=== PATIENT | female | born 1965 | race Caucasian/White ===

== ENCOUNTER 2017-03-23 05:58 | Inpatient (IN) ==
[2017-03-23] MEDS ORDERED: Albuterol 2.5 MG/3 ML NEBULIZER IH ONE ×2 (06:08→06:10)
[2017-03-23] MEDS ORDERED: CeFAZolin Syr 3,000MG/30 ML 3,000 MG/30 ML SYRINGE IVPB ONE (06:10)
[2017-03-23] MEDS ORDERED: Vancomycin 2,000 MG in D5% in Water 250 ML IVPB ONE (06:59)
--- NOTE | 2017-03-23 07:00 | Anesthesia Evaluation PreOp ---
Date of Encounter: 03/23/17 Time of Encounter: 06:58 - Past History Planned Operation: Right Ttotal Knee Cardiac History: HTN, Hyperlipidemia Pulmonary History: Former smoker (quit 1 month ago), Asthma, COPD (2L N/) [employer] History: Other (RLS, Neuropathy, Depression) Other Medical History: Hepatic (Fatty liver), Renal (Stones), Diabetes Type II, Thyroid (Hypothyroid), GERD, Other (Lung CA) Anesthesia History: Past Anesthesia (Right Lung lobectomy, FERMIN, Jose Alfredo. Knees, Hernia, GB, T&A, c/s x 2, salpingo-operectomy, Legt foot), Problems (Difficult to Intubate) : No Alcohol Use: none Drug use: none Medications and Allergies Aspirin Enteric Coated [Aspirin EC] 325 mg PO BID #20 tablet. 03/23/17 [Rx] OxyCODONE Immed Rel [Roxicodone 5 MG] 5 mg PO Q4HR PRN #24 tablet 03/23/17 [Rx] 3 Allergy/AdvReac Type Severity Reaction Status Date / Time hydrocodone Allergy Itching Unverified 03/19/17 11:00 morphine Allergy Itching Unverified 03/19/17 11:00 - Meds/Allergy Pre-op Review Medications Reviewed: Yes Allergies Reviewed: Yes Beta Blockers on Current Med List: No Anesthesia Results - Labs Laboratory Tests 03/19/17 03/19/17 03/19/17 11:10 11:10 11:10 WBC 11.3 H Hgb 13.1 Hct 44.3 INR 0.9 Sodium 137 Potassium 3.8 Chloride 98 Carbon Dioxide 29 BUN 9 Creatinine 0.82 - Imaging EKG: image reviewed (SR) Anesthesia Exam O2 Sat Height 1.66 m Height 1.66 m Weight 148.778 kg Weight 148.778 kg O2 Sat by Pulse Oximetry 93 Vital Signs Temp Pulse Resp BP Pulse Ox 97.9 F 89 22 138/72 93 03/23/17 06:18 03/23/17 06:18 03/23/17 06:18 03/23/17 06:18 03/23/17 06:18 Blood glucose: 166 Height: 5' 5.5'' Weight: 328# NPO (# of Hours): > 8 hrs - HEENT Pupil (Motor): Pupils equal, EOMI Mallampati: IV Teeth: Normal Oral Opening: Greater than 3 - [employer] LOC: Oriented [employer] Motor: Normal RUE, Normal LUE, Normal RLE, Normal LLE, Normal Face [employer] Sensory: Normal: RUE, LUE, RLE, LLE, Face - Cardiac Rhythm: Regular Murmur: None JVD: No Carotid Bruit: No - Pulmonary Breath Sounds: bilateral Clear Respiratory Effort: Symmetrical Anesthesia Assess/Plan ASA Score: 4 Modified Cuervo Scale for Level of Consciousness: Cooperative, oriented, and tranquil Anesthetic Plan: Regional (spinal) Autologous Blood: Yes Monitoring Plan: Standard Monitors Recovery Plan: PACU
[2017-03-23] MEDS ORDERED: Ethanol\\Acetic Acid\\Na Ace\\Ben 1,000 ML IRRIG.SOLN IR ONE (07:14)
--- NOTE | 2017-03-23 07:21 | History & Physical Report ---
Date of Encounter: 03/23/17 Time of Encounter: 07:21 24 Hour HP Update - Instructions Instructions: If the History and Physical is less than 30 days old and was completed prior to A.M. admission and or procedure and has NOT been updated on calendar day of procedure please complete this update prior to performing procedure. - Update Patient reports changes in Medical Condition: No Changes in examination, assessment, or condition: No Changes in Medication: No Preop tests/diagnostics Reviewed: Yes Surgery Remains Indicated: Yes Consent for Planned Operative Procedure(s) Verified: Yes - Pre-Operative Checklist Preoperative Checklist Indicated: No Prophylactic Antibiotic Ordered: Yes Is VTE Prophylaxis Indicated?: Yes
--- NOTE | 2017-03-23 07:25 | Discharge Summary ---
Date of Encounter: 03/26/17 Time of Encounter: 06:34 - Discharge Diagnosis (1) Morbid obesity with BMI of 50.0-59.9, adult Priority: Secondary Status: Chronic (2) Diabetes type 2, controlled Priority: Secondary Status: Chronic Qualifiers: Diabetes mellitus complication status: with unspecified complications Diabetes mellitus residential insulin use: unspecified long term care pharmacist insulin use status Qualified Code(s): E11.8 - Type 2 diabetes mellitus with unspecified complications (3) Hypertension Priority: Secondary Status: Chronic Qualifiers: Hypertension type: unspecified Qualified Code(s): I10 - Essential (primary ) hypertension (4) Hyperlipidemia Priority: Secondary Status: Chronic Qualifiers: Hyperlipidemia type: unspecified Qualified Code(s): E78.5 - Hyperlipidemia , unspecified (5) Tobacco consumption Priority: Secondary Status: Chronic (6) Asthma Priority: Secondary Status: Acute Qualifiers: Asthma severity: unspecified severity Asthma persistence: unspecified Asthma complication type: unspecified Qualified Code(s): J45.909 - Unspecified asthma, uncomplicated (7) COPD (chronic obstructive pulmonary disease) Priority: Secondary Status: Acute Qualifiers: COPD type: unspecified COPD Qualified Code(s): J44.9 - Chronic obstructive pulmonary disease, unspecified (8) Fatty liver Priority: Secondary Status: Chronic (9) Hypothyroidism Priority: Secondary Status: Chronic Qualifiers: Hypothyroidism type: unspecified Qualified Code(s): E03.9 - Hypothyroidism , unspecified (10) History of lung cancer Priority: Secondary Status: Chronic (11) Arthritis of right knee Priority: Primary Status: Chronic (12) Status post total right knee replacement Priority: Primary Status: Acute (13) Wound dehiscence, surgical Priority: Primary Status: Acute Qualifiers: Encounter type: initial encounter Qualified Code(s): T81.31XA - Disruption of external operation (surgical) wound, not elsewhere classified, initial encounter (14) Acute blood loss anemia Priority: Primary Status: Acute - Discharge Medications Prescriptions: Aspirin Enteric Coated [Aspirin EC] 325 mg PO BID #20 tablet. OxyCODONRon Immed Rel [Roxicodone 5 MG] 5 mg PO Q4HR PRN #24 tablet PRN Reason: Pain Home Medications: Albuterol Sulfate [Albuterol Inhaler] 2 puff IH Q4H PRN 03/23/17 [History] Aspirin Enteric Coated [Aspirin EC] 325 mg PO BID #20 tablet.dr 03/23/17 [Rx] BuPROPion XL (24 HR) [Wellbutrin Xl] 300 mg PO DAILY 03/23/17 [History] Cholecalciferol (Vitamin D3) [Vitamin D3] 50,000 unit PO FR 03/23/17 [History] Duloxetine HCl [Cymbalta] 60 mg PO DAILY 03/23/17 [History] Etodolac 400 mg PO BID 03/23/17 [History] Furosemide [Lasix] 40 mg PO BID PRN 03/23/17 [History] Gabapentin [Neurontin] 1,200 mg PO TID 03/23/17 [History] Insulin ASPART [NovoLOG] 0 unit SQ AD PRN 03/23/17 [History] Insulin Aspart Prot/Insuln Asp [Novolog Mix 70-30 Vial] 55 unit SQ QAM 03/23/17 [History] Insulin Aspart Prot/Insuln Asp [Novolog Mix 70-30 Vial] 85 unit SQ QPM 03/23/17 [History] Levothyroxine Sodium 150 mcg PO DAILY 03/23/17 [History] Losartan Potassium [Cozaar] 100 mg PO DAILY 03/23/17 [History] OxyCODONE Immed Rel [Roxicodone 5 MG] 5 mg PO Q4HR PRN #24 tablet 03/23/17 [Rx] Oxybutynin Chloride [Ditropan Xl] 10 mg PO DAILY 03/23/17 [History] Potassium Chloride [Klor-Con 10] 10 meq PO DAILY 03/23/17 [History] Pravastatin Sodium [Pravachol] 80 mg PO HS 03/23/17 [History] Tiotropium [Spiriva] 18 mcg PO DAILY 03/23/17 [History] Allergies/Adverse Reactions: 3 Allergy/AdvReac Type Severity Reaction Status Date / Time hydrocodone AdvReac Itching, Verified 03/24/17 20:46 Vomiting morphine AdvReac Itching Verified 03/24/17 20:46 Primary care physician: Luis Sandoval - Patient Status Disposition: Home, Self-Care Condition: Good Functional capacity at discharge: uses cane/walker Overall status at discharge: patient is progressing back to baseline - Discharge Instructions Follow Up With: Zach Hannon MD [Primary Care Provider] - - Hospital Course Hospital course: Ms. Briggs is a 51 year old female Status post right total knee replacement. Patient had an event on the commode with the leg slipped behind her. Dehisced the wound. Some postoperative day 1. Patient was taken back emergently to the OR. Extensor mechanism was intact. Patient had irrigation debridement wound closure. Patient received antibiotics and physical therapy discharge today - Time Spent with Patient Total time spent providing and/or coordinating discharge services:
[2017-03-23] MEDS ORDERED: *HR* Midazolam HCl 2 MG/2 ML VIAL ONE ×2 (07:26→08:14)
[2017-03-23] MEDS ORDERED: *HR* FentaNYL (PF) 100 MCG/2 ML VIAL ONE (07:26)
[2017-03-23] MEDS ORDERED: *HR* Propofol 200 MG/20 ML VIAL IVP ONE (07:26)
[2017-03-23] MEDS ORDERED: Ketamine *HR* 500 MG/10 ML MDV ONE (07:27)
[2017-03-23] MEDS ORDERED: Lidocaine -MPF 2% 2 ML VIAL ONE (07:27)
[2017-03-23] MEDS ORDERED: Lidocaine/EPI 1:200k 2% PF 10 ML VIAL ONE (07:30)
[2017-03-23] MEDS ORDERED: ROPIVACAINE HCL/PF 0.5% 30 ML VIAL ONE (07:31)
[2017-03-23] MEDS ORDERED: Acetaminophen IV 0 MG/0 ML INFUS..BTL ONE (07:31)
[2017-03-23] MEDS: Ringers Solution, Lactated 1,000 ML IVC SCH ×3 (07:50→23:58)
[2017-03-23] MEDS ORDERED: Vancomycin 2,000 MG in D5% in Water 500 ML IVPB ONE (08:00)
[2017-03-23] MEDS ORDERED: Propofol 500 MG/50 ML INFUS..BTL ONE (08:07)
[2017-03-23] MEDS ORDERED: Dexamethasone 4 MG/ML VIAL ONE (08:17)
[2017-03-23] MEDS ORDERED: Ondansetron 4 MG/2 ML VIAL ONE (08:17)
[2017-03-23] MEDS ORDERED: Ketorolac 30 MG/ML VIAL ONE (08:18)
[2017-03-23] MEDS ORDERED: *HR* Labetalol 20 MG/4 ML SYRINGE IVP PRN (08:29)
[2017-03-23] MEDS ORDERED: *HR* HYDROmorphone (PF) 1 MG/ML SYRINGE IVP PRN ×2 (08:29→10:31)
[2017-03-23] MEDS ORDERED: *HR* Promethazine 25 MG/ML VIAL IVP PRN (08:29)
--- NOTE | 2017-03-23 08:33 | Anesthesia Procedures ---
Date of Encounter: 03/23/17 Time of Encounter: 07:50 Procedures: Anesthesia - Nerve Block Procedure Date: 03/23/17 Time: 07:50 Allergies/Adv Reactions: hydrocodone, morphine Pre-op Diagnosis: right knee OA Surgical Procedure: right robotic TKA Checklist: Correct Patient Identifier, Correct procedure, History checked Correct side: Right Blood Thinner: No Monitor Applied: EKG, BP, Pulse Oximetry Supplemental Oxygen via Nasal Cannula (L/min): 15 (FM) Sedation: Versed (mg): 2 Sedation: Fentanyl (mcg): 100 Indication: Post Op Analgesia Pre-op Neuro Deficits: No Block Type: Femoral, Other (ipack) Catheter placed: No Sterile Technique: Yes Ultrasound used: Yes Anatomy identified: Yes Visual spread of Local: Yes Neuro Stimulation: Yes (femoral only) Nerve Stimulator Range: 0.2 - 0.4 mA Blood on Needle Aspiration: No Smooth Injection of Local: Yes Pain with Injection of Local: No Prep: Chlorhexadine Needle: 22 x 50 mm Stimuplex, 21 x 100 mm Stimuplex Local: Ropivacaine (30mL 0.5% (femoral)), Other (decadron 8mg x2 blocks, 30mL 0.25% bupivacaine (ipack)) Volume (cc): 60 Number of Attempts: 1 Complications: None/effective block Vitals: Vital Signs/O2 Sat/Glucose, Most Recent Temp Pulse Resp BP Pulse Ox 97.9 F 84 16 123/68 95 03/23/17 06:18 03/23/17 07:52 03/23/17 07:52 03/23/17 07:52 03/23/17 07:52 Blood Glucose* 166
--- NOTE | 2017-03-23 08:35 | Anesthesia Procedures ---
Date of Encounter: 03/23/17 Time of Encounter: 08:05 Procedures: Anesthesia - Epidural/Spinal Patient ID/Chart reviewed: Yes Patient examined: Yes Consent Obtained: Yes Supplemental Oxygen: Mask Supplemental Oxygen Rate (L/min): 15 Site Prep: Aseptic Technique, Sterile prep and drape, Povidone-Iodine 1% Patient position: upright Local Anesthetic: Lidocaine 1% Amount of Local Anesthetic used: 2 Interspace Used: L3-L4 Blood: No CSF: Yes (+barbotage) Paresthesia: No Spinal Needle Gauge: 22 (quinke 5in) Spinal Dose: 1.8mL 0.75% bupivacaine Vitals + FHT's: see anesthetic record
--- NOTE | 2017-03-23 09:29 | Orthopedic Operative Note ---
Date of procedure: 03/23/17 Pre-op diagnosis: Knee arthritis right Post-op diagnosis: same Procedure: Procedure: Right robotic-assisted Total knee replacement Estimated blood loss: 500 cc Hardware: Metal and polyethylene replacement. [place] Femur: 5 Tibia:6 PS insert: 11 Patella: 36 Exam Under anesthesia: 11 degree flexion contracture 12 degrees varus as calculated by the robot full flexion and no instability Procedural Notes: Grade 4 arthritic changes all 3 compartments. Operative procedure: The patient was brought to the operating room and placed on the operating room table. After general anesthesia was administered the operative knee was examined. Findings were noted in the exam under anesthesia. The operative extremity was prepped and draped in sterile surgical fashion. The patient received IV antibiotics prior to skin incision. A standard midline incision was made centered over the patella. The incision was made through the skin and subcutaneous tissue. A medial parapatellar tendon approach was performed. Care was taken to preserve tissue along the medial aspect of the patella. And to protect the patella tendon. The deep MCL was released off the medial tibia. The infra patella fat pad was excised. The patella was everted and cut was made at the level of the insertion of the quadriceps and patella tendon. The patella was sized 36 the guide was seated and the lug holes are drilled. Knee was brought into flexion. Patient noted to have Steinmann pins were placed in the tibia and the femur for the tibial and femoral arrays respectively. Checkpoints were also placed in the tibia and the femur for calculation purposes. The knee including the femur and the tibial registered. Osteophytes, ACL and PCL were excised at this point. Extension and flexion were assessed with a valgus stress components were adjusted on the computer to balance the knee. Femoral cuts were made first with robotic assistance, these included the anterior cut posterior cuts chamfer cuts. Tibial cut was then performed with robotic assistance as well. Bone fragments were removed, as well as the medial and lateral meniscus. The size 5 femoral guide was seated box cut was made lug holes are drilled. The size 6 tibial tray was seated and prepared with the fin cutter. Trial reduction with the 11 PS Isamar revealed extension of loss of 3 degree and full flexion. No varus valgus instability. Trial reduction revealed excellent patella tracking. All trial components were removed all bony surfaces were irrigated. Tibias press-fit followed by the femur PS Isamar size 141 was seated and secured patella. Patient had similar findings for motion and stability. The knee was then irrigated out with 2 L of pulse irrigation. The extensor mechanism was closed with #2 FiberWire suture and #2 PDS suture. The subcutaneous tissue was then irrigated and closed deep with #1 PDS suture superficially with 0 PDS suture and skin was closed with zip tie The patient was then placed in a sterile dressing and a postoperative brace extubated and transferred to recovery room in stable condition. Anesthesia: spinal Surgeon: Karsten Argueta Was there an branch assistant present: No Estimated blood loss (cc): 500 Condition: stable Disposition: PACU
[2017-03-23 10:06] LABS: Hematocrit 37.2 % (35.3-44.9)
[2017-03-23 10:08] LABS: Hemoglobin 11.3 g/dL (11.5-15.4)
--- NOTE | 2017-03-23 10:09 | Anesthesia Evaluation Post Op ---
Date of Encounter: 03/23/17 Time of Encounter: 10:09 - Vital Signs Vital Signs: Vital Signs/O2 Sat, Most Current Temp Pulse Resp BP Pulse Ox 98.6 F 96 20 139/63 93 03/23/17 09:41 03/23/17 10:01 03/23/17 10:01 03/23/17 10:01 03/23/17 10:01 - Lungs Lungs: Clear Ascult./Percussion - Airway Airway: Non-obstructed - Cardiovascular Regular Rate - Mental Status Mental Status: Alert & Oriented, Answers Appropriately - Pain Pain Scale: 0 Pain Scale used: Numeric (1 - 10) - Hydration Hydration: Ice chips, Has not voided - Discharge PostOp Status: Transfer Patient to floor
[2017-03-23] MEDS ORDERED: *HR* Dextrose 50 % in Water (Syg) 50 ML SYRINGE IVP PRN (10:31)
[2017-03-23] MEDS ORDERED: Naloxone 0.4 MG/ML INJ IVP PRN (10:31)
[2017-03-23] MEDS ORDERED: Furosemide 40 MG TABLET PO PRN (10:31)
[2017-03-23] MEDS ORDERED: Ondansetron 4 MG/2 ML VIAL IVP PRN (10:31)
[2017-03-23] MEDS ORDERED: D5% in Water 1,000 ML IVC PRN (10:31)
[2017-03-23] MEDS ORDERED: Temazepam 15 MG CAPSULE PO PRN (10:31)
[2017-03-23] MEDS ORDERED: Dextrose Gel 15 GM/37.5 ML TUBE PO PRN ×2 (10:31)
[2017-03-23] MEDS ORDERED: *HR* OxyCODONE Immed Rel 5 MG TABLET PO PRN (10:31)
[2017-03-23] MEDS ORDERED: Sennosides 8.6 MG TABLET PO PRN (10:31)
[2017-03-23] MEDS ORDERED: MOM Conc 10 ML UD.LIQ PO PRN (10:31)
[2017-03-23] MEDS: Insulin LISPRO 300 UNITS/3 ML VIAL SQ SCH ×3 (11:53→17:48)
[2017-03-23] MEDS: Gabapentin 400 MG CAPSULE PO SCH ×2 (14:06→19:47)
[2017-03-23] MEDS: *HR* OxyCODONE Immed Rel 5 MG TABLET PO PRN ×2 (15:40→19:48)
[2017-03-23] MEDS: CeFAZolin Syr 3,000MG/30 ML 3,000 MG/30 ML SYRINGE IVPB SCH (15:48)
[2017-03-23] MEDS ORDERED: Insulin NPH/REG 70/30 300 UNIT/3 ML VIAL SQ SCH ×2 (17:00→18:00)
[2017-03-23] MEDS: *HR* Enoxaparin 30 MG/0.3 ML SYRINGE SQ SCH (17:47)
[2017-03-23] MEDS ORDERED: *HR* Enoxaparin 30 MG/0.3 ML SYRINGE SQ SCH (18:00)
[2017-03-23] MEDS ORDERED: NON-FORMULARY MEDICATION 1 EACH EACH (Insulin Aspart Prot/Insuln Asp [Novolog Mix 70-30 Vi SQ SCH (18:00)
[2017-03-23] MEDS ORDERED: Insulin LISPRO 300 UNITS/3 ML VIAL SQ SCH (21:00)
[2017-03-24] MEDS: CeFAZolin Syr 3,000MG/30 ML 3,000 MG/30 ML SYRINGE IVPB SCH (00:31)
[2017-03-24] MEDS: *HR* OxyCODONE Immed Rel 5 MG TABLET PO PRN ×4 (00:31→23:07)
[2017-03-24] MEDS: Ringers Solution, Lactated 1,000 ML IVC SCH ×2 (01:14→14:24)
[2017-03-24] MEDS: *HR* Enoxaparin 30 MG/0.3 ML SYRINGE SQ SCH ×2 (05:15→17:18)
[2017-03-24 06:36] LABS: Hematocrit 32.6 % (35.3-44.9)
[2017-03-24 06:38] LABS: BUN/Creatinine Ratio 19 (6-26); Blood Urea Nitrogen 20 mg/dL (6-20); Carbon Dioxide 29 mEq/L (23-29); Chloride 95 mEq/L (98-107); Glucose 203 mg/dL (70-105); Osmolality,Calculated 284 (280-300); Potassium 4.1 mEq/L (3.5-5.1); Sodium 133 mEq/L (136-145); eGFR For African Americans > 60 (> 60); eGFR For Non-African Americans 54 (> 60)
[2017-03-24] MEDS ORDERED: Insulin NPH/REG 70/30 300 UNIT/3 ML VIAL SQ SCH ×2 (07:30→17:00)
--- NOTE | 2017-03-24 07:33 | Orthopedics Progress Note ---
Date of Encounter: 03/24/17 Time of Encounter: 07:32 - Assessment and Plan (1) Morbid obesity with BMI of 50.0-59.9, adult Current Visit: Yes Status: Chronic (2) Diabetes type 2, controlled Current Visit: Yes Status: Chronic Qualifiers: Diabetes mellitus complication status: with unspecified complications Diabetes mellitus manager intermediate insulin use: unspecified manager intermediate insulin use status Qualified Code(s): E11.8 - Type 2 diabetes mellitus with unspecified complications (3) Hypertension Current Visit: Yes Status: Chronic Qualifiers: Hypertension type: unspecified Qualified Code(s): I10 - Essential (primary ) hypertension (4) Hyperlipidemia Current Visit: Yes Status: Chronic Qualifiers: Hyperlipidemia type: unspecified Qualified Code(s): E78.5 - Hyperlipidemia , unspecified (5) Tobacco consumption Current Visit: Yes Status: Chronic (6) Asthma Current Visit: Yes Status: Acute Qualifiers: Asthma severity: unspecified severity Asthma persistence: unspecified Asthma complication type: unspecified Qualified Code(s): J45.909 - Unspecified asthma, uncomplicated (7) COPD (chronic obstructive pulmonary disease) Current Visit: Yes Status: Acute Qualifiers: COPD type: unspecified COPD Qualified Code(s): J44.9 - Chronic obstructive pulmonary disease, unspecified (8) Fatty liver Current Visit: Yes Status: Chronic (9) Hypothyroidism Current Visit: Yes Status: Chronic Qualifiers: Hypothyroidism type: unspecified Qualified Code(s): E03.9 - Hypothyroidism , unspecified (10) History of lung cancer Current Visit: Yes Status: Chronic (11) Arthritis of right knee Current Visit: Yes Status: Chronic (12) Status post total right knee replacement Current Visit: Yes Status: Acute Subjective Interval history: Patient was seen this morning doing well without complaints. Afebrile vital signs stable. Operative extremity: Neurovascularly intact Dressing clean dry and intact Calves nontender Assessment and plan: Continue with postoperative care Hematocrit 32 Objective Vital signs: Vital Signs Temp Pulse Resp BP Pulse Ox 03/24/17 06:55 97.8 F 80 18 140/65 91 03/24/17 04:38 97.8 F 77 16 153/84 94 03/24/17 00:30 98.7 F 86 18 134/79 94 03/23/17 20:05 98.7 F 92 18 135/73 93 03/23/17 17:03 98.3 F 100 20 142/85 92 03/23/17 12:30 98.6 F 86 16 99/56 93 03/23/17 11:30 98.7 F 89 16 109/72 94 03/23/17 11:12 93 03/23/17 11:00 98.5 F 91 18 112/74 92 03/23/17 10:30 97.3 F L 92 18 96/94 93 03/23/17 10:11 98.3 F 94 20 124/62 94 03/23/17 10:01 96 20 139/63 93 03/23/17 09:51 96 17 136/62 92 03/23/17 09:41 98.6 F 103 20 140/90 94 03/23/17 07:52 84 16 123/68 95 03/23/17 07:40 85 18 147/77 94 Intake and Output 03/23/17 03/23/17 03/24/17 15:59 23:59 07:59 Intake Total 2000 / 2000 270 / 270 600 / 600 Output Total 500 / 500 400 / 400 2800 / 2800 Balance 1500 / 1500 -130 / -130 -2200 / -2200 Intake: IV Fluids 1000 / 1000 30 / 30 Lactated Ringers 1,000 ML @ 25 1000 / 1000 mls/hr IVC .Q24H [facility]IL[facility] Rx#: [id number] Ancef Syringe 3,000 MG/30 ML 3, 30 / 30 000 mg In 30 ml @ 200 mls/hr IVPB Q8HR MARILIA Rx#:[id number] Oral 1000 / 1000 240 / 240 600 / 600 Output: Urine 400 / 400 2800 / 2800 Estimated Blood Loss 500 / 500 Other: Meal Dinner Percent of Meal Consumed 100% # Voids 1 1 # Urine Diapers 1 Blood Glucose* 250 395 230 - Labs CBC & BMP: 03/24/17 05:23 03/24/17 05:23 Labs: Abnormal lab results Hgb 10.0 g/dL (11.5-15.4) L 03/24/17 05:23 Hct 32.6 % (35.3-44.9) L 03/24/17 05:23 Sodium 133 mEq/L (136-145) L 03/24/17 05:23 Chloride 95 mEq/L (98-107) L 03/24/17 05:23 Est GFR (Non-Af Amer) 54 (> 60) L 03/24/17 05:23 Glucose 203 mg/dL (70-105) H 03/24/17 05:23 POC Glucose 395 (58-89) H 03/23/17 20:13 - VTE Documentation of Mechanical Device: Venous foot pump, device Consult Discharge Plan - Plan Referrals: Zach Hannon MD [Primary Care Provider] - Prescriptions: Aspirin Enteric Coated [Aspirin EC] 325 mg PO BID #20 tablet. OxyCODONE Immed Rel [Roxicodone 5 MG] 5 mg PO Q4HR PRN #24 tablet PRN Reason: Pain
[2017-03-24] MEDS: Gabapentin 400 MG CAPSULE PO SCH ×3 (07:51→20:52)
[2017-03-24] MEDS: Insulin LISPRO 300 UNITS/3 ML VIAL SQ SCH ×4 (07:52→20:53)
[2017-03-24] MEDS ORDERED: NON-FORMULARY MEDICATION 1 EACH EACH (Insulin Aspart Prot/Insuln Asp [Novolog Mix 70-30 Vi SL SCH (09:00)
[2017-03-24] MEDS ORDERED: Cholecalciferol (D-3) 1,000 UNIT TABLET PO SCH (09:00)
[2017-03-24] MEDS ORDERED: Tiotropium 18 MCG inhalation IH SCH (09:00)
[2017-03-24] MEDS ORDERED: BuPROPion XL (24 HR) 150 MG TABLET PO SCH (09:00)
[2017-03-24] MEDS ORDERED: Ethanol\\Acetic Acid\\Na Ace\\Ben 1,000 ML IRRIG.SOLN IR ONE (12:48)
--- NOTE | 2017-03-24 13:08 | Anesthesia Evaluation PreOp ---
Date of Encounter: 03/24/17 Time of Encounter: 13:06 - Past History Planned Operation: I&D, Wound Closure R. Knee Cardiac History: Denies any Significant Hx ( Right Ttotal Knee Cardiac History: HTN, Hyperlipidemia Pulmonary History: Former smoker (quit 1 month ago), Asthma , COPD (2L N/) [employer] History: Other (RLS, Neuropathy, Depression) Other Medical History: Hepatic (Fatty liver), Renal (Stones), Diabetes Type II, Thyroid ( Hypothyroid), GERD, Other (Lung CA) Anesthesia History: Past Anesthesia (Right Lung lobectomy, FERMIN, Jose Alfredo. Knees, Hernia, GB, T&A, c/s x 2, salpingo-operectomy, Legt foot), Problems (Difficult to Intubate) : No Alcohol Use: none Drug use: none), HTN, Hyperlipidemia Pulmonary History: Former smoker, Asthma, COPD (2L n/c) [employer] History: Other (RLS, neuropathy) Other Medical History: Hepatic (Fatty liver), Renal (Stones) Anesthesia History: Past Anesthesia (Right Lung lobectomy, FERMIN, Jose Alfrdeo. Knees, Hernia, GB, T&A, c/s x 2, salpingo-operectomy, Legt foot)), Problems (Difficult to intubate in past) : No Alcohol Use: none Drug use: none Medications and Allergies Albuterol Sulfate [Albuterol Inhaler] 2 puff IH Q4H PRN 03/23/17 [History] Aspirin Enteric Coated [Aspirin EC] 325 mg PO BID #20 tablet.dr 03/23/17 [Rx] BuPROPion XL (24 HR) [Wellbutrin Xl] 300 mg PO DAILY 03/23/17 [History] Cholecalciferol (Vitamin D3) [Vitamin D3] 50,000 unit PO FR 03/23/17 [History] Duloxetine HCl [Cymbalta] 60 mg PO DAILY 03/23/17 [History] Etodolac 400 mg PO BID 03/23/17 [History] Furosemide [Lasix] 40 mg PO BID PRN 03/23/17 [History] Gabapentin [Neurontin] 1,200 mg PO TID 03/23/17 [History] Insulin ASPART [NovoLOG] 0 unit SQ AD PRN 03/23/17 [History] Insulin Aspart Prot/Insuln Asp [Novolog Mix 70-30 Vial] 55 unit SQ QAM 03/23/17 [History] Insulin Aspart Prot/Insuln Asp [Novolog Mix 70-30 Vial] 85 unit SQ QPM 03/23/17 [History] Levothyroxine Sodium 150 mcg PO DAILY 03/23/17 [History] Losartan Potassium [Cozaar] 100 mg PO DAILY 03/23/17 [History] OxyCODONE Immed Rel [Roxicodone 5 MG] 5 mg PO Q4HR PRN #24 tablet 03/23/17 [Rx] Oxybutynin Chloride [Ditropan Xl] 10 mg PO DAILY 03/23/17 [History] Potassium Chloride [Klor-Con 10] 10 meq PO DAILY 03/23/17 [History] Pravastatin Sodium [Pravachol] 80 mg PO HS 03/23/17 [History] Tiotropium [Spiriva] 18 mcg PO DAILY 03/23/17 [History] 3 Allergy/AdvReac Type Severity Reaction Status Date / Time hydrocodone AdvReac Itching, Unverified 03/23/17 07:32 Vomiting morphine AdvReac Itching Unverified 03/23/17 07:32 - Meds/Allergy Pre-op Review Medications Reviewed: Yes Allergies Reviewed: Yes Beta Blockers on Current Med List: No Anesthesia Results - Labs 03/24/17 05:23 03/24/17 05:23 - Imaging EKG: report reviewed (SR) Anesthesia Exam O2 Sat O2 Sat by Pulse Oximetry 95 O2 Sat by Pulse Oximetry 93 O2 Sat by Pulse Oximetry 96 O2 Sat by Pulse Oximetry 92 O2 Sat by Pulse Oximetry 92 O2 Sat by Pulse Oximetry 91 O2 Sat by Pulse Oximetry 91 O2 Sat by Pulse Oximetry 91 O2 Sat by Pulse Oximetry 94 O2 Sat by Pulse Oximetry 94 O2 Sat by Pulse Oximetry 93 O2 Sat by Pulse Oximetry 92 Vital Signs Temp Pulse Resp BP Pulse Ox 97.9 F 89 22 138/72 93 03/23/17 06:18 03/23/17 06:18 03/23/17 06:18 03/23/17 06:18 03/23/17 06:18 Vital Signs/O2 Sat, Most Current Temp Pulse Resp BP Pulse Ox 97.9 F 73 16 108/64 95 03/24/17 12:50 03/24/17 12:50 03/24/17 12:50 03/24/17 12:50 03/24/17 12:50 Height: 5'5'' Weight: 328# NPO (# of Hours): > 8 hrs Pain Scale: 0 - HEENT Pupil (Motor): Pupils equal, EOMI Mallampati: IV Teeth: Normal Oral Opening: Greater than 3 - [employer] LOC: Oriented [employer] Motor: Normal RUE, Normal LUE, Normal RLE, Normal LLE, Normal Face [employer] Sensory: Normal: RUE, LUE, RLE, LLE, Face - Cardiac Rhythm: Regular Murmur: None JVD: No Carotid Bruit: No - Pulmonary Breath Sounds: bilateral Clear Respiratory Effort: Symmetrical - Additional Findings Pt ate full Breakfast @08:00, Surgeon States this is a threatened limb and surgery must be done now. Will proceed with IV sedation Anesthesia Assess/Plan ASA Score: 4, E Modified Rajinder Scale for Level of Consciousness: Cooperative, oriented, and tranquil Anesthetic Plan: MAC Autologous Blood: Yes Monitoring Plan: Standard Monitors Recovery Plan: PACU
[2017-03-24] MEDS ORDERED: Albuterol 2.5 MG/3 ML NEBULIZER ONE (13:25)
[2017-03-24] MEDS ORDERED: Albuterol 2.5 MG/3 ML NEBULIZER IH ONE (13:30)
[2017-03-24] MEDS ORDERED: *HR* Midazolam HCl 2 MG/2 ML VIAL ONE (13:34)
[2017-03-24] MEDS ORDERED: *HR* FentaNYL (PF) 100 MCG/2 ML VIAL ONE (13:34)
[2017-03-24] MEDS ORDERED: *HR* Propofol 200 MG/20 ML VIAL IVP ONE (13:34)
--- NOTE | 2017-03-24 13:36 | Orthopedics Progress Note ---
Date of Encounter: 03/24/17 Time of Encounter: 13:34 - Assessment and Plan (1) Morbid obesity with BMI of 50.0-59.9, adult Current Visit: Yes Status: Chronic (2) Diabetes type 2, controlled Current Visit: Yes Status: Chronic Qualifiers: Diabetes mellitus complication status: with unspecified complications Diabetes mellitus intermediate accountant insulin use: unspecified correction insulin use status Qualified Code(s): E11.8 - Type 2 diabetes mellitus with unspecified complications (3) Hypertension Current Visit: Yes Status: Chronic Qualifiers: Hypertension type: unspecified Qualified Code(s): I10 - Essential (primary ) hypertension (4) Hyperlipidemia Current Visit: Yes Status: Chronic Qualifiers: Hyperlipidemia type: unspecified Qualified Code(s): E78.5 - Hyperlipidemia , unspecified (5) Tobacco consumption Current Visit: Yes Status: Chronic (6) Asthma Current Visit: Yes Status: Acute Qualifiers: Asthma severity: unspecified severity Asthma persistence: unspecified Asthma complication type: unspecified Qualified Code(s): J45.909 - Unspecified asthma, uncomplicated (7) COPD (chronic obstructive pulmonary disease) Current Visit: Yes Status: Acute Qualifiers: COPD type: unspecified COPD Qualified Code(s): J44.9 - Chronic obstructive pulmonary disease, unspecified (8) Fatty liver Current Visit: Yes Status: Chronic (9) Hypothyroidism Current Visit: Yes Status: Chronic Qualifiers: Hypothyroidism type: unspecified Qualified Code(s): E03.9 - Hypothyroidism , unspecified (10) History of lung cancer Current Visit: Yes Status: Chronic (11) Arthritis of right knee Current Visit: Yes Status: Chronic (12) Status post total right knee replacement Current Visit: Yes Status: Acute Subjective Interval history: Patient was seen this morning doing and was doing well. Called back in to see patient emergently, patient had an episode while on the commode. her operative leg slid back underneath her. This resulted in a large wound dehiscence of the operative right knee. Patient with active bloody drainage. Indicated for emergent returned to the operating room for irrigation debridement wound closure. Patient is at high risk for infection due to the nature of this injury. Objective Vital signs: Vital Signs Temp Pulse Resp BP Pulse Ox 03/24/17 13:05 97.9 F 63 16 106/57 94 03/24/17 12:50 97.9 F 73 16 108/64 95 03/24/17 12:35 97.9 F 71 18 122/77 93 03/24/17 12:20 98.1 F 82 18 137/91 96 03/24/17 12:05 97.7 F 93 18 146/84 92 03/24/17 08:17 91 03/24/17 08:02 18 91 03/24/17 06:55 97.8 F 80 18 140/65 91 03/24/17 04:38 97.8 F 77 16 153/84 94 03/24/17 00:30 98.7 F 86 18 134/79 94 03/23/17 20:05 98.7 F 92 18 135/73 93 03/23/17 17:03 98.3 F 100 20 142/85 92 Intake and Output 03/23/17 03/24/17 03/24/17 23:59 07:59 15:59 Intake Total 270 / 270 600 / 600 420 / 420 Output Total 400 / 400 2800 / 2800 1200 / 1200 Balance -130 / -130 -2200 / -2200 -780 / -780 Intake: IV Fluids 30 / 30 60 / 60 Ancef Syringe 3,000 MG/30 ML 3, 30 / 30 30 / 30 000 mg In 30 ml @ 200 mls/hr IVPB Q8HR [facility] Rx#:[id number] Oral 240 / 240 600 / 600 360 / 360 Output: Urine 400 / 400 2800 / 2800 1200 / 1200 Other: Meal Dinner Breakfast Percent of Meal Consumed 100% 100% # Voids 1 Blood Glucose* 395 230 255 - Labs CBC & BMP: 03/24/17 05:23 03/24/17 05:23 Labs: Abnormal lab results Hgb 10.0 g/dL (11.5-15.4) L 03/24/17 05:23 Hct 32.6 % (35.3-44.9) L 03/24/17 05:23 Sodium 133 mEq/L (136-145) L 03/24/17 05:23 Chloride 95 mEq/L (98-107) L 03/24/17 05:23 Est GFR (Non-Af Amer) 54 (> 60) L 03/24/17 05:23 Glucose 203 mg/dL (70-105) H 03/24/17 05:23 POC Glucose 255 (58-89) H 03/24/17 12:39 - VTE Documentation of Mechanical Device: Venous foot pump, device Consult Discharge Plan - Plan Referrals: Zach Hannon MD [Primary Care Provider] - Prescriptions: Aspirin Enteric Coated [Aspirin EC] 325 mg PO BID #20 tablet.dr CabreraDONRon Immed Rel [Roxicodone 5 MG] 5 mg PO Q4HR PRN #24 tablet PRN Reason: Pain
[2017-03-24] MEDS ORDERED: Metoclopramide 10 MG/2 ML VIAL IVP PRN (13:37)
[2017-03-24] MEDS ORDERED: Famotidine 20 MG/2 ML VIAL IVP ONE (13:39)
[2017-03-24] MEDS ORDERED: Famotidine 20 MG/2 ML VIAL ONE (13:45)
[2017-03-24] MEDS ORDERED: Metoclopramide 10 MG/2 ML VIAL ONE (13:47)
[2017-03-24] MEDS ORDERED: *HR* Succinylcholine 200 MG/10 ML VIAL IVP ONE (14:10)
[2017-03-24] MEDS ORDERED: ceFAZolin 3,000 MG in Water for inj. (sterile) 30 ML IVP ONE (14:19)
[2017-03-24] MEDS ORDERED: Ondansetron 4 MG/2 ML VIAL ONE (14:26)
--- NOTE | 2017-03-24 14:33 | Orthopedic Operative Note ---
Date of procedure: 03/24/17 Pre-op diagnosis: Right knee wound dehiscence Post-op diagnosis: same Procedure: Procedure: Irrigation debridement wound closure right knee Estimated blood loss 20 mL Findings: Complete wound dehiscence of subcutaneous and skin, intact extensor mechanism repair Procedure: Patient brought to the operative history operative table after Mac anesthesia was administered the right lower extremity prepped and draped sterile surgical fashion patient received IV antibiotics prior to procedure. Patient had dehisced the entire wound. Prior to prep Danelle were removed. The wound was irrigated with 3 L of pulse irrigation examination the extensor mechanism revealed it to be intact. The knee was then soaked with Betadine saline. It was irrigated again and closed deep with #2 PDS suture superficially with 0 PDS suture skin was closed with skin danelle. Patient was sterile dressing postoperative brace extubated and transferred to recovery in stable condition. Anesthesia: MAC Surgeon: Karsten Argueta Was there an physician assistant primary care present: No Estimated blood loss (cc): 20 Condition: stable Disposition: PACU
[2017-03-24] MEDS ORDERED: *HR* HYDROmorphone (PF) 1 MG/ML SYRINGE IVP PRN (15:33)
[2017-03-24] MEDS ORDERED: D5% in Water 1,000 ML IVC PRN (15:33)
[2017-03-24] MEDS ORDERED: Dextrose Gel 15 GM/37.5 ML TUBE PO PRN ×2 (15:33)
[2017-03-24] MEDS ORDERED: Naloxone 0.4 MG/ML INJ IVP PRN (15:33)
[2017-03-24] MEDS ORDERED: *HR* OxyCODONE Immed Rel 5 MG TABLET PO PRN (15:33)
[2017-03-24] MEDS ORDERED: Temazepam 15 MG CAPSULE PO PRN (15:33)
[2017-03-24] MEDS ORDERED: Ringers Solution, Lactated 1,000 ML IVC SCH (15:33)
[2017-03-24] MEDS ORDERED: MOM Conc 10 ML UD.LIQ PO PRN (15:33)
[2017-03-24] MEDS ORDERED: *HR* Dextrose 50 % in Water (Syg) 50 ML SYRINGE IVP PRN (15:33)
[2017-03-24] MEDS ORDERED: Sennosides 8.6 MG TABLET PO PRN (15:33)
[2017-03-24] MEDS ORDERED: Furosemide 40 MG TABLET PO PRN (15:33)
[2017-03-24] MEDS ORDERED: Ondansetron 4 MG/2 ML VIAL IVP PRN (15:33)
[2017-03-24] MEDS ORDERED: Vancomycin (wt based) 1,000 MG VIAL IV SCH (15:33)
[2017-03-24 16:14] LABS: Hematocrit 27.9 % (35.3-44.9); Hemoglobin 8.6 g/dL (11.5-15.4)
[2017-03-24] MEDS: Vancomycin 2,000 MG in D5% in Water 500 ML IVPB SCH (17:13)
[2017-03-24] MEDS: Insulin NPH/REG 70/30 100 UNIT/ML (x5UNIT) SQ SCH (17:14)
[2017-03-25 03:51] LABS: Hematocrit 27.3 % (35.3-44.9)
[2017-03-25 04:15] LABS: BUN/Creatinine Ratio 19 (6-26); Blood Urea Nitrogen 22 mg/dL (6-20); Calcium 8.7 mg/dL (8.6-10.3); Carbon Dioxide 31 mEq/L (23-29); Chloride 97 mEq/L (98-107); Glucose 86 mg/dL (70-105); Osmolality,Calculated 285 (280-300); Potassium 3.6 mEq/L (3.5-5.1); Sodium 136 mEq/L (136-145); eGFR For African Americans > 60 (> 60); eGFR For Non-African Americans 50 (> 60)
[2017-03-25] MEDS: Vancomycin 2,000 MG in D5% in Water 500 ML IVPB SCH (05:21)
[2017-03-25] MEDS: *HR* Enoxaparin 30 MG/0.3 ML SYRINGE SQ SCH ×2 (05:23→17:35)
[2017-03-25] MEDS: *HR* OxyCODONE Immed Rel 5 MG TABLET PO PRN ×4 (05:43→23:41)
--- NOTE | 2017-03-25 07:03 | Orthopedics Progress Note ---
Date of Encounter: 03/25/17 Time of Encounter: 07:02 - Assessment and Plan (1) Morbid obesity with BMI of 50.0-59.9, adult Current Visit: Yes Status: Chronic (2) Diabetes type 2, controlled Current Visit: Yes Status: Chronic Qualifiers: Diabetes mellitus complication status: with unspecified complications Diabetes mellitus nanny caregiver insulin use: unspecified long-term insulin use status Qualified Code(s): E11.8 - Type 2 diabetes mellitus with unspecified complications (3) Hypertension Current Visit: Yes Status: Chronic Qualifiers: Hypertension type: unspecified Qualified Code(s): I10 - Essential (primary ) hypertension (4) Hyperlipidemia Current Visit: Yes Status: Chronic Qualifiers: Hyperlipidemia type: unspecified Qualified Code(s): E78.5 - Hyperlipidemia , unspecified (5) Tobacco consumption Current Visit: Yes Status: Chronic (6) Asthma Current Visit: Yes Status: Acute Qualifiers: Asthma severity: unspecified severity Asthma persistence: unspecified Asthma complication type: unspecified Qualified Code(s): J45.909 - Unspecified asthma, uncomplicated (7) COPD (chronic obstructive pulmonary disease) Current Visit: Yes Status: Acute Qualifiers: COPD type: unspecified COPD Qualified Code(s): J44.9 - Chronic obstructive pulmonary disease, unspecified (8) Fatty liver Current Visit: Yes Status: Chronic (9) Hypothyroidism Current Visit: Yes Status: Chronic Qualifiers: Hypothyroidism type: unspecified Qualified Code(s): E03.9 - Hypothyroidism , unspecified (10) History of lung cancer Current Visit: Yes Status: Chronic (11) Arthritis of right knee Current Visit: Yes Status: Chronic (12) Status post total right knee replacement Current Visit: Yes Status: Acute (13) Wound dehiscence, surgical Current Visit: Yes Status: Acute Qualifiers: Encounter type: initial encounter Qualified Code(s): T81.31XA - Disruption of external operation (surgical) wound, not elsewhere classified, initial encounter (14) Acute blood loss anemia Current Visit: Yes Status: Acute Subjective Interval history: Patient was seen this morning doing well without complaints. Afebrile vital signs stable. Operative extremity: Neurovascularly intact Dressing clean dry and intact Calves nontender Assessment and plan: Continue with postoperative care hb 8 transfuse 1 unit Objective Vital signs: Vital Signs Temp Pulse Resp BP Pulse Ox 03/24/17 23:21 97.4 F L 80 18 106/44 94 03/24/17 18:00 98.3 F 90 16 103/66 95 03/24/17 17:29 98.5 F 86 16 116/71 98 03/24/17 16:00 98.3 F 73 16 102/68 99 03/24/17 15:31 97.9 F 72 16 97/62 91 03/24/17 15:02 97.7 F 75 18 102/65 91 03/24/17 13:05 97.9 F 63 16 106/57 94 03/24/17 12:50 97.9 F 73 16 108/64 95 03/24/17 12:35 97.9 F 71 18 122/77 93 03/24/17 12:20 98.1 F 82 18 137/91 96 03/24/17 12:05 97.7 F 93 18 146/84 92 03/24/17 08:17 91 03/24/17 08:02 18 91 Intake and Output 03/24/17 03/24/17 03/25/17 15:59 23:59 07:59 Intake Total 420 / 420 500 / 500 800 / 800 Output Total 1220 / 1220 1700 / 1700 Balance -800 / -800 500 / 500 -900 / -900 Intake: IV Fluids 60 / 60 500 / 500 Ancef Syringe 3,000 MG/30 ML 3, 30 / 30 000 mg In 30 ml @ 200 mls/hr IVPB Q8HR [facility] Rx#:[id number] Vancocin 2,000 MG In Dextrose 5 500 / 500 % 500 ML @ 250 mls/hr IVPB Q12H [facility] Rx#:[id number] Oral 360 / 360 800 / 800 Output: Urine 1200 / 1200 1700 / 1700 Estimated Blood Loss 20 / 20 Other: Meal Breakfast Percent of Meal Consumed 100% # Voids 1 1 3 Blood Glucose* 255 190 - Labs CBC & BMP: 03/25/17 02:34 03/25/17 02:34 Labs: Abnormal lab results Hgb 8.0 g/dL (11.5-15.4) L 03/25/17 02:34 Hct 27.3 % (35.3-44.9) L 03/25/17 02:34 Chloride 97 mEq/L (98-107) L 03/25/17 02:34 Carbon Dioxide 31 mEq/L (23-29) H 03/25/17 02:34 BUN 22 mg/dL (6-20) H 03/25/17 02:34 Est GFR (Non-Af Amer) 50 (> 60) L 03/25/17 02:34 POC Glucose 232 (58-89) H 03/24/17 20:50 - VTE Documentation of Mechanical Device: Venous foot pump, device Consult Discharge Plan - Plan Referrals: Zach Hannon MD [Primary Care Provider] - Prescriptions: Aspirin Enteric Coated [Aspirin EC] 325 mg PO BID #20 tablet. OxyCODONRon Immed Rel [Roxicodone 5 MG] 5 mg PO Q4HR PRN #24 tablet PRN Reason: Pain
[2017-03-25] MEDS: Insulin LISPRO 300 UNITS/3 ML VIAL SQ SCH ×4 (07:30→20:58)
[2017-03-25] MEDS ORDERED: Insulin NPH/REG 70/30 300 UNIT/3 ML VIAL SQ SCH (07:30)
[2017-03-25] MEDS ORDERED: Furosemide 20 MG/2 ML VIAL IVP ONE ×2 (07:33→15:14)
[2017-03-25] MEDS ORDERED: 0.9 % Sodium Chloride 250 ML IVC SCH (07:45)
[2017-03-25] MEDS: BuPROPion XL (24 HR) 150 MG TABLET PO SCH (08:58)
[2017-03-25] MEDS: Gabapentin 400 MG CAPSULE PO SCH ×3 (08:58→20:56)
[2017-03-25] MEDS: Insulin NPH/REG 70/30 100 UNIT/ML (x5UNIT) SQ SCH ×2 (08:59→18:01)
[2017-03-25] MEDS: Cholecalciferol (D-3) 1,000 UNIT TABLET PO SCH (08:59)
[2017-03-25] MEDS: Tiotropium 18 MCG inhalation IH SCH (10:17)
[2017-03-26] MEDS: *HR* Enoxaparin 30 MG/0.3 ML SYRINGE SQ SCH (04:46)
[2017-03-26] MEDS ORDERED: Vancomycin 2,000 MG in D5% in Water 500 ML IVPB SCH (05:00)
--- NOTE | 2017-03-26 06:35 | Orthopedics Progress Note ---
Date of Encounter: 03/26/17 Time of Encounter: 06:35 - Assessment and Plan (1) Morbid obesity with BMI of 50.0-59.9, adult Current Visit: Yes Status: Chronic (2) Diabetes type 2, controlled Current Visit: Yes Status: Chronic Qualifiers: Diabetes mellitus complication status: with unspecified complications Diabetes mellitus long term care phlebotomist insulin use: unspecified long term care phlebotomist insulin use status Qualified Code(s): E11.8 - Type 2 diabetes mellitus with unspecified complications (3) Hypertension Current Visit: Yes Status: Chronic Qualifiers: Hypertension type: unspecified Qualified Code(s): I10 - Essential (primary ) hypertension (4) Hyperlipidemia Current Visit: Yes Status: Chronic Qualifiers: Hyperlipidemia type: unspecified Qualified Code(s): E78.5 - Hyperlipidemia , unspecified (5) Tobacco consumption Current Visit: Yes Status: Chronic (6) Asthma Current Visit: Yes Status: Acute Qualifiers: Asthma severity: unspecified severity Asthma persistence: unspecified Asthma complication type: unspecified Qualified Code(s): J45.909 - Unspecified asthma, uncomplicated (7) COPD (chronic obstructive pulmonary disease) Current Visit: Yes Status: Acute Qualifiers: COPD type: unspecified COPD Qualified Code(s): J44.9 - Chronic obstructive pulmonary disease, unspecified (8) Fatty liver Current Visit: Yes Status: Chronic (9) Hypothyroidism Current Visit: Yes Status: Chronic Qualifiers: Hypothyroidism type: unspecified Qualified Code(s): E03.9 - Hypothyroidism , unspecified (10) History of lung cancer Current Visit: Yes Status: Chronic (11) Arthritis of right knee Current Visit: Yes Status: Chronic (12) Status post total right knee replacement Current Visit: Yes Status: Acute (13) Wound dehiscence, surgical Current Visit: Yes Status: Acute Qualifiers: Encounter type: initial encounter Qualified Code(s): T81.31XA - Disruption of external operation (surgical) wound, not elsewhere classified, initial encounter (14) Acute blood loss anemia Current Visit: Yes Status: Acute Subjective Interval history: Patient was seen this morning doing well without complaints. Afebrile vital signs stable. Operative extremity: Neurovascularly intact Dressing clean dry and intact Calves nontender Assessment and plan: Continue with postoperative care Discharge today Objective Vital signs: Vital Signs Temp Pulse Resp BP Pulse Ox 03/26/17 04:55 98.4 F 76 18 96/51 95 03/26/17 00:39 98.7 F 78 15 122/78 97 03/25/17 21:16 98.3 F 89 17 105/68 92 03/25/17 21:00 92 03/25/17 14:22 97.8 F 89 20 122/73 93 03/25/17 14:15 97.8 F 89 19 122/73 93 03/25/17 11:38 97.7 F 78 17 147/77 03/25/17 11:23 97.9 F 90 16 124/78 03/25/17 09:00 91 03/25/17 07:14 97.9 F 98 20 139/72 91 Intake and Output 03/25/17 03/25/17 03/26/17 15:59 23:59 07:59 Intake Total 1904 / 1904 340 / 340 800 / 800 Output Total 0 / 0 Balance 1904 / 1904 340 / 340 800 / 800 Intake: IV Fluids 1000 / 1000 Lactated Ringers 1,000 ML @ 75 1000 / 1000 mls/hr IVC .[id number] [facility] Rx#: [id number] Oral 600 / 600 340 / 340 800 / 800 Blood Product 304 / 304 Rbcs Leuko Poor As-1 Unit 304 / 304 [id number] Output: Urine 0 / 0 Other: Meal Lunch Dinner Percent of Meal Consumed 95% 95% # Voids 3 1 Blood Glucose* 184 252 - Labs CBC & BMP: 03/25/17 02:34 03/25/17 02:34 Labs: Abnormal lab results Hgb 8.0 g/dL (11.5-15.4) L 03/25/17 02:34 Hct 27.3 % (35.3-44.9) L 03/25/17 02:34 Chloride 97 mEq/L (98-107) L 03/25/17 02:34 Carbon Dioxide 31 mEq/L (23-29) H 03/25/17 02:34 BUN 22 mg/dL (6-20) H 03/25/17 02:34 Est GFR (Non-Af Amer) 50 (> 60) L 03/25/17 02:34 POC Glucose 252 (58-89) H 03/25/17 19:43 - VTE Documentation of Mechanical Device: Venous foot pump, device Consult Discharge Plan - Plan Referrals: Zach Hannon MD [Primary Care Provider] - Prescriptions: Aspirin Enteric Coated [Aspirin EC] 325 mg PO BID #20 tablet. OxyCODONE Immed Rel [Roxicodone 5 MG] 5 mg PO Q4HR PRN #24 tablet PRN Reason: Pain
[2017-03-26 07:22] VITALS: BP 117/53
[2017-03-26] MEDS: BuPROPion XL (24 HR) 150 MG TABLET PO SCH (08:13)
[2017-03-26] MEDS: Gabapentin 400 MG CAPSULE PO SCH (08:14)
[2017-03-26] MEDS: Cholecalciferol (D-3) 1,000 UNIT TABLET PO SCH (08:14)
[2017-03-26] MEDS: Insulin LISPRO 300 UNITS/3 ML VIAL SQ SCH (08:15)
[2017-03-26] MEDS: Tiotropium 18 MCG inhalation IH SCH (08:27)
[2017-03-26] MEDS: Insulin NPH/REG 70/30 100 UNIT/ML (x5UNIT) SQ SCH (10:15)
[2017-03-26] MEDS ORDERED: Aminoglycoside Consult 1 EACH MC ONE (11:10)
== END 2017-03-26 11:11 | disposition home or self-care (01) | DRG 470 ==
LOC: SAMDAY 05:58 → 3NENU 07:26
PROVIDERS: ADMIT Orthopaedic Surgery; ATTEND Orthopaedic Surgery

== ENCOUNTER 2017-12-02 13:40 | Inpatient (IN) ==
--- NOTE | 2017-12-01 21:57 | Discharge Summary ---
<Karsten Argueta - Last Filed: 12/03/17 08:17> Orders not resulted at time of discharge: Pending orders 12/02/17 08:06 US anesthesia pain block [US] Routine 12/04/17 04:00 Basic Metabolic Panel AM 0400 Hemoglobin and Hematocrit [HEME] AM 0400 Date of Encounter: 12/03/17 - Discharge Diagnosis (1) Congestive heart failure of unknown etiology Status: Acute (2) Arthritis of left knee Status: Acute (3) Status post total knee replacement, left Status: Acute (4) Iron deficiency anemia Status: Chronic Qualifiers: Iron deficiency anemia type: unspecified iron deficiency Qualified Code(s) : D50.9 - Iron deficiency anemia, unspecified (5) KAROLYN on CPAP Status: Chronic (6) Status post total right knee replacement Status: Acute (7) Diabetes type 2, controlled Status: Chronic Qualifiers: Diabetes mellitus fpc insulin use: with fpc use Diabetes mellitus complication status: with unspecified complications Qualified Code(s) : E11.8 - Type 2 diabetes mellitus with unspecified complications; Z79.4 - custodial (current) use of insulin (8) Fatty liver Status: Chronic (9) History of lung cancer Status: Chronic (10) Hyperlipidemia Status: Chronic Qualifiers: Hyperlipidemia type: mixed hyperlipidemia Qualified Code(s): E78.2 - Mixed hyperlipidemia (11) Hypertension Status: Chronic Qualifiers: Hypertension type: essential hypertension Qualified Code(s): I10 - Essential (primary) hypertension (12) Hypothyroidism Status: Chronic Qualifiers: Hypothyroidism type: unspecified Qualified Code(s): E03.9 - Hypothyroidism , unspecified (13) Morbid obesity with BMI of 50.0-59.9, adult Status: Chronic (14) Tobacco consumption Status: Chronic - Hospital Course Hospital course: Ms. Briggs is a 52 year old female - Time Spent with Patient Total time spent providing and/or coordinating discharge services: - Discharge Medications Prescriptions: OxyCODONE/APAP 5/325 [Percocet 5/325 MG] 1 each PO Q4HR PRN 7 Days #35 tablet PRN Reason: Moderate Pain 4-6 Celecoxib [Celebrex] 200 mg PO DAILY 30 Days #30 capsule Cyclobenzaprine [Flexeril] 5 mg PO BID PRN 7 Days #14 tablet PRN Reason: Muscle Spasm Lidocaine Patch [Lidoderm 5% patch] 1 each TP DAILY #60 adh..patch Home Medications: Albuterol Sulfate [Albuterol Inhaler] 2 puff IH Q4H PRN 03/23/17 [History] BuPROPion XL (24 HR) [Wellbutrin Xl] 150 mg PO BID 03/23/17 [History] Cholecalciferol (Vitamin D3) [Vitamin D3] 50,000 unit PO FR 03/23/17 [History] Duloxetine HCl [Cymbalta] 60 mg PO DAILY 03/23/17 [History] Furosemide [Lasix] 40 mg PO BID PRN 03/23/17 [History] Gabapentin [Neurontin] 1,200 mg PO TID 03/23/17 [History] Insulin Aspart Prot/Insuln Asp [Novolog Mix 70-30 Vial] 55 unit SQ QAM 03/23/17 [History] Insulin Aspart Prot/Insuln Asp [Novolog Mix 70-30 Vial] 100 unit SQ QPM [History] Levothyroxine Sodium 150 mcg PO DAILY 03/23/17 [History] Losartan Potassium [Cozaar] 100 mg PO DAILY 03/23/17 [History] Potassium Chloride [Klor-Con 10] 10 meq PO DAILY 03/23/17 [History] Pravastatin Sodium [Pravachol] 80 mg PO HS 03/23/17 [History] Aspirin Enteric Coated [Aspirin EC] 325 mg PO BID #20 tablet.dr 12/01/17 [Rx] Celecoxib [Celebrex] 200 mg PO DAILY 30 Days #30 capsule 12/05/17 [Rx] Cyclobenzaprine [Flexeril] 5 mg PO BID PRN 7 Days #14 tablet 12/05/17 [Rx] Lidocaine Patch [Lidoderm 5% patch] 1 each TP DAILY #60 adh..patch 12/05/17 [Rx] OxyCODONE/APAP 5/325 [Percocet 5/325 MG] 1 each PO Q4HR PRN 7 Days #35 tablet [Rx] Allergies/Adverse Reactions: 3 Allergy/AdvReac Type Severity Reaction Status Date / Time hydrocodone AdvReac Itching, Verified 11/18/17 15:53 Vomiting morphine AdvReac Itching Verified 11/18/17 15:53 Date of admission: 12/02/17 18:36 Primary care physician: PCP NONE Consults: 12/02/17 18:41 Consult to Occupational Therapy [CONS] Routine Comment: Evaluate, develop and implement POC Reason for Consult: post knee surgery Does patient have active BEDREST order?: No Is patient medically & hemodynamically stable?: Yes Consult to Orthopedic Navigator [CONS] [CONS] Routine Consult to Physical Therapy [CONS] Routine Comment: Evaluate, develop and impliment POC Reason for Consult: post knee surgery Does patient have active BEDREST order?: No Is patient medically & hemodynamically stable?: Yes Consult to Manager Mortgage [CONS] Routine Reason for SW Consult: post op joint replacement RT Post Op Consult [CONS] Routine Labs on day of discharge: Labs from last 24 hours 12/03/17 12/03/17 12/02/17 00:55 00:55 23:40 Hgb 13.0 Hct 43.1 Sodium 134 L Potassium 4.6 Chloride 96 L Carbon Dioxide 30 H BUN 13 Creatinine 0.99 Est GFR ( Amer) > 60 Est GFR (Non-Af Amer) 59 L BUN/Creatinine Ratio 13 Glucose 274 H POC Glucose 259 H Calculated Osmolality 288 Calcium 9.1 12/02/17 12/02/17 18:08 14:06 Hgb 13.5 Hct 46.0 H Sodium Potassium Chloride Carbon Dioxide BUN Creatinine Est GFR ( Amer) Est GFR (Non-Af Amer) BUN/Creatinine Ratio Glucose POC Glucose 156 H Calculated Osmolality Calcium - Impressions ITS Impressions Knee X-Ray 12/02/17 00:01 IMPRESSION: Total knee arthropasty without acute hardware complication. D/ / Jaspal Jon MD / Jaspal Jon MD Interpreting Provider: Jaspal Jon MD - Patient Status Disposition: Home, Self-Care Condition: Good - Discharge Instructions Instructions: Total Knee Replacement (DC) Follow Up With: Karsten Argueta MD [Partnered Physician] - 01/01/18 4:50 pm Ursula Lomas, PAC [Physician Machine Steak Tenderizer] - 12/20/17 10:00 am <Ursula Lomas - Last Filed: 12/05/17 16:37> Date of Encounter: 12/05/17 Time of Encounter: 13:07 - Discharge Diagnosis (1) Arthritis of left knee Priority: Primary Status: Acute (2) Status post total knee replacement, left Priority: Primary Status: Acute (3) KAROLYN on CPAP Priority: Secondary Status: Chronic (4) Iron deficiency anemia Priority: Secondary Status: Chronic Qualifiers: Iron deficiency anemia type: unspecified iron deficiency Qualified Code(s) : D50.9 - Iron deficiency anemia, unspecified (5) Asthma Priority: Secondary Status: Chronic Qualifiers: Asthma severity: unspecified severity Asthma persistence: unspecified Asthma complication type: unspecified Qualified Code(s): J45.909 - Unspecified asthma, uncomplicated (6) COPD (chronic obstructive pulmonary disease) Priority: Secondary Status: Chronic Qualifiers: COPD type: unspecified COPD Qualified Code(s): J44.9 - Chronic obstructive pulmonary disease, unspecified (7) Diabetes type 2, controlled Priority: Secondary Status: Chronic Qualifiers: Diabetes mellitus field interviewer insulin use: with field interviewer use Diabetes mellitus complication status: with unspecified complications Qualified Code(s) : E11.8 - Type 2 diabetes mellitus with unspecified complications; Z79.4 - custodial (current) use of insulin (8) History of lung cancer Priority: Secondary Status: Chronic (9) Hyperlipidemia Priority: Secondary Status: Chronic Qualifiers: Hyperlipidemia type: mixed hyperlipidemia Qualified Code(s): E78.2 - Mixed hyperlipidemia (10) Hypertension Priority: Secondary Status: Chronic Qualifiers: Hypertension type: essential hypertension Qualified Code(s): I10 - Essential (primary) hypertension (11) Hypothyroidism Priority: Secondary Status: Chronic Qualifiers: Hypothyroidism type: unspecified Qualified Code(s): E03.9 - Hypothyroidism , unspecified (12) Morbid obesity with BMI of 50.0-59.9, adult Priority: Secondary Status: Chronic (13) Tobacco consumption Priority: Secondary Status: Chronic - Hospital Course Hospital course: Ms. Briggs is a 52 year old female, POD#3 Left TKR, history of Right TKR with wound dehiscence Patient seen at bedside, and continues with pain. A&O x 3. Pain difficulty. [place] in place. Small amount of dependent edema and erythema noted to anterior evans, monitoring closely. Doppler being obtained before discharge. Afebrile, vital signs stable. Labs reviewed from 12/04 - no repeat secondary to medically stable. H/H - stable, asymptomatic Pain control: Added Toradol, Flexeril, currently taking high dose of Gabapentin. Added Lidoderm patch. Changed patient to percocet for medication Participating in PT. All questions and concerns addressed. Educated on use of incentive spirometer. Encouraged ambulation and proper hydration. Patient educated on post-operative restrictions and post-operative care. Assessment and plan: Continue with postoperative care Discharge plan: Home with hh, will discharge today - Time Spent with Patient Total time spent providing and/or coordinating discharge services: Primary care physician: PCP NONE Anticipated date of discharge: 12/05/17 - Patient Status Functional capacity at discharge: uses cane/walker Overall status at discharge: patient is progressing back to baseline - Diet and Activity Activity: as per physical therapy Diet: advance to your usual diet
--- NOTE | 2017-12-02 07:57 | Anesthesia Evaluation PreOp ---
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: Other (CHRONIC PAIN, DEPRESSION) Other Medical History: Diabetes Type II, Thyroid, Other (MORBID OBESITY, BMI 56) Anesthesia History: Past Anesthesia (Right lung LOBECTOMY, Jose Alfredo knee ARTHROSCOPY , Hysterectomy partia, hernia , gallbladder, Tonsils , JOSE ALFREDO OOPHRECTOMY 2014 , Right Total knee replacement 03/10), Problems, Difficult Airway ( POSTOPERATIVE MECHANICAL VENTILATION) Alcohol Use: none Drug use: none Medications and Allergies Albuterol Sulfate [Albuterol Inhaler] 2 puff IH Q4H PRN 03/23/17 [History] BuPROPion XL (24 HR) [Wellbutrin Xl] 150 mg PO BID 03/23/17 [History] Cholecalciferol (Vitamin D3) [Vitamin D3] 50,000 unit PO FR 03/23/17 [History] Duloxetine HCl [Cymbalta] 60 mg PO DAILY 03/23/17 [History] Furosemide [Lasix] 40 mg PO BID PRN 03/23/17 [History] Gabapentin [Neurontin] 1,200 mg PO TID 03/23/17 [History] Insulin ASPART [NovoLOG] 0 unit SQ AD PRN 03/23/17 [History] Insulin Aspart Prot/Insuln Asp [Novolog Mix 70-30 Vial] 55 unit SQ QAM 03/23/17 [History] Insulin Aspart Prot/Insuln Asp [Novolog Mix 70-30 Vial] 100 unit SQ QPM [History] Levothyroxine Sodium 150 mcg PO DAILY 03/23/17 [History] Losartan Potassium [Cozaar] 100 mg PO DAILY 03/23/17 [History] Potassium Chloride [Klor-Con 10] 10 meq PO DAILY 03/23/17 [History] Pravastatin Sodium [Pravachol] 80 mg PO HS 03/23/17 [History] Aspirin Enteric Coated [Aspirin EC] 325 mg PO BID #20 tablet. 12/01/17 [Rx] OxyCODONE Immed Rel [Roxicodone 5 MG] 5 mg PO Q6HR PRN 7 Days #28 tablet [Rx] 3 Allergy/AdvReac Type Severity Reaction Status Date / Time hydrocodone AdvReac Itching, Verified 11/18/17 15:53 Vomiting morphine AdvReac Itching Verified 11/18/17 15:53 - Meds/Allergy Pre-op Review Medications Reviewed: Yes Allergies Reviewed: Yes Beta Blockers on Current Med List: No Anesthesia Results - Labs Laboratory Last Values WBC 14.3 K/mcL (4.3-11.1) H 11/18/17 16:00 RBC 7.44 M/mcL (3.82-4.97) H 11/18/17 16:00 Hgb 14.7 g/dL (11.5-15.4) 11/18/17 16:00 Hct 49.5 % (35.3-44.9) H 11/18/17 16:00 MCV 66.5 fL (83.0-100.0) L 11/18/17 16:00 MCH 19.8 pg (28.0-33.3) L 11/18/17 16:00 MCHC 29.7 g/dL (31.6-35.5) L 11/18/17 16:00 RDW 24.1 % (11.5-14.5) H 11/18/17 16:00 Plt Count 315 K/mcL (140-400) 11/18/17 16:00 MPV TNP 11/18/17 16:00 Immature Gran % 0.6 % (0-4) 11/18/17 16:00 Seg Neutrophils % 65.2 % 11/18/17 16:00 Lymphocytes % 27.2 % 11/18/17 16:00 Monocytes % 5.3 % 11/18/17 16:00 Eosinophils % 1.4 % 11/18/17 16:00 Basophils % 0.3 % 11/18/17 16:00 Neutrophils # 9.3 K/mcL (1.6-8.9) H 11/18/17 16:00 Lymphocytes # 3.9 K/mcL (0.6-4.6) 11/18/17 16:00 Monocytes # 0.8 K/mcL (0.0-1.3) 11/18/17 16:00 Eosinophils # 0.2 K/mcL (0.0-0.6) 11/18/17 16:00 Basophils # 0.0 K/mcL (0.0-0.2) 11/18/17 16:00 Platelet Estimate Normal (Normal) 11/18/17 16:00 Hypochromasia Present (Not Present) A 11/18/17 16:00 Anisocytosis 2+ (Not Present) A 11/18/17 16:00 Microcytosis Present (Not Present) A 11/18/17 16:00 PT 10.5 Seconds (9.4-12.1) 11/18/17 16:00 INR 0.9 11/18/17 16:00 APTT 32.5 Seconds (26.0-36.0) 11/18/17 16:00 Sodium 138 mEq/L (136-145) 11/18/17 16:00 Potassium 4.2 mEq/L (3.5-5.1) 11/18/17 16:00 Chloride 101 mEq/L (98-107) 11/18/17 16:00 Carbon Dioxide 31 mEq/L (23-29) H 11/18/17 16:00 BUN 8 mg/dL (6-20) 11/18/17 16:00 Creatinine 0.91 mg/dL (0.60-1.20) 11/18/17 16:00 Est GFR ( Amer) > 60 (> 60) 11/18/17 16:00 Est GFR (Non-Af Amer) > 60 (> 60) 11/18/17 16:00 BUN/Creatinine Ratio 9 (6-26) 11/18/17 16:00 Est Mean Plasma Glucose 186 mg/dl 11/18/17 16:00 Hemoglobin A1c 8.1 % (-5.6) H 11/18/17 16:00 - Imaging EKG: report reviewed (SINUS RHYTHM LOW QRS VOLTAGE IN PRECORDIAL LEADS) Additional studies: SLEEP STUDY 10/2017: 1.CPAP improves obstructive sleep apnea and oxygen desaturations. 2.Best result was obtained with CPAP pressure of 11 cm of water. 3.Persistent nocturnal hypoxemia noted, requiring oxygen supplementation at 1 LPM. Anesthesia Exam O2 Sat Height 1.65 m Weight 153.314 kg BMI 56 Vital Signs Temp Pulse Resp BP Pulse Ox 98.1 F 80 18 141/74 93 12/02/17 14:04 12/02/17 14:04 12/02/17 14:04 12/02/17 14:04 12/02/17 14:04 Blood Glucose* 156 NPO (# of Hours): 8 - HEENT Mallampati: IV Teeth: Normal Oral Opening: Greater than 3 - Cardiac Rhythm: Regular - Pulmonary Breath Sounds: bilateral Clear Respiratory Effort: Symmetrical Anesthesia Assess/Plan ASA Score: 4 Modified Rajinder Scale for Level of Consciousness: Cooperative, oriented, and tranquil Anesthetic Plan: Regional (SAB FOR PRIMARY ANESTHETIC & FEMORAL iPACK FOR POST OPERATIVE PAIN CONTROL) Monitoring Plan: Standard Monitors Recovery Plan: PACU Anes Supervising Prov Stmt: PATIENT'S CHART AND CURRENT MEDICATIONS REVIEWED Patient informed and consented. Risks, benefits, and alternatives discussed. Patient wishes to proceed.
[2017-12-02] MEDS ORDERED: Albuterol 2.5 MG/3 ML NEBULIZER IH ONE (14:01)
[2017-12-02] MEDS ORDERED: CeFAZolin Syr 3,000MG/30 ML 3,000 MG/30 ML SYRINGE IVPB ONE (14:01)
[2017-12-02] MEDS ORDERED: Ringers Solution, Lactated 1,000 ML IVC SCH ×2 (14:15→18:41)
[2017-12-02] MEDS ORDERED: *HR* Midazolam HCl 2 MG/2 ML VIAL ONE (14:32)
[2017-12-02] MEDS ORDERED: *HR* Propofol 200 MG/20 ML VIAL IVP ONE (14:32)
[2017-12-02] MEDS ORDERED: *HR* FentaNYL (PF) 100 MCG/2 ML VIAL ONE (14:32)
[2017-12-02] MEDS ORDERED: Lidocaine -MPF 2% 2 ML VIAL ONE (14:34)
[2017-12-02] MEDS ORDERED: *HR* Promethazine 25 MG/ML VIAL IVP PRN (14:41)
[2017-12-02] MEDS ORDERED: *HR* Labetalol 100 MG/20 ML MDV IVP PRN (14:41)
[2017-12-02] MEDS ORDERED: *HR* OxyCODONE Immed Rel 5 MG TABLET PO PRN (14:41)
[2017-12-02] MEDS ORDERED: *HR* HYDROmorphone 2 MG TABLET PO PRN (14:41)
[2017-12-02] MEDS ORDERED: *HR* HYDROmorphone (PF) 1 MG/ML SYRINGE IVP PRN (14:41)
--- NOTE | 2017-12-02 14:57 | History & Physical Report ---
Date of Encounter: 12/02/17 Time of Encounter: 14:57 24 Hour HP Update - Instructions Instructions: If the History and Physical is less than 30 days old and was completed prior to A.M. admission and or procedure and has NOT been updated on calendar day of procedure please complete this update prior to performing procedure. - Update Patient reports changes in Medical Condition: No Changes in examination, assessment, or condition: No Changes in Medication: No Preop tests/diagnostics Reviewed: Yes Surgery Remains Indicated: Yes Consent for Planned Operative Procedure(s) Verified: Yes - Pre-Operative Checklist Preoperative Checklist Indicated: No Prophylactic Antibiotic Ordered: Yes Is VTE Prophylaxis Indicated?: Yes
[2017-12-02] MEDS ORDERED: *HR* Morphine Sulfate/PF 10 MG/10 ML AMPUL ONE (15:18)
[2017-12-02] MEDS ORDERED: Bupivacaine/Clonidine Syringe 1 EACH SYRINGE ONE (15:19)
[2017-12-02] MEDS ORDERED: ROPIVACAINE HCL/PF 0.5% 30 ML VIAL ONE (15:19)
[2017-12-02] MEDS ORDERED: Water for inj. (sterile) 10 ML IV ONE (15:53)
--- NOTE | 2017-12-02 16:02 | Anesthesia Procedures ---
Date of Encounter: 12/02/17 Time of Encounter: 15:42 Procedures: Anesthesia - Epidural/Spinal Patient ID/Chart reviewed: Yes Consent Obtained: Yes Supplemental Oxygen: Nasal Cannula Supplemental Oxygen Rate (L/min): 2 Sedation: Versed (mg): 2 Sedation: Fentanyl (mcg): 50 Site Prep: Sterile prep and drape, 0.5% Chlorhexidine/Alcohol Patient position: upright (SITTING) Local Anesthetic: Lidocaine 1% Amount of Local Anesthetic used: 3 Interspace Used: L3-L4 Blood: No CSF: Yes Paresthesia: No Spinal Needle Gauge: 24 Spinal Dose: 2.5 ML 0.5% BUPIVACAINE Procedure: SITTING POSITION, L4-L5 SPACE, MIDLINE, SINGLE ATTEMPT, 24 GA SPROTTE THRU INTRODUCER NEEDLE, INTRATHECAL SPACE AT ~10 CM, CLEAR CSF. - Nerve Block Procedure Date: 12/02/17 Time: 15:50 (FOLLOWING SAB) Surgical Procedure: TKR Checklist: Correct Patient Identifier, Correct procedure, History checked Correct side: Left Monitor Applied: BP, Pulse Oximetry Supplemental Oxygen via Nasal Cannula (L/min): 2 Pre-op Neuro Deficits: No Block Type: Femoral Sterile Technique: Yes Ultrasound used: Yes Anatomy identified: Yes Visual spread of Local: Yes Neuro Stimulation: No Blood on Needle Aspiration: No Smooth Injection of Local: Yes Pain with Injection of Local: No Prep: Chlorhexadine Needle: 22 x 50 mm Stimuplex Local: Ropivacaine (0.25% ), Other (DEXAMETHASONE 4 MG) Volume (cc): 20 Complications: None/effective block Anes Supervising Prov Stmt: I PERSONALLY PERFORMED THE ABOVE PROCEDURES..
[2017-12-02] MEDS ORDERED: Propofol 500 MG/50 ML INFUS..BTL ONE ×2 (16:09→16:48)
[2017-12-02] MEDS ORDERED: Ethanol\\Acetic Acid\\Na Ace\\Ben 1,000 ML IRRIG.SOLN IR ONE (16:52)
--- NOTE | 2017-12-02 17:14 | Orthopedic Operative Note ---
Date of procedure: 12/02/17 Pre-op diagnosis: Left knee arthritis Post-op diagnosis: same Procedure: Procedure: Left robotic-assisted Total knee replacement Estimated blood loss: 200 cc Hardware: Metal and polyethylene replacement. Clinton Femur: 5 Tibia: 5 TS insert: 9 Patella: 39 Exam Under anesthesia: 16 degrees flexion contracture 10 degree varus as calculated by the robot full flexion and no instability Procedural Notes: Grade 4 arthritic changes all 3 compartments. Operative procedure: The patient was brought to the operating room and placed on the operating room table. After general anesthesia was administered the operative knee was examined. Findings were noted in the exam under anesthesia. The operative extremity was prepped and draped in sterile surgical fashion. The patient received IV antibiotics prior to skin incision. A standard midline incision was made centered over the patella. The incision was made through the skin and subcutaneous tissue. A medial parapatellar tendon approach was performed. Care was taken to preserve tissue along the medial aspect of the patella. And to protect the patella tendon. The deep MCL was released off the medial tibia. The infra patella fat pad was excised. The patella was everted and cut was made at the level of the insertion of the quadriceps and patella tendon. The patella was sized to a 39 the guide was seated and the lug holes are drilled. Knee was brought into flexion. Patient noted to have grade 4 arthritic changes all 3 compartments. Steinmann pins were placed in the tibia and the femur for the tibial and femoral arrays respectively. Checkpoints were also placed in the tibia and the femur for calculation purposes. The knee including the femur and the tibial registered. Osteophytes, ACL and PCL were excised at this point. Extension and flexion were assessed with a valgus stress components were adjusted on the computer to balance the knee. Femoral cuts were made first with robotic assistance, these included the anterior cut posterior cuts chamfer cuts. Tibial cut was then performed with robotic assistance as well. Bone fragments were removed, as well as the medial and lateral meniscus. The size 5 femoral guide was seated box cut was made lug holes are drilled. The size 5 tibial tray was seated and prepared with the fin cutter. Trial reduction with the 9 TS Isamar revealed extension of 0 degree and 5 degree varus full flexion. No varus valgus instability. Trial reduction revealed excellent patella tracking. All trial components were removed all bony surfaces were irrigated. The Tibia was seated followed by the femur, The Isamar size 9 was seated and secured patella. Patient had similar findings for motion and stability. The knee was closed by the PA. The knee was then irrigated out with 2 L of pulse irrigation. The extensor mechanism was closed with #2 FiberWire suture and #2 PDS suture. The subcutaneous tissue was then irrigated and closed deep with #1 PDS suture superficially with 0 PDS suture and skin was closed with zip tie The patient was then placed in a sterile dressing and a postoperative brace extubated and transferred to recovery room in stable condition. Anesthesia: spinal Surgeon: Karsten Argueta Was there an reading assistant present: No Estimated blood loss (cc): 200 Condition: stable Disposition: PACU
[2017-12-02] MEDS ORDERED: *HR* Enoxaparin 30 MG/0.3 ML SYRINGE SQ SCH (18:00)
[2017-12-02 18:29] LABS: Hemoglobin 13.5 g/dL (11.5-15.4)
--- NOTE | 2017-12-02 18:39 | Anesthesia Evaluation Post Op ---
Date of Encounter: 12/02/17 Time of Encounter: 18:38 - Discharge PostOp Status: Transfer Patient to floor (Patient's vital signs have been reviewed. Patient is stable postoperatively and has adequately recovered from anesthesia. Patient is determined to have stable airway patency and respiratory function including respiratory rate and oxygen saturation. Patient has a stable heart rate, blood pressure and adequate hydration. Patients mental status is acceptable. Patients temperature is appropriate. Pain and nausea are adequately controlled.)
[2017-12-02] MEDS ORDERED: *HR* Dextrose 50 % in Water (Syg) 50 ML SYRINGE IVP PRN (18:41)
[2017-12-02] MEDS ORDERED: *HR* OxyCODONE/APAP 5/325 TABLET PO PRN (18:41)
[2017-12-02] MEDS ORDERED: Dextrose Gel 15 GM/37.5 ML TUBE PO PRN ×2 (18:41)
[2017-12-02] MEDS ORDERED: Temazepam 15 MG CAPSULE PO PRN (18:41)
[2017-12-02] MEDS ORDERED: D5% in Water 1,000 ML IVC PRN (18:41)
[2017-12-02] MEDS ORDERED: Ondansetron 4 MG/2 ML VIAL IVP PRN (18:41)
[2017-12-02] MEDS ORDERED: Sennosides 8.6 MG TABLET PO PRN (18:41)
[2017-12-02] MEDS ORDERED: Naloxone 0.4 MG/ML INJ IVP PRN (18:41)
[2017-12-02] MEDS ORDERED: MOM Conc 10 ML UD.LIQ PO PRN (18:41)
[2017-12-02] MEDS ORDERED: Furosemide 40 MG TABLET PO PRN (18:41)
[2017-12-02] MEDS: *HR* OxyCODONE Immed Rel 5 MG TABLET PO PRN (21:49)
[2017-12-02] MEDS: ceFAZolin 3,000 MG in 0.9 % Sodium Chloride 100 ML IVPB SCH (22:41)
[2017-12-02] MEDS: BuPROPion XL (24 HR) 150 MG TABLET PO SCH (22:43)
[2017-12-02] MEDS: Gabapentin 400 MG CAPSULE PO SCH (22:43)
[2017-12-02] MEDS: Insulin LISPRO 300 UNITS/3 ML VIAL SQ SCH ×2 (22:50→22:53)
[2017-12-02] MEDS: Insulin NPH/REG 70/30 100 UNIT/ML (x5UNIT) SQ SCH (22:51)
[2017-12-02] MEDS: traMADol 50 MG TABLET PO PRN (23:03)
[2017-12-02] MEDS: Cholecalciferol (D-3) 1,000 UNIT TABLET PO SCH (23:03)
[2017-12-03 01:20] LABS: Hematocrit 43.1 % (35.3-44.9)
[2017-12-03 01:39] LABS: BUN/Creatinine Ratio 13 (6-26); Blood Urea Nitrogen 13 mg/dL (6-20); Calcium 9.1 mg/dL (8.6-10.3); Carbon Dioxide 30 mEq/L (23-29); Chloride 96 mEq/L (98-107); Glucose 274 mg/dL (70-105); Osmolality,Calculated 288 (280-300); Potassium 4.6 mEq/L (3.5-5.1); Sodium 134 mEq/L (136-145); eGFR For Non-African Americans 59 (> 60)
[2017-12-03] MEDS: *HR* OxyCODONE Immed Rel 5 MG TABLET PO PRN ×5 (03:11→21:32)
[2017-12-03] MEDS: ceFAZolin 3,000 MG in 0.9 % Sodium Chloride 100 ML IVPB SCH (04:00)
[2017-12-03] MEDS: traMADol 50 MG TABLET PO PRN ×3 (05:46→18:59)
[2017-12-03] MEDS: *HR* Enoxaparin 30 MG/0.3 ML SYRINGE SQ SCH ×2 (05:47→18:58)
--- NOTE | 2017-12-03 08:18 | Orthopedics Progress Note ---
Date of Encounter: 12/03/17 Time of Encounter: 08:18 - Assessment and Plan (1) Congestive heart failure of unknown etiology Current Visit: Yes Status: Acute (2) Arthritis of left knee Current Visit: Yes Status: Acute (3) Status post total knee replacement, left Current Visit: Yes Status: Acute (4) Iron deficiency anemia Current Visit: Yes Status: Chronic Qualifiers: Iron deficiency anemia type: unspecified iron deficiency Qualified Code(s) : D50.9 - Iron deficiency anemia, unspecified (5) KAROLYN on CPAP Current Visit: Yes Status: Chronic (6) Status post total right knee replacement Current Visit: No Status: Acute (7) Diabetes type 2, controlled Current Visit: No Status: Chronic Qualifiers: Diabetes mellitus [facility] insulin use: with intermediate project manager use Diabetes mellitus complication status: with unspecified complications Qualified Code(s) : E11.8 - Type 2 diabetes mellitus with unspecified complications; Z79.4 - group home (current) use of insulin (8) Fatty liver Current Visit: No Status: Chronic (9) History of lung cancer Current Visit: No Status: Chronic (10) Hyperlipidemia Current Visit: No Status: Chronic Qualifiers: Hyperlipidemia type: mixed hyperlipidemia Qualified Code(s): E78.2 - Mixed hyperlipidemia (11) Hypertension Current Visit: No Status: Chronic Qualifiers: Hypertension type: essential hypertension Qualified Code(s): I10 - Essential (primary) hypertension (12) Hypothyroidism Current Visit: No Status: Chronic Qualifiers: Hypothyroidism type: unspecified Qualified Code(s): E03.9 - Hypothyroidism , unspecified (13) Morbid obesity with BMI of 50.0-59.9, adult Current Visit: No Status: Chronic (14) Tobacco consumption Current Visit: No Status: Chronic Subjective Interval history: Patient was seen this morning doing well without complaints. Afebrile vital signs stable. Operative extremity: Neurovascularly intact Dressing clean dry and intact Calves nontender Assessment and plan: Continue with postoperative care Hematocrit 43 Objective Vital signs: Vital Signs Temp Pulse Resp BP Pulse Ox 12/03/17 06:12 98.3 F 79 18 118/59 92 12/03/17 04:42 98.3 F 83 16 164/83 91 12/03/17 00:12 98.1 F 80 16 112/70 94 12/02/17 21:24 98.2 F 82 16 118/68 94 12/02/17 18:42 97.9 F 71 14 101/65 95 12/02/17 18:29 69 18 124/60 92 12/02/17 18:19 98.8 F 70 18 108/57 92 12/02/17 18:09 70 20 126/52 92 12/02/17 17:59 71 16 115/55 94 12/02/17 17:49 98.5 F 70 26 110/55 92 12/02/17 16:07 84 16 114/61 95 12/02/17 16:02 82 16 116/57 94 12/02/17 15:57 81 16 120/50 93 12/02/17 15:54 80 15 114/51 93 12/02/17 15:47 82 17 128/67 91 12/02/17 15:42 81 17 142/65 95 12/02/17 15:35 74 15 134/54 96 12/02/17 14:04 98.1 F 80 18 141/74 93 Intake and Output 12/02/17 12/03/17 12/03/17 23:59 07:59 15:59 Output Total 200 / 200 Balance -200 / -200 Output: Urine 0 / 0 Estimated Blood Loss 200 / 200 Other: Stool Size Large Stool Consistency liquid Stool Characteristics Normal for Patient Stool Color Brown Damico # Voids 1 # Bowel Movements 1 Weight 152.4 kg Blood Glucose* 152 178 Patient Weight 12/03/17 23:59 Weight 152.4 kg - Labs CBC & BMP: 12/03/17 00:55 12/03/17 00:55 Labs: Abnormal lab results Sodium 134 mEq/L (136-145) L 12/03/17 00:55 Chloride 96 mEq/L (98-107) L 12/03/17 00:55 Carbon Dioxide 30 mEq/L (23-29) H 12/03/17 00:55 Est GFR (Non-Af Amer) 59 (> 60) L 12/03/17 00:55 Glucose 274 mg/dL (70-105) H 12/03/17 00:55 POC Glucose 259 mg/dL (70-99) H 12/02/17 23:40 - VTE Documentation of Mechanical Device: Venous foot pump, device Consult Discharge Plan - Plan Referrals: NONE,PCP [Primary Care Provider] -
[2017-12-03] MEDS: Gabapentin 400 MG CAPSULE PO SCH ×2 (08:35→17:11)
[2017-12-03] MEDS: BuPROPion XL (24 HR) 150 MG TABLET PO SCH (08:35)
[2017-12-03] MEDS: Cholecalciferol (D-3) 1,000 UNIT TABLET PO SCH (08:38)
[2017-12-03] MEDS: Insulin LISPRO 300 UNITS/3 ML VIAL SQ SCH ×3 (08:41→16:30)
[2017-12-03] MEDS: Insulin NPH/REG 70/30 100 UNIT/ML (x5UNIT) SQ SCH ×2 (09:50→18:59)
--- NOTE | 2017-12-03 21:19 | Event Note ---
Date of Encounter: 12/03/17 Time of Encounter: 21:18 PCR - POD#1 Left TKR, history of Right TKR with wound dehiscence Patient seen at bedside, without complaints. A&O x 3. Pain difficulty. Yamile in place. Afebrile, vital signs stable. Labs reviewed. H/H - stable, asymptomatic Pain control: adequate Participating in PT. All questions and concerns addressed. Educated on use of incentive spirometer. Encouraged ambulation and proper hydration. Patient educated on post-operative restrictions and post-operative care. Assessment and plan: Continue with postoperative care Discharge plan: Home with , discharge . Abnormal Labs, Last 24 hours 12/03/17 12/03/17 12/03/17 18:59 16:32 12:20 Sodium Chloride Carbon Dioxide Est GFR (Non-Af Amer) Glucose POC Glucose 183 H 188 H 169 H 12/03/17 12/03/17 12/02/17 06:57 00:55 23:40 Sodium 134 L Chloride 96 L Carbon Dioxide 30 H Est GFR (Non-Af Amer) 59 L Glucose 274 H POC Glucose 178 H 259 H
[2017-12-03] MEDS ORDERED: Naloxone 0.4 MG/ML INJ ONE ×2 (21:58→22:11)
[2017-12-04] MEDS: Gabapentin 400 MG CAPSULE PO SCH ×4 (00:13→20:26)
[2017-12-04] MEDS: BuPROPion XL (24 HR) 150 MG TABLET PO SCH ×3 (00:14→20:27)
[2017-12-04] MEDS: traMADol 50 MG TABLET PO PRN ×4 (00:14→20:26)
[2017-12-04] MEDS: Insulin LISPRO 300 UNITS/3 ML VIAL SQ SCH ×5 (00:15→22:17)
[2017-12-04 01:26] LABS: Hematocrit 37.9 % (35.3-44.9); Hemoglobin 11.6 g/dL (11.5-15.4)
[2017-12-04 01:42] LABS: BUN/Creatinine Ratio 16 (6-26); Blood Urea Nitrogen 13 mg/dL (6-20); Calcium 8.8 mg/dL (8.6-10.3); Carbon Dioxide 29 mEq/L (23-29); Chloride 97 mEq/L (98-107); Glucose 142 mg/dL (70-105); Osmolality,Calculated 279 (280-300); Sodium 133 mEq/L (136-145); eGFR For Non-African Americans > 60 (> 60)
[2017-12-04] MEDS: *HR* OxyCODONE Immed Rel 5 MG TABLET PO PRN ×4 (05:32→22:13)
[2017-12-04] MEDS: *HR* Enoxaparin 30 MG/0.3 ML SYRINGE SQ SCH ×2 (05:33→17:27)
--- NOTE | 2017-12-04 06:52 | Orthopedics Progress Note ---
Date of Encounter: 12/04/17 Time of Encounter: 06:51 - Assessment and Plan (1) Congestive heart failure of unknown etiology Current Visit: Yes Status: Acute (2) Arthritis of left knee Current Visit: Yes Status: Acute (3) Status post total knee replacement, left Current Visit: Yes Status: Acute (4) Iron deficiency anemia Current Visit: Yes Status: Chronic Qualifiers: Iron deficiency anemia type: unspecified iron deficiency Qualified Code(s) : D50.9 - Iron deficiency anemia, unspecified (5) KAROLYN on CPAP Current Visit: Yes Status: Chronic (6) Status post total right knee replacement Current Visit: No Status: Acute (7) Diabetes type 2, controlled Current Visit: No Status: Chronic Qualifiers: Diabetes mellitus [facility] insulin use: 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 ad 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 use Diabetes mellitus complication status: with unspecified complications Qualified Code(s) : E11.8 - Type 2 diabetes mellitus with unspecified complications; Z79.4 - senior care (current) use of insulin (8) Fatty liver Current Visit: No Status: Chronic (9) History of lung cancer Current Visit: No Status: Chronic (10) Hyperlipidemia Current Visit: No Status: Chronic Qualifiers: Hyperlipidemia type: mixed hyperlipidemia Qualified Code(s): E78.2 - Mixed hyperlipidemia (11) Hypertension Current Visit: No Status: Chronic Qualifiers: Hypertension type: essential hypertension Qualified Code(s): I10 - Essential (primary) hypertension (12) Hypothyroidism Current Visit: No Status: Chronic Qualifiers: Hypothyroidism type: unspecified Qualified Code(s): E03.9 - Hypothyroidism , unspecified (13) Morbid obesity with BMI of 50.0-59.9, adult Current Visit: No Status: Chronic (14) Tobacco consumption Current Visit: No Status: Chronic Subjective Interval history: Patient was seen this morning doing well without complaints. Afebrile vital signs stable. Operative extremity: Neurovascularly intact Dressing clean dry and intact Calves nontender Assessment and plan: Continue with postoperative care Hematocrit 37 discharged today Objective Vital signs: Vital Signs Temp Pulse Resp BP Pulse Ox 12/04/17 06:36 98.8 F 91 18 158/78 90 12/03/17 22:26 98.1 F 79 18 140/68 92 12/03/17 18:54 98.6 F 81 18 173/79 92 12/03/17 15:56 98.5 F 79 18 135/72 91 12/03/17 11:49 98.0 F 79 18 134/74 92 Intake and Output 12/03/17 12/03/17 12/04/17 15:59 23:59 07:59 Intake Total 720 / 720 Output Total 600 / 600 500 / 500 Balance 120 / 120 -500 / -500 Intake: Oral 720 / 720 Output: Urine 600 / 600 500 / 500 Other: Meal Lunch Percent of Meal Consumed 100% # Voids 1 Blood Glucose* 169 183 - Labs CBC & BMP: 12/04/17 00:33 12/04/17 00:33 Labs: Abnormal lab results Sodium 133 mEq/L (136-145) L 12/04/17 00:33 Chloride 97 mEq/L (98-107) L 12/04/17 00:33 Glucose 142 mg/dL (70-105) H 12/04/17 00:33 POC Glucose 183 mg/dL (70-99) H 12/03/17 18:59 Calculated Osmolality 279 (280-300) L 12/04/17 00:33 - VTE Documentation of Mechanical Device: Venous foot pump, device Consult Discharge Plan - Plan Referrals: NONE,PCP [Primary Care Provider] -
[2017-12-04] MEDS: Cholecalciferol (D-3) 1,000 UNIT TABLET PO SCH (07:55)
[2017-12-04] MEDS: Insulin NPH/REG 70/30 100 UNIT/ML (x5UNIT) SQ SCH ×2 (08:03→17:28)
[2017-12-04] MEDS ORDERED: Ketorolac 30 MG/ML VIAL IVP ONE (14:16)
[2017-12-05] MEDS: *HR* OxyCODONE Immed Rel 5 MG TABLET PO PRN ×3 (05:48→17:31)
[2017-12-05] MEDS: *HR* Enoxaparin 30 MG/0.3 ML SYRINGE SQ SCH ×2 (05:49→17:27)
[2017-12-05] MEDS: traMADol 50 MG TABLET PO PRN (06:47)
--- NOTE | 2017-12-05 07:56 | Orthopedics Progress Note ---
Date of Encounter: 12/05/17 Time of Encounter: 07:55 - Assessment and Plan (1) Congestive heart failure of unknown etiology Current Visit: Yes Status: Acute (2) Arthritis of left knee Current Visit: Yes Status: Acute (3) Status post total knee replacement, left Current Visit: Yes Status: Acute (4) Iron deficiency anemia Current Visit: Yes Status: Chronic Qualifiers: Iron deficiency anemia type: unspecified iron deficiency Qualified Code(s) : D50.9 - Iron deficiency anemia, unspecified (5) KAROLYN on CPAP Current Visit: Yes Status: Chronic (6) Status post total right knee replacement Current Visit: No Status: Acute (7) Diabetes type 2, controlled Current Visit: No Status: Chronic Qualifiers: Diabetes mellitus group home insulin use: with rat exterminator use Diabetes mellitus complication status: with unspecified complications Qualified Code(s) : E11.8 - Type 2 diabetes mellitus with unspecified complications; Z79.4 - longterm (current) use of insulin (8) Fatty liver Current Visit: No Status: Chronic (9) History of lung cancer Current Visit: No Status: Chronic (10) Hyperlipidemia Current Visit: No Status: Chronic Qualifiers: Hyperlipidemia type: mixed hyperlipidemia Qualified Code(s): E78.2 - Mixed hyperlipidemia (11) Hypertension Current Visit: No Status: Chronic Qualifiers: Hypertension type: essential hypertension Qualified Code(s): I10 - Essential (primary) hypertension (12) Hypothyroidism Current Visit: No Status: Chronic Qualifiers: Hypothyroidism type: unspecified Qualified Code(s): E03.9 - Hypothyroidism , unspecified (13) Morbid obesity with BMI of 50.0-59.9, adult Current Visit: No Status: Chronic (14) Tobacco consumption Current Visit: No Status: Chronic Subjective Interval history: Patient was seen this morning doing well without complaints. Afebrile vital signs stable. Operative extremity: Neurovascularly intact Dressing clean dry and intact Calves nontender Assessment and plan: Continue with postoperative care discharged today Objective Vital signs: Vital Signs Temp Pulse Resp BP Pulse Ox 12/05/17 07:21 98.4 F 51 16 124/93 94 12/05/17 07:14 99.7 F H 18 135/83 98 12/05/17 07:02 98.4 F 80 16 100/63 88 12/04/17 23:01 98.2 F 82 18 114/70 94 12/04/17 18:42 98.2 F 77 18 115/71 92 12/04/17 15:17 98.4 F 81 18 119/72 90 12/04/17 11:56 98.1 F 79 18 99/58 93 Intake and Output 12/04/17 12/04/17 12/05/17 15:59 23:59 07:59 Intake Total 240 / 240 120 / 120 Balance 240 / 240 120 / 120 Intake: Oral 240 / 240 120 / 120 Other: Meal Lunch Dinner Percent of Meal Consumed 0% 50% # Voids 1 1 Blood Glucose* 135 196 93 - Labs CBC & BMP: 12/04/17 00:33 12/04/17 00:33 Labs: Abnormal lab results Sodium 133 mEq/L (136-145) L 12/04/17 00:33 Chloride 97 mEq/L (98-107) L 12/04/17 00:33 Glucose 142 mg/dL (70-105) H 12/04/17 00:33 POC Glucose 196 mg/dL (70-99) H 12/04/17 18:45 Calculated Osmolality 279 (280-300) L 12/04/17 00:33 - VTE Documentation of Mechanical Device: Venous foot pump, device Consult Discharge Plan - Plan Referrals: NONE,PCP [Primary Care Provider] -
[2017-12-05] MEDS: Insulin NPH/REG 70/30 100 UNIT/ML (x5UNIT) SQ SCH (08:08)
[2017-12-05] MEDS: Gabapentin 400 MG CAPSULE PO SCH ×2 (08:09→17:27)
[2017-12-05] MEDS: Cholecalciferol (D-3) 1,000 UNIT TABLET PO SCH (08:09)
[2017-12-05] MEDS: Insulin LISPRO 300 UNITS/3 ML VIAL SQ SCH ×3 (08:09→17:27)
[2017-12-05] MEDS: BuPROPion XL (24 HR) 150 MG TABLET PO SCH (08:09)
[2017-12-05] MEDS ORDERED: Ketorolac 30 MG/ML VIAL IVP ONE (12:50)
--- NOTE | 2017-12-05 13:07 | Event Note ---
Date of Encounter: 12/04/17 Time of Encounter: 13:05 PCR - POD#2 Left TKR, history of Right TKR with wound dehiscence Patient seen at bedside, and continues with pain. A&O x 3. Pain difficulty. Holland in place. Afebrile, vital signs stable. Labs reviewed from 12/04 - no repeat secondary to medically stable. H/H - stable, asymptomatic Pain control: Added Toradol, Flexeril, currently taking high dose of Gabapentin. Added Lidoderm patch. Changed patient to percocet for medication Participating in PT. All questions and concerns addressed. Educated on use of incentive spirometer. Encouraged ambulation and proper hydration. Patient educated on post-operative restrictions and post-operative care. Assessment and plan: Continue with postoperative care Discharge plan: Home with , will discharge tomorrow*
[2017-12-05 14:43] VITALS: BP 96/59
== END 2017-12-05 20:06 | disposition home or self-care (01) | DRG 470 ==
LOC: SAMDAY 13:40 → 3NENU 18:36
PROVIDERS: ADMIT Orthopaedic Surgery; ATTEND Orthopaedic Surgery

== ENCOUNTER 2017-12-30 13:23 | Inpatient (IN) ==
--- NOTE | 2017-12-30 15:07 | Orthopedic History & Physical ---
Date of Encounter: 12/30/17 Time of Encounter: 15:05 Assessment and Plan (1) Wound dehiscence, surgical Current visit: No Status: Acute Patient is NORAH#4, seen today after a ED visit over the weekend. As of her last appointment two weeks ago, patient was doing well, with no complications. Incision well healed. On Saturday, 12/23 - patient had an injury to her Left knee while getting into a van, and she slipped off a step, causing hyperflexion to left knee. She admitted to swelling and pain at that time. On Monday 12/25, her dog jumped on her knee and scratched open the middle of her incision. From Saturday to Saturday, she started having increased swelling and pain, with inability to walk. She was first seen in [place] ED for her ear pain, and stated when she mentioned her knee, they cleansed it and applied a dermabond due to drainage. The then returned to the [facility] ED on Thursday 12/28 due to fever, malaise, and worsening of pain and drainage. She was then transferred to [facility] for further treatment. WBC 23, blood culture and wound cultures obtained, and according to medical records, they are negative to date. She was given Zosyn and two doses of Vancomycin in the ED as well. Patien tstates she has been afebrile and the knee continues to drain, but her motion has improved slightly. She continues in a wheelchair due to pain. She denies N/T or any radiation of pain. Vitals are stable in the office. AROM and PROM intact, minimal discomfort. Obvious knee effusion present. Active purulent drainage from mid-incision. No fluctuance appreciated. XRAY report from [place] reviewed: large joint effusion with soft tissue swelling Discussed case with - plan for admission today for IV antibiotics and surgical intervention. Consent obtained, risks versus benefits reviewed: Left Knee I&D t NPO now. Labs pending. Surgery today. . Qualifiers: Encounter type: initial encounter Qualified Code(s): T81.31XA - Disruption of external operation (surgical) wound, not elsewhere classified, initial encounter (2) Status post total knee replacement, left Current visit: No Status: Acute (3) Smoker Current visit: Yes Status: Acute (4) Asthma Current visit: No Status: Chronic Qualifiers: Asthma severity: unspecified severity Asthma persistence: unspecified Asthma complication type: unspecified Qualified Code(s): J45.909 - Unspecified asthma, uncomplicated (5) COPD (chronic obstructive pulmonary disease) Current visit: No Status: Chronic Qualifiers: COPD type: unspecified COPD Qualified Code(s): J44.9 - Chronic obstructive pulmonary disease, unspecified (6) Diabetes type 2, controlled Current visit: No Status: Chronic Qualifiers: Diabetes mellitus correction insulin use: with rodent exterminator use Diabetes mellitus complication status: with unspecified complications Qualified Code(s) : E11.8 - Type 2 diabetes mellitus with unspecified complications; Z79.4 - detention (current) use of insulin (7) History of lung cancer Current visit: No Status: Chronic (8) Hyperlipidemia Current visit: No Status: Chronic Qualifiers: Hyperlipidemia type: mixed hyperlipidemia Qualified Code(s): E78.2 - Mixed hyperlipidemia (9) Hypertension Current visit: No Status: Chronic Qualifiers: Hypertension type: essential hypertension Qualified Code(s): I10 - Essential (primary) hypertension (10) Hypothyroidism Current visit: No Status: Chronic Qualifiers: Hypothyroidism type: unspecified Qualified Code(s): E03.9 - Hypothyroidism , unspecified (11) Iron deficiency anemia Current visit: No Status: Chronic Qualifiers: Iron deficiency anemia type: unspecified iron deficiency Qualified Code(s) : D50.9 - Iron deficiency anemia, unspecified (12) Morbid obesity with BMI of 50.0-59.9, adult Current visit: No Status: Chronic (13) KAROLYN on CPAP Current visit: No Status: Chronic History of Present Illness Chief complaint: Left Knee pain x 5 days HPI: Ms. Briggs is a 52 year old female, admitted to hospital from the office. Patient is POW#4 Left TKR 12/02/17, seen today in the office after a ED visit over the weekend for Left knee pain x 5 days. As of her last appointment two weeks ago, patient was doing well, with no complications. Incision well healed. On Saturday, 12/23 - patient had an injury to her Left knee while getting into a van, and she slipped off a step, causing hyperflexion to left knee. She admitted to swelling and pain at that time. On Monday 12/25, her dog jumped on her knee and scratched open the middle of her incision. From Saturday to Saturday, she started having increased swelling and pain, with inability to walk. She was first seen in [place] ED for her ear pain, and stated when she mentioned her knee, they cleansed it and applied a dermabond due to drainage. The then returned to the [facility] ED on Thursday 12/28 due to fever, malaise, and worsening of pain and drainage. She was then transferred to [facility] for further treatment. WBC 23, blood culture and wound cultures obtained, and according to medical records, they are negative to date. She was given Zosyn and two doses of Vancomycin in the ED as well. Patien tstates she has been afebrile and the knee continues to drain, but her motion has improved slightly. She continues in a wheelchair due to pain. She denies N/T or any radiation of pain. Vitals are stable in the office. AROM and PROM intact, minimal discomfort. Obvious knee effusion present. Active purulent drainage from mid-incision. No fluctuance appreciated. XRAY report from [place] reviewed: large joint effusion with soft tissue swelling Discussed case with - plan for admission today for IV antibiotics and surgical intervention. Consent:: Left Knee I&D today. NPO now. Past Med Surg Social Fam HX - Past Medical History Medical history: cancer, COPD, diabetes, hyperlipidemia, hypertension, kidney stones, thyroid disease Psychiatric history: no psych history - Past Surgical History Surgical History: , cancer surgery, cholecystectomy, hysterectomy Additional surgical history: Tonsils & Adenoids, bilateral knee scopes,right lung cancer, bilateral knee menisectomy,hernia,tubes and ovaries removed,left foot crush injury,right robotic assisted total knee replacement, R. upper lobectomy - Social History Smoking Status: Current every day smoker Smokeless Tobacco Status: No Alcohol use: none Drug use: none - Family History Daughter Hx Family Cardiac Disorders: Yes (aortic stenosis) Medications and Allergies Albuterol Sulfate [Albuterol Inhaler] 2 puff IH Q4H PRN 03/23/17 [History] BuPROPion XL (24 HR) [Wellbutrin Xl] 150 mg PO BID 03/23/17 [History] Cholecalciferol (Vitamin D3) [Vitamin D3] 50,000 unit PO FR 03/23/17 [History] Duloxetine HCl [Cymbalta] 60 mg PO DAILY 03/23/17 [History] Furosemide [Lasix] 40 mg PO BID PRN 03/23/17 [History] Gabapentin [Neurontin] 1,200 mg PO TID 03/23/17 [History] Insulin Aspart Prot/Insuln Asp [Novolog Mix 70-30 Vial] 55 unit SQ QAM 03/23/17 [History] Insulin Aspart Prot/Insuln Asp [Novolog Mix 70-30 Vial] 100 unit SQ QPM [History] Levothyroxine Sodium 150 mcg PO DAILY 03/23/17 [History] Losartan Potassium [Cozaar] 100 mg PO DAILY 03/23/17 [History] Potassium Chloride [Klor-Con 10] 10 meq PO DAILY 03/23/17 [History] Pravastatin Sodium [Pravachol] 80 mg PO HS 03/23/17 [History] Aspirin Enteric Coated [Aspirin EC] 325 mg PO BID #20 tablet. 12/01/17 [Rx] Celecoxib [Celebrex] 200 mg PO DAILY 30 Days #30 capsule 12/05/17 [Rx] Cyclobenzaprine [Flexeril] 5 mg PO BID PRN 7 Days #14 tablet 12/05/17 [Rx] Lidocaine Patch [Lidoderm 5% patch] 1 each TP DAILY #60 adh..patch 12/05/17 [Rx] OxyCODONE/APAP 5/325 [Percocet 5/325 MG] 1 each PO Q4HR PRN 7 Days #35 tablet [Rx] 3 Allergy/AdvReac Type Severity Reaction Status Date / Time hydrocodone AdvReac Itching, Verified 11/18/17 15:53 Vomiting morphine AdvReac Itching Verified 11/18/17 15:53 All Systems Reviewed: The remainder of the systems were reviewed and are negative - Constitutional Constitutional: as per HPI, frequent falls, weakness, no fever(s) - Cardiovascular Cardiovascular: no chest pain, no dyspnea, no syncope - Respiratory Respiratory: no cough, no hemoptysis, no dyspnea on exertion - Musculoskeletal Musculoskeletal: as per HPI, abnormal gait, joint swelling, limited range of motion, muscle weakness, no numbness, no radiating pain into limb Physical Exam - Constitutional Vitals: Temp Pulse Resp BP Pulse Ox 98.2 F 82 18 118/71 94 12/30/17 13:53 12/30/17 13:53 12/30/17 13:53 12/30/17 13:53 12/30/17 13:53 General appearance IM: A&O X 3, no acute distress, answers questions appropriately - Knee left Appearance: effusion Effusion grade: grade 2 Previous incision location: Incision: 3 cm gapping at mid-incision with gross purulent drainage Varus alignment in stance: No Valgus alignment in stance: No Tenderness with palpation knee: anterior, medial, lateral Pain: with flexion, with extension, throughout ROM Gait: other (wheelchair) ROM: extension knee: Limited ROM: flexion knee: Limited Strength: extension knee: Limited Strength: flexion: Limited Results - Labs Labs: Pending - Diagnostic results Hip x-ray: report reviewed, image reviewed ([facility]YS from [facility]: Large joint effusion with soft tissue swelling)
[2017-12-30] MEDS ORDERED: Naloxone 0.4 MG/ML INJ IVP PRN ×2 (15:11→21:08)
[2017-12-30] MEDS ORDERED: 0.9 % Sodium Chloride 1,000 ML IVC SCH (15:15)
[2017-12-30] MEDS ORDERED: 0.9 % Sodium Chloride 1,000 ML ONE (15:29)
[2017-12-30 16:03] LABS: Basophils % 0.2 %; Eosinophils # 0.2 K/mcL (0.0-0.6); Eosinophils % 0.9 %; Hematocrit 33.7 % (35.3-44.9); Hemoglobin 10.1 g/dL (11.5-15.4); Immature Granulocytes % 0.7 % (0-4); Lymphocytes # 2.4 K/mcL (0.6-4.6); Lymphocytes % 12.3 %; Mean Corpuscular Hemoglobin 20.6 pg (28.0-33.3); Mean Corpuscular Volume 68.6 fL (83.0-100.0); Monocytes % 5.2 %; Neutrophils # 15.6 K/mcL (1.6-8.9); Platelet Count 324 K/mcL (140-400); Red Blood Count 4.91 M/mcL (3.82-4.97); Red Cell Distribution Width 20.3 % (11.5-14.5); Segmented Neutrophils % 80.7 %
[2017-12-30 16:09] LABS: INR 1.1; Prothrombin Time 12.5 Seconds (9.4-12.1)
[2017-12-30 16:21] LABS: BUN/Creatinine Ratio 23 (6-26); Blood Urea Nitrogen 16 mg/dL (6-20); Carbon Dioxide 31 mEq/L (23-29); Chloride 101 mEq/L (98-107); Glucose 98 mg/dL (70-105); Osmolality,Calculated 285 (280-300); Potassium 3.6 mEq/L (3.5-5.1); Sodium 137 mEq/L (136-145); eGFR For Non-African Americans > 60 (> 60)
[2017-12-30] MEDS ORDERED: *HR* Propofol 200 MG/20 ML VIAL IVP ONE (16:40)
[2017-12-30] MEDS ORDERED: *HR* FentaNYL (PF) 100 MCG/2 ML VIAL ONE (16:40)
[2017-12-30] MEDS ORDERED: *HR* Midazolam HCl 2 MG/2 ML VIAL ONE (16:40)
[2017-12-30] MEDS ORDERED: Dexamethasone 4 MG/ML VIAL ONE (16:40)
[2017-12-30] MEDS ORDERED: Ondansetron 4 MG/2 ML VIAL ONE (16:40)
[2017-12-30] MEDS ORDERED: Lidocaine -MPF 2% 2 ML VIAL ONE (16:40)
--- NOTE | 2017-12-30 16:52 | Anesthesia Evaluation PreOp ---
Date of Encounter: 12/30/17 Time of Encounter: 16:50 - Past History Planned Operation: Left Knee I & D Cardiac History: CHF, HTN, Hyperlipidemia Pulmonary History: Smoker (40 years), COPD (severe, SpO2 runs in high 80's to low 90's), KAROLYN Dx (uses CPAP), Other (H/O lung CA S/P right upper lobectomy in 2016) [employer] History: Other (neuropathy, chronic pain) Other Medical History: Hepatic (fatty liver), Diabetes Type II, Other (obesity BMI=54.7) Anesthesia History: No Prior Anesthetic Complications, Past Anesthesia, Difficult Airway Alcohol Use: none Drug use: none Medications and Allergies Albuterol Sulfate [Albuterol Inhaler] 2 puff IH Q4H PRN 03/23/17 [History] BuPROPion XL (24 HR) [Wellbutrin Xl] 150 mg PO BID 03/23/17 [History] Cholecalciferol (Vitamin D3) [Vitamin D3] 50,000 unit PO FR 03/23/17 [History] Duloxetine HCl [Cymbalta] 60 mg PO DAILY 03/23/17 [History] Furosemide [Lasix] 40 mg PO DAILY 03/23/17 [History] Gabapentin [Neurontin] 1,200 mg PO TID 03/23/17 [History] Insulin Aspart Prot/Insuln Asp [Novolog Mix 70-30 Vial] 85 unit SQ BID 03/23/17 [History] Levothyroxine Sodium 150 mcg PO DAILY 03/23/17 [History] Losartan Potassium [Cozaar] 100 mg PO DAILY 03/23/17 [History] Potassium Chloride [Klor-Con 10] 10 meq PO DAILY 03/23/17 [History] Pravastatin Sodium [Pravachol] 80 mg PO HS 03/23/17 [History] Ascorbate Calcium [Vitamin C] 500 mg PO BID 12/30/17 [History] Cyanocobalamin (Vitamin B-12) [Vitamin B-12] 500 mcg PO DAILY 12/30/17 [History] Cyclobenzaprine [Flexeril] 5 mg PO HS PRN 12/30/17 [History] Ferrous Sulfate [Iron] 325 mg PO BID 12/30/17 [History] Furosemide [Lasix] 40 mg PO DAILY PRN 12/30/17 [History] Insulin ASPART [Novolog] 0 unit SQ TIDWM 12/30/17 [History] Ipratropium/Albuterol Sulfate [Iprat-Albut 0.5-3(2.5) mg/3 ml] 3 ml IH Q4H PRN 12/30/17 [History] Losartan Potassium [Cozaar] 12/30/17 [History] Oxycodone HCl [Oxycodone HCl] 1 tab PO Q6H PRN 12/30/17 [History] 3 Allergy/AdvReac Type Severity Reaction Status Date / Time hydrocodone AdvReac Itching, Verified 12/30/17 16:04 Vomiting morphine AdvReac Itching Verified 12/30/17 16:04 - Meds/Allergy Pre-op Review Medications Reviewed: Yes Allergies Reviewed: Yes Beta Blockers on Current Med List: No Anesthesia Results - Labs 12/30/17 15:30 12/30/17 15:30 Laboratory Tests 12/30/17 15:30 PT 12.5 H INR 1.1 APTT 27.0 - Imaging EKG: report reviewed (03/19/2017 SINUS RHYTHM LOW QRS VOLTAGE IN PRECORDIAL LEADS) Anesthesia Exam Vital Signs/O2 Sat, Most Current Temp Pulse Resp BP Pulse Ox 98.2 F 82 18 118/71 94 12/30/17 13:53 12/30/17 13:53 12/30/17 13:53 12/30/17 13:53 12/30/17 13:53 Height: 5'5''/1.65m Weight: 329 lbs/149.2 kg NPO (# of Hours): 6 Pain Scale: 8 (left knee) Pain Scale Used: Numeric (1 - 10) - HEENT Pupil (Motor): EOMI Mallampati: IV Teeth: Normal Oral Opening: Greater than 3 - [employer] LOC: Oriented [employer] Motor: Normal RUE, Normal LUE, Normal RLE, Normal Face, Deficit LLE [employer] Sensory: Normal: RUE, LUE, Face, Deficit: RLE, LLE - Cardiac Rhythm: Regular Murmur: None - Pulmonary Breath Sounds: bilateral Clear Respiratory Effort: Symmetrical Anesthesia Assess/Plan ASA Score: 4 Modified [place] Scale for Level of Consciousness: Cooperative, oriented, and tranquil Anesthetic Plan: Regional (SAB) Monitoring Plan: Standard Monitors Recovery Plan: PACU
[2017-12-30 17:02] LABS: Anisocytosis 2+ (Not Present); Hypochromasia Present (Not Present); Microcytosis Present (Not Present)
[2017-12-30 17:03] LABS: Platelet Estimate Normal (Normal)
[2017-12-30] MEDS ORDERED: *HR* Morphine Sulfate/PF 10 MG/10 ML AMPUL ONE (17:28)
--- NOTE | 2017-12-30 17:30 | Orthopedics Progress Note ---
Date of Encounter: 12/30/17 Time of Encounter: 17:28 Subjective Interval history: Patient status post left total knee, patient was doing well until she had a injury getting into her vehicle last Saturday. This was associated with a pop in the left knee. Patient then developed swelling, her dog the next a jumped on her leg opening up the incision. Around the same time the patient is also dealing with an ear infection. Patient went to the ER on , states that the knee was draining. Patient did not contact the office till the weekend. Patient seen in the office this morning by the physician assistant analyst, admitted with infected left knee. Patient has positive drainage positive swelling no erythema around the knee. Patient is able to do a straight leg raise in the holding area. Patient will undergo a left knee irrigation debridement possible poly-exchange. We reviewed the risks and benefits as well as recovery. All questions were answered. The patient agreed to this treatment plan and appeared to understand the plan is reviewed. Objective Vital signs: Vital Signs Temp Pulse Resp BP Pulse Ox 12/30/17 13:53 98.2 F 82 18 118/71 94 Intake and Output 12/30/17 12/30/17 12/30/17 07:59 15:59 23:59 Other: # Voids 2 Weight 149.232 kg Patient Weight 12/30/17 23:59 Weight 149.232 kg - Labs CBC & BMP: 12/30/17 15:30 12/30/17 15:30 Labs: Abnormal lab results WBC 19.3 K/mcL (4.3-11.1) H 12/30/17 15:30 Hgb 10.1 g/dL (11.5-15.4) L 12/30/17 15:30 Hct 33.7 % (35.3-44.9) L 12/30/17 15:30 MCV 68.6 fL (83.0-100.0) L 12/30/17 15:30 MCH 20.6 pg (28.0-33.3) L 12/30/17 15:30 MCHC 30.0 g/dL (31.6-35.5) L 12/30/17 15:30 RDW 20.3 % (11.5-14.5) H 12/30/17 15:30 Neutrophils # 15.6 K/mcL (1.6-8.9) H 12/30/17 15:30 Hypochromasia Present (Not Present) A 12/30/17 15:30 Anisocytosis 2+ (Not Present) A 12/30/17 15:30 Microcytosis Present (Not Present) A 12/30/17 15:30 PT 12.5 Seconds (9.4-12.1) H 12/30/17 15:30 Carbon Dioxide 31 mEq/L (23-29) H 12/30/17 15:30 Consult Discharge Plan - Plan Referrals: Joy Valentine DO [Primary Care Provider] -
[2017-12-30] MEDS ORDERED: Lidocaine -MPF 1% 5 ML AMPUL ONE (17:31)
[2017-12-30] MEDS ORDERED: Ethanol\\Acetic Acid\\Na Ace\\Ben 1,000 ML IRRIG.SOLN IR ONE (17:48)
[2017-12-30] MEDS ORDERED: Vancomycin 1,000 MG VIAL ONE (17:50)
[2017-12-30] MEDS ORDERED: Propofol 500 MG/50 ML INFUS..BTL ONE (17:54)
--- NOTE | 2017-12-30 19:02 | Orthopedic Operative Note ---
Date of procedure: 12/30/17 Pre-op diagnosis: Infected left total knee Post-op diagnosis: other (Extensor mechanism rupture) Procedure: Procedure: Left knee open arthrotomy irrigation debridement poly-exchange extensor mechanism repair. Estimated blood loss: 500 mL Hardware: Kimball TS 9 Isamar for a 5 tibial tray One DIONISIO drain Findings: Superficial purulent material complete rupture of medial arthrotomy with communication. No intra-articular purulent material identified. Procedure: Patient brought to the operating room and placed on the operating room table after general anesthesia was administered the left lower extremity was prepped and draped in the sterile surgical fashion patient received IV antibiotic prior skin incision. Patient had a 1 cm opening central portion of the incision with purulent drainage. Away from the incision spinal needle was introduced into the joint no fluid was returned. A midline incision was made with an elliptical portion around the opening. Upon entering the subcutaneous tissue palpation indicated complete rupture of the medial arthrotomy. The incision was extended superiorly and inferiorly. The arthrotomy was opened completely. No purulent material is intra-articular. An extensive debridement and irrigation were performed of the superficial and deep tissues. With a significant synovectomy. If 1 L of antibacterial solution. It was then irrigated with 3 L of pulse irrigation. The knee was brought into flexion the central post was removed and the poly-was removed. The baseplate was irrigated with an antibacterial solution and the 9 mm Isamar for the 5 tray was seated and secured. This was the TS for the Fly knee. The knee was then irrigated again with an antibacterial solution. It was irrigated again with 3 L of pulse irrigation. It was closed over a DIONISIO drain the extensor mechanism by the PA running #2 FiberWire suture and #2 PDS suture. The subcutaneous tissues closed deep #1 PDS suture superficially with 0 PDS suture. Skin was closed with skin danelle. Patient was placed in a sterile dressing postoperative brace transferred to recovery room in stable condition. Anesthesia: spinal Surgeon: Karsten Argueta Was there an medical office assistant present: Yes Statement Clerks Manager: Ursula Lomas Estimated blood loss (cc): 500 Condition: stable Disposition: PACU
[2017-12-30 20:36] LABS: Hematocrit 34.3 % (35.3-44.9); Hemoglobin 10.1 g/dL (11.5-15.4)
[2017-12-30] MEDS ORDERED: BuPROPion XL (24 HR) 150 MG TABLET PO SCH (21:00)
[2017-12-30] MEDS ORDERED: Dextrose Gel 15 GM/37.5 ML TUBE PO PRN ×2 (21:08)
[2017-12-30] MEDS ORDERED: *HR* Dextrose 50 % in Water (Syg) 50 ML SYRINGE IVP PRN (21:08)
[2017-12-30] MEDS ORDERED: Ondansetron 4 MG/2 ML VIAL IVP PRN (21:08)
[2017-12-30] MEDS ORDERED: Sennosides 8.6 MG TABLET PO PRN (21:08)
[2017-12-30] MEDS ORDERED: Temazepam 15 MG CAPSULE PO PRN (21:08)
[2017-12-30] MEDS ORDERED: NON-FORMULARY MEDICATION 1 EACH EACH (Insulin Aspart Prot/Insuln Asp [Novolog Mix 70-30 Vi SQ SCH (21:08)
[2017-12-30] MEDS ORDERED: D5% in Water 1,000 ML IVC PRN (21:08)
[2017-12-30] MEDS ORDERED: Furosemide 40 MG TABLET PO PRN (21:08)
[2017-12-30] MEDS ORDERED: Ipratropium/Albuterol Neb 3 ML IH PRN (21:08)
[2017-12-30] MEDS ORDERED: MOM Conc 10 ML UD.LIQ PO PRN (21:08)
[2017-12-30] MEDS: *HR* OxyCODONE Immed Rel 5 MG TABLET PO PRN (21:59)
[2017-12-30] MEDS: Ringers Solution, Lactated 1,000 ML IVC SCH (22:05)
[2017-12-30] MEDS: Ascorbic Acid 500 MG TABLET PO SCH (22:58)
[2017-12-30] MEDS: Gabapentin 400 MG CAPSULE PO SCH (22:58)
[2017-12-30] MEDS: Insulin LISPRO 300 UNITS/3 ML VIAL SQ SCH (22:58)
[2017-12-30] MEDS: traMADol 50 MG TABLET PO PRN (22:58)
[2017-12-31] MEDS: Insulin NPH/REG 70/30 100 UNIT/ML (x5UNIT) SQ SCH ×3 (01:33→21:31)
[2017-12-31] MEDS: *HR* OxyCODONE Immed Rel 5 MG TABLET PO PRN ×4 (01:33→18:00)
[2017-12-31 02:01] LABS: Hematocrit 30.5 % (35.3-44.9)
[2017-12-31 02:21] LABS: BUN/Creatinine Ratio 22 (6-26); Blood Urea Nitrogen 17 mg/dL (6-20); Calcium 8.6 mg/dL (8.6-10.3); Carbon Dioxide 28 mEq/L (23-29); Chloride 99 mEq/L (98-107); Glucose 172 mg/dL (70-105); Osmolality,Calculated 284 (280-300); Potassium 4.5 mEq/L (3.5-5.1); Sodium 134 mEq/L (136-145); eGFR For Non-African Americans > 60 (> 60)
[2017-12-31] MEDS: Ketorolac 30 MG/ML VIAL IVP PRN ×3 (03:13→19:53)
[2017-12-31] MEDS ORDERED: Vancomycin 1,000 MG VIAL IVPB SCH (06:00)
[2017-12-31] MEDS: traMADol 50 MG TABLET PO PRN ×2 (06:42→11:42)
--- NOTE | 2017-12-31 06:42 | Orthopedics Progress Note ---
Date of Encounter: 12/31/17 Time of Encounter: 06:41 Subjective Interval history: Patient was seen this morning doing well without complaints. Afebrile vital signs stable. Operative extremity: Neurovascularly intact Dressing clean dry and intact Calves nontender Assessment and plan: Continue with postoperative care Hematocrit 30.5 patient noted to have injury with disruption of medial arthrotomy from injury last week. Cultures positive for gram-positive cocci. Patient with injury by dog opening wound, and with ear infection Objective Vital signs: Vital Signs Temp Pulse Resp BP Pulse Ox 12/31/17 03:20 98.2 F 76 24 153/82 95 12/30/17 23:41 98.7 F 77 26 133/68 95 12/30/17 21:00 98.8 F 73 18 142/76 99 12/30/17 20:31 98.2 F 71 16 129/58 99 12/30/17 20:21 97.9 F 71 16 123/56 98 12/30/17 20:11 70 16 131/56 99 12/30/17 20:01 76 16 109/48 97 12/30/17 19:51 99 F 78 16 114/54 99 12/30/17 18:18 76 16 122/73 100 12/30/17 17:57 83 18 135/68 96 12/30/17 17:50 82 18 131/67 98 12/30/17 17:45 86 18 140/67 100 12/30/17 13:53 98.2 F 82 18 118/71 94 Intake and Output 12/30/17 12/30/17 12/31/17 15:59 23:59 07:59 Intake Total 480 / 480 600 / 600 Output Total 500 / 500 470 / 470 Balance -20 / -20 130 / 130 Intake: Oral 480 / 480 600 / 600 Output: Urine 0 / 0 400 / 400 Estimated Blood Loss 500 / 500 Wound Drainage 70 / 70 Left Knee 70 / 70 Other: # Voids 2 4 Weight 149.232 kg 156.3 kg Blood Glucose* 101 Patient Weight 12/31/17 23:59 Weight 156.3 kg - Labs CBC & BMP: 12/31/17 01:26 12/31/17 01:26 Labs: Abnormal lab results WBC 19.3 K/mcL (4.3-11.1) H 12/30/17 15:30 Hgb 9.0 g/dL (11.5-15.4) L 12/31/17 01:26 Hct 30.5 % (35.3-44.9) L 12/31/17 01:26 MCV 68.6 fL (83.0-100.0) L 12/30/17 15:30 MCH 20.6 pg (28.0-33.3) L 12/30/17 15:30 MCHC 30.0 g/dL (31.6-35.5) L 12/30/17 15:30 RDW 20.3 % (11.5-14.5) H 12/30/17 15:30 Neutrophils # 15.6 K/mcL (1.6-8.9) H 12/30/17 15:30 Hypochromasia Present (Not Present) A 12/30/17 15:30 Anisocytosis 2+ (Not Present) A 12/30/17 15:30 Microcytosis Present (Not Present) A 12/30/17 15:30 PT 12.5 Seconds (9.4-12.1) H 12/30/17 15:30 Sodium 134 mEq/L (136-145) L 12/31/17 01:26 Glucose 172 mg/dL (70-105) H 12/31/17 01:26 POC Glucose 101 mg/dL (70-99) H 12/30/17 20:59 Consult Discharge Plan - Plan Referrals: Joy Valentine DO [Primary Care Provider] -
[2017-12-31] MEDS ORDERED: *HR* Enoxaparin 30 MG/0.3 ML SYRINGE SQ SCH (08:00)
[2017-12-31] MEDS: 0.9 % Sodium Chloride 1,000 ML IVC SCH (08:54)
[2017-12-31] MEDS: Gabapentin 400 MG CAPSULE PO SCH ×3 (08:57→21:32)
[2017-12-31] MEDS: Cholecalciferol (D-3) 1,000 UNIT TABLET PO SCH (08:58)
[2017-12-31] MEDS: BuPROPion XL (24 HR) 150 MG TABLET PO SCH ×2 (08:58→21:32)
[2017-12-31] MEDS: Furosemide 40 MG TABLET PO SCH (08:58)
[2017-12-31] MEDS: Ascorbic Acid 500 MG TABLET PO SCH ×2 (08:58→21:32)
[2017-12-31] MEDS: Cyanocobalamin (B-12) 1,000 MCG TABLET PO SCH (08:58)
[2017-12-31] MEDS ORDERED: Cholecalciferol (D-3) 1,000 UNIT TABLET PO SCH (09:00)
[2017-12-31] MEDS: *HR* Enoxaparin 30 MG/0.3 ML SYRINGE SQ SCH ×2 (09:17→18:00)
[2017-12-31] MEDS: Insulin LISPRO 300 UNITS/3 ML VIAL SQ SCH ×4 (09:17→21:32)
[2017-12-31] MEDS ORDERED: Lidocaine -MPF 1% 5 ML AMPUL INFILT ONE (11:52)
--- NOTE | 2017-12-31 16:32 | Event Note ---
Date of Encounter: 12/31/17 Time of Encounter: 16:30 PCR - POD#1 - Left Knee Poly Exchange with I&D. Drain and Yamile placed. Gram Stain - + GRAM POSITIVE COCCI PICC team consulted, continue Vancomycin 1 g q 12, pharm to dose until culture results confirmed Awaiting blood cultures Trending WBC, eSR, CRP. Patient seen at bedside, without complaints. A&O x 3 Afebrile, vital signs stable. Labs reviewed. H/H - stable, asymptomatic - type and crossed 12/31 Pain control: adequate Participating in PT. No Knee ROM, locked in extension in Tscope brace All questions and concerns addressed. Educated on use of incentive spirometer. Encouraged ambulation and proper hydration. Patient educated on post-operative restrictions and post-operative care. Assessment and plan: Continue with postoperative care Discharge plan: Home with IV antibiotics once culture results have returned. Intake & Output 12/28/17 12/29/17 12/30/17 12/31/17 23:59 23:59 23:59 23:59 Intake Total 480 / 480 2287 / 2287 Output Total 500 / 500 1100 / 1100 Balance -20 / -20 1187 / 1187 Weight 149.232 kg 156.3 kg Short CBC 12/31/17 12/30/17 12/30/17 Range/Units 01:26 20:16 15:30 WBC 19.3 H (4.3-11.1) K/mcL Hgb 9.0 L 10.1 L 10.1 L (11.5-15.4) g/dL Hct 30.5 L 34.3 L 33.7 L (35.3-44.9) % Plt Count 324 (140-400) K/mcL Neutrophils # 15.6 H (1.6-8.9) K/mcL BMP 12/31/17 Range/Units 01:26 Sodium 134 L (136-145) mEq/L Potassium 4.5 (3.5-5.1) mEq/L Chloride 99 (98-107) mEq/L Carbon Dioxide 28 (23-29) mEq/L BUN 17 (6-20) mg/dL Creatinine 0.78 (0.60-1.20) mg/dL Glucose 172 H (70-105) mg/dL Calcium 8.6 (8.6-10.3) mg/dL Abnormal lab results WBC 19.3 K/mcL (4.3-11.1) H 12/30/17 15:30 Hgb 9.0 g/dL (11.5-15.4) L 12/31/17 01:26 Hct 30.5 % (35.3-44.9) L 12/31/17 01:26 MCV 68.6 fL (83.0-100.0) L 12/30/17 15:30 MCH 20.6 pg (28.0-33.3) L 12/30/17 15:30 MCHC 30.0 g/dL (31.6-35.5) L 12/30/17 15:30 RDW 20.3 % (11.5-14.5) H 12/30/17 15:30 Neutrophils # 15.6 K/mcL (1.6-8.9) H 12/30/17 15:30 Hypochromasia Present (Not Present) A 12/30/17 15:30 Anisocytosis 2+ (Not Present) A 12/30/17 15:30 Microcytosis Present (Not Present) A 12/30/17 15:30 PT 12.5 Seconds (9.4-12.1) H 12/30/17 15:30 Sodium 134 mEq/L (136-145) L 12/31/17 01:26 Glucose 172 mg/dL (70-105) H 12/31/17 01:26 POC Glucose 101 mg/dL (70-99) H 12/30/17 20:59 Vital Signs Temp Pulse Resp BP Pulse Ox 12/31/17 15:07 97.7 F 71 18 125/67 97 12/31/17 09:51 98.1 F 78 19 142/86 95 12/31/17 06:29 98.4 F 71 20 148/87 96 12/31/17 03:20 98.2 F 76 24 153/82 95 12/30/17 23:41 98.7 F 77 26 133/68 95 12/30/17 23:00 98.3 F 88 16 175/96 98 12/30/17 22:00 98.3 F 95 16 138/86 98 12/30/17 21:30 16 128/78 99 12/30/17 21:00 98.8 F 73 18 142/76 99 12/30/17 20:31 98.2 F 71 16 129/58 99 12/30/17 20:21 97.9 F 71 16 123/56 98 12/30/17 20:11 70 16 131/56 99 12/30/17 20:01 76 16 109/48 97 12/30/17 19:51 99 F 78 16 114/54 99 12/30/17 18:18 76 16 122/73 100 12/30/17 17:57 83 18 135/68 96 12/30/17 17:50 82 18 131/67 98 12/30/17 17:45 86 18 140/67 100 Intake and Output 12/31/17 12/31/17 12/31/17 07:59 15:59 23:59 Intake Total 687 / 687 1600 / 1600 Output Total 470 / 470 630 / 630 Balance 217 / 217 970 / 970 Intake: IV Fluids 87 / 87 1000 / 1000 0.9 % Sodium Chloride 1,000 ML 87 / 87 @ 75 mls/hr IVC .[id number] [facility] Rx #:[id number] Lactated Ringers 1,000 ML @ 75 1000 / 1000 mls/hr IVC .[id number] [facility] Rx#: [id number] Oral 600 / 600 600 / 600 Output: Urine 400 / 400 600 / 600 Wound Drainage 70 / 70 30 / 30 Left Knee 70 / 70 30 / 30 Other: Meal Lunch Percent of Meal Consumed 100% Weight 156.3 kg Blood Glucose* 223 171 153 Patient Weight 12/31/17 23:59 Weight 156.3 kg
--- NOTE | 2017-12-31 18:56 | Electrocardiograph Report ---
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
[2017-12-31] MEDS: Ringers Solution, Lactated 1,000 ML IVC SCH (23:26)
[2018-01-01 02:24] LABS: Basophils % 0.2 %; Eosinophils # 0.3 K/mcL (0.0-0.6); Eosinophils % 2.3 %; Hemoglobin 8.4 g/dL (11.5-15.4); Immature Granulocytes % 1.5 % (0-4); Lymphocytes % 24.6 %; Mean Corpuscular Hemoglobin 20.1 pg (28.0-33.3); Mean Corpuscular Volume 67.1 fL (83.0-100.0); Mean Platelet Volume 10.4 fL (9.4-12.4); Monocytes % 8.1 %; Neutrophils # 8.1 K/mcL (1.6-8.9); Platelet Count 302 K/mcL (140-400); Red Blood Count 4.17 M/mcL (3.82-4.97); Red Cell Distribution Width 20.3 % (11.5-14.5); Segmented Neutrophils % 63.3 %
[2018-01-01 02:28] LABS: Lymphocytes # 3.2 K/mcL (0.6-4.6)
[2018-01-01 02:43] LABS: BUN/Creatinine Ratio 22 (6-26); Blood Urea Nitrogen 18 mg/dL (6-20); Calcium 8.4 mg/dL (8.6-10.3); Carbon Dioxide 30 mEq/L (23-29); Chloride 100 mEq/L (98-107); Glucose 240 mg/dL (70-105); Osmolality,Calculated 296 (280-300); Potassium 3.9 mEq/L (3.5-5.1); Sodium 138 mEq/L (136-145); eGFR For Non-African Americans > 60 (> 60)
[2018-01-01 03:03] LABS: Hypochromasia Present (Not Present); Microcytosis Present (Not Present); Platelet Estimate Normal (Normal)
[2018-01-01 03:04] LABS: Polychromasia 1+ (Not Present)
[2018-01-01 03:05] LABS: Anisocytosis 2+ (Not Present)
[2018-01-01] MEDS: *HR* OxyCODONE Immed Rel 5 MG TABLET PO PRN ×5 (03:22→20:53)
[2018-01-01] MEDS: *HR* Enoxaparin 30 MG/0.3 ML SYRINGE SQ SCH ×2 (06:28→18:35)
[2018-01-01] MEDS: traMADol 50 MG TABLET PO PRN ×3 (06:38→18:35)
--- NOTE | 2018-01-01 06:57 | Orthopedics Progress Note ---
Date of Encounter: 01/01/18 Time of Encounter: 06:56 - Assessment and Plan (1) Acute blood loss anemia Current Visit: Yes Status: Acute Subjective Interval history: Patient was seen this morning doing well without complaints. Afebrile vital signs stable. Operative extremity: Neurovascularly intact Dressing clean dry and intact Calves nontender Assessment and plan: Continue with postoperative care hct 28 Objective Vital signs: Vital Signs Temp Pulse Resp BP Pulse Ox 01/01/18 06:38 97.8 F 81 16 128/76 94 01/01/18 03:27 97.6 F 73 17 125/72 90 12/31/17 23:10 98.7 F 84 16 131/68 90 12/31/17 22:59 91 12/31/17 19:07 97.6 F 78 16 114/68 88 12/31/17 15:07 97.7 F 71 18 125/67 97 12/31/17 09:51 98.1 F 78 19 142/86 95 Intake and Output 12/31/17 12/31/17 01/01/18 15:59 23:59 07:59 Intake Total 1600 / 1600 1250 / 1250 Output Total 630 / 630 330 / 330 Balance 970 / 970 920 / 920 Intake: IV Fluids 1000 / 1000 1250 / 1250 0.9 % Sodium Chloride 1,000 ML 1000 / 1000 @ 75 mls/hr IVC .[id number] [facility] Rx #:[id number] Lactated Ringers 1,000 ML @ 75 1000 / 1000 mls/hr IVC .[id number] [facility] Rx#: [id number] Vancocin 1,500 MG In 0.9 % 250 / 250 Sodium Chloride 250 ML @ 166. 667 mls/hr IVPB Q12H [facility] Rx#: [id number] Oral 600 / 600 Output: Urine 600 / 600 300 / 300 Wound Drainage 30 / 30 30 / 30 Left Knee 30 / 30 30 / 30 Other: Meal Lunch Percent of Meal Consumed 100% # Voids 1 Weight 156.5 kg Blood Glucose* 171 193 Patient Weight 01/01/18 23:59 Weight 156.5 kg - Labs CBC & BMP: 01/01/18 01:40 01/01/18 01:40 Labs: Abnormal lab results WBC 12.8 K/mcL (4.3-11.1) H 01/01/18 01:40 Hgb 8.4 g/dL (11.5-15.4) L 01/01/18 01:40 Hct 28.0 % (35.3-44.9) L 01/01/18 01:40 MCV 67.1 fL (83.0-100.0) L 01/01/18 01:40 MCH 20.1 pg (28.0-33.3) L 01/01/18 01:40 MCHC 30.0 g/dL (31.6-35.5) L 01/01/18 01:40 RDW 20.3 % (11.5-14.5) H 01/01/18 01:40 Polychromasia 1+ (Not Present) A 01/01/18 01:40 Hypochromasia Present (Not Present) A 01/01/18 01:40 Anisocytosis 2+ (Not Present) A 01/01/18 01:40 Microcytosis Present (Not Present) A 01/01/18 01:40 ESR >= 130 mm/hr (0-15) H 01/01/18 01:40 PT 12.5 Seconds (9.4-12.1) H 12/30/17 15:30 Carbon Dioxide 30 mEq/L (23-29) H 01/01/18 01:40 Glucose 240 mg/dL (70-105) H 01/01/18 01:40 POC Glucose 193 mg/dL (70-99) H 12/31/17 19:48 Calcium 8.4 mg/dL (8.6-10.3) L 01/01/18 01:40 C-Reactive Protein 209 mg/L (Less than 10) H 01/01/18 01:40 Consult Discharge Plan - Plan Referrals: Joy Valentine DO [Primary Care Provider] -
[2018-01-01] MEDS: 0.9 % Sodium Chloride 1,000 ML IVC SCH (07:14)
[2018-01-01] MEDS: Cyanocobalamin (B-12) 1,000 MCG TABLET PO SCH (07:52)
[2018-01-01] MEDS: BuPROPion XL (24 HR) 150 MG TABLET PO SCH ×2 (07:52→20:53)
[2018-01-01] MEDS: Gabapentin 400 MG CAPSULE PO SCH ×3 (07:53→20:52)
[2018-01-01] MEDS: Ascorbic Acid 500 MG TABLET PO SCH ×2 (07:53→20:53)
[2018-01-01] MEDS: Furosemide 40 MG TABLET PO SCH (07:53)
[2018-01-01] MEDS: Insulin LISPRO 300 UNITS/3 ML VIAL SQ SCH ×4 (07:54→20:41)
[2018-01-01] MEDS: Cholecalciferol (D-3) 1,000 UNIT TABLET PO SCH (07:58)
[2018-01-01] MEDS: Insulin NPH/REG 70/30 100 UNIT/ML (x5UNIT) SQ SCH ×2 (08:09→17:56)
[2018-01-01] MEDS: *HR* OxyCODONE/APAP 5/325 TABLET PO PRN (09:59)
--- NOTE | 2018-01-01 15:05 | Event Note ---
Date of Encounter: 01/01/18 Time of Encounter: 15:02 PCR - POD#2 - Left Knee Poly Exchange with I&D. Drain and Yamile placed. Gram Stain - + GRAM POSITIVE COCCI - Staph Aureus on Cultures, awaiting sensitivity; Blood cultures are negative to date PICC team consulted, continue Vancomycin 1 g q 12, pharm to dose until culture results confirmed Awaiting blood cultures Trending WBC, eSR, CRP. *see below Patient seen at bedside, without complaints. A&O x 3 Afebrile, vital signs stable. Labs reviewed. H/H - stable, asymptomatic - type and crossed 12/31, acute blood loss anemia 01/01: Improved leukocytosis 23 to 12 ESR > 130 CRP 209 Pain control: adequate Participating in PT. No Knee ROM, locked in extension in Tscope brace All questions and concerns addressed. Educated on use of incentive spirometer. Encouraged ambulation and proper hydration. Patient educated on post-operative restrictions and post-operative care. Assessment and plan: Continue with postoperative care Discharge plan: ECF with IV antibiotics likely or Saturday once culture results have returned. Vital Signs Temp Pulse Resp BP Pulse Ox 01/01/18 11:57 97.7 F 76 18 138/73 95 01/01/18 06:38 97.8 F 81 16 128/76 94 01/01/18 03:27 97.6 F 73 17 125/72 90 12/31/17 23:10 98.7 F 84 16 131/68 90 12/31/17 22:59 91 12/31/17 19:07 97.6 F 78 16 114/68 88 12/31/17 15:07 97.7 F 71 18 125/67 97 Intake and Output 12/31/17 01/01/18 01/01/18 23:59 07:59 15:59 Intake Total 1250 / 1250 1930 / 1930 Output Total 330 / 330 2650 / 2650 Balance 920 / 920 -720 / -720 Intake: IV Fluids 1250 / 1250 1450 / 1450 0.9 % Sodium Chloride 1,000 ML 1000 / 1000 @ 75 mls/hr IVC .[id number] [facility] Rx #:[id number] Lactated Ringers 1,000 ML @ 75 700 / 700 mls/hr IVC .[id number] [facility] Rx#: [id number] Vancocin 1,500 MG In 0.9 % 250 / 250 250 / 250 Sodium Chloride 250 ML @ 166. 667 mls/hr IVPB Q12H [facility] Rx#: [id number] Oral 480 / 480 Output: Urine 300 / 300 2650 / 2650 Wound Drainage Left Knee Other: Meal Breakfast Percent of Meal Consumed 90% # Voids 1 Weight 156.5 kg Blood Glucose* 193 216 76 Patient Weight 01/01/18 23:59 Weight 156.5 kg Abnormal Labs, Last 24 hours 01/01/18 01/01/18 01/01/18 07:39 01:40 01:40 WBC Hgb Hct MCV MCH MCHC RDW Polychromasia Hypochromasia Anisocytosis Microcytosis ESR >= 130 H Carbon Dioxide Glucose POC Glucose 216 H Calcium C-Reactive Protein 209 H 01/01/18 01/01/18 12/31/17 01:40 01:40 19:48 WBC 12.8 H Hgb 8.4 L Hct 28.0 L MCV 67.1 L MCH 20.1 L MCHC 30.0 L RDW 20.3 H Polychromasia 1+ A Hypochromasia Present A Anisocytosis 2+ A Microcytosis Present A ESR Carbon Dioxide 30 H Glucose 240 H POC Glucose 193 H Calcium 8.4 L C-Reactive Protein 12/31/17 12/31/17 12/31/17 16:29 12:08 07:59 WBC Hgb Hct MCV MCH MCHC RDW Polychromasia Hypochromasia Anisocytosis Microcytosis ESR Carbon Dioxide Glucose POC Glucose 153 H 171 H 223 H Calcium C-Reactive Protein
[2018-01-02] MEDS: traMADol 50 MG TABLET PO PRN (00:39)
[2018-01-02 00:54] LABS: Basophils # 0.1 K/mcL (0.0-0.2); Basophils % 0.3 %; Eosinophils # 0.6 K/mcL (0.0-0.6); Eosinophils % 3.7 %; Hematocrit 30.8 % (35.3-44.9); Hemoglobin 9.4 g/dL (11.5-15.4); Immature Granulocytes % 1.5 % (0-4); Lymphocytes # 2.6 K/mcL (0.6-4.6); Lymphocytes % 16.7 %; Mean Corpuscular HGB Conc 30.5 g/dL (31.6-35.5); Mean Corpuscular Hemoglobin 20.5 pg (28.0-33.3); Mean Corpuscular Volume 67.1 fL (83.0-100.0); Mean Platelet Volume 10.4 fL (9.4-12.4); Monocytes % 6.5 %; Platelet Count 348 K/mcL (140-400); Red Blood Count 4.59 M/mcL (3.82-4.97); Segmented Neutrophils % 71.3 %
[2018-01-02 01:02] LABS: Neutrophils # 11.1 K/mcL (1.6-8.9)
[2018-01-02 01:19] LABS: Platelet Estimate Normal (Normal)
[2018-01-02 01:20] LABS: Anisocytosis 2+ (Not Present); Microcytosis Present (Not Present); Polychromasia 1+ (Not Present)
[2018-01-02] MEDS: *HR* OxyCODONE Immed Rel 5 MG TABLET PO PRN ×3 (05:25→20:45)
[2018-01-02] MEDS: *HR* Enoxaparin 30 MG/0.3 ML SYRINGE SQ SCH ×2 (05:25→17:49)
--- NOTE | 2018-01-02 07:54 | Orthopedics Progress Note ---
Date of Encounter: 01/02/18 Time of Encounter: 07:53 - Assessment and Plan (1) Acute blood loss anemia Current Visit: Yes Status: Acute Subjective Interval history: Patient was seen this morning doing well without complaints. Afebrile vital signs stable. Operative extremity: Neurovascularly intact Dressing clean dry and intact Calves nontender Assessment and plan: Continue with postoperative care Cultures positive for staph aureus plan for discharge today Objective Vital signs: Vital Signs Temp Pulse Resp BP Pulse Ox 01/02/18 06:35 98.6 F 89 18 150/70 90 01/02/18 03:31 97.9 F 73 18 149/83 95 01/01/18 22:30 98.5 F 77 16 159/83 91 01/01/18 18:13 99.0 F 90 18 164/79 92 01/01/18 16:00 98.3 F 82 20 154/71 90 01/01/18 11:57 97.7 F 76 18 138/73 95 Intake and Output 01/01/18 01/01/18 01/02/18 15:59 23:59 07:59 Intake Total 1930 / 1930 1250 / 1250 800 / 800 Output Total 2650 / 2650 Balance -720 / -720 1250 / 1250 800 / 800 Intake: IV Fluids 1450 / 1450 250 / 250 Lactated Ringers 1,000 ML @ 75 700 / 700 mls/hr IVC .[id number] [facility] Rx#: [id number] Vancocin 1,500 MG In 0.9 % 250 / 250 250 / 250 Sodium Chloride 250 ML @ 166. 667 mls/hr IVPB Q12H [facility] Rx#: [id number] Oral 480 / 480 1000 / 1000 800 / 800 Output: Urine 2650 / 2650 Other: Meal Breakfast Percent of Meal Consumed 90% # Voids 1 1 Weight 156.6 kg Blood Glucose* 76 141 91 - Labs CBC & BMP: 01/02/18 00:38 01/01/18 01:40 Labs: Abnormal lab results WBC 15.5 K/mcL (4.3-11.1) H 01/02/18 00:38 Hgb 9.4 g/dL (11.5-15.4) L 01/02/18 00:38 Hct 30.8 % (35.3-44.9) L 01/02/18 00:38 MCV 67.1 fL (83.0-100.0) L 01/02/18 00:38 MCH 20.5 pg (28.0-33.3) L 01/02/18 00:38 MCHC 30.5 g/dL (31.6-35.5) L 01/02/18 00:38 RDW 20.0 % (11.5-14.5) H 01/02/18 00:38 Neutrophils # 11.1 K/mcL (1.6-8.9) H 01/02/18 00:38 Polychromasia 1+ (Not Present) A 01/02/18 00:38 Hypochromasia Present (Not Present) A 01/01/18 01:40 Anisocytosis 2+ (Not Present) A 01/02/18 00:38 Microcytosis Present (Not Present) A 01/02/18 00:38 ESR >= 130 mm/hr (0-15) H 01/02/18 00:38 PT 12.5 Seconds (9.4-12.1) H 12/30/17 15:30 Carbon Dioxide 30 mEq/L (23-29) H 01/01/18 01:40 Glucose 240 mg/dL (70-105) H 01/01/18 01:40 POC Glucose 141 mg/dL (70-99) H 01/01/18 19:27 Calcium 8.4 mg/dL (8.6-10.3) L 01/01/18 01:40 C-Reactive Protein 177 mg/L (Less than 10) H 01/02/18 00:38 Vancomycin Trough 14 mcg/mL (5-10) H 01/01/18 16:56 Consult Discharge Plan - Plan Referrals: Joy Valentine DO [Primary Care Provider] -
[2018-01-02] MEDS ORDERED: Aminoglycoside Consult 1 EACH MC ONE (08:04)
[2018-01-02] MEDS: *HR* OxyCODONE/APAP 5/325 TABLET PO PRN ×2 (09:07→23:30)
[2018-01-02] MEDS: Ascorbic Acid 500 MG TABLET PO SCH ×2 (10:07→20:41)
[2018-01-02] MEDS: Gabapentin 400 MG CAPSULE PO SCH ×3 (10:07→20:41)
[2018-01-02] MEDS: Cholecalciferol (D-3) 1,000 UNIT TABLET PO SCH (10:07)
[2018-01-02] MEDS: Furosemide 40 MG TABLET PO SCH (10:08)
[2018-01-02] MEDS: Cyanocobalamin (B-12) 1,000 MCG TABLET PO SCH (10:08)
[2018-01-02] MEDS: BuPROPion XL (24 HR) 150 MG TABLET PO SCH ×2 (10:09→20:42)
[2018-01-02] MEDS: Insulin LISPRO 300 UNITS/3 ML VIAL SQ SCH ×4 (10:09→21:34)
[2018-01-02] MEDS: Insulin NPH/REG 70/30 100 UNIT/ML (x5UNIT) SQ SCH ×2 (10:16→17:49)
[2018-01-02] MEDS ORDERED: ceFAZolin 2,000 MG in Water for inj. (sterile) 20 ML 10 ML IVP SCH (16:00)
--- NOTE | 2018-01-02 17:15 | Event Note ---
Date of Encounter: 01/02/18 Time of Encounter: 17:12 PCR - POD#3- Left Knee Poly Exchange with I&D. Drain and Yamile placed. Gram Stain - + GRAM POSITIVE COCCI - Staph Aureus on Cultures, pansenstive, Blood cultures are negative to date PICC team consulted, Start Cefazolin 2 g q 8 hours, pharm to dose Awaiting blood cultures Trending WBC, eSR, CRP. *see below - WBC elevated today, still less than initial lab Patient in restroom during PCR, Afebrile, vital signs stable. Labs reviewed. H/H - stable, asymptomatic - type and crossed 12/31, acute blood loss anemia 01/01: Improved leukocytosis 23 to 12 ESR > 130 CRP 209 01/02: increased WBC to 15 ESR > 130 CRP trending down 177 Pain control: adequate Participating in PT. No Knee ROM, locked in extension in Tscope brace All questions and concerns addressed. Educated on use of incentive spirometer. Encouraged ambulation and proper hydration. Patient educated on post-operative restrictions and post-operative care. Assessment and plan: Continue with postoperative care Discharge plan: ECF with IV antibiotics likely Saturday once approved. Vital Signs Temp Pulse Resp BP Pulse Ox 01/02/18 14:49 98.4 F 80 20 115/62 93 01/02/18 11:20 98.0 F 78 18 162/70 90 01/02/18 06:35 98.6 F 89 18 150/70 90 01/02/18 03:31 97.9 F 73 18 149/83 95 01/01/18 22:30 98.5 F 77 16 159/83 91 01/01/18 18:13 99.0 F 90 18 164/79 92 Intake and Output 01/02/18 01/02/18 01/02/18 07:59 15:59 23:59 Intake Total 800 / 800 120 / 120 Balance 800 / 800 120 / 120 Intake: Oral 800 / 800 120 / 120 Other: Meal Breakfast Percent of Meal Consumed 100% Stool Size Large # Voids 1 5 # Bowel Movements 1 Blood Glucose* 91 169 165 Abnormal Labs, Last 24 hours 01/02/18 01/02/18 01/02/18 00:38 00:38 00:38 WBC 15.5 H Hgb 9.4 L Hct 30.8 L MCV 67.1 L MCH 20.5 L MCHC 30.5 L RDW 20.0 H Neutrophils # 11.1 H Polychromasia 1+ A Anisocytosis 2+ A Microcytosis Present A ESR >= 130 H POC Glucose C-Reactive Protein 177 H Vancomycin Trough 01/01/18 01/01/18 19:27 16:56 WBC Hgb Hct MCV MCH MCHC RDW Neutrophils # Polychromasia Anisocytosis Microcytosis ESR POC Glucose 141 H C-Reactive Protein Vancomycin Trough 14 H
--- NOTE | 2018-01-02 17:18 | Discharge Summary ---
Addendum entered and electronically signed by TUTU Pettit 01/21/18 20:26: Addendum added for signature purposes. Original Note: <MiladisJackie harryUrsula L - Last Filed: 01/03/18 14:12> Orders not resulted at time of discharge: Pending orders 12/30/17 15:50 Culture,Blood [BC] Stat 12/30/17 18:50 Culture,Anaerobic [RM] Routine 01/03/18 04:00 CRP [C-Reactive Protein] AM 0400 Complete Blood Count [HEME] AM 0400 Erythrocyte Sedimentation Rate [HEME] AM 0400 Date of Encounter: 01/04/18 Time of Encounter: 14:19 - Discharge Diagnosis (1) Status post incision and drainage Priority: Primary Status: Acute (2) Infection of total left knee replacement Priority: Primary Status: Acute Comments: Opsite dressing, leave intact until first post-operative visit. If dressing becomes >50% saturated, contact office, remove dressing and place appropriate dressing in its place. Do not allow for dressing to get wet. Zipline/Brockton in place, plan to remove at post-operative day #14-16. Total Joint Precautions x 6 weeks Apply cold therapy wrap 3-6x/day for 20 minutes at a time. Encourage ambulation throughout the day Use Incentive spirometer 10x/hour. Elevate affected extremity above heart as tolerated. Brace: Knee Tscope brace intact, locked in extension, no knee flexion x 6 weeks. WBAT. OK to remove brace only to shower and cleanse leg daily. Left Knee Poly Exchange with I&D. Drain and Danelle placed. Gram Stain - + GRAM POSITIVE COCCI - Staph Aureus on Cultures, pansenstive, Blood cultures are negative to date PICC team consulted, Start Cefazolin 2 g q 8 hours, pharm to dose Awaiting blood cultures to finalize, will repeat today. Trending WBC, eSR, CRP. *see below - WBC again escalated today 10 17.8, still less than initial lab Afebrile, vital signs stable. Labs reviewed. H/H - stable, asymptomatic - type and crossed 12/31, acute blood loss anemia 01/01: Improved leukocytosis 23 to 12 ESR > 130 CRP 209 01/02: increased WBC to 15 ESR > 130 CRP trending down 177 01/03: increased WBC t0o 17 ESR > 130, CRP back up to 205 Pain control: adequate Participating in PT. No Knee ROM, locked in extension in Tscope brace All questions and concerns addressed. Educated on use of incentive spirometer. Encouraged ambulation and proper hydration. Patient educated on post-operative restrictions and post-operative care. Assessment and plan: Continue with postoperative care Discharge plan: ECF with IV antibiotics once WBC < 14 Plan: Repeat Blood cultures, UA with cultures and CXR Will continue with daily lab checks Qualifiers: Encounter type: initial encounter Qualified Code(s): T84.54XA - Infection and inflammatory reaction due to internal left knee prosthesis, initial encounter; Z96.652 - Presence of left artificial knee joint (3) Smoker Status: Acute (4) Asthma Priority: Secondary Status: Chronic Qualifiers: Asthma severity: unspecified severity Asthma persistence: unspecified Asthma complication type: unspecified Qualified Code(s): J45.909 - Unspecified asthma, uncomplicated (5) COPD (chronic obstructive pulmonary disease) Priority: Secondary Status: Chronic Qualifiers: COPD type: unspecified COPD Qualified Code(s): J44.9 - Chronic obstructive pulmonary disease, unspecified (6) Diabetes type 2, controlled Priority: Secondary Status: Chronic Qualifiers: Diabetes mellitus terminal superintendent insulin use: with terminal superintendent use Diabetes mellitus complication status: with unspecified complications Qualified Code(s): E11.8 - Type 2 diabetes mellitus with unspecified complications; Z79.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 (7) History of lung cancer Priority: Secondary Status: Chronic (8) Hyperlipidemia Priority: Secondary Status: Chronic Qualifiers: Hyperlipidemia type: mixed hyperlipidemia Qualified Code(s): E78.2 - Mixed hyperlipidemia (9) Hypertension Priority: Secondary Status: Chronic Qualifiers: Hypertension type: essential hypertension Qualified Code(s): I10 - Essential (primary) hypertension (10) Hypothyroidism Priority: Secondary Status: Chronic Qualifiers: Hypothyroidism type: unspecified Qualified Code(s): E03.9 - Hypothyroidism, unspecified (11) Iron deficiency anemia Priority: Secondary Status: Chronic Qualifiers: Iron deficiency anemia type: unspecified iron deficiency Qualified Code(s): D50.9 - Iron deficiency anemia, unspecified (12) Morbid obesity with BMI of 50.0-59.9, adult Priority: Secondary Status: Chronic (13) KAROLYN on CPAP Priority: Secondary Status: Chronic (14) Acute blood loss anemia Status: Acute (15) Wound dehiscence, surgical Status: Acute Qualifiers: Encounter type: initial encounter Qualified Code(s): T81.31XA - Disruption of external operation (surgical) wound, not elsewhere classified, initial encounter - Hospital Course Hospital course: Ms. Briggs is a 52 year old female, Left Knee Poly Exchange with I&D. Drain and Danelle placed. 01/01 Gram Stain - + GRAM POSITIVE COCCI - Staph Aureus on Cultures, pansenstive, Blood cultures are negative to date PICC line in place, 01/02 - Start Cefazolin 2 g q 8 hours, pharm to dose x 6 weeks. Awaiting blood cultures to finalize, will repeat today. Trending WBC, eSR, CRP. *see below - WBC again escalated today 10 17.8, still less than initial lab Discharge only when Afebrile, vital signs stable. Labs reviewed. H/H - stable, asymptomatic - type and crossed 12/31, acute blood loss anemia 01/01: Improved leukocytosis 23 to 12 ESR > 130 CRP 209 01/02: increased WBC to 15 ESR > 130 CRP trending down 177 01/03: increased WBC t0o 17 ESR > 130, CRP back up to 205 Pain control: adequate Participating in PT. No Knee ROM, locked in extension in Tscope brace All questions and concerns addressed. Educated on use of incentive spirometer. Encouraged ambulation and proper hydration. Patient educated on post-operative restrictions and post-operative care. Assessment and plan: Continue with postoperative care Plan: Repeat Blood cultures, UA with cultures and CXR Will continue with daily lab checks Discharge plan: ECF with IV antibiotics once WBC < 14 - Time Spent with Patient Total time spent providing and/or coordinating discharge services: - Discharge Medications Prescriptions: Enoxaparin [Lovenox] 30 mg SQ Q12HR 7 Days #14 syringe Cefazolin Sodium in 0.9 % NaCl [Cefazolin 2 G/100 ml-0.9% NaCl] 2 gm IV Q8H 42 Days #1 plast..bag OxyCODONE Immed Rel [Roxicodone 5 MG] 5 mg PO Q6H PRN 7 Days #28 tablet PRN Reason: Severe pain 7-10 Home Medications: Albuterol Sulfate [Albuterol Inhaler] 2 puff IH Q4H PRN 03/23/17 [History] BuPROPion XL (24 HR) [Wellbutrin Xl] 150 mg PO BID 03/23/17 [History] Cholecalciferol (Vitamin D3) [Vitamin D3] 50,000 unit PO FR 03/23/17 [History] Duloxetine HCl [Cymbalta] 60 mg PO DAILY 03/23/17 [History] Furosemide [Lasix] 40 mg PO DAILY 03/23/17 [History] Gabapentin [Neurontin] 1,200 mg PO TID 03/23/17 [History] Insulin Aspart Prot/Insuln Asp [Novolog Mix 70-30 Vial] 85 unit SQ BID 03/23/17 [History] Levothyroxine Sodium 150 mcg PO DAILY 03/23/17 [History] Losartan Potassium [Cozaar] 100 mg PO DAILY 03/23/17 [History] Potassium Chloride [Klor-Con 10] 10 meq PO DAILY 03/23/17 [History] Pravastatin Sodium [Pravachol] 80 mg PO HS 03/23/17 [History] Ascorbate Calcium [Vitamin C] 500 mg PO BID 12/30/17 [History] Cyanocobalamin (Vitamin B-12) [Vitamin B-12] 500 mcg PO DAILY 12/30/17 [History] Cyclobenzaprine [Flexeril] 5 mg PO HS PRN 12/30/17 [History] Ferrous Sulfate [Iron] 325 mg PO BID 12/30/17 [History] Furosemide [Lasix] 40 mg PO DAILY PRN 12/30/17 [History] Insulin ASPART [Novolog] 0 unit SQ TIDWM 12/30/17 [History] Ipratropium/Albuterol Sulfate [Iprat-Albut 0.5-3(2.5) mg/3 ml] 3 ml IH Q4H PRN 12/30/17 [History] Losartan Potassium [Cozaar] 12/30/17 [History] Oxycodone HCl 1 tab PO Q6H PRN 12/30/17 [History] Cefazolin Sodium in 0.9 % NaCl [Cefazolin 2 G/100 ml-0.9% NaCl] 2 gm IV Q8H 42 Days #1 plast..bag 01/02/18 [Rx] Enoxaparin [Lovenox] 30 mg SQ Q12HR 7 Days #14 syringe 01/03/18 [Rx] OxyCODONE Immed Rel [Roxicodone 5 MG] 5 mg PO Q6H PRN 7 Days #28 tablet 01/03/18 [Rx] Allergies/Adverse Reactions: Allergy/AdvReac Type Severity Reaction Status Date / Time hydrocodone AdvReac Itching, Verified 12/30/17 16:04 Vomiting morphine AdvReac Itching Verified 12/30/17 16:04 Date of admission: 12/30/17 13:46 Primary care physician: Joy Valentine DO Consults: 12/30/17 15:12 Consult to Store Worker [CONS] Routine Reason for SW Consult: placement 12/30/17 21:08 Consult to Occupational Therapy [CONS] Routine Comment: Evaluate, develop and implement POC Reason for Consult: post knee surgery Does patient have active BEDREST order?: No Is patient medically & hemodynamically stable?: Yes Consult to Orthopedic Navigator [CONS] [CONS] Routine Consult to Physical Therapy [CONS] Routine Comment: Evaluate, develop and impliment POC Reason for Consult: post knee surgery Does patient have active BEDREST order?: No Is patient medically & hemodynamically stable?: Yes Consult to Store Worker [CONS] Routine Reason for SW Consult: post op joint replacement RT Post Op Consult [CONS] Routine 12/31/17 11:52 Consult to Invasive Line Access Team [CONS] Routine Reason for Consult: Picc Line Insertion Line Type: PICC PICC line indications: [facility] Med/Antibiotic Call Completed: Yes Labs on day of discharge: Labs from last 24 hours 01/02/18 01/02/18 01/02/18 00:38 00:38 00:38 WBC 15.5 H RBC 4.59 Hgb 9.4 L Hct 30.8 L MCV 67.1 L MCH 20.5 L MCHC 30.5 L RDW 20.0 H Plt Count 348 MPV 10.4 Immature Gran % 1.5 Seg Neutrophils % 71.3 Lymphocytes % 16.7 Monocytes % 6.5 Eosinophils % 3.7 Basophils % 0.3 Neutrophils # 11.1 H Lymphocytes # 2.6 Monocytes # 1.0 Eosinophils # 0.6 Basophils # 0.1 Platelet Estimate Normal Polychromasia 1+ A Anisocytosis 2+ A Microcytosis Present A ESR >= 130 H POC Glucose C-Reactive Protein 177 H Vancomycin Trough 01/01/18 01/01/18 19:27 16:56 WBC RBC Hgb Hct MCV MCH MCHC RDW Plt Count MPV Immature Gran % Seg Neutrophils % Lymphocytes % Monocytes % Eosinophils % Basophils % Neutrophils # Lymphocytes # Monocytes # Eosinophils # Basophils # Platelet Estimate Polychromasia Anisocytosis Microcytosis ESR POC Glucose 141 H C-Reactive Protein Vancomycin Trough 14 H Preliminary micro results at discharge 12/30/17 18:50 Anaerobic Culture - Preliminary Left Knee At this time, no anaerobic growth is present. The culture will be finalized after 5 days of incubation. 12/30/17 15:50 Blood Culture - Preliminary Peripheral Venipuncture Culture is incubating and being continuously monitored for growth. Final report to follow. 12/30/17 15:50 Blood Culture - Preliminary Peripheral Venipuncture Culture is incubating and being continuously monitored for growth. Final report to follow. - Impressions ITS Impressions Knee X-Ray 12/30/17 17:31 IMPRESSION: Stable appearance status post total knee arthroplasty. Surgical drain in place. Soft tissue gas seen anteriorly. D/ / Mele Barakat MD / Mele Barakat MD Interpreting Provider: Mele Barakat MD - Patient Status Disposition: Transfer Inpatient Rehab Fac Condition: Good Functional capacity at discharge: uses cane/walker Overall status at discharge: patient is progressing back to baseline - Discharge Instructions Follow Up With: Joy Aiken CNP [Advanced Practice Nurse] - 01/28/18 2:05 pm Joy Valentine DO [Primary Care Provider] - Additional Instructions: Discharge Instructions: Total Knee Replacement Please call [facility] ([phone]), your Primary Care Physician, or report to the Emergency Room if you have any of the following symptoms: Nausea, vomiting, fever greater that 101.5, swelling, chest pain, shortness of breath, increased pain/redness/drainage/odor for your incision site, numbness/tingling, or any other concerning symptoms. ACTIVITY:Weight-bearing as tolerated. You may progress off support (crutches or walker) as tolerated. Incentive Spirometer 10 times an hour. No knee motion, brace at all times. MEDICATIONS: Upon discharge resume your home medications. Take all the medications as prescribed. Take a stool softener if taking narcotic pain medications. Stool softeners are only effective if you drink enough fluids. Drink 6-8 glass of water or fluids a day, unless this is not allowed for another health problem. Despite using stool softeners, if you haven't had a bowel movement in 3 days, please switch to a gentle laxative. Gentle laxatives are sold over the counter. You should have a bowel movement within 24 hours, if not call the office. You will be discharged from the hospital with a prescription for pain medication. You are encouraged to decrease the use of narcotic pain medication as tolerated. Should you require a refill, please call the office. [facility] prescribes narcotic pain medication for only 4-6 weeks after surgery. If you require pain medication beyond this time period, you may be referred to your Primary Care Physician or to the Pain Clinic for further evaluation. Plan ahead for refills on pain medication as many narcotics either need to be picked up at the office or mailed. It is best to call 48-72 hours in advance of needing a prescription refill so you don't run out of medication. To help control the post-operative pain, you may take NSAIDs (Aleve,Advil, Motrin, Ibuprofen, Naprosyn) or Tylenol as prescribed on the bottle in addition to the pain medication. ANTICOAGULATION (blood thinners): Continue your Aspirin, Lovenox or Coumadin as prescribed to help prevent a blood clot in the leg or in the lungs. As long as your incision remains dry and you tolerate the NSAIDs (Aleve, Advil, Motrin, ibuprofen, naprosyn), it is OK to use the NSAIDS while you are taking your anticoagulation medication. Should your incision start to drain, stop the NSAID and contact our office. Common symptoms of blood clot in the legs include: localized pain, swelling, calf tenderness, redness or discoloration of the skin. Blood clot in the lung symptoms include: shortness of breath, rapid pulse, sweating, and chest pain t hat worsens with deep breathing, coughing up blood, lightheadedness, feelings of anxiety. If you experience any of these symptoms notify your physician immediately, go to the emergency room, or if having trouble breathing, call 911. WOUND CARE: Leave the dressing on for 7 to 10days. You may change the dressing if it becomes saturated greater than 50%. Do not get the dressing wet at anytime. Wash your hands with antibacterial soap, rinse and dry prior to any wound care. If you have danelle the visiting nurse or rehab facility can remove the stapes 10-14 days after surgery and place steri-strips across the wound. Leave the steri-strips in place until they fall off on their won. You may let water from the shower run on top of the steri-strips. If you do not have a visiting nurse or rehab facility, you will need to return to the office at 10-14 days for the danelle to be removed. If you have itching or redness around the dressing call the office. FOLLOW-UP: Please follow up with your surgeon in the orthopedic clinic in 4 weeks from the day of surgery. If you have danelle that need to be removed, you will need to come back to the office in 10-14 days from the day of surgery. - Diet and Activity Activity: as per physical therapy <Meeta Suárez - Last Filed: 01/09/18 16:40> - NOTES TO OUTPATIENT PROVIDER Notes to Outpatient Provider: Will need weekly CBC, urine/creatinine, LFTs, ESR, and CRP. Will need weekly PICC line care per protocol Orders not resulted at time of discharge: Pending orders 01/09/18 13:45 BMP [Basic Metabolic Panel] Stat Hepatic Panel Stat Date of Encounter: 01/09/18 Time of Encounter: 10:00 - Discharge Diagnosis (1) Status post incision and drainage Priority: Primary Status: Acute (2) Acute blood loss anemia Priority: Secondary Status: Acute (3) Diabetes mellitus type 2 in obese Priority: Secondary Status: Acute (4) Infection of total left knee replacement Priority: Primary Status: Acute Qualifiers: Encounter type: initial encounter Qualified Code(s): T84.54XA - Infection and inflammatory reaction due to internal left knee prosthesis, initial encounter; Z96.652 - Presence of left artificial knee joint (5) Leukocytosis Priority: Secondary Status: Acute Qualifiers: Leukocytosis type: unspecified Qualified Code(s): D72.829 - Elevated white blood cell count, unspecified (6) Non-healing surgical wound Priority: Secondary Status: Acute (7) Smoker Priority: Secondary Status: Acute (8) Arthritis of left knee Priority: Secondary Status: Acute (9) Congestive heart failure of unknown etiology Priority: Secondary Status: Acute (10) Status post total knee replacement, left Priority: Secondary Status: Acute (11) Status post total right knee replacement Priority: Secondary Status: Acute (12) Wound dehiscence, surgical Priority: Secondary Status: Acute Qualifiers: Encounter type: initial encounter Qualified Code(s): T81.31XA - Disruption of external operation (surgical) wound, not elsewhere classified, initial encounter (13) Arthritis of right knee Priority: Secondary Status: Chronic (14) Asthma Priority: Secondary Status: Chronic Qualifiers: Asthma severity: unspecified severity Asthma persistence: unspecified Asthma complication type: unspecified Qualified Code(s): J45.909 - Unspecified asthma, uncomplicated (15) COPD (chronic obstructive pulmonary disease) Priority: Secondary Status: Chronic Qualifiers: COPD type: unspecified COPD Qualified Code(s): J44.9 - Chronic obstructive pulmonary disease, unspecified (16) Diabetes type 2, controlled Priority: Secondary Status: Chronic Qualifiers: Diabetes mellitus terminal superintendent insulin use: with terminal superintendent use Diabetes mellitus complication status: with unspecified complications Qualified Code(s): E11.8 - Type 2 diabetes mellitus with unspecified complications; 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.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 (17) Fatty liver Priority: Secondary Status: Chronic (18) History of lung cancer Priority: Secondary Status: Chronic (19) Hyperlipidemia Priority: Secondary Status: Chronic Qualifiers: Hyperlipidemia type: mixed hyperlipidemia Qualified Code(s): E78.2 - Mixed hyperlipidemia (20) Hypertension Priority: Secondary Status: Chronic Qualifiers: Hypertension type: essential hypertension Qualified Code(s): I10 - Essential (primary) hypertension (21) Hypothyroidism Priority: Secondary Status: Chronic Qualifiers: Hypothyroidism type: unspecified Qualified Code(s): E03.9 - Hypothyroidism, unspecified (22) Iron deficiency anemia Priority: Secondary Status: Chronic Qualifiers: Iron deficiency anemia type: unspecified iron deficiency Qualified Code(s): D50.9 - Iron deficiency anemia, unspecified (23) Morbid obesity with BMI of 50.0-59.9, adult Priority: Secondary Status: Chronic (24) KAROLYN on CPAP Priority: Secondary Status: Chronic (25) Tobacco consumption Priority: Secondary Status: Chronic - Hospital Course Hospital course: Ms. Briggs is a 52 year old female status post Left Knee Poly Exchange with I&D. Drain and [place] placed. 01/01/18 with history of obesity, DMT2, HTN, HLD, asthma, COPD, KAROLYN with CPAP use, tobacco use, fatty liver, CHF, anemia. Gram Stain - + GRAM POSITIVE COCCI - Staph Aureus on Cultures, pansenstive, Blood cultures are negative PICC line in place, 01/02 - receiving Cefazolin 2 g q 8 hours, pharm to dose x 6 weeks. Trending WBC, eSR, CRP. *see below Afebrile, vital signs stable. Labs reviewed. H/H - stable, asymptomatic - type and crossed 12/31, acute blood loss anemia no transfusions during admission needed. 01/01: Improved leukocytosis 23 to 12 ESR > 130 CRP 209 01/02: increased WBC to 15 ESR > 130 CRP trending down 177 01/03: increased WBC t0o 17 ESR > 130, CRP back up to 205 01/06: WBC 16.7 01/07: 15.9 01/08: 16.0 01/09: 15.7 Pain control: adequate Participating in PT. No Knee ROM, locked in extension in Tscope brace All questions and concerns addressed. Educated on use of incentive spirometer. Encouraged ambulation and proper hydration. Patient educated on post-operative restrictions and post-operative care. Assessment and plan: Continue with postoperative care Discharge plan: ECF for IV antibiotics, DC today Per ID: Continue Ancef 2 g IV every 8 hours x 6 weeks. rifampin 450 mg by mouth twice a day written script provided to patient from Gab Aiken. Will need weekly CBC, urine/creatinine, LFTs, ESR, and CRP. Will need weekly PICC line care per protocol. - Time Spent with Patient Total time spent providing and/or coordinating discharge services: Date of admission: 12/30/17 13:46 Primary care physician: Joy Valentine DO Consults: 12/30/17 15:12 Consult to Store Worker [CONS] Routine Reason for SW Consult: placement 12/30/17 21:08 Consult to Occupational Therapy [CONS] Routine Comment: Evaluate, develop and implement POC Reason for Consult: post knee surgery Does patient have active BEDREST order?: No Is patient medically & hemodynamically stable?: Yes Consult to Orthopedic Navigator [CONS] [CONS] Routine Consult to Physical Therapy [CONS] Routine Comment: Evaluate, develop and impliment POC Reason for Consult: post knee surgery Does patient have active BEDREST order?: No Is patient medically & hemodynamically stable?: Yes Consult to Store Worker [CONS] Routine Reason for SW Consult: post op joint replacement RT Post Op Consult [CONS] Routine 12/31/17 11:52 Consult to Invasive Line Access Team [CONS] Routine Reason for Consult: Picc Line Insertion Line Type: PICC PICC line indications: marine oil terminal superintendent Med/Antibiotic Call Completed: Yes 01/07/18 10:16 Consult to Infectious Diseases [CONS] Routine Consulting Provider: [facility] Reason for Consult: Leukocytosis Time Notified: 10:17 Call Completed: Yes Discharging clinician: Karsten Argueta Anticipated date of discharge: 01/09/18 Labs on day of discharge: Labs from last 24 hours 01/09/18 01/09/18 01/08/18 13:45 13:45 11:20 WBC 15.7 H RBC 4.41 Hgb 8.9 L Hct 30.2 L MCV 68.5 L MCH 20.2 L MCHC 29.5 L RDW 18.8 H Plt Count 444 H MPV 9.5 Immature Gran % 0.7 Seg Neutrophils % 72.1 Lymphocytes % 20.6 Monocytes % 4.7 Eosinophils % 1.6 Basophils % 0.3 Neutrophils # 11.3 H Lymphocytes # 3.2 Monocytes # 0.7 Eosinophils # 0.3 Basophils # 0.1 Platelet Estimate Slight increase H Microcytosis Present A Sodium 136 Potassium 4.0 Chloride 96 L Carbon Dioxide 34 H BUN 9 Creatinine 0.82 Est GFR ( Amer) > 60 Est GFR (Non-Af Amer) > 60 BUN/Creatinine Ratio 11 Glucose 109 H POC Glucose 210 H Calculated Osmolality 281 Calcium 9.4 Total Bilirubin 0.4 Direct Bilirubin 0.0 Indirect Bilirubin 0.4 AST 11 L ALT 4 L Serum Total Protein 7.0 Albumin 3.3 L Globulin 3.7 H Albumin/Globulin Ratio 0.9 L 01/08/18 01/07/18 01/07/18 06:44 19:33 16:16 WBC RBC Hgb Hct MCV MCH MCHC RDW Plt Count MPV Immature Gran % Seg Neutrophils % Lymphocytes % Monocytes % Eosinophils % Basophils % Neutrophils # Lymphocytes # Monocytes # Eosinophils # Basophils # Platelet Estimate Microcytosis Sodium Potassium Chloride Carbon Dioxide BUN Creatinine Est GFR ( Amer) Est GFR (Non-Af Amer) BUN/Creatinine Ratio Glucose POC Glucose 109 H 132 H 231 H Calculated Osmolality Calcium Total Bilirubin Direct Bilirubin Indirect Bilirubin AST ALT Serum Total Protein Albumin Globulin Albumin/Globulin Ratio - Impressions ITS Impressions Knee X-Ray 12/30/17 17:31 IMPRESSION: Stable appearance status post total knee arthroplasty. Surgical drain in place. Soft tissue gas seen anteriorly. D/ / Mele Barakat MD / Mele Barakat MD Interpreting Provider: Mele Barakat MD Chest X-Ray 01/03/18 10:01 IMPRESSION: The right upper extremity PICC line is appropriately positioned, with the distal tip at the cavoatrial junction. No acute cardiopulmonary disease. D/ / Sukhi Iqbal MD / Sukhi Iqbal MD Interpreting Provider: Sukhi Iqbal MD Chest X-Ray 01/03/18 15:05 IMPRESSION: Stable appearance of the chest. D/ / Austin Paige MD / Austin Paige MD Interpreting Provider: Austin Paige MD - Patient Status Functional capacity at discharge: uses cane/walker Overall status at discharge: patient is progressing back to baseline - Diet and Activity Activity: as per physical therapy Diet: advance to your usual diet
[2018-01-02] MEDS ORDERED: Fluconazole 100 MG TABLET PO ONE (21:30)
[2018-01-03] MEDS: ceFAZolin 2,000 MG in 0.9 % Sodium Chloride 100 ML IVP SCH ×3 (00:14→15:56)
[2018-01-03 05:27] LABS: Basophils % 0.2 %; Eosinophils # 0.5 K/mcL (0.0-0.6); Eosinophils % 2.9 %; Hematocrit 29.6 % (35.3-44.9); Hemoglobin 8.9 g/dL (11.5-15.4); Immature Granulocytes % 1.9 % (0-4); Lymphocytes % 22.7 %; Mean Corpuscular HGB Conc 30.1 g/dL (31.6-35.5); Mean Corpuscular Hemoglobin 20.3 pg (28.0-33.3); Mean Corpuscular Volume 67.4 fL (83.0-100.0); Mean Platelet Volume 9.9 fL (9.4-12.4); Monocytes % 5.6 %; Neutrophils # 11.9 K/mcL (1.6-8.9); Platelet Count 335 K/mcL (140-400); Red Blood Count 4.39 M/mcL (3.82-4.97); Red Cell Distribution Width 19.2 % (11.5-14.5); Segmented Neutrophils % 66.7 %
[2018-01-03] MEDS: *HR* Enoxaparin 30 MG/0.3 ML SYRINGE SQ SCH ×2 (05:29→17:27)
--- NOTE | 2018-01-03 06:34 | Orthopedics Progress Note ---
Date of Encounter: 01/03/18 Time of Encounter: 06:34 - Assessment and Plan (1) Acute blood loss anemia Current Visit: Yes Status: Acute Subjective Interval history: Patient was seen this morning doing well without complaints. Afebrile vital signs stable. Operative extremity: Neurovascularly intact Dressing clean dry and intact Calves nontender Assessment and plan: Continue with postoperative care Cultures positive for staph aureus plan for discharge today on IV antibiotics adjusted appropriately for sensitivities Objective Vital signs: Vital Signs Temp Pulse Resp BP Pulse Ox 01/03/18 00:38 98.2 F 82 17 168/73 92 01/02/18 20:44 93 01/02/18 17:52 98.2 F 79 18 116/52 93 01/02/18 14:49 98.4 F 80 20 115/62 93 01/02/18 11:20 98.0 F 78 18 162/70 90 01/02/18 06:35 98.6 F 89 18 150/70 90 Intake and Output 01/02/18 01/02/18 01/03/18 15:59 23:59 07:59 Intake Total 120 / 120 240 / 240 Balance 120 / 120 240 / 240 Intake: Oral 120 / 120 240 / 240 Other: Meal Breakfast Dinner Percent of Meal Consumed 100% 85% Stool Size Large # Voids 5 1 1 # Bowel Movements 1 Weight 156.7 kg Blood Glucose* 169 147 Patient Weight 01/03/18 23:59 Weight 156.7 kg - Labs CBC & BMP: 01/03/18 04:00 01/01/18 01:40 Labs: Abnormal lab results WBC 17.8 K/mcL (4.3-11.1) H 01/03/18 04:00 Hgb 8.9 g/dL (11.5-15.4) L 01/03/18 04:00 Hct 29.6 % (35.3-44.9) L 01/03/18 04:00 MCV 67.4 fL (83.0-100.0) L 01/03/18 04:00 MCH 20.3 pg (28.0-33.3) L 01/03/18 04:00 MCHC 30.1 g/dL (31.6-35.5) L 01/03/18 04:00 RDW 19.2 % (11.5-14.5) H 01/03/18 04:00 Neutrophils # 11.1 K/mcL (1.6-8.9) H 01/02/18 00:38 Polychromasia 1+ (Not Present) A 01/02/18 00:38 Hypochromasia Present (Not Present) A 01/01/18 01:40 Anisocytosis 2+ (Not Present) A 01/02/18 00:38 Microcytosis Present (Not Present) A 01/02/18 00:38 ESR >= 130 mm/hr (0-15) H 01/03/18 04:00 PT 12.5 Seconds (9.4-12.1) H 12/30/17 15:30 Carbon Dioxide 30 mEq/L (23-29) H 01/01/18 01:40 Glucose 240 mg/dL (70-105) H 01/01/18 01:40 POC Glucose 141 mg/dL (70-99) H 01/01/18 19:27 Calcium 8.4 mg/dL (8.6-10.3) L 01/01/18 01:40 C-Reactive Protein 205 mg/L (Less than 10) H 01/03/18 05:00 Vancomycin Trough 14 mcg/mL (5-10) H 01/01/18 16:56 Consult Discharge Plan - Plan Referrals: Joy Valentine DO [Primary Care Provider] - Prescriptions: Cefazolin Sodium in 0.9 % NaCl [Cefazolin 2 G/100 ml-0.9% NaCl] 2 gm IV Q8H 42 Days #1 plast..bag
[2018-01-03 06:41] LABS: Microcytosis Present (Not Present); Platelet Estimate Normal (Normal)
[2018-01-03] MEDS: Insulin LISPRO 300 UNITS/3 ML VIAL SQ SCH ×4 (07:43→21:09)
[2018-01-03] MEDS: *HR* OxyCODONE Immed Rel 5 MG TABLET PO PRN ×3 (07:58→20:23)
[2018-01-03] MEDS: Cholecalciferol (D-3) 1,000 UNIT TABLET PO SCH (08:41)
[2018-01-03] MEDS: Cyanocobalamin (B-12) 1,000 MCG TABLET PO SCH (08:41)
[2018-01-03] MEDS: Furosemide 40 MG TABLET PO SCH (08:41)
[2018-01-03] MEDS: BuPROPion XL (24 HR) 150 MG TABLET PO SCH ×2 (08:41→20:24)
[2018-01-03] MEDS: Ascorbic Acid 500 MG TABLET PO SCH ×2 (08:41→20:24)
[2018-01-03] MEDS: Gabapentin 400 MG CAPSULE PO SCH ×3 (08:42→20:23)
[2018-01-03] MEDS: Insulin NPH/REG 70/30 100 UNIT/ML (x5UNIT) SQ SCH ×2 (08:45→16:44)
--- NOTE | 2018-01-03 13:52 | Event Note ---
Date of Encounter: 01/03/18 Time of Encounter: 13:51 PCR - POD#4- Left Knee Poly Exchange with I&D. Drain and Yamile placed. Gram Stain - + GRAM POSITIVE COCCI - Staph Aureus on Cultures, pansenstive, Blood cultures are negative to date PICC team consulted, Start Cefazolin 2 g q 8 hours, pharm to dose Awaiting blood cultures to finalize, will repeat today. Trending WBC, eSR, CRP. *see below - WBC again escalated today 10 17.8, still less than initial lab Afebrile, vital signs stable. Labs reviewed. H/H - stable, asymptomatic - type and crossed 12/31, acute blood loss anemia 01/01: Improved leukocytosis 23 to 12 ESR > 130 CRP 209 01/02: increased WBC to 15 ESR > 130 CRP trending down 177 01/03: increased WBC t0o 17 ESR > 130, CRP back up to 205 Pain control: adequate Participating in PT. No Knee ROM, locked in extension in Tscope brace All questions and concerns addressed. Educated on use of incentive spirometer. Encouraged ambulation and proper hydration. Patient educated on post-operative restrictions and post-operative care. Assessment and plan: Continue with postoperative care Discharge plan: ECF with IV antibiotics once WBC < 14 Plan: Repeat Blood cultures, UA with cultures and CXR Will continue with daily lab checks
--- NOTE | 2018-01-03 14:22 | Physician Discharge Referral ---
Addendum entered and electronically signed by TUTU Pettit 01/08/18 16:33: Per infectious disease specialist - Continue Ancef 2 g IV every 8 hours.Duration of treatment depends on the clinical picture, but likely 6 weeks. We will plan to add rifampin 450 mg by mouth twice a day on discharge. Original Note: [facility] Referral Info Transfer To: [facility] Provider in Charge after Transfer: PCP Institutional Level of Care: Skilled - Diagnosis (1) Status post incision and drainage Priority: Primary Status: Acute (2) Infection of total left knee replacement Priority: Primary Status: Acute (3) Smoker Status: Acute (4) Asthma Status: Chronic (5) COPD (chronic obstructive pulmonary disease) Status: Chronic (6) Diabetes type 2, controlled Status: Chronic (7) History of lung cancer Status: Chronic (8) Hyperlipidemia Status: Chronic (9) Hypertension Status: Chronic (10) Hypothyroidism Status: Chronic (11) Iron deficiency anemia Status: Chronic (12) Morbid obesity with BMI of 50.0-59.9, adult Status: Chronic (13) KAROLYN on CPAP Status: Chronic (14) Acute blood loss anemia Status: Acute Expected Duration of Placement: 6 weeks - Transfer Medications Prescriptions: Enoxaparin [Lovenox] 30 mg SQ Q12HR 7 Days #14 syringe Cefazolin Sodium in 0.9 % NaCl [Cefazolin 2 G/100 ml-0.9% NaCl] 2 gm IV Q8H 42 Days #1 plast..bag OxyCODONE Immed Rel [Roxicodone 5 MG] 5 mg PO Q6H PRN 7 Days #28 tablet PRN Reason: Severe pain 7-10 Home Medications: Albuterol Sulfate [Albuterol Inhaler] 2 puff IH Q4H PRN 03/23/17 [History] BuPROPion XL (24 HR) [Wellbutrin Xl] 150 mg PO BID 03/23/17 [History] Cholecalciferol (Vitamin D3) [Vitamin D3] 50,000 unit PO FR 03/23/17 [History] Duloxetine HCl [Cymbalta] 60 mg PO DAILY 03/23/17 [History] Furosemide [Lasix] 40 mg PO DAILY 03/23/17 [History] Gabapentin [Neurontin] 1,200 mg PO TID 03/23/17 [History] Insulin Aspart Prot/Insuln Asp [Novolog Mix 70-30 Vial] 85 unit SQ BID 03/23/17 [History] Levothyroxine Sodium 150 mcg PO DAILY 03/23/17 [History] Losartan Potassium [Cozaar] 100 mg PO DAILY 03/23/17 [History] Potassium Chloride [Klor-Con 10] 10 meq PO DAILY 03/23/17 [History] Pravastatin Sodium [Pravachol] 80 mg PO HS 03/23/17 [History] Ascorbate Calcium [Vitamin C] 500 mg PO BID 12/30/17 [History] Cyanocobalamin (Vitamin B-12) [Vitamin B-12] 500 mcg PO DAILY 12/30/17 [History] Cyclobenzaprine [Flexeril] 5 mg PO HS PRN 12/30/17 [History] Ferrous Sulfate [Iron] 325 mg PO BID 12/30/17 [History] Furosemide [Lasix] 40 mg PO DAILY PRN 12/30/17 [History] Insulin ASPART [Novolog] 0 unit SQ TIDWM 12/30/17 [History] Ipratropium/Albuterol Sulfate [Iprat-Albut 0.5-3(2.5) mg/3 ml] 3 ml IH Q4H PRN 12/30/17 [History] Losartan Potassium [Cozaar] 12/30/17 [History] Oxycodone HCl [Oxycodone HCl] 1 tab PO Q6H PRN 12/30/17 [History] Cefazolin Sodium in 0.9 % NaCl [Cefazolin 2 G/100 ml-0.9% NaCl] 2 gm IV Q8H 42 Days #1 plast..bag 01/02/18 [Rx] Enoxaparin [Lovenox] 30 mg SQ Q12HR 7 Days #14 syringe 01/03/18 [Rx] OxyCODONE Immed Rel [Roxicodone 5 MG] 5 mg PO Q6H PRN 7 Days #28 tablet 01/03/18 [Rx] Allergies/Adverse Reactions: Allergy/AdvReac Type Severity Reaction Status Date / Time hydrocodone AdvReac Itching, Verified 12/30/17 16:04 Vomiting morphine AdvReac Itching Verified 12/30/17 16:04 - Respiratory Orders None Smoking Cessation: Smoking cessation has been advised. For more information, call the [place] Tobacco Quit Line at 7-457-CSMA-NOW. - Lab Orders Lab Orders: CBC, Other (include drug levels w/frequency) (BMP, ESR, CRP weekly.) - Ancillary Orders May use pressure relief devices daily prn - Mobility Orders Chair, Ambulate - Rehabiliation Orders Rehab Potential: Good Rehab Orders: ROM Exercises, Evaluation for Physical Therapy, Evaluation for Occupational Therapy Other: Opsite dressing, leave intact until first post-operative visit. If dressing becomes >50% saturated, contact office, remove dressing and place appropriate dressing in its place. Do not allow for dressing to get wet. Zipline/[place] in place, plan to remove at post-operative day #14-16. Total Joint Precautions x 6 weeks Apply cold therapy wrap 3-6x/day for 20 minutes at a time. Encourage ambulation throughout the day Use Incentive spirometer 10x/hour. Elevate affected extremity above heart as tolerated. Brace: Knee Tscope brace intact, locked in extension, no knee flexion x 6 weeks. WBAT. OK to remove brace only to shower and cleanse leg daily. - Treatments Skin tear care topically daily PRN per policy, Fleet enema rectally every other day PRN cleansing purposes List/Other: Opsite dressing, leave intact until first post-operative visit. If dressing becomes >50% saturated, contact office, remove dressing and place appropriate dressing in its place. Do not allow for dressing to get wet. Zipline/Ros[place] in place, plan to remove at post-operative day #14-16. Total Joint Precautions x 6 weeks Apply cold therapy wrap 3-6x/day for 20 minutes at a time. Encourage ambulation throughout the day Use Incentive spirometer 10x/hour. Elevate affected extremity above heart as tolerated. Brace: Knee Tscope brace intact, locked in extension, no knee flexion x 6 weeks. WBAT. OK to remove brace only to shower and cleanse leg daily. Left Knee Poly Exchange with I&D. Drain and [place] placed. Gram Stain - + GRAM POSITIVE COCCI - Staph Aureus on Cultures, pansenstive, Blood cultures are negative to date PICC team consulted, Start Cefazolin 2 g q 8 hours, pharm to dose Awaiting blood cultures to finalize, will repeat today. Trending WBC, eSR, CRP. *see below - WBC again escalated today 10 17.8, still less than initial lab Afebrile, vital signs stable. Labs reviewed. H/H - stable, asymptomatic - type and crossed 12/31, acute blood loss anemia 01/01: Improved leukocytosis 23 to 12 ESR > 130 CRP 209 01/02: increased WBC to 15 ESR > 130 CRP trending down 177 01/03: increased WBC t0o 17 ESR > 130, CRP back up to 205 Pain control: adequate Participating in PT. No Knee ROM, locked in extension in Tscope brace All questions and concerns addressed. Educated on use of incentive spirometer. Encouraged ambulation and proper hydration. Patient educated on post-operative restrictions and post-operative care. Assessment and plan: Continue with postoperative care Discharge plan: ECF with IV antibiotics once WBC < 14 Plan: Repeat Blood cultures, UA with cultures and CXR Will continue with daily lab checks Short CBC 01/03/18 Range/Units 04:00 WBC 17.8 H (4.3-11.1) K/mcL Hgb 8.9 L (11.5-15.4) g/dL Hct 29.6 L (35.3-44.9) % Plt Count 335 (140-400) K/mcL Neutrophils # 11.9 H (1.6-8.9) K/mcL - Diet Orders Regular CERTIFICATION: I certify that the transfer of the above named patient to an Extended Care Facility is necessary for the continuing treatment of the diagnosis listed. The above information is true and accurate reflection of patient's current condition. Confidential - Redisclosure prohibited without a patient's written consent.
[2018-01-03 18:16] LABS: Bilirubin,Urine Negative (Negative); Blood,Urine Negative (Negative); Clarity,Urine Clear (Clear); Color,Urine Yellow (Yellow); Glucose,Urine (UA) Normal (Normal); Ketones,Urine Negative (Negative); Leukocyte Esterase,Urine Moderate (Negative); Nitrite,Urine Negative (Negative); PH,Urine 7.5 pH Units (5.0-8.0); Protein,Urine Negative (Neg-Trace); Specific Gravity,Urine 1.023 (1.010-1.025); Urobilinogen,Urine Normal (Normal)
[2018-01-03 18:20] LABS: Bacteria,Urine None Seen per hpf (None-Few); Hyaline Casts,Urine None Seen per lpf (None-Few); RBC,Urine 0-3 per hpf (0-3); Squamous Epithelial Cell,Urine Many per lpf (None-Few); WBC,Urine 0-3 per hpf (0-3)
[2018-01-03] MEDS: *HR* OxyCODONE/APAP 5/325 TABLET PO PRN (23:42)
[2018-01-04 05:00] LABS: Basophils # 0.1 K/mcL (0.0-0.2); Basophils % 0.3 %; Eosinophils # 0.5 K/mcL (0.0-0.6); Eosinophils % 2.8 %; Hematocrit 28.7 % (35.3-44.9); Hemoglobin 8.7 g/dL (11.5-15.4); Immature Granulocytes % 2.6 % (0-4); Lymphocytes # 3.8 K/mcL (0.6-4.6); Lymphocytes % 21.9 %; Mean Corpuscular HGB Conc 30.3 g/dL (31.6-35.5); Mean Corpuscular Hemoglobin 20.5 pg (28.0-33.3); Mean Corpuscular Volume 67.7 fL (83.0-100.0); Monocytes # 0.8 K/mcL (0.0-1.3); Monocytes % 4.4 %; Neutrophils # 11.8 K/mcL (1.6-8.9); Platelet Count 345 K/mcL (140-400); Red Blood Count 4.24 M/mcL (3.82-4.97); Red Cell Distribution Width 18.5 % (11.5-14.5)
[2018-01-04] MEDS: *HR* OxyCODONE Immed Rel 5 MG TABLET PO PRN ×4 (05:03→20:44)
[2018-01-04] MEDS: *HR* Enoxaparin 30 MG/0.3 ML SYRINGE SQ SCH ×2 (05:04→18:10)
[2018-01-04 05:14] LABS: BUN/Creatinine Ratio 9 (6-26); Blood Urea Nitrogen 7 mg/dL (6-20); C-Reactive Protein 181 mg/L (Less than 10); Calcium 8.7 mg/dL (8.6-10.3); Carbon Dioxide 35 mEq/L (23-29); Chloride 97 mEq/L (98-107); Glucose 87 mg/dL (70-105); Osmolality,Calculated 281 (280-300); Potassium 3.8 mEq/L (3.5-5.1); Sodium 137 mEq/L (136-145); eGFR For Non-African Americans > 60 (> 60)
[2018-01-04 05:31] LABS: Anisocytosis 2+ (Not Present); Microcytosis Present (Not Present); Platelet Estimate Normal (Normal)
[2018-01-04] MEDS: Gabapentin 400 MG CAPSULE PO SCH ×3 (08:29→20:44)
[2018-01-04] MEDS: BuPROPion XL (24 HR) 150 MG TABLET PO SCH ×2 (08:29→20:44)
[2018-01-04] MEDS: Cyanocobalamin (B-12) 1,000 MCG TABLET PO SCH (08:30)
[2018-01-04] MEDS: Cholecalciferol (D-3) 1,000 UNIT TABLET PO SCH (08:30)
[2018-01-04] MEDS: Ascorbic Acid 500 MG TABLET PO SCH ×2 (08:30→20:44)
[2018-01-04] MEDS: Furosemide 40 MG TABLET PO SCH (08:30)
[2018-01-04] MEDS: Insulin LISPRO 300 UNITS/3 ML VIAL SQ SCH ×4 (08:31→20:37)
[2018-01-04] MEDS: Insulin NPH/REG 70/30 100 UNIT/ML (x5UNIT) SQ SCH ×2 (08:31→18:43)
[2018-01-04] MEDS: Acetaminophen IV 1,000 MG/100 ML INFUS..BTL IVPB PRN ×2 (10:59→18:43)
--- NOTE | 2018-01-04 14:41 | Orthopedics Progress Note ---
Date of Encounter: 01/04/18 Time of Encounter: 14:39 Subjective Principal diagnosis: Left total knee arthroplasty infection Interval history: Patient without new complaints Left lower extremity: Knee brace intact, positive swelling, with Gavin wrap sliding down. knee which was repositioned There is positive erythema on the anterior distal aspect of the knee Bilateral calves soft and nontender, grossly neurovascularly intact distally bilaterally WBC 17.3 Assessment: postoperative day #5, still was elevated WBC Plan: Continue IV antibiotics Continue DVT prophylaxis Continue knee immobilization Objective Vital signs: Vital Signs Temp Pulse Resp BP Pulse Ox 01/04/18 11:14 98.0 F 72 18 152/66 90 01/04/18 07:01 97.9 F 71 17 135/78 92 01/04/18 03:44 97.6 F 102 17 134/66 93 01/04/18 00:31 97.8 F 77 17 149/67 90 01/03/18 20:23 91 01/03/18 20:15 98.2 F 83 16 123/72 91 01/03/18 20:14 98.2 F 83 16 123/72 91 01/03/18 15:07 98.7 F 77 18 127/51 90 Intake and Output 01/03/18 01/04/18 01/04/18 23:59 07:59 15:59 Intake Total 100 / 100 100 / 100 340 / 340 Balance 100 / 100 100 / 100 340 / 340 Intake: IV Fluids 100 / 100 100 / 100 100 / 100 Ancef 2,000 MG In 0.9 % Sodium 100 / 100 Chloride 100 ML @ 200 mls/hr IVP Q8HR [facility] Rx#:[id number] Ancef 2,000 MG In 0.9 % Sodium 100 / 100 100 / 100 Chloride 100 ML @ 200 mls/hr IVP Q8HR [facility] Rx#:[id number] Oral 240 / 240 Other: Meal Breakfast Percent of Meal Consumed 100% # Voids 1 1 1 Blood Glucose* 117 101 122 - Labs CBC & BMP: 01/04/18 04:42 01/04/18 04:42 Labs: Abnormal lab results WBC 17.3 K/mcL (4.3-11.1) H 01/04/18 04:42 Hgb 8.7 g/dL (11.5-15.4) L 01/04/18 04:42 Hct 28.7 % (35.3-44.9) L 01/04/18 04:42 MCV 67.7 fL (83.0-100.0) L 01/04/18 04:42 MCH 20.5 pg (28.0-33.3) L 01/04/18 04:42 MCHC 30.3 g/dL (31.6-35.5) L 01/04/18 04:42 RDW 18.5 % (11.5-14.5) H 01/04/18 04:42 Neutrophils # 11.8 K/mcL (1.6-8.9) H 01/04/18 04:42 Polychromasia 1+ (Not Present) A 01/02/18 00:38 Hypochromasia Present (Not Present) A 01/01/18 01:40 Anisocytosis 2+ (Not Present) A 01/04/18 04:42 Microcytosis Present (Not Present) A 01/04/18 04:42 ESR >= 130 mm/hr (0-15) H 01/04/18 04:42 PT 12.5 Seconds (9.4-12.1) H 12/30/17 15:30 Chloride 97 mEq/L (98-107) L 01/04/18 04:42 Carbon Dioxide 35 mEq/L (23-29) H 01/04/18 04:42 POC Glucose 122 mg/dL (70-99) H 01/04/18 12:20 C-Reactive Protein 181 mg/L (Less than 10) H 01/04/18 04:42 Ur Leukocyte Esterase Moderate (Negative) H 01/03/18 18:00 Ur Squamous Epith Cells Many per lpf (None-Few) H 01/03/18 18:00 Ur Culture Indicated? NO. (NO) A 01/03/18 18:00 Vancomycin Trough 14 mcg/mL (5-10) H 01/01/18 16:56 Consult Discharge Plan - Plan Referrals: Joy Valentine DO [Primary Care Provider] - Prescriptions: Enoxaparin [Lovenox] 30 mg SQ Q12HR 7 Days #14 syringe Cefazolin Sodium in 0.9 % NaCl [Cefazolin 2 G/100 ml-0.9% NaCl] 2 gm IV Q8H 42 Days #1 plast..bag OxyCODONE Immed Rel [Roxicodone 5 MG] 5 mg PO Q6H PRN 7 Days #28 tablet PRN Reason: Severe pain 7-10
[2018-01-05] MEDS: *HR* OxyCODONE Immed Rel 5 MG TABLET PO PRN ×4 (04:26→21:58)
[2018-01-05 04:32] LABS: Basophils % 0.1 %; Eosinophils # 0.5 K/mcL (0.0-0.6); Eosinophils % 3.2 %; Hematocrit 29.7 % (35.3-44.9); Hemoglobin 8.8 g/dL (11.5-15.4); Immature Granulocytes % 3.8 % (0-4); Lymphocytes # 3.6 K/mcL (0.6-4.6); Lymphocytes % 22.2 %; Mean Corpuscular HGB Conc 29.6 g/dL (31.6-35.5); Mean Corpuscular Hemoglobin 20.4 pg (28.0-33.3); Mean Corpuscular Volume 68.9 fL (83.0-100.0); Mean Platelet Volume 9.8 fL (9.4-12.4); Monocytes # 0.8 K/mcL (0.0-1.3); Monocytes % 5.1 %; Neutrophils # 10.6 K/mcL (1.6-8.9); Platelet Count 388 K/mcL (140-400); Red Blood Count 4.31 M/mcL (3.82-4.97); Red Cell Distribution Width 18.5 % (11.5-14.5); Segmented Neutrophils % 65.6 %
[2018-01-05 04:46] LABS: BUN/Creatinine Ratio 9 (6-26); Blood Urea Nitrogen 7 mg/dL (6-20); C-Reactive Protein 152 mg/L (Less than 10); Calcium 8.5 mg/dL (8.6-10.3); Carbon Dioxide 31 mEq/L (23-29); Chloride 99 mEq/L (98-107); Glucose 104 mg/dL (70-105); Osmolality,Calculated 282 (280-300); Potassium 3.8 mEq/L (3.5-5.1); Sodium 137 mEq/L (136-145); eGFR For Non-African Americans > 60 (> 60)
[2018-01-05 04:58] LABS: Anisocytosis 1+ (Not Present); Hypochromasia Present (Not Present); Microcytosis Present (Not Present); Platelet Estimate Normal (Normal)
[2018-01-05] MEDS: *HR* Enoxaparin 30 MG/0.3 ML SYRINGE SQ SCH ×2 (05:38→18:14)
[2018-01-05] MEDS: Gabapentin 400 MG CAPSULE PO SCH ×3 (09:20→21:57)
[2018-01-05] MEDS: Cyanocobalamin (B-12) 1,000 MCG TABLET PO SCH (09:20)
[2018-01-05] MEDS: Furosemide 40 MG TABLET PO SCH (09:20)
[2018-01-05] MEDS: Cholecalciferol (D-3) 1,000 UNIT TABLET PO SCH (09:21)
[2018-01-05] MEDS: Ascorbic Acid 500 MG TABLET PO SCH ×2 (09:21→21:58)
[2018-01-05] MEDS: Insulin NPH/REG 70/30 100 UNIT/ML (x5UNIT) SQ SCH ×2 (09:21→18:14)
[2018-01-05] MEDS: BuPROPion XL (24 HR) 150 MG TABLET PO SCH ×2 (09:21→21:57)
[2018-01-05] MEDS: Insulin LISPRO 300 UNITS/3 ML VIAL SQ SCH ×4 (09:22→21:58)
--- NOTE | 2018-01-05 10:52 | Orthopedics Progress Note ---
Date of Encounter: 01/05/18 Time of Encounter: 10:50 Subjective Principal diagnosis: Left total knee arthroplasty infection Interval history: Patient reports some pain this morning, she slipped with the leg elevated Left lower extremity: Knee brace intact, positive swelling, with Gavin wrap sliding down which was removed There is positive erythema on the anterior distal aspect of the knee 2+ pitting edema distally Bilateral calves soft and nontender, grossly neurovascularly intact distally bilaterally WBC 16.1 Assessment: postoperative day #6, = MSSA. still was elevated WBC that is trending down Plan: Continue IV antibiotics Continue DVT prophylaxis Continue knee immobilization We will use a PEGGY hose to help reduce the swelling and edema Objective Vital signs: Vital Signs Temp Pulse Resp BP Pulse Ox 01/05/18 08:05 98.1 F 73 16 144/67 90 01/05/18 04:53 98.4 F 84 18 153/75 92 01/05/18 00:23 20 01/04/18 23:12 98.1 F 74 24 132/73 91 01/04/18 19:18 98.0 F 73 16 119/63 94 01/04/18 16:04 98.1 F 78 15 118/56 96 01/04/18 11:14 98.0 F 72 18 152/66 90 Intake and Output 01/04/18 01/05/18 01/05/18 23:59 07:59 15:59 Intake Total 1280 / 1280 100 / 100 Output Total 200 / 200 Balance 1080 / 1080 100 / 100 Intake: IV Fluids 200 / 200 100 / 100 Ancef 2,000 MG In 0.9 % Sodium 100 / 100 100 / 100 Chloride 100 ML @ 200 mls/hr IVP Q8HR [facility] Rx#:[id number] Ofirmev 1,000 mg/100 ml 1,000 100 / 100 mg In 100 ml @ 400 mls/hr IVPB Q6HR PRN Rx#:[id number] Oral 1080 / 1080 0 / 0 Output: Urine 200 / 200 Other: Meal Lunch Percent of Meal Consumed 100% # Voids 1 1 1 Weight 154.9 kg Blood Glucose* 164 100 Patient Weight 01/05/18 23:59 Weight 154.9 kg - Labs CBC & BMP: 01/05/18 04:18 01/05/18 04:18 Labs: Abnormal lab results WBC 16.1 K/mcL (4.3-11.1) H 01/05/18 04:18 Hgb 8.8 g/dL (11.5-15.4) L 01/05/18 04:18 Hct 29.7 % (35.3-44.9) L 01/05/18 04:18 MCV 68.9 fL (83.0-100.0) L 01/05/18 04:18 MCH 20.4 pg (28.0-33.3) L 01/05/18 04:18 MCHC 29.6 g/dL (31.6-35.5) L 01/05/18 04:18 RDW 18.5 % (11.5-14.5) H 01/05/18 04:18 Neutrophils # 10.6 K/mcL (1.6-8.9) H 01/05/18 04:18 Polychromasia 1+ (Not Present) A 01/02/18 00:38 Hypochromasia Present (Not Present) A 01/05/18 04:18 Anisocytosis 1+ (Not Present) A 01/05/18 04:18 Microcytosis Present (Not Present) A 01/05/18 04:18 ESR >= 130 mm/hr (0-15) H 01/05/18 04:18 PT 12.5 Seconds (9.4-12.1) H 12/30/17 15:30 Carbon Dioxide 31 mEq/L (23-29) H 01/05/18 04:18 POC Glucose 100 mg/dL (70-99) H 01/05/18 08:04 Calcium 8.5 mg/dL (8.6-10.3) L 01/05/18 04:18 C-Reactive Protein 152 mg/L (Less than 10) H 01/05/18 04:18 Ur Leukocyte Esterase Moderate (Negative) H 01/03/18 18:00 Ur Squamous Epith Cells Many per lpf (None-Few) H 01/03/18 18:00 Ur Culture Indicated? NO. (NO) A 01/03/18 18:00 Vancomycin Trough 14 mcg/mL (5-10) H 01/01/18 16:56 Consult Discharge Plan - Plan Referrals: Joy Valentine DO [Primary Care Provider] - Prescriptions: Enoxaparin [Lovenox] 30 mg SQ Q12HR 7 Days #14 syringe Cefazolin Sodium in 0.9 % NaCl [Cefazolin 2 G/100 ml-0.9% NaCl] 2 gm IV Q8H 42 Days #1 plast..bag OxyCODONE Immed Rel [Roxicodone 5 MG] 5 mg PO Q6H PRN 7 Days #28 tablet PRN Reason: Severe pain 7-10
[2018-01-05] MEDS ORDERED: Fluconazole 100 MG TABLET PO ONE (14:32)
[2018-01-06] MEDS: *HR* OxyCODONE Immed Rel 5 MG TABLET PO PRN ×4 (05:02→23:15)
[2018-01-06] MEDS: *HR* Enoxaparin 30 MG/0.3 ML SYRINGE SQ SCH ×2 (05:03→18:40)
--- NOTE | 2018-01-06 06:41 | Orthopedics Progress Note ---
Date of Encounter: 01/06/18 Time of Encounter: 06:40 - Assessment and Plan (1) Acute blood loss anemia Current Visit: Yes Status: Acute Subjective Principal diagnosis: Left total knee arthroplasty infection Interval history: Patient was seen this morning doing well without complaints. Afebrile vital signs stable. Operative extremity: Neurovascularly intact Dressing clean dry and intact, bruising around the knee is not erythema or bruising. Calves nontender Assessment and plan: Continue with postoperative care White blood cell Count 16, we will repeat before discharge. Objective Vital signs: Vital Signs Temp Pulse Resp BP Pulse Ox 01/06/18 06:22 98.5 F 82 18 157/69 93 01/06/18 04:28 98.1 F 82 18 151/69 91 01/05/18 23:32 97.8 F 76 18 157/65 93 01/05/18 19:58 97.8 F 75 18 147/69 91 01/05/18 16:00 97.7 F 79 18 134/66 91 01/05/18 10:51 98.2 F 78 16 146/66 90 01/05/18 08:05 98.1 F 73 16 144/67 90 Intake and Output 01/05/18 01/05/18 01/06/18 15:59 23:59 07:59 Intake Total 100 / 100 1940 / 1940 550 / 550 Balance 100 / 100 1940 / 1940 550 / 550 Intake: IV Fluids 100 / 100 100 / 100 Ancef 2,000 MG In 0.9 % Sodium 100 / 100 100 / 100 Chloride 100 ML @ 200 mls/hr IVP Q8HR [facility] Rx#:[id number] Oral 1840 / 1840 550 / 550 Other: Meal Dinner Percent of Meal Consumed 100% Stool Size Moderate Stool Consistency soft formed Stool Characteristics Normal for Patient Stool Color Brown # Voids 1 1 1 Blood Glucose* 113 215 - Labs CBC & BMP: 01/05/18 04:18 01/05/18 04:18 Labs: Abnormal lab results WBC 16.1 K/mcL (4.3-11.1) H 01/05/18 04:18 Hgb 8.8 g/dL (11.5-15.4) L 01/05/18 04:18 Hct 29.7 % (35.3-44.9) L 01/05/18 04:18 MCV 68.9 fL (83.0-100.0) L 01/05/18 04:18 MCH 20.4 pg (28.0-33.3) L 01/05/18 04:18 MCHC 29.6 g/dL (31.6-35.5) L 01/05/18 04:18 RDW 18.5 % (11.5-14.5) H 01/05/18 04:18 Neutrophils # 10.6 K/mcL (1.6-8.9) H 01/05/18 04:18 Polychromasia 1+ (Not Present) A 01/02/18 00:38 Hypochromasia Present (Not Present) A 01/05/18 04:18 Anisocytosis 1+ (Not Present) A 01/05/18 04:18 Microcytosis Present (Not Present) A 01/05/18 04:18 ESR >= 130 mm/hr (0-15) H 01/05/18 04:18 PT 12.5 Seconds (9.4-12.1) H 12/30/17 15:30 Carbon Dioxide 31 mEq/L (23-29) H 01/05/18 04:18 POC Glucose 215 mg/dL (70-99) H 01/05/18 19:56 Calcium 8.5 mg/dL (8.6-10.3) L 01/05/18 04:18 C-Reactive Protein 152 mg/L (Less than 10) H 01/05/18 04:18 Ur Leukocyte Esterase Moderate (Negative) H 01/03/18 18:00 Ur Squamous Epith Cells Many per lpf (None-Few) H 01/03/18 18:00 Ur Culture Indicated? NO. (NO) A 01/03/18 18:00 Vancomycin Trough 14 mcg/mL (5-10) H 01/01/18 16:56 - VTE Documentation of Mechanical Device: Graduated compression elastic hosiery Consult Discharge Plan - Plan Referrals: Joy Valentine DO [Primary Care Provider] - Prescriptions: Cefazolin Sodium in 0.9 % NaCl [Cefazolin 2 G/100 ml-0.9% NaCl] 2 gm IV Q8H 42 Days #1 plast..bag Enoxaparin [Lovenox] 30 mg SQ Q12HR 7 Days #14 syringe OxyCODONE Immed Rel [Roxicodone 5 MG] 5 mg PO Q6H PRN 7 Days #28 tablet PRN Reason: Severe pain 7-10
[2018-01-06 07:08] LABS: Basophils # 0.1 K/mcL (0.0-0.2); Basophils % 0.3 %; Eosinophils # 0.5 K/mcL (0.0-0.6); Eosinophils % 2.7 %; Hemoglobin 9.1 g/dL (11.5-15.4); Immature Granulocytes % 3.6 % (0-4); Lymphocytes # 3.3 K/mcL (0.6-4.6); Lymphocytes % 19.8 %; Mean Corpuscular HGB Conc 29.4 g/dL (31.6-35.5); Mean Corpuscular Hemoglobin 20.2 pg (28.0-33.3); Mean Corpuscular Volume 68.7 fL (83.0-100.0); Mean Platelet Volume 9.6 fL (9.4-12.4); Monocytes # 0.9 K/mcL (0.0-1.3); Monocytes % 5.1 %; Platelet Count 418 K/mcL (140-400); Red Blood Count 4.51 M/mcL (3.82-4.97); Segmented Neutrophils % 68.5 %
[2018-01-06 07:09] LABS: Neutrophils # 11.4 K/mcL (1.6-8.9)
[2018-01-06 07:26] LABS: BUN/Creatinine Ratio 9 (6-26); Blood Urea Nitrogen 7 mg/dL (6-20); Calcium 8.7 mg/dL (8.6-10.3); Carbon Dioxide 31 mEq/L (23-29); Chloride 97 mEq/L (98-107); Glucose 140 mg/dL (70-105); Osmolality,Calculated 278 (280-300); Potassium 4.2 mEq/L (3.5-5.1); Sodium 134 mEq/L (136-145); eGFR For Non-African Americans > 60 (> 60)
[2018-01-06 07:26] LABS: Microcytosis Present (Not Present)
[2018-01-06] MEDS: Insulin LISPRO 300 UNITS/3 ML VIAL SQ SCH ×4 (08:25→21:13)
[2018-01-06] MEDS: Furosemide 40 MG TABLET PO SCH (08:47)
[2018-01-06] MEDS: Cyanocobalamin (B-12) 1,000 MCG TABLET PO SCH (08:47)
[2018-01-06] MEDS: Ascorbic Acid 500 MG TABLET PO SCH ×2 (08:47→21:07)
[2018-01-06] MEDS: Gabapentin 400 MG CAPSULE PO SCH ×3 (08:47→21:07)
[2018-01-06] MEDS: BuPROPion XL (24 HR) 150 MG TABLET PO SCH ×2 (08:48→21:07)
[2018-01-06] MEDS: Insulin NPH/REG 70/30 100 UNIT/ML (x5UNIT) SQ SCH ×2 (08:48→18:41)
[2018-01-06] MEDS: Cholecalciferol (D-3) 1,000 UNIT TABLET PO SCH (08:49)
[2018-01-07 03:32] LABS: Hematocrit 30.1 % (35.3-44.9); Hemoglobin 8.9 g/dL (11.5-15.4); Mean Corpuscular HGB Conc 29.6 g/dL (31.6-35.5); Mean Corpuscular Hemoglobin 20.2 pg (28.0-33.3); Mean Corpuscular Volume 68.3 fL (83.0-100.0); Mean Platelet Volume 9.5 fL (9.4-12.4); Platelet Count 414 K/mcL (140-400); Red Blood Count 4.41 M/mcL (3.82-4.97); Red Cell Distribution Width 19.1 % (11.5-14.5)
[2018-01-07] MEDS: *HR* OxyCODONE Immed Rel 5 MG TABLET PO PRN ×2 (04:53→14:14)
[2018-01-07] MEDS: *HR* Enoxaparin 30 MG/0.3 ML SYRINGE SQ SCH ×2 (05:38→16:33)
--- NOTE | 2018-01-07 06:25 | Orthopedics Progress Note ---
Date of Encounter: 01/07/18 Time of Encounter: 06:24 - Assessment and Plan (1) Acute blood loss anemia Current Visit: Yes Status: Acute Subjective Principal diagnosis: Left total knee arthroplasty infection Interval history: Patient was seen this morning doing well without complaints. Afebrile vital signs stable. Operative extremity: Neurovascularly intact Dressing changed, wound clean dry and intact. Calves nontender Assessment and plan: Continue with postoperative care White blood cell Count 15.9, improving, awaiting approval for transfer Objective Vital signs: Vital Signs Temp Pulse Resp BP Pulse Ox 01/07/18 04:51 98.0 F 69 18 165/72 94 01/07/18 00:17 98.0 F 86 18 152/75 91 01/06/18 21:15 93 01/06/18 20:17 98.0 F 77 18 124/75 93 01/06/18 14:55 98.5 F 79 19 125/65 90 01/06/18 11:04 98.4 F 77 16 129/70 92 Intake and Output 01/06/18 01/06/18 01/07/18 15:59 23:59 07:59 Intake Total 1340 / 1340 820 / 820 100 / 100 Balance 1340 / 1340 820 / 820 100 / 100 Intake: IV Fluids 100 / 100 100 / 100 100 / 100 Ancef 2,000 MG In 0.9 % Sodium 100 / 100 100 / 100 100 / 100 Chloride 100 ML @ 200 mls/hr IVP Q8HR [facility] Rx#:[id number] Oral 740 / 740 720 / 720 Free Water 500 / 500 Other: Meal Breakfast Dinner Percent of Meal Consumed 100% 100% # Voids 1 1 # Bowel Movements 0 Weight 155.5 kg Blood Glucose* 211 209 Patient Weight 01/07/18 23:59 Weight 155.5 kg - Labs CBC & BMP: 01/07/18 03:21 01/06/18 06:42 Labs: Abnormal lab results WBC 15.9 K/mcL (4.3-11.1) H 01/07/18 03:21 Hgb 8.9 g/dL (11.5-15.4) L 01/07/18 03:21 Hct 30.1 % (35.3-44.9) L 01/07/18 03:21 MCV 68.3 fL (83.0-100.0) L 01/07/18 03:21 MCH 20.2 pg (28.0-33.3) L 01/07/18 03:21 MCHC 29.6 g/dL (31.6-35.5) L 01/07/18 03:21 RDW 19.1 % (11.5-14.5) H 01/07/18 03:21 Plt Count 414 K/mcL (140-400) H 01/07/18 03:21 Neutrophils # 11.4 K/mcL (1.6-8.9) H 01/06/18 06:40 Platelet Estimate Slight increase (Normal) H 01/06/18 06:40 Polychromasia 1+ (Not Present) A 01/02/18 00:38 Hypochromasia Present (Not Present) A 01/05/18 04:18 Anisocytosis 1+ (Not Present) A 01/05/18 04:18 Microcytosis Present (Not Present) A 01/06/18 06:40 ESR >= 130 mm/hr (0-15) H 01/06/18 08:46 PT 12.5 Seconds (9.4-12.1) H 12/30/17 15:30 Sodium 134 mEq/L (136-145) L 01/06/18 06:42 Chloride 97 mEq/L (98-107) L 01/06/18 06:42 Carbon Dioxide 31 mEq/L (23-29) H 01/06/18 06:42 Glucose 140 mg/dL (70-105) H 01/06/18 06:42 POC Glucose 162 mg/dL (70-99) H 01/06/18 16:44 Calculated Osmolality 278 (280-300) L 01/06/18 06:42 C-Reactive Protein 134 mg/L (Less than 10) H 01/06/18 09:30 Ur Leukocyte Esterase Moderate (Negative) H 01/03/18 18:00 Ur Squamous Epith Cells Many per lpf (None-Few) H 01/03/18 18:00 Ur Culture Indicated? NO. (NO) A 01/03/18 18:00 Vancomycin Trough 14 mcg/mL (5-10) H 01/01/18 16:56 - VTE Documentation of Mechanical Device: Graduated compression elastic hosiery Consult Discharge Plan - Plan Additional Instructions: Discharge Instructions: Total Knee Replacement Please call [facility] ([phone]), your Primary Care Physician, or report to the Emergency Room if you have any of the following symptoms: Nausea, vomiting, fever greater that 101.5, swelling, chest pain, shortness of breath, increased pain/redness/drainage/odor for your incision site, numbness/ tingling, or any other concerning symptoms. ACTIVITY:Weight-bearing as tolerated. You may progress off support (crutches or walker) as tolerated. Incentive Spirometer 10 times an hour. No knee motion, brace at all times. MEDICATIONS: Upon discharge resume your home medications. Take all the medications as prescribed. Take a stool softener if taking narcotic pain medications. Stool softeners are only effective if you drink enough fluids. Drink 6-8 glass of water or fluids a day, unless this is not allowed for another health problem. Despite using stool softeners, if you haven't had a bowel movement in 3 days, please switch to a gentle laxative. Gentle laxatives are sold over the counter. You should have a bowel movement within 24 hours, if not call the office. You will be discharged from the hospital with a prescription for pain medication. You are encouraged to decrease the use of narcotic pain medication as tolerated. Should you require a refill, please call the office. [facility] prescribes narcotic pain medication for only 4-6 weeks after surgery. If you require pain medication beyond this time period, you may be referred to your Primary Care Physician or to the Pain Clinic for further evaluation. Plan ahead for refills on pain medication as many narcotics either need to be picked up at the office or mailed. It is best to call 48-72 hours in advance of needing a prescription refill so you don't run out of medication. To help control the post-operative pain, you may take NSAIDs (Aleve,Advil, Motrin, Ibuprofen, Naprosyn) or Tylenol as prescribed on the bottle in addition to the pain medication. ANTICOAGULATION (blood thinners): Continue your Aspirin, Lovenox or Coumadin as prescribed to help prevent a blood clot in the leg or in the lungs. As long as your incision remains dry and you tolerate the NSAIDs (Aleve, Advil, Motrin, ibuprofen, naprosyn), it is OK to use the NSAIDS while you are taking your anticoagulation medication. Should your incision start to drain, stop the NSAID and contact our office. Common symptoms of blood clot in the legs include: localized pain, swelling, calf tenderness, redness or discoloration of the skin. Blood clot in the lung symptoms include: shortness of breath, rapid pulse, sweating, and chest pain that worsens with deep breathing, coughing up blood, lightheadedness, feelings of anxiety. If you experience any of these symptoms notify your physician immediately, go to the emergency room, or if having trouble breathing, call 911. WOUND CARE: Leave the dressing on for 7 to 10days. You may change the dressing if it becomes saturated greater than 50%. Do not get the dressing wet at anytime. Wash your hands with antibacterial soap, rinse and dry prior to any wound care. If you have danelle the visiting nurse or rehab facility can remove the stapes 10-14 days after surgery and place steri-strips across the wound. Leave the steri-strips in place until they fall off on their won. You may let water from the shower run on top of the steri-strips. If you do not have a visiting nurse or rehab facility, you will need to return to the office at 10-14 days for the danelle to be removed. If you have itching or redness around the dressing call the office. FOLLOW-UP: Please follow up with your surgeon in the orthopedic clinic in 4 weeks from the day of surgery. If you have danelle that need to be removed, you will need to come back to the office in 10-14 days from the day of surgery. Referrals: Joy Valentine DO [Primary Care Provider] - Prescriptions: Cefazolin Sodium in 0.9 % NaCl [Cefazolin 2 G/100 ml-0.9% NaCl] 2 gm IV Q8H 42 Days #1 plast..bag Enoxaparin [Lovenox] 30 mg SQ Q12HR 7 Days #14 syringe OxyCODONE Immed Rel [Roxicodone 5 MG] 5 mg PO Q6H PRN 7 Days #28 tablet PRN Reason: Severe pain 7-10
[2018-01-07] MEDS: Insulin NPH/REG 70/30 100 UNIT/ML (x5UNIT) SQ SCH ×2 (09:38→16:39)
[2018-01-07] MEDS: Gabapentin 400 MG CAPSULE PO SCH ×3 (09:39→20:19)
[2018-01-07] MEDS: Ascorbic Acid 500 MG TABLET PO SCH ×2 (09:39→20:19)
[2018-01-07] MEDS: Cholecalciferol (D-3) 1,000 UNIT TABLET PO SCH (09:39)
[2018-01-07] MEDS: Cyanocobalamin (B-12) 1,000 MCG TABLET PO SCH (09:39)
[2018-01-07] MEDS: Furosemide 40 MG TABLET PO SCH (09:40)
[2018-01-07] MEDS: Insulin LISPRO 300 UNITS/3 ML VIAL SQ SCH ×4 (09:44→20:17)
[2018-01-07] MEDS: BuPROPion XL (24 HR) 150 MG TABLET PO SCH ×2 (11:08→20:19)
--- NOTE | 2018-01-07 11:24 | Infectious Disease Consult ---
Date of Encounter: 01/07/18 Time of Encounter: 11:12 Assessment and Plan (1) Wound dehiscence, surgical Status: Acute Assessment and plan: Initial surgery 12/02/2017 12/23/2017 had trauma to the left knee when she is getting into a car 12/25/2017 dog scratched the left knee removing the scab and starting cellulitis 12/30/2017 presented to [facility] where she was taken to the OR where she underwent left knee open arthrotomy irrigation and debridement of all extremities extensor mechanism repair. Intra-Op cultures grew MSSA Patient switched to cefazolin 2 g IV every 8 hours Continue cefazolin for now duration of treatment at least 6 weeks Prior to discharge we will add rifampin 450 mg by mouth twice a day While on antibiotic will need to check weekly CBC, CMP, ESR and CRP Follow-up with me in clinic in 2 weeks post discharge Qualifiers: Encounter type: initial encounter Qualified Code(s): T81.31XA - Disruption of external operation (surgical) wound, not elsewhere classified, initial encounter (2) Diabetes mellitus type 2 in obese Status: Acute (3) Morbid obesity with BMI of 50.0-59.9, adult Status: Chronic (4) COPD (chronic obstructive pulmonary disease) Status: Chronic Qualifiers: COPD type: unspecified COPD Qualified Code(s): J44.9 - Chronic obstructive pulmonary disease, unspecified (5) Infection of total left knee replacement Status: Acute Qualifiers: Encounter type: initial encounter Qualified Code(s): T84.54XA - Infection and inflammatory reaction due to internal left knee prosthesis, initial encounter; Z96.652 - Presence of left artificial knee joint Infectious Disease HPI - Data of Consult Patient: new to practice Consult date: 01/07/18 Requesting Physician: Karsten Argueta MD Primary Care Provider: Jyo Valentine DO - Consult Narrative Reason for consult: Leukocytosis History of present illness: Ms. Briggs is a 52 year old female Patient is a 49-year-old woman who presented to [facility] on 12/30/2017 as a direct admission from orthopedics for surgical wound dehiscence. We are consulted today for persistent leukocytosis. Patient is a 52-year-old woman with past medical history mentioned below including history of lung CA and history of 4. CVA diagnosed in 2015 in 2013 respectively has been treated in patient in remission underwent a left robotic- assisted total knee replacement on 12/02/[address] Argueta. Previously in February 2017 patient underwent a right robotic-assisted total knee replacement. Patient apparently post op did well but on 12/23/2017 patient had an injury of her left knee while getting into a van and she slept off that causing hyperflexion of the left knee. Patient apparently had swelling pain at that time on 12/25/2017 her dog jumped on her and scratched open the middle of her incision. Patient states have worsening pain and swelling and inability to walk so presented to the ED for evaluation. Apparently patient was first seen a [place] emergency department on December 28 with fever, malaise and worsening pain and drainage. She was transferred to [facility] where she had leukocytosis with a LEEP C of 23,000. Patient was started on vancomycin and Zosyn and transferred to [facility] for further workup. Since admission, patient has been afebrile, no leukocytosis and no tachypnea. Presenting labs revealed elevated WBC with normal differential but no bands. Chemistry shows normal kidney function. Elevated inflammatory markers with with ESR over 1:30 and a CRP of 134. Urinalysis was obtained on 01/03/2018 and revealed no pyuria. Blood cultures were obtained on December 30 2 sets and are negative. Left knee culture from the wound was positive for staph aureus methicillin sensitive. Repeat blood cultures on January 03 are no growth. 2 chest x-rays obtained on 01/03/2015 and reveals no acute process. Patient was taken to surgery on 12/30/2017 where that she underwent left knee open arthrotomy irrigation and debridement of all extremities extensor mechanism repair. OR note reveals no bobby purulence. Intra-Op cultures were positive for MSSA. Patient was initially on vancomycin is from 2017 through 2017 and then switched to Ancef. We are asked to evaluate the patient and make further recommendations. Currently patient appears comfortable laying in bed [place]. Her review of system is negative for any headache, runny nose, sore throat, earache. Patient denies any chest pain or shortness of breath or cough or hemoptysis. Patient denies any nausea or vomiting. Denies any diarrhea and if anything she is constipated but had a bowel movement today after 3 days of no BM. Patient denies any urinary symptoms. CC: Karsten Argueta MD Past Med Surg Social Fam HX - Past Medical History Medical history: cancer, COPD, diabetes, hyperlipidemia, hypertension, kidney stones, thyroid disease Psychiatric history: no psych history - Past Surgical History Surgical History: , cancer surgery, cholecystectomy, hysterectomy Additional surgical history: Tonsils & Adenoids, bilateral knee scopes,right lung cancer, bilateral knee menisectomy,hernia,tubes and ovaries removed,left foot crush injury,right robotic assisted total knee replacement, R. upper lobectomy - Social History Smoking Status: Current every day smoker Packs per day: less than 1 pack per day Smokeless Tobacco Status: No Alcohol use: none Drug use: none - Family History Daughter Hx Family Cardiac Disorders: Yes (aortic stenosis) Mother Adopted: No Hx Family Cardiac Disorders: Yes (Aortic valve replacement) Hx Family Cancer: Yes (Breast, cervical) Infectious Disease-CN:Meds Albuterol Sulfate [Albuterol Inhaler] 2 puff IH Q4H PRN 03/23/17 [History] BuPROPion XL (24 HR) [Wellbutrin Xl] 150 mg PO BID 03/23/17 [History] Cholecalciferol (Vitamin D3) [Vitamin D3] 50,000 unit PO FR 03/23/17 [History] Duloxetine HCl [Cymbalta] 60 mg PO DAILY 03/23/17 [History] Furosemide [Lasix] 40 mg PO DAILY 03/23/17 [History] Gabapentin [Neurontin] 1,200 mg PO TID 03/23/17 [History] Insulin Aspart Prot/Insuln Asp [Novolog Mix 70-30 Vial] 85 unit SQ BID 03/23/17 [History] Levothyroxine Sodium 150 mcg PO DAILY 03/23/17 [History] Losartan Potassium [Cozaar] 100 mg PO DAILY 03/23/17 [History] Potassium Chloride [Klor-Con 10] 10 meq PO DAILY 03/23/17 [History] Pravastatin Sodium [Pravachol] 80 mg PO HS 03/23/17 [History] Ascorbate Calcium [Vitamin C] 500 mg PO BID 12/30/17 [History] Cyanocobalamin (Vitamin B-12) [Vitamin B-12] 500 mcg PO DAILY 12/30/17 [History] Cyclobenzaprine [Flexeril] 5 mg PO HS PRN 12/30/17 [History] Ferrous Sulfate [Iron] 325 mg PO BID 12/30/17 [History] Furosemide [Lasix] 40 mg PO DAILY PRN 12/30/17 [History] Insulin ASPART [Novolog] 0 unit SQ TIDWM 12/30/17 [History] Ipratropium/Albuterol Sulfate [Iprat-Albut 0.5-3(2.5) mg/3 ml] 3 ml IH Q4H PRN 12/30/17 [History] Losartan Potassium [Cozaar] 12/30/17 [History] Oxycodone HCl [Oxycodone HCl] 1 tab PO Q6H PRN 12/30/17 [History] Cefazolin Sodium in 0.9 % NaCl [Cefazolin 2 G/100 ml-0.9% NaCl] 2 gm IV Q8H 42 Days #1 plast..bag 01/02/18 [Rx] Enoxaparin [Lovenox] 30 mg SQ Q12HR 7 Days #14 syringe 01/03/18 [Rx] OxyCODONE Immed Rel [Roxicodone 5 MG] 5 mg PO Q6H PRN 7 Days #28 tablet [Rx] 3 Allergy/AdvReac Type Severity Reaction Status Date / Time hydrocodone AdvReac Itching, Verified 12/30/17 16:04 Vomiting morphine AdvReac Itching Verified 12/30/17 16:04 Review of systems: 10 point review of systems done, negative other for what is mentioned in history of present illness. Exam - Constitutional Vitals: Temp Pulse Resp BP Pulse Ox 97.9 F 75 15 114/67 93 01/07/18 07:24 01/07/18 07:24 01/07/18 07:24 01/07/18 07:24 01/07/18 07:24 General appearance: cooperative, no acute distress, no febrile - Head Head exam: Present: atraumatic, normocephalic - Eye Eye exam: Present: EOMI, PERRL, sclera anicteric - ENT ENT exam: Present: mucous membranes moist Additional comments: no oral lesions - Neck Neck exam: Present: full ROM. Absent: meningismus - Respiratory Respiratory exam: Present: CTAB. Absent: wheezes - Cardiovascular Cardiovascular exam: Present: RRR, +S1, +S2 - GI/Abdominal GI/Abdominal exam: Present: normal bowel sounds, soft. Absent: tenderness - Extremities Exam Extremities exam: Present: normal inspection Additional comments: Left knee with surgical wrapping. Still have some serous drainage. - Neurological Exam Neurological exam: Present: alert, oriented X3. Absent: speech deficit - Psychiatric Psychiatric exam: Present: normal affect, normal mood - Skin Skin exam: Present: normal color. Absent: rash Infectious Disease CN: Results - Labs CBC & Chem 7: 01/07/18 03:21 01/06/18 06:42 Cultures: Cultures 12/30/17 15:50 Blood Culture - Final Peripheral Venipuncture No growth. Final report. 12/30/17 15:50 Blood Culture - Final Peripheral Venipuncture No growth. Final report. 12/30/17 18:50 Anaerobic Culture - Final Left Knee No anaerobes were recovered. 01/03/18 15:55 Blood Culture - Preliminary Peripheral Venipuncture Culture is incubating and being continuously monitored for growth. Final report to follow. 01/03/18 15:50 Blood Culture - Preliminary Peripheral Venipuncture Culture is incubating and being continuously monitored for growth. Final report to follow. 12/30/17 18:50 Wound Culture - Final Left Knee Staphylococcus aureus 12/30/17 18:50 Gram Stain - Final Left Knee Serology: Serology 01/03/18 Range/Units 18:00 Urine Color Yellow (Yellow) Urine Clarity Clear (Clear) Urine pH 7.5 (5.0-8.0) pH Units Ur Specific [place] 1.023 (1.010-1.025) Urine Protein Negative (Neg-Trace) mg/dL Urine Glucose (UA) Normal (Normal) mg/dL Urine Ketones Negative (Negative) mg/dL Urine Blood Negative (Negative) Urine Nitrite Negative (Negative) Urine Bilirubin Negative (Negative) Urine Urobilinogen Normal (Normal) mg/dL Ur Leukocyte Esterase Moderate H (Negative) Urine Microscopic RBC 0-3 (0-3) per hpf Urine Microscopic WBC 0-3 (0-3) per hpf Ur Squamous Epith Cells Many H (None-Few) per lpf Urine Bacteria None Seen (None-Few) per hpf Hyaline Casts None Seen (None-Few) per lpf Ur Culture Indicated? NO. A (NO) - VTE Documentation of Mechanical Device: Graduated compression elastic hosiery Consult Discharge Plan - Plan Additional Instructions: Discharge Instructions: Total Knee Replacement Please call [facility] ([phone]), your Primary Care Physician, or report to the Emergency Room if you have any of the following symptoms: Nausea, vomiting, fever greater that 101.5, swelling, chest pain, shortness of breath, increased pain/redness/drainage/odor for your incision site, numbness/ tingling, or any other concerning symptoms. ACTIVITY:Weight-bearing as tolerated. You may progress off support (crutches or walker) as tolerated. Incentive Spirometer 10 times an hour. No knee motion, brace at all times. MEDICATIONS: Upon discharge resume your home medications. Take all the medications as prescribed. Take a stool softener if taking narcotic pain medications. Stool softeners are only effective if you drink enough fluids. Drink 6-8 glass of water or fluids a day, unless this is not allowed for another health problem. Despite using stool softeners, if you haven't had a bowel movement in 3 days, please switch to a gentle laxative. Gentle laxatives are sold over the counter. You should have a bowel movement within 24 hours, if not call the office. You will be discharged from the hospital with a prescription for pain medication. You are encouraged to decrease the use of narcotic pain medication as tolerated. Should you require a refill, please call the office. [facility] prescribes narcotic pain medication for only 4-6 weeks after surgery. If you require pain medication beyond this time period, you may be referred to your Primary Care Physician or to the Pain Clinic for further evaluation. Plan ahead for refills on pain medication as many narcotics either need to be picked up at the office or mailed. It is best to call 48-72 hours in advance of needing a prescription refill so you don't run out of medication. To help control the post-operative pain, you may take NSAIDs (Aleve,Advil, Motrin, Ibuprofen, Naprosyn) or Tylenol as prescribed on the bottle in addition to the pain medication. ANTICOAGULATION (blood thinners): Continue your Aspirin, Lovenox or Coumadin as prescribed to help prevent a blood clot in the leg or in the lungs. As long as your incision remains dry and you tolerate the NSAIDs (Aleve, Advil, Motrin, ibuprofen, naprosyn), it is OK to use the NSAIDS while you are taking your anticoagulation medication. Should your incision start to drain, stop the NSAID and contact our office. Common symptoms of blood clot in the legs include: localized pain, swelling, calf tenderness, redness or discoloration of the skin. Blood clot in the lung symptoms include: shortness of breath, rapid pulse, sweating, and chest pain that worsens with deep breathing, coughing up blood, lightheadedness, feelings of anxiety. If you experience any of these symptoms notify your physician immediately, go to the emergency room, or if having trouble breathing, call 911. WOUND CARE: Leave the dressing on for 7 to 10days. You may change the dressing if it becomes saturated greater than 50%. Do not get the dressing wet at anytime. Wash your hands with antibacterial soap, rinse and dry prior to any wound care. If you have danelle the visiting nurse or rehab facility can remove the stapes 10-14 days [address] surgery [address] steri-strips across the wound. Leave the steri-strips in place until they fall off on their won. You may let water from the shower run on top of the steri-strips. If you do not have a visiting nurse or rehab facility, you will need to return to the office at 10-14 days for the danelle to be removed. If you have itching or redness around the dressing call the office. FOLLOW-UP: Please follow up with your surgeon in the orthopedic clinic in 4 weeks from the day of surgery. If you have danelle that need to be removed, you will need to come back to the office in 10-14 days from the day of surgery. Referrals: Joy Valentine DO [Primary Care Provider] - Prescriptions: Enoxaparin [Lovenox] 30 mg SQ Q12HR 7 Days #14 syringe Cefazolin Sodium in 0.9 % NaCl [Cefazolin 2 G/100 ml-0.9% NaCl] 2 gm IV Q8H 42 Days #1 plast..bag OxyCODONE Immed Rel [Roxicodone 5 MG] 5 mg PO Q6H PRN 7 Days #28 tablet PRN Reason: Severe pain 7-10
--- NOTE | 2018-01-07 21:08 | Event Note ---
Date of Encounter: 01/07/18 Time of Encounter: 12:25 While rounding I was alerted that patient dressings were saturated and I was asked to look at incision. Opsite dressing was roughly 50% saturated with purulent drainage and was removed. Zipline and intermittent danelle were intact with no gaping noted. No active drainage on exam or with palpation around area. General wet appearance, oozing. No further danelle necessary at this time. No significant surrounding erythema. moderate tenderness to palpation around incision. no calf tenderness. New opsite dressing applied.
[2018-01-08] MEDS: *HR* OxyCODONE Immed Rel 5 MG TABLET PO PRN ×3 (00:16→21:34)
[2018-01-08 03:28] LABS: Hemoglobin 8.9 g/dL (11.5-15.4); Immature Platelets 3.1 % (1.1-6.1); Mean Corpuscular HGB Conc 29.7 g/dL (31.6-35.5); Mean Corpuscular Hemoglobin 20.1 pg (28.0-33.3); Mean Corpuscular Volume 67.9 fL (83.0-100.0); Mean Platelet Volume 9.5 fL (9.4-12.4); Red Blood Count 4.42 M/mcL (3.82-4.97); Red Cell Distribution Width 19.1 % (11.5-14.5)
[2018-01-08] MEDS: *HR* Enoxaparin 30 MG/0.3 ML SYRINGE SQ SCH ×2 (05:36→18:13)
--- NOTE | 2018-01-08 06:39 | Orthopedics Progress Note ---
Date of Encounter: 01/08/18 Time of Encounter: 06:38 - Assessment and Plan (1) Acute blood loss anemia Current Visit: Yes Status: Acute Subjective Principal diagnosis: Left total knee arthroplasty infection Interval history: Patient was seen this morning doing well without complaints. Afebrile vital signs stable. Operative extremity: Neurovascularly intact Dressing changed, wound clean dry and intact. Calves nontender Assessment and plan: Continue with postoperative care White blood cell Count 16 possible discharge home with home health Objective Vital signs: Vital Signs Temp Pulse Resp BP Pulse Ox 01/08/18 03:44 97.7 F 74 16 149/72 90 01/07/18 23:04 98.1 F 77 16 151/60 90 01/07/18 20:20 92 01/07/18 19:12 98.2 F 76 17 117/67 92 01/07/18 16:13 97.9 F 75 20 129/78 92 01/07/18 11:16 97.7 F 93 20 117/67 93 01/07/18 07:24 97.9 F 75 15 114/67 93 Intake and Output 01/07/18 01/07/18 01/08/18 15:59 23:59 07:59 Intake Total 820 / 820 100 / 100 100 / 100 Output Total 240 / 240 Balance 580 / 580 100 / 100 100 / 100 Intake: IV Fluids 100 / 100 100 / 100 100 / 100 Ancef 2,000 MG In 0.9 % Sodium 100 / 100 100 / 100 100 / 100 Chloride 100 ML @ 200 mls/hr IVP Q8HR [facility] Rx#:[id number] Oral 720 / 720 Output: Urine 240 / 240 Other: Meal Lunch Percent of Meal Consumed 100% Stool Size Copious Large Stool Consistency soft formed Stool Characteristics Normal for Patient Normal for Patient Stool Color Brown # Voids 1 # Bowel Movements 1 Blood Glucose* 162 132 - Labs CBC & BMP: 01/08/18 03:08 01/06/18 06:42 Labs: Abnormal lab results WBC 16.0 K/mcL (4.3-11.1) H 01/08/18 03:08 Hgb 8.9 g/dL (11.5-15.4) L 01/08/18 03:08 Hct 30.0 % (35.3-44.9) L 01/08/18 03:08 MCV 67.9 fL (83.0-100.0) L 01/08/18 03:08 MCH 20.1 pg (28.0-33.3) L 01/08/18 03:08 MCHC 29.7 g/dL (31.6-35.5) L 01/08/18 03:08 RDW 19.1 % (11.5-14.5) H 01/08/18 03:08 Plt Count 445 K/mcL (140-400) H 01/08/18 03:08 Neutrophils # 11.4 K/mcL (1.6-8.9) H 01/06/18 06:40 Platelet Estimate Slight increase (Normal) H 01/06/18 06:40 Polychromasia 1+ (Not Present) A 01/02/18 00:38 Hypochromasia Present (Not Present) A 01/05/18 04:18 Anisocytosis 1+ (Not Present) A 01/05/18 04:18 Microcytosis Present (Not Present) A 01/06/18 06:40 ESR >= 130 mm/hr (0-15) H 01/06/18 08:46 PT 12.5 Seconds (9.4-12.1) H 12/30/17 15:30 Sodium 134 mEq/L (136-145) L 01/06/18 06:42 Chloride 97 mEq/L (98-107) L 01/06/18 06:42 Carbon Dioxide 31 mEq/L (23-29) H 01/06/18 06:42 Glucose 140 mg/dL (70-105) H 01/06/18 06:42 POC Glucose 162 mg/dL (70-99) H 01/07/18 11:19 Calculated Osmolality 278 (280-300) L 01/06/18 06:42 C-Reactive Protein 134 mg/L (Less than 10) H 01/06/18 09:30 Ur Leukocyte Esterase Moderate (Negative) H 01/03/18 18:00 Ur Squamous Epith Cells Many per lpf (None-Few) H 01/03/18 18:00 Ur Culture Indicated? NO. (NO) A 01/03/18 18:00 Vancomycin Trough 14 mcg/mL (5-10) H 01/01/18 16:56 - VTE Documentation of Mechanical Device: Graduated compression elastic hosiery Consult Discharge Plan - Plan Additional Instructions: Discharge Instructions: Total Knee Replacement Please call [facility] ([phone]), your Primary Care Physician, or report to the Emergency Room if you have any of the following symptoms: Nausea, vomiting, fever greater that 101.5, swelling, chest pain, shortness of breath, increased pain/redness/drainage/odor for your incision site, numbness/ tingling, or any other concerning symptoms. ACTIVITY:Weight-bearing as tolerated. You may progress off support (crutches or walker) as tolerated. Incentive Spirometer 10 times an hour. No knee motion, brace at all times. MEDICATIONS: Upon discharge resume your home medications. Take all the medications as prescribed. Take a stool softener if taking narcotic pain medications. Stool softeners are only effective if you drink enough fluids. Drink 6-8 glass of water or fluids a day, unless this is not allowed for another health problem. Despite using stool softeners, if you haven't had a bowel movement in 3 days, please switch to a gentle laxative. Gentle laxatives are sold over the counter. You should have a bowel movement within 24 hours, if not call the office. You will be discharged from the hospital with a prescription for pain medication. You are encouraged to decrease the use of narcotic pain medication as tolerated. Should you require a refill, please call the office. [facility] prescribes narcotic pain medication for only 4-6 weeks after surgery. If you require pain medication beyond this time period, you may be referred to your Primary Care Physician or to the Pain Clinic for further evaluation. Plan ahead for refills on pain medication as many narcotics either need to be picked up at the office or mailed. It is best to call 48-72 hours in advance of needing a prescription refill so you don't run out of medication. To help control the post-operative pain, you may take NSAIDs (Aleve,Advil, Motrin, Ibuprofen, Naprosyn) or Tylenol as prescribed on the bottle in addition to the pain medication. ANTICOAGULATION (blood thinners): Continue your Aspirin, Lovenox or Coumadin as prescribed to help prevent a blood clot in the leg or in the lungs. As long as your incision remains dry and you tolerate the NSAIDs (Aleve, Advil, Motrin, ibuprofen, naprosyn), it is OK to use the NSAIDS while you are taking your anticoagulation medication. Should your incision start to drain, stop the NSAID and contact our office. Common symptoms of blood clot in the legs include: localized pain, swelling, calf tenderness, redness or discoloration of the skin. Blood clot in the lung symptoms include: shortness of breath, rapid pulse, sweating, and chest pain that worsens with deep breathing, coughing up blood, lightheadedness, feelings of anxiety. If you experience any of these symptoms notify your physician immediately, go to the emergency room, or if having trouble breathing, call 911. WOUND CARE: Leave the dressing on for 7 to 10days. You may change the dressing if it becomes saturated greater than 50%. Do not get the dressing wet at anytime. Wash your hands with antibacterial soap, rinse and dry prior to any wound care. If you have danelle the visiting nurse or rehab facility can remove the stapes 10-14 days after surgery and place steri-strips across the wound. Leave the steri-strips in place until they fall off on their won. You may let water from the shower run on top of the steri-strips. If you do not have a visiting nurse or rehab facility, you will need to return to the office at 10-14 days for the danelle to be removed. If you have itching or redness around the dressing call the office. FOLLOW-UP: Please follow up with your surgeon in the orthopedic clinic in 4 weeks from the day of surgery. If you have danelle that need to be removed, you will need to come back to the office in 10-14 days from the day of surgery. Referrals: Joy Valentine DO [Primary Care Provider] - Prescriptions: Cefazolin Sodium in 0.9 % NaCl [Cefazolin 2 G/100 ml-0.9% NaCl] 2 gm IV Q8H 42 Days #1 plast..bag Enoxaparin [Lovenox] 30 mg SQ Q12HR 7 Days #14 syringe OxyCODONE Immed Rel [Roxicodone 5 MG] 5 mg PO Q6H PRN 7 Days #28 tablet PRN Reason: Severe pain 7-10
[2018-01-08] MEDS: Insulin LISPRO 300 UNITS/3 ML VIAL SQ SCH ×4 (07:16→21:36)
[2018-01-08] MEDS: Insulin NPH/REG 70/30 100 UNIT/ML (x5UNIT) SQ SCH ×2 (07:44→17:09)
[2018-01-08] MEDS: Furosemide 40 MG TABLET PO SCH (07:45)
[2018-01-08] MEDS: Gabapentin 400 MG CAPSULE PO SCH ×3 (07:45→21:36)
[2018-01-08] MEDS: Cyanocobalamin (B-12) 1,000 MCG TABLET PO SCH (07:45)
[2018-01-08] MEDS: Cholecalciferol (D-3) 1,000 UNIT TABLET PO SCH (07:46)
[2018-01-08] MEDS: Ascorbic Acid 500 MG TABLET PO SCH ×2 (07:46→21:35)
[2018-01-08] MEDS: BuPROPion XL (24 HR) 150 MG TABLET PO SCH ×2 (07:46→21:35)
--- NOTE | 2018-01-08 11:33 | Infectious Disease Progress No ---
Date of Encounter: 01/08/18 Time of Encounter: 11:31 - Assessment and Plan (1) Leukocytosis Current Visit: Yes Status: Acute Likely secondary to left knee infection. Stable. Continue to trend. May take extra time to normalize. No other SIRS criteria noted. Blood cultures drawn 12/30/17 x 2 sets are negative. Qualifiers: Leukocytosis type: unspecified Qualified Code(s): D72.829 - Elevated white blood cell count, unspecified (2) Wound dehiscence, surgical Current Visit: No Status: Acute Location: left knee. Causative organism: MSSA. Initial surgery 12/02/2017 12/23/2017 had trauma to the left knee when she is getting into a car 12/25/2017 dog scratched the left knee removing the scab and starting cellulitis 12/30/2017 presented to [facility] where she was taken to the OR where she underwent left knee open arthrotomy irrigation and debridement of all extremities extensor mechanism repair. Wound care and activity restrictions per the orthopedics team. Continue Ancef 2 g IV every 8 hours. Duration of treatment depends on the clinical picture, but likely 6 weeks. We will plan to add rifampin 450 mg by mouth twice a day on discharge. PICC line is in place. When he weekly CBC, urine/creatinine, LFTs, ESR, and CRP. Will need weekly PICC line care per protocol. Follow up with ID 2 weeks post-discharge. director of child welfare services consult to assist with discharge plannning. Qualifiers: Encounter type: initial encounter Qualified Code(s): T81.31XA - Disruption of external operation (surgical) wound, not elsewhere classified, initial encounter (3) Diabetes mellitus type 2 in obese Current Visit: Yes Status: Acute Recommend aggressive glucose monitoring and control to promote wound healing and prevent re-infection. Management per the primary team. (4) COPD (chronic obstructive pulmonary disease) Current Visit: No Status: Chronic Qualifiers: COPD type: unspecified COPD Qualified Code(s): J44.9 - Chronic obstructive pulmonary disease, unspecified (5) Infection of total left knee replacement Current Visit: Yes Status: Acute Qualifiers: Encounter type: initial encounter Qualified Code(s): T84.54XA - Infection and inflammatory reaction due to internal left knee prosthesis, initial encounter; Z96.652 - Presence of left artificial knee joint (6) Morbid obesity with BMI of 50.0-59.9, adult Current Visit: No Status: Chronic - Subjective Interval history: Patient seen and examined. No acute events noted overnight. Patient states her left knee is a little sore, but otherwise she is doing well. She denies any fevers or chills or rigors. Denies chest pain, shortness of breath, or cough. Denies any nausea or vomiting or diarrhea. Denies any oral thrush or any skin lesions. Infect Dis PN-Objective Data - Labs CBC & Chem 7: 01/08/18 03:08 01/06/18 06:42 Labs: Laboratory Results - last 24 hr 01/06/18 01/07/18 01/08/18 19:37 11:19 03:08 WBC 16.0 H RBC 4.42 Hgb 8.9 L Hct 30.0 L MCV 67.9 L MCH 20.1 L MCHC 29.7 L RDW 19.1 H Plt Count 445 H MPV 9.5 Immature Plt Fraction 3.1 POC Glucose 209 H 162 H Cultures: Cultures 12/30/17 15:50 Blood Culture - Final Peripheral Venipuncture No growth. Final report. 12/30/17 15:50 Blood Culture - Final Peripheral Venipuncture No growth. Final report. 12/30/17 18:50 Anaerobic Culture - Final Left Knee No anaerobes were recovered. 01/03/18 15:55 Blood Culture - Preliminary Peripheral Venipuncture Culture is incubating and being continuously monitored for growth. Final report to follow. 01/03/18 15:50 Blood Culture - Preliminary Peripheral Venipuncture Culture is incubating and being continuously monitored for growth. Final report to follow. 12/30/17 18:50 Wound Culture - Final Left Knee Staphylococcus aureus 12/30/17 18:50 Gram Stain - Final Left Knee Serology 01/03/18 Range/Units 18:00 Urine Color Yellow (Yellow) Urine Clarity Clear (Clear) Urine pH 7.5 (5.0-8.0) pH Units Ur Specific [place] 1.023 (1.010-1.025) Urine Protein Negative (Neg-Trace) mg/dL Urine Glucose (UA) Normal (Normal) mg/dL Urine Ketones Negative (Negative) mg/dL Urine Blood Negative (Negative) Urine Nitrite Negative (Negative) Urine Bilirubin Negative (Negative) Urine Urobilinogen Normal (Normal) mg/dL Ur Leukocyte Esterase Moderate H (Negative) Urine Microscopic RBC 0-3 (0-3) per hpf Urine Microscopic WBC 0-3 (0-3) per hpf Ur Squamous Epith Cells Many H (None-Few) per lpf Urine Bacteria None Seen (None-Few) per hpf Hyaline Casts None Seen (None-Few) per lpf Ur Culture Indicated? NO. A (NO) Exam - Constitutional Vitals: Temp Pulse Resp BP Pulse Ox 98.0 F 80 18 131/69 94 01/08/18 11:19 01/08/18 11:19 01/08/18 11:19 01/08/18 11:19 01/08/18 11:19 General appearance: cooperative, morbidly obese, no acute distress - Head Head exam: Present: atraumatic, normal inspection, normocephalic - Eye Eye exam: Present: EOMI, normal appearance, PERRL Pupils: Present: normal accommodation - ENT ENT exam: Present: mucous membranes moist - Neck Neck exam: Present: normal inspection - Respiratory Respiratory exam: Present: CTAB. Absent: rales, respiratory distress, rhonchi, wheezes - Cardiovascular Cardiovascular exam: Present: RRR, +S1, +S2 - GI/Abdominal GI/Abdominal exam: Present: distended (Obese), normal bowel sounds, soft. Absent: tenderness - Extremities Exam Extremities exam: Present: pedal edema (1+ left lower extremity). Absent: joint swelling, normal inspection (Left knee dressing is clean, dry, and intact with knee immobilizer noted.), tenderness - Neurological Exam Neurological exam: Present: alert, oriented X3, no focal deficits - Psychiatric Psychiatric exam: Present: normal affect, normal mood - Skin Skin exam: Present: intact, normal color, warm - VTE Documentation of Mechanical Device: Graduated compression elastic hosiery Consult Discharge Plan - Plan Additional Instructions: Discharge Instructions: Total Knee Replacement Please call [facility] ([phone]), your Primary Care Physician, or report to the Emergency Room if you have any of the following symptoms: Nausea, vomiting, fever greater that 101.5, swelling, chest pain, shortness of breath, increased pain/redness/drainage/odor for your incision site, numbness/tingling, or any other concerning symptoms. ACTIVITY:Weight-bearing as tolerated. You may progress off support (crutches or walker) as tolerated. Incentive Spirometer 10 times an hour. No knee motion, brace at all times. MEDICATIONS: Upon discharge resume your home medications. Take all the medications as prescribed. Take a stool softener if taking narcotic pain medications. Stool softeners are only effective if you drink enough fluids. Drink 6-8 glass of water or fluids a day, unless this is not allowed for another health problem. Despite using stool softeners, if you haven't had a bowel movement in 3 days, please switch to a gentle laxative. Gentle laxatives are sold over the counter. You should have a bowel movement within 24 hours, if not call the office. You will be discharged from the hospital with a prescription for pain medication. You are encouraged to decrease the use of narcotic pain medication as tolerated. Should you require a refill, please call the office. [facility] prescribes narcotic pain medication for only 4-6 weeks after surgery. If you require pain medication beyond this time period, you may be referred to your Primary Care Physician or to the Pain Clinic for further evaluation. Plan ahead for refills on pain medication as many narcotics either need to be picked up at the office or mailed. It is best to call 48-72 hours in advance of needing a prescription refill so you don't run out of medication. To help control the post-operative pain, you may take NSAIDs (Aleve,Advil, Motrin, Ibuprofen, Naprosyn) or Tylenol as prescribed on the bottle in addition to the pain medication. ANTICOAGULATION (blood thinners): Continue your Aspirin, Lovenox or Coumadin as prescribed to help prevent a blood clot in the leg or in the lungs. As long as your incision remains dry and you tolerate the NSAIDs (Aleve, Advil, Motrin, ibuprofen, naprosyn), it is OK to use the NSAIDS while you are taking your anticoagulation medication. Should your incision start to drain, stop the NSAID and contact our office. Common symptoms of blood clot in the legs include: localized pain, swelling, calf tenderness, redness or discoloration of the skin. Blood clot in the lung symptoms include: shortness of breath, rapid pulse, sweating, and chest pain that worsens with deep breathing, coughing up blood, lightheadedness, feelings of anxiety. If you experience any of these symptoms notify your physician immediately, go to the emergency room, or if having trouble breathing, call 911. WOUND CARE: Leave the dressing on for 7 to 10days. You may change the dressing if it becomes saturated greater than 50%. Do not get the dressing wet at anytime. Wash your hands with antibacterial soap, rinse and dry prior to any wound care. If you have danelle the visiting nurse or rehab facility can remove the stapes 10-14 days after surgery and place steri-strips across the wound. Leave the steri-strips in place until they fall off on their won. You may let water from the shower run on top of the steri-strips. If you do not have a visiting nurse or rehab facility, you will need to return to the office at 10-14 days for the danelle to be removed. If you have itching or redness around the dressing call the office. FOLLOW-UP: Please follow up with your surgeon in the orthopedic clinic in 4 weeks from the day of surgery. If you have danelle that need to be removed, you will need to come back to the office in 10-14 days from the day of surgery. Referrals: Joy Valentine DO [Primary Care Provider] - Prescriptions: Enoxaparin [Lovenox] 30 mg SQ Q12HR 7 Days #14 syringe Cefazolin Sodium in 0.9 % NaCl [Cefazolin 2 G/100 ml-0.9% NaCl] 2 gm IV Q8H 42 Days #1 plast..bag OxyCODONE Immed Rel [Roxicodone 5 MG] 5 mg PO Q6H PRN 7 Days #28 tablet PRN Reason: Severe pain 7-10 - Attending Attestation I examined this patient and my medical decision-making was reviewed with the Resident Physician. I agree with the documented findings, disposition and treatment plan as described except to the extent set forth below.
--- NOTE | 2018-01-08 22:02 | Event Note ---
Date of Encounter: 01/08/18 Time of Encounter: 12:45 PCR - POD#9- Left Knee Poly Exchange with I&D. 12/30/17 Drain and Yamile placed. Gram Stain - + GRAM POSITIVE COCCI - Staph Aureus on Cultures, pansenstive, Blood cultures are negative FINAL PICC line placed, receiving Cefazolin 2 g q 8 hours, pharm to dose Per ID plan to add rifampin 450mg PO BID upon DC Trending WBC, eSR, CRP. *see below - WBC stable around 16 Afebrile, vital signs stable. Labs reviewed. H/H - stable, asymptomatic - type and crossed 12/31, acute blood loss anemia 01/01: Improved leukocytosis 23 to 12 ESR > 130 CRP 209 01/02: increased WBC to 15 ESR > 130 CRP trending down 177 01/03: increased WBC t0o 17 ESR > 130, CRP back up to 205 01/08: stable WBC 16.0 Pain control: adequate Participating in PT. No Knee ROM, locked in extension in Tscope brace. WBAT All questions and concerns addressed. Educated on use of incentive spirometer. Encouraged ambulation and proper hydration. Patient educated on post-operative restrictions and post-operative care. Assessment and plan: Continue with postoperative care Discharge plan: ECF with IV antibiotics. accepted to [facility] bed, pending authorization from insurance
[2018-01-09 00:40] VITALS: BP 170/68
--- NOTE | 2018-01-09 14:03 | Infectious Disease Progress No ---
Date of Encounter: 01/09/18 Time of Encounter: 11:00 - Assessment and Plan (1) Leukocytosis Status: Acute Likely secondary to left knee infection. Stable. Continue to trend. May take extra time to normalize. No other SIRS criteria noted. Blood cultures drawn 12/30/17 x 2 sets are negative. Repeat CBC now. Qualifiers: Leukocytosis type: unspecified Qualified Code(s): D72.829 - Elevated white blood cell count, unspecified (2) Wound dehiscence, surgical Status: Acute POD #10. Location: left knee. Causative organism: MSSA. Initial surgery 12/02/2017 12/23/2017 had trauma to the left knee when she is getting into a car 12/25/2017 dog scratched the left knee removing the scab and starting cellulitis 12/30/2017 presented to [facility] where she was taken to the OR where she underwent left knee open arthrotomy irrigation and debridement of all extremities extensor mechanism repair. Wound care and activity restrictions per the orthopedics team. Continue Ancef 2 g IV every 8 hours. Duration of treatment depends on the clinical picture, but likely 6 weeks. We will plan to add rifampin 450 mg by mouth twice a day on discharge. Check baseline LFTs now. PICC line is in place. Will need weekly CBC, urine/creatinine, LFTs, ESR, and CRP. Will need weekly PICC line care per protocol. Follow up with ID 01/28/18 at 1405. 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 Qualifiers: Encounter type: initial encounter Qualified Code(s): T81.31XA - Disruption of external operation (surgical) wound, not elsewhere classified, initial encounter (3) Infection of total left knee replacement Status: Acute Qualifiers: Encounter type: initial encounter Qualified Code(s): T84.54XA - Infection and inflammatory reaction due to internal left knee prosthesis, initial encounter; Z96.652 - Presence of left artificial knee joint (4) Diabetes mellitus type 2 in obese Status: Acute Recommend aggressive glucose monitoring and control to promote wound healing and prevent re-infection. Management per the primary team. (5) COPD (chronic obstructive pulmonary disease) Status: Chronic Qualifiers: COPD type: unspecified COPD Qualified Code(s): J44.9 - Chronic obstructive pulmonary disease, unspecified (6) Morbid obesity with BMI of 50.0-59.9, adult Status: Chronic - Subjective Interval history: Patient seen and examined. No acute events noted overnight. Patient states her left knee is a little sore, but otherwise she is doing well. She denies any fevers or chills or rigors. Denies chest pain, shortness of breath, or cough. Denies any nausea or vomiting or diarrhea. Denies any oral thrush or any skin lesions. Reports BM this morning. Pending insurance authorization for transfer to rehab today. Infect Dis PN-Objective Data - Labs CBC & Chem 7: 01/09/18 13:45 01/09/18 13:45 Labs: Laboratory Results - last 24 hr 01/07/18 01/07/18 01/08/18 16:16 19:33 06:44 POC Glucose 231 H 132 H 109 H 01/08/18 11:20 POC Glucose 210 H Cultures: Cultures 01/03/18 15:50 Blood Culture - Final Peripheral Venipuncture No growth. Final report. 01/03/18 15:55 Blood Culture - Final Peripheral Venipuncture No growth. Final report. 12/30/17 15:50 Blood Culture - Final Peripheral Venipuncture No growth. Final report. 12/30/17 15:50 Blood Culture - Final Peripheral Venipuncture No growth. Final report. 12/30/17 18:50 Anaerobic Culture - Final Left Knee No anaerobes were recovered. 12/30/17 18:50 Wound Culture - Final Left Knee Staphylococcus aureus 12/30/17 18:50 Gram Stain - Final Left Knee Serology 01/03/18 Range/Units 18:00 Urine Color Yellow (Yellow) Urine Clarity Clear (Clear) Urine pH 7.5 (5.0-8.0) pH Units Ur Specific Cash 1.023 (1.010-1.025) Urine Protein Negative (Neg-Trace) mg/dL Urine Glucose (UA) Normal (Normal) mg/dL Urine Ketones Negative (Negative) mg/dL Urine Blood Negative (Negative) Urine Nitrite Negative (Negative) Urine Bilirubin Negative (Negative) Urine Urobilinogen Normal (Normal) mg/dL Ur Leukocyte Esterase Moderate H (Negative) Urine Microscopic RBC 0-3 (0-3) per hpf Urine Microscopic WBC 0-3 (0-3) per hpf Ur Squamous Epith Cells Many H (None-Few) per lpf Urine Bacteria None Seen (None-Few) per hpf Hyaline Casts None Seen (None-Few) per lpf Ur Culture Indicated? NO. A (NO) Exam - Constitutional Vitals: Temp Pulse Resp BP Pulse Ox 98.2 F 75 16 170/68 94 01/09/18 00:38 18 00:38 10 00:38 01/09/18 00:38 01/09/18 00:38 General appearance: cooperative, morbidly obese, no acute distress - Head Head exam: Present: atraumatic, normal inspection, normocephalic - Eye Eye exam: Present: EOMI, normal appearance, PERRL Pupils: Present: normal accommodation - ENT ENT exam: Present: mucous membranes moist - Neck Neck exam: Present: normal inspection - Respiratory Respiratory exam: Present: CTAB. Absent: decreased breath sounds, rales, respiratory distress, rhonchi, wheezes - Cardiovascular Cardiovascular exam: Present: RRR, +S1, +S2 - GI/Abdominal GI/Abdominal exam: Present: distended (obese), normal bowel sounds, soft. Absent: tenderness - Extremities Exam Extremities exam: Present: joint swelling (left knee), pedal edema (1+ LLE), tenderness (left knee). Absent: normal inspection (Left anterior knee incision with honeycomb dressing C/D/I with knee immobilizer brace intact. No surrounding erythema, warmth, or drainage noted.) - Neurological Exam Neurological exam: Present: alert, oriented X3, no focal deficits - Psychiatric Psychiatric exam: Present: normal affect, normal mood - Skin Skin exam: Present: dry, intact, normal color, warm - VTE Documentation of Mechanical Device: Graduated compression elastic hosiery Consult Discharge Plan - Plan Additional Instructions: Discharge Instructions: Total Knee Replacement Please call [facility] ([phone]), your Primary Care Physician, or report to the Emergency Room if you have any of the following symptoms: Nausea, vomiting, fever greater that 101.5, swelling, chest pain, shortness of breath, increased pain/redness/drainage/odor for your incision site, numbness/tingling, or any other concerning symptoms. ACTIVITY:Weight-bearing as tolerated. You may progress off support (crutches or walker) as tolerated. Incentive Spirometer 10 times an hour. No knee motion, brace at all times. MEDICATIONS: Upon discharge resume your home medications. Take all the medications as prescribed. Take a stool softener if taking narcotic pain medications. Stool softeners are only effective if you drink enough fluids. Drink 6-8 glass of water or fluids a day, unless this is not allowed for another health problem. Despite using stool softeners, if you haven't had a bowel movement in 3 days, please switch to a gentle laxative. Gentle laxatives are sold over the counter. You should have a bowel movement within 24 hours, if not call the office. You will be discharged from the hospital with a prescription for pain medication. You are encouraged to decrease the use of narcotic pain medication as tolerated. Should you require a refill, please call the office. [facility] prescribes narcotic pain medication for only 4-6 weeks after surgery. If you require pain medication beyond this time period, you may be referred to your Primary Care Physician or to the Pain Clinic for further evaluation. Plan ahead for refills on pain medication as many narcotics either need to be picked up at the office or mailed. It is best to call 48-72 hours in advance of needing a prescription refill so you don't run out of medication. To help control the post-operative pain, you may take NSAIDs (Aleve,Advil, Motrin, Ibuprofen, Naprosyn) or Tylenol as prescribed on the bottle in addition to the pain medication. ANTICOAGULATION (blood thinners): Continue your Aspirin, Lovenox or Coumadin as prescribed to help prevent a blood clot in the leg or in the lungs. As long as your incision remains dry and you tolerate the NSAIDs (Aleve, Advil, Motrin, ibuprofen, naprosyn), it is OK to use the NSAIDS while you are taking your anticoagulation medication. Should your incision start to drain, stop the NSAID and contact our office. Common symptoms of blood clot in the legs include: localized pain, swelling, calf tenderness, redness or discoloration of the skin. Blood clot in the lung symptoms include: shortness of breath, rapid pulse, sweating, and chest pain that worsens with deep breathing, coughing up blood, lightheadedness, feelings of anxiety. If you experience any of these symptoms notify your physician immediately, go to the emergency room, or if having trouble breathing, call 911. WOUND CARE: Leave the dressing on for 7 to 10days. You may change the dressing if it becomes saturated greater than 50%. Do not get the dressing wet at anytime. Wash your hands with antibacterial soap, rinse and dry prior to any wound care. If you have danelle the visiting nurse or rehab facility can remove the stapes 10-14 days after surgery and place steri-strips across the wound. Leave the steri-strips in place until they fall off on their won. You may let water from the shower run on top of the steri-strips. If you do not have a visiting nurse or rehab facility, you will need to return to the office at 10-14 days for the danelle to be removed. If you have itching or redness around the d ressing call the office. FOLLOW-UP: Please follow up with your surgeon in the orthopedic clinic in 4 weeks from the day of surgery. If you have danelle that need to be removed, you will need to come back to the office in 10-14 days from the day of surgery. Referrals: Joy Valentine DO [Primary Care Provider] - Joy Aiken, ALEXANDER [Advanced Practice Nurse] - 01/28/18 2:05 pm Prescriptions: RX: Enoxaparin [Lovenox] 30 mg SQ Q12HR 7 Days #14 syringe Cefazolin Sodium in 0.9 % NaCl [Cefazolin 2 G/100 ml-0.9% NaCl] 2 gm IV Q8H 42 Days #1 plast..bag RX: OxyCODONE Immed Rel [Roxicodone 5 MG] 5 mg PO Q6H PRN 7 Days #28 tablet PRN Reason: Severe pain 7-10 - Attending Attestation I examined this patient and my medical decision-making was reviewed with the Resident Physician. I agree with the documented findings, disposition and treatment plan as described except to the extent set forth below.
[2018-01-09 14:06] LABS: Basophils % 0.3 %; Eosinophils # 0.3 K/mcL (0.0-0.6); Eosinophils % 1.6 %; Hematocrit 30.2 % (35.3-44.9); Hemoglobin 8.9 g/dL (11.5-15.4); Immature Granulocytes % 0.7 % (0-4); Lymphocytes # 3.2 K/mcL (0.6-4.6); Lymphocytes % 20.6 %; Mean Corpuscular HGB Conc 29.5 g/dL (31.6-35.5); Mean Corpuscular Hemoglobin 20.2 pg (28.0-33.3); Mean Corpuscular Volume 68.5 fL (83.0-100.0); Mean Platelet Volume 9.5 fL (9.4-12.4); Monocytes # 0.7 K/mcL (0.0-1.3); Monocytes % 4.7 %; Platelet Count 444 K/mcL (140-400); Red Blood Count 4.41 M/mcL (3.82-4.97); Red Cell Distribution Width 18.8 % (11.5-14.5); Segmented Neutrophils % 72.1 %
[2018-01-09 14:16] LABS: Basophils # 0.1 K/mcL (0.0-0.2); Neutrophils # 11.3 K/mcL (1.6-8.9)
[2018-01-09 14:41] LABS: Microcytosis Present (Not Present)
[2018-01-09] MEDS: Gabapentin 400 MG CAPSULE PO SCH (14:48)
[2018-01-09 14:56] LABS: Alanine Aminotransferase 4 Units/L (7-52); Albumin 3.3 g/dL (3.5-5.7); Albumin/Globulin Ratio 0.9 (1.1-2.2); Aspartate Amino Transferase 11 Units/L (13-39); BUN/Creatinine Ratio 11 (6-26); Bilirubin,Indirect 0.4 mg/dL (0.0-1.2); Bilirubin,Total 0.4 mg/dL (0.3-1.0); Blood Urea Nitrogen 9 mg/dL (6-20); Calcium 9.4 mg/dL (8.6-10.3); Carbon Dioxide 34 mEq/L (23-29); Chloride 96 mEq/L (98-107); Globulin 3.7 g/dL (2.4-3.5); Glucose 109 mg/dL (70-105); Osmolality,Calculated 281 (280-300); Sodium 136 mEq/L (136-145); eGFR For Non-African Americans > 60 (> 60)
[2018-01-09] MEDS: *HR* OxyCODONE Immed Rel 5 MG TABLET PO PRN (15:39)
[2018-01-09] MEDS ORDERED: Ascorbic Acid 500 MG TABLET PO ONE (15:58)
[2018-01-09] MEDS ORDERED: Cholecalciferol (D-3) 1,000 UNIT TABLET PO ONE (15:58)
[2018-01-09] MEDS ORDERED: Furosemide 40 MG TABLET PO ONE (15:58)
[2018-01-09] MEDS ORDERED: Gabapentin 400 MG CAPSULE PO ONE (15:58)
[2018-01-09] MEDS ORDERED: Cyanocobalamin (B-12) 1,000 MCG TABLET PO ONE (15:58)
[2018-01-09] MEDS ORDERED: *HR* OxyCODONE Immed Rel 5 MG TABLET PO ONE (15:58)
[2018-01-09] MEDS ORDERED: BuPROPion XL (24 HR) 150 MG TABLET PO ONE (15:58)
[2018-01-09 20:15] LABS: Alkaline Phosphatase 187 Units/L (34-104)
[2018-01-10 08:25] LABS: C-Reactive Protein 70 mg/L (Less than 10)
== END 2018-01-09 15:59 | DRG 467 ==
LOC: 3NENU 13:46
PROVIDERS: ADMIT Orthopaedic Surgery; ATTEND Orthopaedic Surgery

== ENCOUNTER 2018-06-25 06:08 | Inpatient (IN) ==
[2018-06-25] MEDS ORDERED: Albuterol 2.5 MG/3 ML NEBULIZER IH ONE (06:18)
--- NOTE | 2018-06-25 06:23 | History & Physical Report ---
Date of Encounter: 06/25/18 Time of Encounter: 06:23 24 Hour HP Update - Instructions Instructions: If the History and Physical is less than 30 days old and was completed prior to A.M. admission and or procedure and has NOT been updated on calendar day of procedure please complete this update prior to performing procedure. - Update Patient reports changes in Medical Condition: No Changes in examination, assessment, or condition: No Changes in Medication: No Preop tests/diagnostics Reviewed: Yes Surgery Remains Indicated: Yes Consent for Planned Operative Procedure(s) Verified: Yes - Pre-Operative Checklist Preoperative Checklist Indicated: No Prophylactic Antibiotic Ordered: Yes Is VTE Prophylaxis Indicated?: Yes
[2018-06-25] MEDS ORDERED: Ringers Solution, Lactated 1,000 ML IVC SCH ×2 (06:30→11:19)
[2018-06-25] MEDS ORDERED: Ondansetron 4 MG/2 ML VIAL ONE (07:06)
[2018-06-25] MEDS ORDERED: *HR* FentaNYL (PF) 100 MCG/2 ML VIAL ONE (07:06)
[2018-06-25] MEDS ORDERED: *HR* Midazolam HCl 2 MG/2 ML VIAL ONE (07:06)
[2018-06-25] MEDS ORDERED: Dexamethasone 4 MG/ML VIAL ONE (07:06)
[2018-06-25] MEDS ORDERED: Lidocaine -MPF 2% 2 ML VIAL ONE (07:06)
[2018-06-25] MEDS ORDERED: *HR* Succinylcholine 200 MG/10 ML VIAL IVP ONE (07:07)
[2018-06-25] MEDS ORDERED: *HR* Propofol 200 MG/20 ML VIAL IVP ONE ×2 (07:07→07:12)
[2018-06-25] MEDS ORDERED: Lidocaine -MPF 4% 5 ML AMPUL ONE (07:07)
[2018-06-25] MEDS ORDERED: *HR* Rocuronium Bromide 50 MG/5 ML VIAL ONE (07:07)
[2018-06-25] MEDS ORDERED: cloNIDine HCl 0.1 MG TABLET PO ONE (07:09)
[2018-06-25] MEDS ORDERED: Famotidine 20 MG/2 ML VIAL IVP ONE (07:09)
[2018-06-25] MEDS ORDERED: *HR* HYDROmorphone 2 MG TABLET PO PRN (07:11)
[2018-06-25] MEDS ORDERED: *HR* OxyCODONE Immed Rel 5 MG TABLET PO PRN ×2 (07:11→23:19)
[2018-06-25] MEDS ORDERED: *HR* HYDROmorphone (PF) 1 MG/ML SYRINGE IVP PRN (07:11)
[2018-06-25] MEDS ORDERED: Acetaminophen IV 1,000 MG/100 ML INFUS..BTL IVPB ONE (07:11)
[2018-06-25] MEDS ORDERED: Pregabalin 75 MG CAPSULE PO ONE (07:17)
--- NOTE | 2018-06-25 07:18 | Anesthesia Evaluation PreOp ---
Date of Encounter: 06/25/18 Time of Encounter: 07:09 - Past History Planned Operation: Removal TKR Cardiac History: Hyperlipidemia, Other (Anemia) Pulmonary History: Smoker (1-2ppd x 35yrs), COPD, KAROLYN Dx, Other (R-Lung Ca s/p lobectomy) BALLOON SANDER History: Other (Anxiety/depression) Other Medical History: Hepatic (WOLFF), Diabetes Type II (Anxiety/Depression), Thyroid, Other (MO/BMI = 55) Anesthesia History: No Prior Anesthetic Complications, Past Anesthesia (LTKR 11/2017, R-lung Ca s/p lobectomy, 2015, Partial Hyster, Hernia, Angeli, T&A,k Robotic assist R-TKR, 02/2017), Problems (Known Difficult Airway) Alcohol Use: none Drug use: none Medications and Allergies Cholecalciferol (Vitamin D3) [Vitamin D3] 50,000 unit PO FR 03/23/17 [History] Duloxetine HCl [Cymbalta] 60 mg PO DAILY 03/23/17 [History] Gabapentin [Neurontin] 1,200 mg PO TID 03/23/17 [History] Levothyroxine Sodium 150 mcg PO DAILY 03/23/17 [History] Potassium Chloride [Klor-Con 10] 10 meq PO DAILY 03/23/17 [History] Pravastatin Sodium [Pravachol] 80 mg PO HS 03/23/17 [History] Ascorbate Calcium [Vitamin C] 500 mg PO BID 12/30/17 [History] Cyclobenzaprine [Flexeril] 5 mg PO HS PRN 12/30/17 [History] Ferrous Sulfate [Iron] 325 mg PO BID 12/30/17 [History] Furosemide [Lasix] 40 mg PO BID PRN 12/30/17 [History] Ipratropium/Albuterol Sulfate [Iprat-Albut 0.5-3(2.5) mg/3 ml] 3 ml IH Q4H PRN 12/30/17 [History] Losartan Potassium [Cozaar] 100 mg PO DAILY 12/30/17 [History] Buspirone HCl [Buspar] 15 mg PO BID 06/25/18 [History] Insulin NPH Hum/Reg Insulin Hm [Novolin 70-30 Flexpen] 50 unit SQ BID 06/25/18 [History] Allergy/AdvReac Type Severity Reaction Status Date / Time hydrocodone AdvReac Itching, Verified 06/25/18 07:05 Vomiting morphine AdvReac Itching Verified 06/25/18 07:05 - Meds/Allergy Pre-op Review Medications Reviewed: Yes Allergies Reviewed: Yes Beta Blockers on Current Med List: No Anesthesia Results - Labs Laboratory Tests 03/27/18 06/24/18 10:19 12:20 WBC 13.9 H Hgb 12.5 Hct 42.5 Plt Count 327 Sodium 138 Chloride 103 Carbon Dioxide 25 BUN 12 Est GFR (Non-Af Amer) > 60 - Imaging EKG: image reviewed (80bpm - SINUS RHYTHM LOW QRS VOLTAGE IN PRECORDIAL LEADS Electronically Signed On 12-31-2017 18:54:49 EDT by Vicente Toscano) Anesthesia Exam O2 Sat Height 1.63 m Height 1.63 m Height 1.63 m Weight 144.696 kg Weight 144.696 kg Weight 144.696 kg O2 Sat by Pulse Oximetry 91 Vital Signs Temp Pulse Resp BP Pulse Ox 98.1 F 74 18 133/63 91 06/25/18 06:48 06/25/18 06:48 06/25/18 06:48 06/25/18 06:48 06/25/18 06:48 Height: 5'4" Weight: 319# BMI = 55 NPO (# of Hours): MNOc - HEENT Pupil (Motor): Pupils equal, EOMI Mallampati: IV Oral Opening: Greater than 3 - BALLOON SANDER LOC: Oriented BALLOON SANDER Motor: Normal RUE, Normal LUE, Normal Face, Deficit RLE, Deficit LLE BALLOON SANDER Sensory: Normal: RUE, LUE, Face, Deficit: RLE, LLE - Cardiac Rhythm: Regular Murmur: None - Pulmonary Breath Sounds: bilateral Clear (Dimished) Respiratory Effort: Symmetrical Anesthesia Assess/Plan ASA Score: 4 Level of consciousness: Cooperative, Oriented, Tranquil Anesthetic Plan: General, Regional Nerve Block, Spinal Regional Nerve Block Plan: Adductor canal Monitoring Plan: Standard Monitors Recovery Plan: PACU Anes Supervising Prov Stmt: Pt seen/evaluated, R&B discussed, questions answered and consent obtained. Jaylon Gilmore MD
[2018-06-25] MEDS ORDERED: Ethanol\\Acetic Acid\\Na Ace\\Ben 1,000 ML IRRIG.SOLN IR ONE (07:20)
[2018-06-25] MEDS ORDERED: ROPIVACAINE/PF/NS SYRINGE INTRAART ONE (07:23)
[2018-06-25] MEDS ORDERED: Lidocaine -MPF 1% 5 ML AMPUL ONE (07:30)
[2018-06-25] MEDS ORDERED: Total Joint Mixture (50 ml) IR ONE (07:45)
--- NOTE | 2018-06-25 08:07 | Anesthesia Procedures ---
Date of Encounter: 06/25/18 Time of Encounter: 08:05 Procedures: Anesthesia - Epidural/Spinal Patient ID/Chart reviewed: Yes Patient examined: Yes Consent Obtained: Yes Supplemental Oxygen: Nasal Cannula Supplemental Oxygen Rate (L/min): 2 Site Prep: Aseptic Technique, Sterile prep and drape, 0.5% Chlorhexidine/Alcohol Patient position: upright Local Anesthetic: Lidocaine 1% Amount of Local Anesthetic used: 3 Interspace Used: L4-L5 Blood: No CSF: Yes Paresthesia: No Spinal Needle Gauge: 24 ([place]) Spinal Dose: 2.5ml of 0.5% bupivacaine Procedure: pt tolerated procedure well. no complications. vss. spinal introducer placed x1. - Nerve Block Procedure Date: 06/25/18 Time: 08:05 Surgical Procedure: left knee remove total, place cement spacer Checklist: Correct Patient Identifier, Correct procedure, History checked Correct side: Left Blood Thinner: No Monitor Applied: EKG, BP, Pulse Oximetry Supplemental Oxygen via Nasal Cannula (L/min): 2 Sedation: Versed (mg): 2 Sedation: Fentanyl (mcg): 100 Indication: Primary Anesthesia (with mac) Pre-op Neuro Deficits: No Block Type: Other (adductor canal) Sterile Technique: Yes Ultrasound used: Yes Anatomy identified: Yes Visual spread of Local: Yes Neuro Stimulation: No Blood on Needle Aspiration: No Smooth Injection of Local: Yes Pain with Injection of Local: No Prep: Chlorhexadine Needle: 21 x 100 mm Stimuplex Local: Ropivacaine (0.25% 10ml) Volume (cc): 10 Number of Attempts: 1 Complications: None/effective block Vitals: Vital Signs/O2 Sat/Glucose, Most Current Temp Pulse Resp BP Pulse Ox 06/25/18 08:05 82 18 124/66 95 06/25/18 08:00 98.1 F 82 18 126/58 92 06/25/18 07:46 76 18 152/74 94 06/25/18 06:48 98.1 F 74 18 133/63 91 Comments: pt tolerated well. no complications.
--- NOTE | 2018-06-25 09:43 | Orthopedic Operative Note ---
Date of procedure: 06/25/18 Pre-op diagnosis: Infected left total knee Post-op diagnosis: same Procedure: Left knee movable total knee replacement and placement of cement spacer Estimated blood loss: 600 mL One DIONISIO drain Dictation of procedure: Patient brought to the operating placed on the operative table after general anesthesia was administered the left lower extremity was prepped and draped in sterile surgical fashion, patient received IV antibiotics prior skin incision, fluid was obtained yesterday in the office for culture and Gram stain. A standard midline incision was made through the old incision. Incision made through the skin and subcutaneous tissue, hemostasis was obtained Bovie cautery. Using careful blunt dissection patient noted to have a superficial abscess that was extra-articular in the area of the open drainage area. This area was irrigated with pulse irrigation, the aspiration yesterday was from the joint, a medial arthrotomy was performed patient had purulent fluid in the joint. This was cultured. An extensive synovectomy was performed as w ell as debridement. The patella was transected below the component, the knee was brought into flexion the poly-was removed. The interface between the distal femur and the femoral component as well as a proximal tibia and tibial component were disrupted with an osteotome and oscillating saw after the poly-was removed the femoral component was removed and then the tibial component. No significant bone loss off the tibia side bone loss centrally off the distal femur. The knee sat for 1 minute with antibacterial solution, was then irrigated out with 3 L of pulse irrigation normal saline. On the back table the components [place] to the premolded cement spacers, the spacers were cemented in place tibia and femur and used for into extension. The wound was irrigated with another liter of antibacterial solution pulse irrigation this was a second liter. Then 3 more liters of pulse irrigation normal saline. The extensor mechanism was closed over a DIONISIO drain with #2 PDS suture deep superficially #1 and 0 PDS suture skin was closed with skin danelle. Patient placed in a sterile dressing and long-leg cast extubated transferred to recovery in stable condition. Anesthesia: spinal Surgeon: Karsten Argueta Was there an residential assistant present: No Estimated blood loss (cc): 600 Condition: stable Disposition: PACU
[2018-06-25] MEDS ORDERED: Ipratropium/Albuterol Neb 3 ML IH PRN (11:19)
[2018-06-25] MEDS ORDERED: Naloxone 0.4 MG/ML INJ IVP PRN (11:19)
[2018-06-25] MEDS ORDERED: *HR* Promethazine 25 MG/ML VIAL IVP PRN (11:19)
[2018-06-25] MEDS ORDERED: traMADol 50 MG TABLET PO PRN (11:19)
[2018-06-25] MEDS ORDERED: Temazepam 15 MG CAPSULE PO PRN (11:19)
[2018-06-25] MEDS ORDERED: D5% in Water 1,000 ML IVC PRN (11:19)
[2018-06-25] MEDS ORDERED: [UNRECOGNIZED DRUG - OTHER] SQ SCH (11:19)
[2018-06-25] MEDS ORDERED: INSULIN NPH HUM SQ SCH (11:19)
[2018-06-25] MEDS ORDERED: REG INSULIN SQ SCH (11:19)
[2018-06-25] MEDS ORDERED: *HR* OxyCODONE/APAP 5/325 TABLET PO PRN (11:19)
[2018-06-25] MEDS ORDERED: Dextrose Gel 15 GM/37.5 ML TUBE PO PRN ×2 (11:19)
[2018-06-25] MEDS ORDERED: Furosemide 40 MG TABLET PO PRN (11:19)
[2018-06-25] MEDS ORDERED: NON-FORMULARY MEDICATION 1 EACH EACH (Ascorbate Calcium [Vitamin C] 500 MG) PO SCH (11:19)
[2018-06-25] MEDS ORDERED: *HR* Dextrose 50 % in Water (Syg) 50 ML SYRINGE IVP PRN (11:19)
[2018-06-25] MEDS ORDERED: Sennosides 8.6 MG TABLET PO PRN (11:19)
[2018-06-25] MEDS ORDERED: Ondansetron 4 MG/2 ML VIAL IVP PRN (11:19)
[2018-06-25] MEDS ORDERED: MOM Conc 10 ML UD.LIQ PO PRN (11:19)
[2018-06-25] MEDS: *HR* OxyCODONE Immed Rel 5 MG TABLET PO PRN ×2 (11:44→17:00)
[2018-06-25] MEDS: Ketorolac 30 MG/ML VIAL IVP PRN ×2 (12:56→23:38)
[2018-06-25] MEDS: Insulin LISPRO 300 UNITS/3 ML VIAL SQ SCH ×3 (12:59→21:16)
[2018-06-25] MEDS: Gabapentin 400 MG CAPSULE PO SCH ×2 (13:01→20:15)
[2018-06-25] MEDS: Multivit/Ca/Min/Fe/FA 1 TAB TABLET PO SCH (13:02)
[2018-06-25 13:44] LABS: Hematocrit 36.9 % (35.3-44.9)
[2018-06-25] MEDS ORDERED: Acetaminophen IV 1,000 MG/100 ML INFUS..BTL IVPB SCH ×2 (14:00→18:00)
[2018-06-25 14:08] LABS: BUN/Creatinine Ratio 17 (6-26); Blood Urea Nitrogen 11 mg/dL (6-20); eGFR For Non-African Americans > 60 (> 60)
--- NOTE | 2018-06-25 14:33 | Infectious Disease Consult ---
Date of Encounter: 06/25/18 Time of Encounter: 14:20 Assessment and Plan (1) Infection of total left knee replacement Status: Acute Assessment and plan: 12/02/2017: Status post robotic left total knee replacement by Dr. Argueta. 12/23/2017: injury of her left knee while getting into a van and 12/25/17 her dog jumped on her knee and scratched open the middle of her incision. 12/30/2017: Left knee open arthrotomy, irrigation and debridement and extensor mechanism repair. Intra-Op cultures MSSA. Treated with IV cefazolin for 8 weeks 03/12/2018:Wound dehiscence and cultures grew MSSA again. Orthopedic recomm ended no surgical intervention at that time. Patient was discharged on Ancef and rifampin x 12 weeks through Apr 01 2018; then patient was switched to keflex 06/24/18: patient with cat scratch and drainage ; arthrotomy with purulence; culture positive for staph aureus susceptibility pending 06/26/18: s/p Left knee movable total knee replacement and placement of cement spacer recommend starting patient on vancomycin and cefazolin until cultures finalize and then will tailor antibiotics accordingly Duration of treatment probably 6-8 weeks Monitor labs and for drug toxicity Qualifiers: Encounter type: initial encounter Qualified Code(s): T84.54XA - Infection and inflammatory reaction due to internal left knee prosthesis, initial encounter; Z96.652 - Presence of left artificial knee joint (2) Anxiety Status: Acute Assessment and plan: Patient requested Xanax I agreed to give her Xanax 0.5 mg every 12 hours when necessary (3) Diabetes type 2, controlled Status: Chronic Qualifiers: Diabetes mellitus correction insulin use: with correction use Diabetes mellitus complication status: with unspecified complications Qualified Code(s): E11.8 - Type 2 diabetes mellitus with unspecified complications; 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 (4) Hypertension Status: Chronic Qualifiers: Hypertension type: essential hypertension Qualified Code(s): I10 - Essential (primary) hypertension (5) Hyperlipidemia Status: Chronic Qualifiers: Hyperlipidemia type: mixed hyperlipidemia Qualified Code(s): E78.2 - Mixed hyperlipidemia (6) Tobacco consumption Status: Chronic Assessment and plan: Patient requests a nicotine patch Started on nicotine patch 21 mg every 24 hours (7) Diabetes mellitus type 2 in obese Status: Acute Assessment and plan: Need adequate glucose control for better healing (8) Morbid obesity with BMI of 50.0-59.9, adult Status: Chronic Infectious Disease HPI - Data of Consult Patient: known to practice within the last 3 years Consult date: 06/25/18 Requesting Physician: Karsten Argueta MD Primary Care Provider: Joy Valentine DO - Consult Narrative Reason for consult: Prosthetic joint infection History of present illness: Ms. Briggs is a 52 year old female Patient is a 52-year-old woman who was directly admitted for prosthetic joint infection status post left knee total knee replacement and placement of cement spacer by Dr. Argueta earlier today. We are consulted for antibiotic recommendations. Patient is a 52-year-old woman well-known to my service who I have been following for quite some time who has a past medical history significant for diabetes mellitus type 2, thyroid disease, COPD, morbid obesity, history of depression and chronic issues with prosthetic joint of the left knee with infections in the past. Briefly, the patient was admitted to the hospital 12/30/17 for surgical wound dehiscence status post left robotic-assisted total knee replacement on 12/02/[address] Argueta. She did well post-op until 12/23/17 and the patient had an injury of her left knee while getting into a van. She continued to have pain and swelling and on 12/25/17 her dog jumped on her knee and scratched open the middle of her incision. She presented to OSH ER 12/28/17 with fever, malaise, and worsening pain and drainage. She was transferred to [place], [place] where she had leukocytosis. She was started on Vanc and Zosyn and transferred here for evaluation. She was noted to have ESR >130 and CRP 134. Blood cultures were negative x 4 sets. Left knee wound culture was positive for MSSA. She was taken to the OR 12/30/17 where she underwent left knee open arthrotomy irrigation and debirdement and extensor mechanism repair. Her antibiotics were de-escalated to Ancef and rifampin was added at discharge. Patient did receive 8 weeks total of cefazolin. Most recent labs from [facility] revealed that the WBC jumped up to 14,000 from 11,000. Her ESR is still running around 43 and her CRP is mildly more elevated. On further questioning patient continues to have a scab x3 on her left knee. 2 superior wound and one in the inferior surgical wound. This Looks ulcerated with no surrounding erythema and they are not obviously draining but there is some fluid on the Band-Aids. Patient's blood sugar is poorly controlled and patient continues to smoke. 03/12/2018: Was seen by orthopedics and the aspirated purulence from her left knee. Cultures were sent and they were positive for MSSA. I did speak with orthopedics regarding possible surgical intervention. 04/01/2018: Patient was recently admitted to the hospital in [place] where she was told she had vasculitic changes lower extremities. Patient was discharged on steroids. They did call me from the right foot and continue doxycycline and Keflex. Patient was then seen by Dr. Luis and he thinks it is vasculitis who ordered a slough off blood work all of which came back non-impressive. Patient was on Keflex for prolonged period of time. About 1 week prior to admission patient had a stray cat scratch her right where she had the knee infection. Patient stated that she started having serous drainage and pain. Patient was seen by Dr. Argueta yesterday and he performed a lateral arthrotomy and apparently pus came out. Patient was scheduled to come and have a total knee replacement with a spacer and 2-stage exchange. Operation report from this morning reveals that the patient has superficial abscesses that were cleaned thoroughly. Currently patient was crying. Stasis a lot of pain. Also very anxious. Daughter at bedside. Rest of the review of systems unremarkable. CC: Karsten Argueta MD Past Med Surg Social Fam HX - Past Medical History Medical history: cancer, COPD, diabetes, hyperlipidemia, kidney stones, thyroid disease, other Additional medical history: prosthetic joint infection, left total knee. lung cancer. obstructive sleep apnea. morbid obesity with BMI of 50-59.9, adult. depression Psychiatric history: depression - Past Surgical History Surgical History: , cancer surgery, cholecystectomy, hysterectomy, knee replacement Additional surgical history: Tonsils & Adenoids, bilateral knee scopes,right lung cancer, bilateral knee menisectomy,hernia,tubes and ovaries removed,left foot crush injury- no surgery,right robotic assisted total knee replacement, R. upper lobectomy. lt knee irrigation - Social History Smoking Status: Current every day smoker Packs per day: 1.5 Smokeless Tobacco Status: No Alcohol use: none Drug use: none - Family History Daughter Hx Family Cardiac Disorders: Yes (aortic stenosis) Mother Adopted: No Hx Family Cardiac Disorders: Yes (Aortic valve replacement) Hx Family Cancer: Yes Father Hx Family Cancer: Yes Infectious Disease-CN:Meds Cholecalciferol (Vitamin D3) [Vitamin D3] 50,000 unit PO FR 03/23/17 [History] Duloxetine HCl [Cymbalta] 60 mg PO DAILY 03/23/17 [History] Gabapentin [Neurontin] 1,200 mg PO TID 03/23/17 [History] Levothyroxine Sodium 150 mcg PO DAILY 03/23/17 [History] Potassium Chloride [Klor-Con 10] 10 meq PO DAILY 03/23/17 [History] Pravastatin Sodium [Pravachol] 80 mg PO HS 03/23/17 [History] Ascorbate Calcium [Vitamin C] 500 mg PO BID 12/30/17 [History] Cyclobenzaprine [Flexeril] 5 mg PO HS PRN 12/30/17 [History] Ferrous Sulfate [Iron] 325 mg PO BID 12/30/17 [History] Furosemide [Lasix] 40 mg PO DAILY 12/30/17 [History] Ipratropium/Albuterol Sulfate [Iprat-Albut 0.5-3(2.5) mg/3 ml] 3 ml IH Q4H PRN 1 [History] Losartan Potassium [Cozaar] 100 mg PO DAILY 12/30/17 [History] Buspirone HCl [Buspar] 15 mg PO BID 06/25/18 [History] Insulin NPH Hum/Reg Insulin Hm [Novolin 70-30 Flexpen] 50 unit SQ BID 06/25/18 [History] Allergy/AdvReac Type Severity Reaction Status Date / Time hydrocodone AdvReac Itching, Verified 06/25/18 07:05 Vomiting morphine AdvReac Itching Verified 06/25/18 07:05 Review of systems: 10 point review of systems done, negative other for what mentioned in history of present illness Exam - Constitutional Vitals: Temp Pulse Resp BP Pulse Ox 97.6 F 73 16 118/72 95 06/25/18 11:42 06/25/18 11:39 06/25/18 11:39 06/25/18 11:42 06/25/18 11:39 General appearance: cooperative, disheveled, no febrile - Head Head exam: Present: atraumatic, normocephalic - Eye Eye exam: Present: EOMI, PERRL - ENT ENT exam: Present: mucous membranes moist - Neck Neck exam: Present: full ROM. Absent: meningismus - Respiratory Respiratory exam: Present: CTAB. Absent: wheezes - Cardiovascular Cardiovascular exam: Present: RRR, +S1, +S2 - GI/Abdominal GI/Abdominal exam: Present: normal bowel sounds, soft. Absent: tenderness - Extremities Exam Additional comments: Left lower extremity with a cast from the foot all the way to the mid hip - Neurological Exam Neurological exam: Present: alert, oriented X3 - Psychiatric Psychiatric exam: Present: agitated, anxious, depressed Infectious Disease CN: Results - Labs CBC & Chem 7: 06/25/18 13:39 06/25/18 13:39 Cultures: Cultures 06/25/18 08:35 Wound Culture - Preliminary Left Knee Culture is incubating. 06/25/18 08:35 Anaerobic Culture - Preliminary Left Knee Culture is incubating. 06/25/18 08:35 Gram Stain - Final Left Knee Consult Discharge Plan - Plan Referrals: Joy Valentine DO [Primary Care Provider] -
[2018-06-25] MEDS: Nicotine 21 MG PATCH.TD24 TD SCH (15:13)
[2018-06-25] MEDS: *HR* FentaNYL PATCH 25 MCG PATCH TD SCH (15:19)
[2018-06-25] MEDS: ceFAZolin 2,000 MG in 0.9 % Sodium Chloride 100 ML IVPB SCH ×2 (16:48→23:37)
[2018-06-25] MEDS: *HR* Enoxaparin 30 MG/0.3 ML SYRINGE SQ SCH (17:00)
[2018-06-25] MEDS: Insulin NPH/REG 70/30 100 UNIT/ML (x5UNIT) SQ SCH (17:00)
[2018-06-25] MEDS: Ascorbic Acid 500 MG TABLET PO SCH (17:00)
--- NOTE | 2018-06-25 17:33 | Anesthesia Evaluation Post Op ---
Date of Encounter: 06/25/18 Time of Encounter: 10:05 - Discharge PostOp Status: Transfer Patient to floor (Patient's vital signs have been reviewed. Patient is stable postoperatively and has adequately recovered from anesthesia. Patient is determined to have stable airway patency and respiratory function including respiratory rate and oxygen saturation. Patient has a stable heart rate, blood pressure and adequate hydration. Patients mental status is acceptable. Patients temperature is appropriate. Pain and nausea are adequately controlled.)
[2018-06-25] MEDS ORDERED: Vancomycin 1,000 MG VIAL IVPB SCH (18:00)
[2018-06-25] MEDS ORDERED: *HR* Enoxaparin 30 MG/0.3 ML SYRINGE SQ SCH (18:00)
--- NOTE | 2018-06-25 18:11 | Event Note ---
Date of Encounter: 06/25/18 Time of Encounter: 17:00 Notificed by nurse that patient urinated on self while nerve block still in place and concern for urine getting on/in cast. On exam there is no distinct wetness noted around proximal edges of cast and no discoloration noted, no skin irritation or breakdown noted. Reviewed with Dr. Argueta and he recommends leaving cast in place and reassess skin tomorrow with probable change to cast tomorrow by office staff. Notified nurse to apply ABD pads around proximal edge of cast to separate skin from the possible contaminated wet cast material.
[2018-06-25] MEDS: Acetaminophen IV 1,000 MG/100 ML INFUS..BTL IVPB SCH (21:21)
[2018-06-26] MEDS: *HR* OxyCODONE Immed Rel 5 MG TABLET PO PRN ×2 (02:22→16:34)
[2018-06-26 03:01] LABS: Hemoglobin 9.5 g/dL (11.5-15.4); Mean Corpuscular Volume 65.2 fL (83.0-100.0)
[2018-06-26 03:03] LABS: Basophils % 0.1 %; Eosinophils # 0.2 K/mcL (0.0-0.6); Eosinophils % 1.1 %; Hematocrit 31.9 % (35.3-44.9); Immature Granulocytes % 0.6 % (0-4); Immature Platelets 3.7 % (1.1-6.1); Lymphocytes # 2.9 K/mcL (0.6-4.6); Lymphocytes % 20.2 %; Mean Corpuscular HGB Conc 29.8 g/dL (31.6-35.5); Mean Corpuscular Hemoglobin 19.4 pg (28.0-33.3); Monocytes # 0.9 K/mcL (0.0-1.3); Monocytes % 6.6 %; Neutrophils # 10.1 K/mcL (1.6-8.9); Platelet Count 252 K/mcL (140-400); Red Blood Count 4.89 M/mcL (3.82-4.97); Segmented Neutrophils % 71.4 %
[2018-06-26 03:20] LABS: BUN/Creatinine Ratio 16 (6-26); Blood Urea Nitrogen 11 mg/dL (6-20); Calcium 8.4 mg/dL (8.6-10.3); Carbon Dioxide 30 mEq/L (23-29); Chloride 101 mEq/L (98-107); Glucose 131 mg/dL (70-105); Osmolality,Calculated 279 (280-300); Sodium 134 mEq/L (136-145); eGFR For Non-African Americans > 60 (> 60)
[2018-06-26] MEDS: Acetaminophen IV 1,000 MG/100 ML INFUS..BTL IVPB SCH ×4 (03:41→22:03)
[2018-06-26 03:52] LABS: Anisocytosis 1+ (Not Present); Hypochromasia Present (Not Present); Microcytosis Present (Not Present); Platelet Estimate Normal (Normal)
[2018-06-26] MEDS: *HR* Enoxaparin 30 MG/0.3 ML SYRINGE SQ SCH ×2 (06:37→17:43)
--- NOTE | 2018-06-26 08:05 | Orthopedics Progress Note ---
Date of Encounter: 06/26/18 Time of Encounter: 08:05 Subjective Interval history: Patient was seen this morning doing well without complaints. Afebrile vital signs stable. Operative extremity: Neurovascularly intact Cast intact Assessment and plan: Continue with postoperative care cultures positive for staph Objective Vital signs: Vital Signs Temp Pulse Resp BP Pulse Ox 06/26/18 07:00 98.5 F 78 16 113/57 93 06/26/18 03:38 98.4 F 76 15 146/59 95 06/25/18 23:33 98.8 F 79 15 106/68 91 06/25/18 22:32 78 150/71 94 06/25/18 19:46 98.8 F 71 15 145/77 93 06/25/18 17:02 94 06/25/18 14:00 97.8 F 68 16 114/76 95 06/25/18 11:42 97.6 F 118/72 06/25/18 11:39 97.6 F 73 16 118/72 95 06/25/18 10:50 97.3 F L 68 20 109/53 94 06/25/18 10:32 97.6 F 67 18 102/65 93 06/25/18 10:04 98.1 F 66 20 132/66 91 06/25/18 09:54 98.2 F 69 20 136/46 99 06/25/18 09:44 97.6 F 62 18 152/50 99 06/25/18 09:34 97.2 F L 68 18 161/72 99 Intake and Output 06/25/18 06/26/18 06/26/18 23:59 07:59 15:59 Intake Total 650 / 650 200 / 200 Output Total 360 / 360 40 / 40 Balance 290 / 290 160 / 160 Intake: IV Fluids 200 / 200 Ofirmev 1,000 mg/100 ml 1,000 100 / 100 mg In 100 ml @ 400 mls/hr IVPB Q6H [facility] Rx#:[id number] Ancef 2,000 MG In 0.9 % Sodium 100 / 100 Chloride 100 ML @ 200 mls/hr IVPB Q8HR [facility] Rx#:[id number] Oral 450 / 450 200 / 200 Output: Urine 300 / 300 Wound Drainage 60 / 60 40 / 40 Left Knee 60 / 60 40 / 40 Other: # Voids 1 Weight 145 kg Blood Glucose* 202 126 Patient Weight 06/26/18 23:59 Weight 145 kg - Labs CBC & BMP: 06/26/18 02:27 06/26/18 02:27 Labs: Abnormal lab results WBC 14.2 K/mcL (4.3-11.1) H 06/26/18 02:27 Hgb 9.5 g/dL (11.5-15.4) L D 06/26/18 02:27 Hct 31.9 % (35.3-44.9) L 06/26/18 02:27 MCV 65.2 fL (83.0-100.0) L 06/26/18 02:27 MCH 19.4 pg (28.0-33.3) L 06/26/18 02:27 MCHC 29.8 g/dL (31.6-35.5) L 06/26/18 02:27 RDW 20.0 % (11.5-14.5) H 06/26/18 02:27 Neutrophils # 10.1 K/mcL (1.6-8.9) H 06/26/18 02:27 Hypochromasia Present (Not Present) A 06/26/18 02:27 Anisocytosis 1+ (Not Present) A 06/26/18 02:27 Microcytosis Present (Not Present) A 06/26/18 02:27 Sodium 134 mEq/L (136-145) L 06/26/18 02:27 Carbon Dioxide 30 mEq/L (23-29) H 06/26/18 02:27 Glucose 131 mg/dL (70-105) H 06/26/18 02:27 POC Glucose 202 mg/dL (70-99) H 06/25/18 19:57 Calculated Osmolality 279 (280-300) L 06/26/18 02:27 Calcium 8.4 mg/dL (8.6-10.3) L 06/26/18 02:27 Consult Discharge Plan - Plan Referrals: Joy Valentine DO [Primary Care Provider] -
[2018-06-26] MEDS: Insulin LISPRO 300 UNITS/3 ML VIAL SQ SCH ×4 (08:58→22:04)
[2018-06-26] MEDS: Insulin NPH/REG 70/30 100 UNIT/ML (x5UNIT) SQ SCH ×2 (10:07→18:42)
[2018-06-26] MEDS: ceFAZolin 2,000 MG in 0.9 % Sodium Chloride 100 ML IVPB SCH ×2 (10:07→16:09)
--- NOTE | 2018-06-26 10:07 | Infectious Disease Progress No ---
Date of Encounter: 06/26/18 Time of Encounter: 10:04 - Assessment and Plan (1) Leukocytosis Current Visit: No Status: Acute Likely secondary to left knee prosthetic joint infection and recent surgical procedure. Continue to trend. Recommendations: Check ESR and CRP. Add to AM labs. Await intraoperative cultures to finalize. Wound care and activity restrictions per the orthopedics team. Continue vancomycin IV. Pharmacy to dose. Goal trough ~15. Continue cefazolin 2 g IV every 8 hours. De-escalate antibiotics if/when able based on susceptibilities. Duration of treatment depends on the clinical picture, but likely 6 weeks. Monitor renal function and for drug toxicity and dose adjust antibiotics. disability services coordinator to assist with discharge planning. Avoid insertion of long-term IV access until final antibiotic regimen as determined. Qualifiers: Leukocytosis type: unspecified Qualified Code(s): D72.829 - Elevated white blood cell count, unspecified (2) Infection of total left knee replacement Current Visit: No Status: Acute 12/02/2017: Status post robotic left total knee replacement by Dr. Argueta. 12/23/2017: injury of her left knee while getting into a van and 12/25/17 her dog jumped on her knee and scratched open the middle of her incision. 12/30/2017: Left knee open arthrotomy, irrigation and debridement and extensor mechanism repair. Intra-Op cultures MSSA. Treated with IV cefazolin for 8 weeks 03/12/2018:Wound dehiscence and cultures grew MSSA again. Orthopedic recommended no surgical intervention at that time. Patient was discharged on Ancef and rifampin x 12 weeks through Apr 01 2018; then patient was switched to keflex 06/24/18: patient with cat scratch and drainage ; arthrotomy with purulence; culture positive for staph aureus susceptibility pending 06/25/18: s/p Left knee movable total knee replacement and placement of cement spacer Causative organism: Staph aureus, susceptibilities pending. Orthopedics consult. Status post left knee movable total knee replacement and placement of cement spacer 06/25/[address] paredes. Operative note reviewed. Intra-Op cultures positive for staph aureus, susceptibilities are pending. Currently on cefazolin and vancomycin. Qualifiers: Encounter type: initial encounter Qualified Code(s): T84.54XA - Infection and inflammatory reaction due to internal left knee prosthesis, initial encounter; Z96.652 - Presence of left artificial knee joint (3) Anxiety Current Visit: Yes Status: Acute Resume home Xanax dose. (4) Diabetes mellitus type 2 in obese Current Visit: No Status: Acute Recommend strict glucose control and monitoring to promote wound healing and prevent reinfection. (5) Hyperlipidemia Current Visit: No Status: Chronic Qualifiers: Hyperlipidemia type: mixed hyperlipidemia Qualified Code(s): E78.2 - Mixed hyperlipidemia (6) Hypertension Current Visit: No Status: Chronic Qualifiers: Hypertension type: essential hypertension Qualified Code(s): I10 - Essential (primary) hypertension (7) Morbid obesity with BMI of 50.0-59.9, adult Current Visit: No Status: Chronic (8) Tobacco consumption Current Visit: No Status: Chronic Nicotine replacement therapy. - Subjective Interval history: Patient seen and examined. No acute events noted overnight. Patient complaining of severe left knee pain after getting back to bed from the chair. Denies fevers, chills, or rigors. Denies chest pain, shortness of breath, or cough. Denies vomiting or diarrhea, but states she is nauseated due to the pain at this time. Denies any abdominal pain or urinary complaints. Denies any oral thrush or new skin lesions. Infect Dis PN-Objective Data - Labs CBC & Chem 7: 06/30/18 05:00 06/30/18 05:00 Labs: Laboratory Results - last 24 hr 06/25/18 06/25/18 06/25/18 06:28 12:46 13:39 WBC RBC Hgb 11.0 L D Hct 36.9 MCV MCH MCHC RDW Plt Count MPV Immature Gran % Seg Neutrophils % Lymphocytes % Monocytes % Eosinophils % Basophils % Neutrophils # Lymphocytes # Monocytes # Eosinophils # Basophils # Platelet Estimate Immature Plt Fraction Hypochromasia Anisocytosis Microcytosis Sodium Potassium Chloride Carbon Dioxide BUN Creatinine Est GFR ( Amer) Est GFR (Non-Af Amer) BUN/Creatinine Ratio Glucose POC Glucose 183 H 177 H Calculated Osmolality Calcium 06/25/18 06/25/18 06/25/18 13:39 16:57 19:57 WBC RBC Hgb Hct MCV MCH MCHC RDW Plt Count MPV Immature Gran % Seg Neutrophils % Lymphocytes % Monocytes % Eosinophils % Basophils % Neutrophils # Lymphocytes # Monocytes # Eosinophils # Basophils # Platelet Estimate Immature Plt Fraction Hypochromasia Anisocytosis Microcytosis Sodium Potassium Chloride Carbon Dioxide BUN 11 Creatinine 0.63 Est GFR ( Amer) > 60 Est GFR (Non-Af Amer) > 60 BUN/Creatinine Ratio 17 Glucose POC Glucose 248 H 202 H Calculated Osmolality Calcium 06/26/18 06/26/18 02:27 02:27 WBC 14.2 H RBC 4.89 Hgb 9.5 L D Hct 31.9 L MCV 65.2 L MCH 19.4 L MCHC 29.8 L RDW 20.0 H Plt Count 252 MPV 10.0 Immature Gran % 0.6 Seg Neutrophils % 71.4 Lymphocytes % 20.2 Monocytes % 6.6 Eosinophils % 1.1 Basophils % 0.1 Neutrophils # 10.1 H Lymphocytes # 2.9 Monocytes # 0.9 Eosinophils # 0.2 Basophils # 0.0 Platelet Estimate Normal Immature Plt Fraction 3.7 Hypochromasia Present A Anisocytosis 1+ A Microcytosis Present A Sodium 134 L Potassium 4.0 Chloride 101 Carbon Dioxide 30 H BUN 11 Creatinine 0.68 Est GFR ( Amer) > 60 Est GFR (Non-Af Amer) > 60 BUN/Creatinine Ratio 16 Glucose 131 H POC Glucose Calculated Osmolality 279 L Calcium 8.4 L Cultures: Cultures 06/25/18 08:35 Wound Culture - Preliminary Left Knee Staphylococcus aureus 06/25/18 08:35 Anaerobic Culture - Preliminary Left Knee Culture is incubating. 06/25/18 08:35 Gram Stain - Final Left Knee - Impressions Impressions Knee X-Ray 06/25/18 06:24 IMPRESSION: Anatomic alignment status post revision of the left knee arthroplasty hardware. Large suprapatellar effusion with drain in place. D/ / Sukhi Iqbal MD / Sukhi Iqbal MD Interpreting Provider: Sukhi Iqbal MD Exam - Constitutional Vitals: Temp Pulse Resp BP Pulse Ox 98.5 F 78 16 113/57 93 06/26/18 07:00 06/26/18 07:00 06/26/18 07:00 06/26/18 07:00 06/26/18 07:00 General appearance: cooperative, morbidly obese, no acute distress - Head Head exam: Present: atraumatic, normal inspection, normocephalic - Eye Eye exam: Present: EOMI, normal appearance, PERRL Pupils: Present: normal accommodation - ENT ENT exam: Present: mucous membranes moist - Neck Neck exam: Present: normal inspection - Respiratory Respiratory exam: Present: CTAB. Absent: rales, respiratory distress, rhonchi, wheezes - Cardiovascular Cardiovascular exam: Present: RRR, +S1, +S2 - GI/Abdominal GI/Abdominal exam: Present: distended (obese), normal bowel sounds, soft. Absent: tenderness - Extremities Exam Extremities exam: Absent: normal inspection (Left lower extremity hard cast intact. DIONISIO drain noted with sanguinous drainage.) - Neurological Exam Neurological exam: Present: alert, oriented X3, no focal deficits - Psychiatric Psychiatric exam: Present: normal affect, normal mood - Skin Skin exam: Present: dry, intact, normal color, warm Consult Discharge Plan - Plan Referrals: Joy Aiken, ALEXANDER [Advanced Practice Nurse] - 07/16/18 1:45 pm Joy Valentine DO [Primary Care Provider] - - Attending Attestation I have personally performed a face to face evaluation on this patient. I have reviewed and agree with the care plan. 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
[2018-06-26] MEDS: Ascorbic Acid 500 MG TABLET PO SCH ×2 (10:11→16:34)
[2018-06-26] MEDS: Nicotine 21 MG PATCH.TD24 TD SCH (10:13)
[2018-06-26] MEDS: Furosemide 40 MG TABLET PO SCH (10:13)
[2018-06-26] MEDS: Gabapentin 400 MG CAPSULE PO SCH ×3 (10:13→22:00)
[2018-06-26] MEDS: Cholecalciferol (D-3) 1,000 UNIT TABLET PO SCH (10:16)
[2018-06-26] MEDS: Multivit/Ca/Min/Fe/FA 1 TAB TABLET PO SCH (10:16)
[2018-06-26 10:24] LABS: C-Reactive Protein 112 mg/L (Less than 10)
[2018-06-26] MEDS ORDERED: Nicotine 21 MG PATCH.TD24 TD SCH (15:00)
--- NOTE | 2018-06-26 15:44 | Event Note ---
Date of Encounter: 06/26/18 Time of Encounter: 12:30 POD#1 s/p Left knee movable total knee replacement and placement of cement spacer 06/25/18 Patient seen at bedside, without complaints. Pain better controlled today. [employer] is intact with no breakdown to cast edges or skin. No moisture noted. Patient does not feel that cast got much urine on it yesterday and unlikely to have run down into cast. Patient prefer to not change cast at this time and Dr. Argueta in agreement with this. Will continue to monitor skin edges. Patient denies pressure to heel. good motion and sensation to toes. Afebrile, vital signs stable. Labs reviewed. H/H - 9.5/31.9 stable, asymptomatic WBC 14.2, ESR 100, CRP 112 intraop cultures show staph aureus, pending final cultures to determine management upon DC (PICC) ID consulted - appreciate their recommendations. currently receiving IV vancomycin and cefazolin plan for 6 weeks Pain control: adequate Participating in PT. All questions and concerns addressed. Educated on use of incentive spirometer. Encouraged ambulation and proper hydration. Patient educated on post-operative restrictions and post-operative care. Assessment and plan: Continue with postoperative care Discharge plan: ECF pending placement and final cx
--- NOTE | 2018-06-26 16:17 | Physician Discharge Referral ---
<Meeta Suárez - Last Filed: 06/26/18 16:14> ExtendedCare Referral Info Transfer To: [facility] Provider in Charge: Dr. Argueta - Diagnosis (1) Infection of total left knee replacement Priority: Primary Status: Acute (2) Non-healing surgical wound Priority: Primary Status: Acute (3) Status post total knee replacement, left Priority: Secondary Status: Acute (4) Anxiety Priority: Secondary Status: Acute (5) Acute blood loss anemia Priority: Secondary Status: Acute (6) Arthritis of left knee Priority: Secondary Status: Acute (7) Congestive heart failure of unknown etiology Priority: Secondary Status: Acute (8) Diabetes mellitus type 2 in obese Priority: Secondary Status: Acute (9) Smoker Priority: Secondary Status: Acute (10) Status post incision and drainage Priority: Secondary Status: Acute (11) Status post total right knee replacement Priority: Secondary Status: Acute (12) Wound dehiscence, surgical Priority: Secondary Status: Acute (13) Arthritis of right knee Priority: Secondary Status: Chronic (14) Asthma Priority: Secondary Status: Chronic (15) COPD (chronic obstructive pulmonary disease) Priority: Secondary Status: Chronic (16) Fatty liver Priority: Secondary Status: Chronic (17) History of lung cancer Priority: Secondary Status: Chronic (18) Hyperlipidemia Priority: Secondary Status: Chronic (19) Hypertension Priority: Secondary Status: Chronic (20) Hypothyroidism Priority: Secondary Status: Chronic (21) Iron deficiency anemia Priority: Secondary Status: Chronic (22) Morbid obesity with BMI of 50.0-59.9, adult Priority: Secondary Status: Chronic (23) KAROLYN on CPAP Priority: Secondary Status: Chronic (24) Tobacco consumption Priority: Secondary Status: Chronic Expected Duration of Placement: <30 days Prognosis: Good Aware of Diagnosis: Patient Aware of Prognosis: Patient - Transfer Medications Home Medications: Cholecalciferol (Vitamin D3) [Vitamin D3] 50,000 unit PO FR 03/23/17 [History] Duloxetine HCl [Cymbalta] 60 mg PO DAILY 03/23/17 [History] Gabapentin [Neurontin] 1,200 mg PO TID 03/23/17 [History] Levothyroxine Sodium 150 mcg PO DAILY 03/23/17 [History] Potassium Chloride [Klor-Con 10] 10 meq PO DAILY 03/23/17 [History] Pravastatin Sodium [Pravachol] 80 mg PO HS 03/23/17 [History] Ascorbate Calcium [Vitamin C] 500 mg PO BID 12/30/17 [History] Cyclobenzaprine [Flexeril] 5 mg PO HS PRN 12/30/17 [History] Ferrous Sulfate [Iron] 325 mg PO BID 12/30/17 [History] Furosemide [Lasix] 40 mg PO DAILY 12/30/17 [History] Ipratropium/Albuterol Sulfate [Iprat-Albut 0.5-3(2.5) mg/3 ml] 3 ml IH Q4H PRN 12/30/17 [History] Losartan Potassium [Cozaar] 100 mg PO DAILY 12/30/17 [History] Buspirone HCl [Buspar] 15 mg PO BID 06/25/18 [History] Insulin NPH Hum/Reg Insulin Hm [Novolin 70-30 Flexpen] 50 unit SQ BID 06/25/18 [History] Allergies/Adverse Reactions: Allergy/AdvReac Type Severity Reaction Status Date / Time hydrocodone AdvReac Itching, Verified 06/25/18 07:05 Vomiting morphine AdvReac Itching Verified 06/25/18 07:05 - Respiratory Orders None Smoking Cessation: Smoking cessation has been advised. For more information, call the [place] Tobacco Quit Line at 3-326-PCIQ-NOW. - Ancillary Orders May use pressure relief devices daily prn, May go on DYLAN w/family/respon republican w/meds at nurse discretion PRN, May consult with Dentist, Wax Pourer, Muck Operator PRN - Advance Directives Code Status: Full Code - Mobility Orders Chair, Ambulate - Rehabiliation Orders Rehab Potential: Good Rehab Orders: ROM Exercises, Evaluation for Physical Therapy, Evaluation for Occupational Therapy Other: Opsite dressing, leave intact until first post-operative visit. Long leg cast in place Zipline/Yamile in place, plan to remove at post-operative day #14-16. NO KNEE FLEXION. WBAT Apply cold therapy wrap 3-6x/day for 20 minutes at a time. Encourage ambulation throughout the day Use Incentive spirometer 10x/hour. Elevate affected extremity above heart as tolerated. - Diet Orders Regular CERTIFICATION: I certify that the transfer of the above named patient to an Extended Care Facility is necessary for the continuing treatment of the diagnosis listed. The above information is true and accurate reflection of patient's current condition. Confidential - Redisclosure prohibited without a patient's written consent. <Meeta Rosa E - Last Filed: 06/30/18 12:54> Prognosis: Good Aware of Diagnosis: Patient Aware of Prognosis: Patient - Respiratory Orders Smoking Cessation: Smoking cessation has been advised. For more information, call the [place] Tobacco Quit Line at 7-657-OPRV-NOW. CERTIFICATION: I certify that the transfer of the above named patient to an Extended Care Facility is necessary for the continuing treatment of the diagnosis listed. The above information is true and accurate reflection of patient's current condition. Confidential - Redisclosure prohibited without a patient's written consent.
[2018-06-26] MEDS: ALPRAZolam 0.5 MG TABLET PO PRN (22:00)
[2018-06-27] MEDS: ceFAZolin 2,000 MG in 0.9 % Sodium Chloride 100 ML IVPB SCH ×3 (01:06→16:14)
[2018-06-27] MEDS: Acetaminophen IV 1,000 MG/100 ML INFUS..BTL IVPB SCH ×4 (03:54→21:04)
--- NOTE | 2018-06-27 06:23 | Orthopedics Progress Note ---
Date of Encounter: 06/27/18 Time of Encounter: 06:23 Subjective Interval history: Patient was seen this morning doing well without complaints. Afebrile vital signs stable. Operative extremity: Neurovascularly intact Cast intact Assessment and plan: Continue with postoperative care cultures positive for staph aureus, sensitive to most antibiotics Objective Vital signs: Vital Signs Temp Pulse Pulse Resp BP Pulse Ox 06/27/18 04:50 98.7 F 73 18 133/70 90 06/27/18 00:22 98.3 F 82 17 142/69 90 06/26/18 19:19 98.5 F 81 17 129/61 90 06/26/18 15:36 98.2 F 77 18 118/46 92 06/26/18 13:37 99.3 F 78 20 150/67 96 06/26/18 08:00 98.6 F 78 78 20 125/78 98 06/26/18 07:00 98.5 F 78 16 113/57 93 Intake and Output 06/26/18 06/26/18 06/27/18 15:59 23:59 07:59 Intake Total 2650 / 2650 1300 / 1300 Output Total 80 / 80 60 / 60 100 / 100 Balance 2570 / 2570 1240 / 1240 -100 / -100 Intake: IV Fluids 450 / 450 1300 / 1300 Lactated Ringers 1,000 ML @ 75 1000 / 1000 mls/hr IVC .[id number] [facility] Rx#: [id number] Ofirmev 1,000 mg/100 ml 1,000 100 / 100 200 / 200 mg In 100 ml @ 400 mls/hr IVPB Q6H [facility] Rx#:[id number] Vancocin 1,500 MG In 0.9 % 250 / 250 Sodium Chloride 250 ML @ 166. 667 mls/hr IVPB Q12H [facility] Rx#: [id number] Ancef 2,000 MG In 0.9 % Sodium 100 / 100 100 / 100 Chloride 100 ML @ 200 mls/hr IVPB Q8HR [facility] Rx#:[id number] Oral 2200 / 2200 Output: Wound Drainage 80 / 80 60 / 60 100 / 100 Left Knee 80 / 80 60 / 60 100 / 100 Other: Meal Lunch Percent of Meal Consumed 100% # Voids 1 1 1 Weight 145.8 kg Blood Glucose* 168 205 Patient Weight 06/27/18 23:59 Weight 145.8 kg - Labs CBC & BMP: 06/26/18 02:27 06/26/18 02:27 Labs: Abnormal lab results WBC 14.2 K/mcL (4.3-11.1) H 06/26/18 02:27 Hgb 9.5 g/dL (11.5-15.4) L D 06/26/18 02:27 Hct 31.9 % (35.3-44.9) L 06/26/18 02:27 MCV 65.2 fL (83.0-100.0) L 06/26/18 02:27 MCH 19.4 pg (28.0-33.3) L 06/26/18 02:27 MCHC 29.8 g/dL (31.6-35.5) L 06/26/18 02:27 RDW 20.0 % (11.5-14.5) H 06/26/18 02:27 Neutrophils # 10.1 K/mcL (1.6-8.9) H 06/26/18 02:27 Hypochromasia Present (Not Present) A 06/26/18 02:27 Anisocytosis 1+ (Not Present) A 06/26/18 02:27 Microcytosis Present (Not Present) A 06/26/18 02:27 ESR 100 mm/hr (0-15) H 06/26/18 10:37 Sodium 134 mEq/L (136-145) L 06/26/18 02:27 Carbon Dioxide 30 mEq/L (23-29) H 06/26/18 02:27 Glucose 131 mg/dL (70-105) H 06/26/18 02:27 POC Glucose 168 mg/dL (70-99) H 06/26/18 10:45 Calculated Osmolality 279 (280-300) L 06/26/18 02:27 Calcium 8.4 mg/dL (8.6-10.3) L 06/26/18 02:27 C-Reactive Protein 112 mg/L (Less than 10) H 06/26/18 02:27 Vancomycin Trough 12 mcg/mL (5-10) H 06/26/18 18:49 Consult Discharge Plan - Plan Referrals: Joy Valentine DO [Primary Care Provider] -
[2018-06-27] MEDS: *HR* Enoxaparin 30 MG/0.3 ML SYRINGE SQ SCH ×2 (06:30→18:10)
[2018-06-27 06:33] LABS: Basophils % 0.1 %; Eosinophils # 0.3 K/mcL (0.0-0.6); Eosinophils % 2.3 %; Hematocrit 25.8 % (35.3-44.9); Immature Granulocytes % 0.5 % (0-4); Lymphocytes # 2.7 K/mcL (0.6-4.6); Lymphocytes % 22.9 %; Mean Corpuscular HGB Conc 29.8 g/dL (31.6-35.5); Mean Corpuscular Hemoglobin 19.4 pg (28.0-33.3); Mean Corpuscular Volume 65.2 fL (83.0-100.0); Mean Platelet Volume 10.4 fL (9.4-12.4); Monocytes # 0.9 K/mcL (0.0-1.3); Monocytes % 7.8 %; Neutrophils # 7.9 K/mcL (1.6-8.9); Platelet Count 256 K/mcL (140-400); Red Blood Count 3.96 M/mcL (3.82-4.97); Red Cell Distribution Width 19.4 % (11.5-14.5); Segmented Neutrophils % 66.4 %
[2018-06-27 06:37] LABS: Hemoglobin 7.7 g/dL (11.5-15.4)
[2018-06-27 06:53] LABS: BUN/Creatinine Ratio 13 (6-26); Blood Urea Nitrogen 8 mg/dL (6-20); Calcium 8.5 mg/dL (8.6-10.3); Carbon Dioxide 31 mEq/L (23-29); Chloride 101 mEq/L (98-107); Glucose 59 mg/dL (70-105); Osmolality,Calculated 282 (280-300); Potassium 3.6 mEq/L (3.5-5.1); Sodium 138 mEq/L (136-145); eGFR For Non-African Americans > 60 (> 60)
[2018-06-27 07:08] LABS: Microcytosis Present (Not Present); Platelet Estimate Normal (Normal)
[2018-06-27] MEDS: Insulin LISPRO 300 UNITS/3 ML VIAL SQ SCH ×4 (09:52→20:53)
[2018-06-27] MEDS: Ascorbic Acid 500 MG TABLET PO SCH ×2 (09:52→16:14)
[2018-06-27] MEDS: Furosemide 40 MG TABLET PO SCH (09:55)
[2018-06-27] MEDS: Gabapentin 400 MG CAPSULE PO SCH ×3 (09:55→21:05)
[2018-06-27] MEDS: Nicotine 21 MG PATCH.TD24 TD SCH (09:56)
[2018-06-27] MEDS: Cholecalciferol (D-3) 1,000 UNIT TABLET PO SCH (09:57)
[2018-06-27] MEDS: Multivit/Ca/Min/Fe/FA 1 TAB TABLET PO SCH (09:57)
[2018-06-27] MEDS: Insulin NPH/REG 70/30 100 UNIT/ML (x5UNIT) SQ SCH ×2 (11:00→18:10)
--- NOTE | 2018-06-27 12:29 | Infectious Disease Progress No ---
Date of Encounter: 06/27/18 Time of Encounter: 09:25 - Assessment and Plan (1) Leukocytosis Current Visit: No Status: Acute Likely secondary to left knee prosthetic joint infection and recent surgical procedure. Improved. Continue to trend. Recommendations: Wound care and activity restrictions per the orthopedics team. Discontinue Vanc. Continue cefazolin 2 g IV every 8 hours. Duration of treatment depends on the clinical picture, but likely 6 weeks. Monitor renal function and for drug toxicity and dose adjust antibiotics. rehabilitation services aide to assist with discharge planning. Consult VAT for midline placement. Will need weekly CBC, BUN/Cr, ESR, CRP. Will need weekly midline care per protocol. Follow up with ID 07/16/18 at 1345. Qualifiers: Leukocytosis type: unspecified Qualified Code(s): D72.829 - Elevated white blood cell count, unspecified (2) Infection of total left knee replacement Current Visit: No Status: Acute 12/02/2017: Status post robotic left total knee replacement by Dr. Argueta. 12/23/2017: injury of her left knee while getting into a van and 12/25/17 her dog jumped on her knee and scratched open the middle of her incision. 12/30/2017: Left knee open arthrotomy, irrigation and debridement and extensor mechanism repair. Intra-Op cultures MSSA. Treated with IV cefazolin for 8 weeks 03/12/2018:Wound dehiscence and cultures grew MSSA again. Orthopedic recommended no surgical intervention at that time. Patient was discharged on Ancef and rifampin x 12 weeks through Apr 01 2018; then patient was switched to keflex 06/24/18: patient with cat scratch and drainage ; arthrotomy with purulence; cult ure positive for staph aureus susceptibility pending 06/25/18: s/p Left knee movable total knee replacement and placement of cement spacer Causative organism: MSSA. Orthopedics consult. Status post left knee movable total knee replacement and placement of cement spacer 06/25/[address] paredes. Operative note reviewed. Intra-Op cultures positive for MSSA. Currently on cefazolin and vancomycin. Qualifiers: Encounter type: initial encounter Qualified Code(s): T84.54XA - Infection and inflammatory reaction due to internal left knee prosthesis, initial encounter; Z96.652 - Presence of left artificial knee joint (3) Anxiety Current Visit: Yes Status: Acute Resume home Xanax dose. (4) Diabetes mellitus type 2 in obese Current Visit: No Status: Acute Recommend strict glucose control and monitoring to promote wound healing and prevent reinfection. (5) Hyperlipidemia Current Visit: No Status: Chronic Qualifiers: Hyperlipidemia type: mixed hyperlipidemia Qualified Code(s): E78.2 - Mixed hyperlipidemia (6) Hypertension Current Visit: No Status: Chronic Qualifiers: Hypertension type: essential hypertension Qualified Code(s): I10 - Essential (primary) hypertension (7) Morbid obesity with BMI of 50.0-59.9, adult Current Visit: No Status: Chronic (8) Tobacco consumption Current Visit: No Status: Chronic Nicotine replacement therapy. - Subjective Interval history: Patient seen and examined. No acute events noted overnight. Patient complaining of significant left knee pain, worse with movement. Denies fevers, chills, or rigors. Denies chest pain, shortness of breath, or cough. Denies vomiting or diarrhea or nausea. Denies any abdominal pain or urinary complaints. Denies any oral thrush or new skin lesions. Infect Dis PN-Objective Data - Labs CBC & Chem 7: 06/30/18 05:00 06/30/18 05:00 Labs: Laboratory Results - last 24 hr 06/26/18 06/26/18 06/26/18 07:59 10:45 17:21 WBC RBC Hgb Hct MCV MCH MCHC RDW Plt Count MPV Immature Gran % Seg Neutrophils % Lymphocytes % Monocytes % Eosinophils % Basophils % Neutrophils # Lymphocytes # Monocytes # Eosinophils # Basophils # Platelet Estimate Microcytosis Sodium Potassium Chloride Carbon Dioxide BUN Creatinine Est GFR ( Amer) Est GFR (Non-Af Amer) BUN/Creatinine Ratio Glucose POC Glucose 126 H 168 H 152 H Calculated Osmolality Calcium Vancomycin Trough 06/26/18 06/26/18 06/27/18 18:49 20:46 06:04 WBC 11.9 H RBC 3.96 Hgb 7.7 L D Hct 25.8 L MCV 65.2 L MCH 19.4 L MCHC 29.8 L RDW 19.4 H Plt Count 256 MPV 10.4 Immature Gran % 0.5 Seg Neutrophils % 66.4 Lymphocytes % 22.9 Monocytes % 7.8 Eosinophils % 2.3 Basophils % 0.1 Neutrophils # 7.9 Lymphocytes # 2.7 Monocytes # 0.9 Eosinophils # 0.3 Basophils # 0.0 Platelet Estimate Normal Microcytosis Present A Sodium Potassium Chloride Carbon Dioxide BUN Creatinine Est GFR ( Amer) Est GFR (Non-Af Amer) BUN/Creatinine Ratio Glucose POC Glucose 205 H Calculated Osmolality Calcium Vancomycin Trough 12 H 06/27/18 06:04 WBC RBC Hgb Hct MCV MCH MCHC RDW Plt Count MPV Immature Gran % Seg Neutrophils % Lymphocytes % Monocytes % Eosinophils % Basophils % Neutrophils # Lymphocytes # Monocytes # Eosinophils # Basophils # Platelet Estimate Microcytosis Sodium 138 Potassium 3.6 Chloride 101 Carbon Dioxide 31 H BUN 8 Creatinine 0.63 Est GFR ( Amer) > 60 Est GFR (Non-Af Amer) > 60 BUN/Creatinine Ratio 13 Glucose 59 L POC Glucose Calculated Osmolality 282 Calcium 8.5 L Vancomycin Trough Cultures: Cultures 06/25/18 08:35 Wound Culture - Final Left Knee Staphylococcus aureus 06/25/18 08:35 Anaerobic Culture - Preliminary Left Knee Culture is incubating. 06/25/18 08:35 Gram Stain - Final Left Knee Exam - Constitutional Vitals: Temp Pulse Resp BP Pulse Ox 98.2 F 76 18 100/49 92 06/27/18 12:05 06/27/18 12:05 06/27/18 12:05 06/27/18 12:05 06/27/18 12:05 General appearance: cooperative, morbidly obese, no acute distress - Head Head exam: Present: atraumatic, normal inspection, normocephalic - Eye Eye exam: Present: EOMI, normal appearance, PERRL Pupils: Present: normal accommodation - ENT ENT exam: Present: mucous membranes moist - Neck Neck exam: Present: normal inspection - Respiratory Respiratory exam: Present: CTAB. Absent: rales, respiratory distress, rhonchi, wheezes - Cardiovascular Cardiovascular exam: Present: RRR, +S1, +S2 - GI/Abdominal GI/Abdominal exam: Present: distended (obese), normal bowel sounds, soft. Absent: tenderness - Extremities Exam Extremities exam: Absent: normal inspection (LLE hard cast noted with DIONISIO drain with sanguinous drainage noted.) - Neurological Exam Neurological exam: Present: alert, oriented X3, no focal deficits - Psychiatric Psychiatric exam: Present: normal affect, normal mood - Skin Skin exam: Present: dry, intact, normal color, warm Consult Discharge Plan - Plan Referrals: Serge,Joy, DO [Primary Care Provider] - Joy Aiken WAREHOUSE AND RECEIVING SUPERVISOR [Advanced Practice Nurse] - 07/16/18 1:45 pm - Attending Attestation I have personally performed a face to face evaluation on this patient. I have reviewed and agree with the care plan. History and Exam by me shows: Patient seen and examined. Appears comfortable. No acute distress. No diarrhea no chest pain or shortness of breath Assessment and plan: Prosthetic joint infection left knee causative organism MSSA Continue cefazolin DC vancomycin Duration of treatment at least 6-8 weeks Monitor labs and for drug toxicity
[2018-06-27] MEDS ORDERED: Lidocaine -MPF 1% 5 ML AMPUL INFILT ONE (12:30)
[2018-06-27] MEDS: *HR* OxyCODONE Immed Rel 5 MG TABLET PO PRN (12:38)
--- NOTE | 2018-06-27 13:21 | Event Note ---
Date of Encounter: 06/27/18 Time of Encounter: 12:20 POD#2 s/p Left knee movable total knee replacement and placement of cement spacer 06/25/18 Patient seen at bedside, without complaints. Pain better controlled today. A&O x 3 LLC is intact will change cast today and remove DIONISIO drain while cast is off. MAs from office will apply new LLC. Afebrile, vital signs stable. Labs reviewed. H/H - 7.7/25.8 asymptomatic will continue to monitor WBC 11.9, ESR 100, CRP 112 intraop cultures show staph aureus ID consulted - appreciate their recommendations.DC IV vancomycin today and will continue with cefazolin 2g q8hrs plan for 6 weeks, midline placed today Pain control: adequate Participating in PT. All questions and concerns addressed. Educated on use of incentive spirometer. Encouraged ambulation and proper hydration. Patient educated on post-operative restrictions and post-operative care. Assessment and plan: Continue with postoperative care Discharge plan: ECF pending placement
[2018-06-27] MEDS: Ketorolac 30 MG/ML VIAL IVP PRN (13:55)
[2018-06-27] MEDS ORDERED: Aminoglycoside Consult 1 EACH MC ONE (14:29)
[2018-06-28] MEDS: ceFAZolin 2,000 MG in 0.9 % Sodium Chloride 100 ML IVPB SCH ×4 (00:24→23:43)
[2018-06-28] MEDS: ALPRAZolam 0.5 MG TABLET PO PRN (00:32)
[2018-06-28] MEDS: Acetaminophen IV 1,000 MG/100 ML INFUS..BTL IVPB SCH ×3 (02:55→20:51)
[2018-06-28] MEDS: *HR* Enoxaparin 30 MG/0.3 ML SYRINGE SQ SCH ×2 (06:18→16:21)
[2018-06-28] MEDS: Insulin LISPRO 300 UNITS/3 ML VIAL SQ SCH ×4 (08:30→20:47)
[2018-06-28] MEDS: *HR* OxyCODONE Immed Rel 5 MG TABLET PO PRN (10:21)
[2018-06-28] MEDS: Ascorbic Acid 500 MG TABLET PO SCH ×2 (10:21→16:21)
[2018-06-28] MEDS: Furosemide 40 MG TABLET PO SCH (10:22)
[2018-06-28] MEDS: Cholecalciferol (D-3) 1,000 UNIT TABLET PO SCH (10:22)
[2018-06-28] MEDS: Multivit/Ca/Min/Fe/FA 1 TAB TABLET PO SCH (10:22)
[2018-06-28] MEDS: Nicotine 21 MG PATCH.TD24 TD SCH (10:22)
[2018-06-28] MEDS: Gabapentin 400 MG CAPSULE PO SCH ×3 (10:22→20:50)
[2018-06-28] MEDS: Insulin NPH/REG 70/30 100 UNIT/ML (x5UNIT) SQ SCH ×2 (11:12→17:10)
[2018-06-28] MEDS: *HR* FentaNYL PATCH 25 MCG PATCH TD SCH (12:57)
--- NOTE | 2018-06-28 15:51 | Orthopedics Progress Note ---
Date of Encounter: 06/28/18 Time of Encounter: 15:49 Subjective Principal diagnosis: Infected left total knee arthroplasty Interval history: Patient comfortable with no new complaints She states the new left long-leg cast put on yesterday is fitting better Left lower extremity: Long leg cast intact Patient moving toes well, good capillary refill sensation intact Assessment: Postoperative day #3 status post left total knee explant with antibiotic cement spacer Plan: Continue IV antibiotics as per ID Discharge planning to SNF for long-term IV antibiotics Objective Vital signs: Vital Signs Temp Pulse Resp BP Pulse Ox 06/28/18 11:59 98.0 F 72 16 131/84 95 06/28/18 07:55 97.4 F L 71 16 109/46 92 06/27/18 23:15 98.7 F 72 18 105/68 92 06/27/18 21:15 90 06/27/18 18:55 98.0 F 73 20 102/62 90 06/27/18 16:03 98.2 F 78 16 100/58 93 Intake and Output 06/27/18 06/28/18 06/28/18 23:59 07:59 15:59 Intake Total 420 / 420 200 / 200 440 / 440 Output Total 600 / 600 Balance 420 / 420 -400 / -400 440 / 440 Intake: IV Fluids 300 / 300 200 / 200 200 / 200 Ofirmev 1,000 mg/100 ml 1,000 200 / 200 100 / 100 100 / 100 mg In 100 ml @ 400 mls/hr IVPB Q6H [facility] Rx#:[id number] Ancef 2,000 MG In 0.9 % Sodium 100 / 100 100 / 100 100 / 100 Chloride 100 ML @ 200 mls/hr IVPB Q8HR [facility] Rx#:[id number] Oral 120 / 120 240 / 240 Output: Urine 600 / 600 Other: Meal Breakfast Percent of Meal Consumed 100% Stool Size Large Stool Consistency formed Stool Color Brown # Voids 1 # Bowel Movements 1 Blood Glucose* 174 115 183 - Labs CBC & BMP: 06/27/18 06:04 06/27/18 06:04 Labs: Abnormal lab results WBC 11.9 K/mcL (4.3-11.1) H 06/27/18 06:04 Hgb 7.7 g/dL (11.5-15.4) L D 06/27/18 06:04 Hct 25.8 % (35.3-44.9) L 06/27/18 06:04 MCV 65.2 fL (83.0-100.0) L 06/27/18 06:04 MCH 19.4 pg (28.0-33.3) L 06/27/18 06:04 MCHC 29.8 g/dL (31.6-35.5) L 06/27/18 06:04 RDW 19.4 % (11.5-14.5) H 06/27/18 06:04 Hypochromasia Present (Not Present) A 06/26/18 02:27 Anisocytosis 1+ (Not Present) A 06/26/18 02:27 Microcytosis Present (Not Present) A 06/27/18 06:04 ESR 100 mm/hr (0-15) H 06/26/18 10:37 Carbon Dioxide 31 mEq/L (23-29) H 06/27/18 06:04 Glucose 59 mg/dL (70-105) L 06/27/18 06:04 POC Glucose 183 mg/dL (70-99) H 06/28/18 12:02 Calcium 8.5 mg/dL (8.6-10.3) L 06/27/18 06:04 C-Reactive Protein 112 mg/L (Less than 10) H 06/26/18 02:27 Vancomycin Trough 16 mcg/mL (5-10) H 06/27/18 19:07 Consult Discharge Plan - Plan Referrals: Joy Aiken CNP [Advanced Practice Nurse] - 07/16/18 1:45 pm Joy Valentine DO [Primary Care Provider] -
[2018-06-29] MEDS: *HR* OxyCODONE Immed Rel 5 MG TABLET PO PRN ×3 (00:04→23:56)
[2018-06-29] MEDS: ALPRAZolam 0.5 MG TABLET PO PRN ×2 (00:04→23:56)
[2018-06-29] MEDS: *HR* Enoxaparin 30 MG/0.3 ML SYRINGE SQ SCH ×2 (05:08→17:30)
[2018-06-29] MEDS: Acetaminophen IV 1,000 MG/100 ML INFUS..BTL IVPB SCH ×4 (05:09→21:02)
[2018-06-29 05:32] LABS: Basophils % 0.1 %; Eosinophils # 0.5 K/mcL (0.0-0.6); Eosinophils % 3.1 %; Hematocrit 26.9 % (35.3-44.9); Hemoglobin 7.9 g/dL (11.5-15.4); Lymphocytes # 4.1 K/mcL (0.6-4.6); Lymphocytes % 28.2 %; Mean Corpuscular HGB Conc 29.4 g/dL (31.6-35.5); Mean Corpuscular Hemoglobin 19.5 pg (28.0-33.3); Mean Corpuscular Volume 66.3 fL (83.0-100.0); Mean Platelet Volume 10.1 fL (9.4-12.4); Monocytes # 0.7 K/mcL (0.0-1.3); Neutrophils # 9.1 K/mcL (1.6-8.9); Platelet Count 339 K/mcL (140-400); Red Blood Count 4.06 M/mcL (3.82-4.97); Red Cell Distribution Width 19.6 % (11.5-14.5); Segmented Neutrophils % 62.6 %
[2018-06-29 05:48] LABS: BUN/Creatinine Ratio 13 (6-26); Blood Urea Nitrogen 8 mg/dL (6-20); Calcium 8.6 mg/dL (8.6-10.3); Carbon Dioxide 32 mEq/L (23-29); Chloride 99 mEq/L (98-107); Glucose 107 mg/dL (70-105); Osmolality,Calculated 287 (280-300); Potassium 3.7 mEq/L (3.5-5.1); Sodium 139 mEq/L (136-145); eGFR For Non-African Americans > 60 (> 60)
[2018-06-29 05:49] LABS: Anisocytosis 2+ (Not Present); Macrocytosis Present (Not Present); Microcytosis Present (Not Present); Platelet Estimate Normal (Normal)
[2018-06-29] MEDS: Insulin LISPRO 300 UNITS/3 ML VIAL SQ SCH ×4 (08:20→20:53)
[2018-06-29] MEDS: Insulin NPH/REG 70/30 100 UNIT/ML (x5UNIT) SQ SCH ×2 (10:10→17:30)
[2018-06-29] MEDS: ceFAZolin 2,000 MG in 0.9 % Sodium Chloride 100 ML IVPB SCH ×3 (10:10→23:56)
[2018-06-29] MEDS: Nicotine 21 MG PATCH.TD24 TD SCH (10:11)
[2018-06-29] MEDS: Cholecalciferol (D-3) 1,000 UNIT TABLET PO SCH (10:11)
[2018-06-29] MEDS: Gabapentin 400 MG CAPSULE PO SCH ×3 (10:11→21:02)
[2018-06-29] MEDS: Furosemide 40 MG TABLET PO SCH (10:12)
[2018-06-29] MEDS: Multivit/Ca/Min/Fe/FA 1 TAB TABLET PO SCH (10:12)
[2018-06-29] MEDS: Ascorbic Acid 500 MG TABLET PO SCH ×2 (10:12→16:06)
[2018-06-29] MEDS ORDERED: Fluconazole 100 MG TABLET PO ONE (13:34)
--- NOTE | 2018-06-29 13:58 | Orthopedics Progress Note ---
Date of Encounter: 06/29/18 Time of Encounter: 13:57 Subjective Principal diagnosis: Infected left total knee arthroplasty Interval history: Patient comfortable Reports yeast infection She states the new left long-leg cast put on yesterday is fitting better Left lower extremity: Long leg cast intact Patient moving toes well, good capillary refill sensation intact Assessment: Postoperative day #5 status post left total knee explant with antibiotic cement spacer Plan: Continue IV antibiotics as per ID Diflucan 150 mg po x 1 Discharge planning to SNF for long-term IV antibiotics Objective Vital signs: Vital Signs Temp Pulse Resp BP Pulse Ox 06/29/18 11:32 98.0 F 71 16 130/76 99 06/29/18 07:16 98.1 F 74 17 140/75 91 06/28/18 22:52 98.0 F 81 18 151/72 92 06/28/18 20:59 92 06/28/18 18:10 98.7 F 81 16 135/73 92 06/28/18 16:17 97.6 F 75 16 125/76 92 Intake and Output 06/28/18 06/29/18 06/29/18 23:59 07:59 15:59 Intake Total 1280 / 1280 200 / 200 680 / 680 Output Total 800 / 800 1350 / 1350 Balance 480 / 480 -1150 / -1150 680 / 680 Intake: IV Fluids 200 / 200 200 / 200 200 / 200 Ofirmev 1,000 mg/100 ml 1,000 100 / 100 100 / 100 100 / 100 mg In 100 ml @ 400 mls/hr IVPB Q6H [facility] Rx#:[id number] Ancef 2,000 MG In 0.9 % Sodium 100 / 100 100 / 100 100 / 100 Chloride 100 ML @ 200 mls/hr IVPB Q8HR [facility] Rx#:[id number] Oral 1080 / 1080 0 / 0 480 / 480 Output: Urine 800 / 800 1350 / 1350 Other: Meal Lunch Breakfast Percent of Meal Consumed 40% 100% Stool Size Moderate Stool Consistency formed Stool Color Brown # Voids 1 1 # Bowel Movements 1 Weight 155.7 kg Blood Glucose* 137 115 129 Patient Weight 06/29/18 23:59 Weight 155.7 kg - Labs CBC & BMP: 06/29/18 05:14 06/29/18 05:14 Labs: Abnormal lab results WBC 14.5 K/mcL (4.3-11.1) H 06/29/18 05:14 Hgb 7.9 g/dL (11.5-15.4) L 06/29/18 05:14 Hct 26.9 % (35.3-44.9) L 06/29/18 05:14 MCV 66.3 fL (83.0-100.0) L 06/29/18 05:14 MCH 19.5 pg (28.0-33.3) L 06/29/18 05:14 MCHC 29.4 g/dL (31.6-35.5) L 06/29/18 05:14 RDW 19.6 % (11.5-14.5) H 06/29/18 05:14 Neutrophils # 9.1 K/mcL (1.6-8.9) H 06/29/18 05:14 Hypochromasia Present (Not Present) A 06/26/18 02:27 Anisocytosis 2+ (Not Present) A 06/29/18 05:14 Microcytosis Present (Not Present) A 06/29/18 05:14 Macrocytosis Present (Not Present) A 06/29/18 05:14 ESR 100 mm/hr (0-15) H 06/26/18 10:37 Carbon Dioxide 32 mEq/L (23-29) H 06/29/18 05:14 Glucose 107 mg/dL (70-105) H 06/29/18 05:14 POC Glucose 129 mg/dL (70-99) H 06/29/18 11:35 C-Reactive Protein 112 mg/L (Less than 10) H 06/26/18 02:27 Vancomycin Trough 16 mcg/mL (5-10) H 06/27/18 19:07 Consult Discharge Plan - Plan Referrals: Joy Aiken CNP [Advanced Practice Nurse] - 07/16/18 1:45 pm Joy Valentine DO [Primary Care Provider] -
[2018-06-30] MEDS: *HR* Enoxaparin 30 MG/0.3 ML SYRINGE SQ SCH ×2 (04:55→16:49)
[2018-06-30] MEDS: Acetaminophen IV 1,000 MG/100 ML INFUS..BTL IVPB SCH ×4 (04:56→23:04)
[2018-06-30 05:23] LABS: Basophils % 0.2 %; Eosinophils # 0.5 K/mcL (0.0-0.6); Eosinophils % 3.5 %; Hematocrit 25.3 % (35.3-44.9); Hemoglobin 7.4 g/dL (11.5-15.4); Immature Granulocytes % 0.8 % (0-4); Lymphocytes # 3.4 K/mcL (0.6-4.6); Lymphocytes % 25.6 %; Mean Corpuscular HGB Conc 29.2 g/dL (31.6-35.5); Mean Corpuscular Hemoglobin 19.4 pg (28.0-33.3); Mean Corpuscular Volume 66.2 fL (83.0-100.0); Mean Platelet Volume 10.2 fL (9.4-12.4); Monocytes # 0.7 K/mcL (0.0-1.3); Monocytes % 5.4 %; Nucleated Red Blood Cells 0.2 /100 WBC (0); Platelet Count 332 K/mcL (140-400); Red Blood Count 3.82 M/mcL (3.82-4.97); Red Cell Distribution Width 19.3 % (11.5-14.5); Segmented Neutrophils % 64.5 %
[2018-06-30 05:31] LABS: Neutrophils # 8.5 K/mcL (1.6-8.9)
[2018-06-30 05:37] LABS: BUN/Creatinine Ratio 14 (6-26); Blood Urea Nitrogen 9 mg/dL (6-20); Calcium 8.6 mg/dL (8.6-10.3); Carbon Dioxide 34 mEq/L (23-29); Chloride 99 mEq/L (98-107); Glucose 109 mg/dL (70-105); Osmolality,Calculated 285 (280-300); Potassium 4.3 mEq/L (3.5-5.1); Sodium 138 mEq/L (136-145); eGFR For Non-African Americans > 60 (> 60)
[2018-06-30 05:58] LABS: Anisocytosis 2+ (Not Present); Hypochromasia Present (Not Present); Macrocytosis Present (Not Present); Polychromasia 1+ (Not Present); Stomatocytes 1+ (Not Present)
[2018-06-30 05:59] LABS: Platelet Estimate Normal (Normal); Target Cells 1+ (Not Present)
[2018-06-30 06:00] LABS: Microcytosis Present (Not Present)
--- NOTE | 2018-06-30 06:27 | Orthopedics Progress Note ---
Date of Encounter: 06/30/18 Time of Encounter: 06:26 - Assessment and Plan (1) Acute blood loss anemia Current Visit: Yes Status: Acute Subjective Principal diagnosis: Infected left total knee arthroplasty Interval history: Patient was seen this morning doing well without complaints. Afebrile vital signs stable. Operative extremity: Neurovascularly intact Cast intact Assessment and plan: Continue with postoperative care plan for discharge today hemoglobin 7.4 asymptomatic Objective Vital signs: Vital Signs Temp Pulse Resp BP Pulse Ox 06/29/18 23:03 98.0 F 72 15 121/70 90 06/29/18 21:10 90 06/29/18 19:04 98.0 F 77 15 123/75 90 06/29/18 16:32 97.9 F 76 15 102/65 95 06/29/18 11:32 98.0 F 71 16 130/76 99 06/29/18 07:16 98.1 F 74 17 140/75 91 Intake and Output 06/29/18 06/29/18 06/30/18 15:59 23:59 07:59 Intake Total 680 / 680 300 / 300 100 / 100 Output Total 1200 / 1200 Balance 680 / 680 300 / 300 -1100 / -1100 Intake: IV Fluids 200 / 200 300 / 300 100 / 100 Ofirmev 1,000 mg/100 ml 1,000 100 / 100 200 / 200 mg In 100 ml @ 400 mls/hr IVPB Q6H [facility] Rx#:[id number] Ancef 2,000 MG In 0.9 % Sodium 100 / 100 100 / 100 100 / 100 Chloride 100 ML @ 200 mls/hr IVPB Q8HR [facility] Rx#:[id number] Oral 480 / 480 Output: Urine 1200 / 1200 Other: Meal Breakfast Percent of Meal Consumed 100% Stool Size Large Stool Consistency soft Stool Characteristics Normal for Patient Stool Color Brown # Voids 1 2 # Bowel Movements 1 Weight 155.9 kg Blood Glucose* 129 117 Patient Weight 06/30/18 23:59 Weight 155.9 kg - Labs CBC & BMP: 06/30/18 05:00 06/30/18 05:00 Labs: Abnormal lab results WBC 13.1 K/mcL (4.3-11.1) H 06/30/18 05:00 Hgb 7.4 g/dL (11.5-15.4) L 06/30/18 05:00 Hct 25.3 % (35.3-44.9) L 06/30/18 05:00 MCV 66.2 fL (83.0-100.0) L 06/30/18 05:00 MCH 19.4 pg (28.0-33.3) L 06/30/18 05:00 MCHC 29.2 g/dL (31.6-35.5) L 06/30/18 05:00 RDW 19.3 % (11.5-14.5) H 06/30/18 05:00 Nucleated RBCs/100 WBC 0.2 /100 WBC (0) H 06/30/18 05:00 Polychromasia 1+ (Not Present) A 06/30/18 05:00 Hypochromasia Present (Not Present) A 06/30/18 05:00 Anisocytosis 2+ (Not Present) A 06/30/18 05:00 Microcytosis Present (Not Present) A 06/30/18 05:00 Macrocytosis Present (Not Present) A 06/30/18 05:00 Target Cells 1+ (Not Present) A 06/30/18 05:00 Stomatocytes 1+ (Not Present) A 06/30/18 05:00 ESR 100 mm/hr (0-15) H 06/26/18 10:37 Carbon Dioxide 34 mEq/L (23-29) H 06/30/18 05:00 Glucose 109 mg/dL (70-105) H 06/30/18 05:00 POC Glucose 117 mg/dL (70-99) H 06/29/18 19:57 C-Reactive Protein 112 mg/L (Less than 10) H 06/26/18 02:27 Vancomycin Trough 16 mcg/mL (5-10) H 06/27/18 19:07 Consult Discharge Plan - Plan Referrals: Joy Aiken CNP [Advanced Practice Nurse] - 07/16/18 1:45 pm Joy Valentine DO [Primary Care Provider] -
[2018-06-30] MEDS: Insulin LISPRO 300 UNITS/3 ML VIAL SQ SCH ×4 (08:47→20:38)
[2018-06-30] MEDS: Nicotine 21 MG PATCH.TD24 TD SCH (08:48)
[2018-06-30] MEDS: Multivit/Ca/Min/Fe/FA 1 TAB TABLET PO SCH (08:49)
[2018-06-30] MEDS: Cholecalciferol (D-3) 1,000 UNIT TABLET PO SCH (08:49)
[2018-06-30] MEDS: Ascorbic Acid 500 MG TABLET PO SCH ×2 (08:49→16:49)
[2018-06-30] MEDS: Furosemide 40 MG TABLET PO SCH (08:49)
[2018-06-30] MEDS: Gabapentin 400 MG CAPSULE PO SCH ×3 (08:49→20:34)
[2018-06-30] MEDS: ceFAZolin 2,000 MG in 0.9 % Sodium Chloride 100 ML IVPB SCH ×3 (08:57→23:23)
[2018-06-30] MEDS: Insulin NPH/REG 70/30 100 UNIT/ML (x5UNIT) SQ SCH ×2 (08:57→17:44)
[2018-06-30] MEDS: *HR* OxyCODONE Immed Rel 5 MG TABLET PO PRN ×2 (11:44→22:24)
--- NOTE | 2018-06-30 11:47 | Event Note ---
Date of Encounter: 06/30/18 Time of Encounter: 08:35 Left knee movable total knee replacement and placement of cement spacer 06/25/18 Patient seen at bedside, without complaints. Pain better controlled today. A&O x 3 Patient states she is eager to get to rehab today [facility] is intact - c/o irritation to posterior leg - no abnormality noted on exam at this time for visible proximal cast. Vitals and labs reviewed. Asymptomatic anemia intraop cultures show staph aureus ID consulted - appreciate their recommendations. Pain control: adequate Participating in PT. All questions and concerns addressed. Educated on use of incentive spirometer. Encouraged ambulation and proper hydration. Patient educated on post-operative restrictions and post-operative care. Assessment and plan: Continue with postoperative care Discharge plan: ECF once insurance authorization
--- NOTE | 2018-06-30 12:01 | Discharge Summary ---
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 Qualifiers: Encounter type: subsequent encounter Qualified Code(s): T84.50XD - Infection and inflammatory reaction due to unspecified internal joint prosthesis, subsequent encounter (2) Status post hardware removal Priority: Primary Status: Acute (3) Lung cancer Priority: Secondary Status: Chronic Qualifiers: Laterality: unspecified laterality Lung location: unspecified part of lung Qualified Code(s): C34.90 - Malignant neoplasm of unspecified part of unspecified bronchus or lung (4) KAROLYN (obstructive sleep apnea) Priority: Secondary Status: Chronic (5) Thyroid disorder Priority: Secondary Status: Chronic (6) Tobacco dependence Priority: Secondary Status: Chronic (7) Diabetes mellitus Priority: Secondary Status: Chronic Qualifiers: Diabetes mellitus type: 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 [facility] insulin use status Diabetes mellitus complication status: with unspecified complications Qualified Code(s): E11.8 - Type 2 diabetes mellitus with unspecified complications (8) Obesity Priority: Secondary Status: Chronic Qualifiers: Obesity type: unspecified obesity type Obesity classification: adult class 3 (BMI >= 40) Serious obesity comorbidity presence: unspecified whether serious comorbidity present Body mass index: BMI 50.0-59.9 Qualified Code(s): E66.01 - Morbid (severe) obesity due to excess calories; Z68.43 - Body mass index (BMI) 50-59.9, adult (9) COPD (chronic obstructive pulmonary disease) Priority: Secondary Status: Chronic Qualifiers: COPD type: unspecified COPD Qualified Code(s): J44.9 - Chronic obstructive pulmonary disease, unspecified - Hospital Course Hospital course: Ms. Briggs is a 52 year old female Date of procedure: 06/25/18 Pre-op diagnosis: Infected left total knee Post-op diagnosis: same Procedure: Left knee movable total knee replacement and placement of cement spacer Patient discharged to rehab with outpatient follow up arranged. - Time Spent with Patient Total time spent providing and/or coordinating discharge services: - Discharge Medications Prescriptions: New RX: OxyCODONE Immed Rel [Roxicodone 5 MG] 5 mg PO Q6HR PRN 5 Days #20 tablet PRN Reason: Severe Pain Continue RX: Cholecalciferol (Vitamin D3) [Vitamin D3] 50,000 unit PO FR RX: Duloxetine HCl [Cymbalta] 60 mg PO DAILY RX: Levothyroxine Sodium 150 mcg PO DAILY RX: Potassium Chloride [Klor-Con 10] 10 meq PO DAILY RX: Pravastatin Sodium [Pravachol] 80 mg PO HS RX: Cyclobenzaprine [Flexeril] 5 mg PO HS PRN PRN Reason: Muscle Pain RX: Furosemide [Lasix] 40 mg PO DAILY RX: Ascorbate Calcium [Vitamin C] 500 mg PO BID RX: Ferrous Sulfate [Iron] 325 mg PO BID RX: Ipratropium/Albuterol Sulfate [Iprat-Albut 0.5-3(2.5) mg/3 ml] 3 ml IH Q4H PRN PRN Reason: Shortness Of Breath RX: Losartan Potassium [Cozaar] 100 mg PO DAILY RX: Buspirone HCl [Buspar] 15 mg PO BID RX: Insulin NPH Hum/Reg Insulin Hm [Novolin 70-30 Flexpen] 50 unit SQ BID Discontinued RX: Gabapentin [Neurontin] 1,200 mg PO TID Home Medications: RX: Cholecalciferol (Vitamin D3) [Vitamin D3] 50,000 unit PO FR 03/23/17 [History] RX: Duloxetine HCl [Cymbalta] 60 mg PO DAILY 03/23/17 [History] RX: Levothyroxine Sodium 150 mcg PO DAILY 03/23/17 [History] RX: Potassium Chloride [Klor-Con 10] 10 meq PO DAILY 03/23/17 [History] RX: Pravastatin Sodium [Pravachol] 80 mg PO HS 03/23/17 [History] RX: Ascorbate Calcium [Vitamin C] 500 mg PO BID 12/30/17 [History] RX: Cyclobenzaprine [Flexeril] 5 mg PO HS PRN 12/30/17 [History] RX: Ferrous Sulfate [Iron] 325 mg PO BID 12/30/17 [History] RX: Furosemide [Lasix] 40 mg PO DAILY 12/30/17 [History] RX: Ipratropium/Albuterol Sulfate [Iprat-Albut 0.5-3(2.5) mg/3 ml] 3 ml IH Q4H PRN 12/30/17 [History] RX: Losartan Potassium [Cozaar] 100 mg PO DAILY 12/30/17 [History] RX: Buspirone HCl [Buspar] 15 mg PO BID 06/25/18 [History] RX: Insulin NPH Hum/Reg Insulin Hm [Novolin 70-30 Flexpen] 50 unit SQ BID 06/25/18 [History] RX: OxyCODONE Immed Rel [Roxicodone 5 MG] 5 mg PO Q6HR PRN 5 Days #20 tablet 06/30/18 [Rx] Allergies/Adverse Reactions: Allergy/AdvReac Type Severity Reaction Status Date / Time hydrocodone AdvReac Itching, Verified 06/25/18 07:05 Vomiting morphine AdvReac Itching Verified 06/25/18 07:05 Date of admission: 06/25/18 10:10 Primary care physician: Joy Valentine DO Consults: 06/25/18 11:19 Consult to Nutrition [CONS] Routine Comment: Consulting Provider: NUTRITION Reason for Dietary Consult: Other Other:: Proper nutrition to facilitate wound healing Consult to Occupational Therapy [CONS] Routine Comment: Evaluate, develop and implement POC Reason for Consult: post knee surgery Does patient have active BEDREST order?: No Is patient medically & hemodynamically stable?: Yes Consult to Orthopedic Navigator [CONS] [CONS] Routine Consult to Physical Therapy [CONS] Routine Comment: Evaluate, develop and impliment POC Reason for Consult: post knee surgery Does patient have active BEDREST order?: No Is patient medically & hemodynamically stable?: Yes Consult to Wire Spinner [CONS] Routine Reason for SW Consult: post op joint replacement RT Post Op Consult [CONS] Routine 06/25/18 13:17 Consult to Pastoral Services [CONS] Routine Comment: 06/27/18 12:30 Consult to Invasive Line Access Team [CONS] Routine Reason for Consult: Ancef x 6 weeks Line Type: Midline PICC line indications: snf Med/Antibiotic Time Notified: 12:31 Call Completed: Yes Discharging clinician: Karsten Argueta Anticipated date of discharge: 07/02/18 - VTE Documentation of Mechanical Device: Venous foot pump, device Labs on day of discharge: Labs from last 24 hours 06/30/18 06/30/18 06/30/18 11:18 05:00 05:00 WBC 13.1 H RBC 3.82 Hgb 7.4 L Hct 25.3 L MCV 66.2 L MCH 19.4 L MCHC 29.2 L RDW 19.3 H Plt Count 332 MPV 10.2 Immature Gran % 0.8 Seg Neutrophils % 64.5 Lymphocytes % 25.6 Monocytes % 5.4 Eosinophils % 3.5 Basophils % 0.2 Neutrophils # 8.5 Lymphocytes # 3.4 Monocytes # 0.7 Eosinophils # 0.5 Basophils # 0.0 Nucleated RBCs/100 WBC 0.2 H Platelet Estimate Normal Polychromasia 1+ A Hypochromasia Present A Anisocytosis 2+ A Microcytosis Present A Macrocytosis Present A Target Cells 1+ A Stomatocytes 1+ A Sodium 138 Potassium 4.3 Chloride 99 Carbon Dioxide 34 H BUN 9 Creatinine 0.65 Est GFR ( Amer) > 60 Est GFR (Non-Af Amer) > 60 BUN/Creatinine Ratio 14 Glucose 109 H POC Glucose 186 H Calculated Osmolality 285 Calcium 8.6 06/29/18 06/29/18 06/29/18 19:57 16:38 11:35 WBC RBC Hgb Hct MCV MCH MCHC RDW Plt Count MPV Immature Gran % Seg Neutrophils % Lymphocytes % Monocytes % Eosinophils % Basophils % Neutrophils # Lymphocytes # Monocytes # Eosinophils # Basophils # Nucleated RBCs/100 WBC Platelet Estimate Polychromasia Hypochromasia Anisocytosis Microcytosis Macrocytosis Target Cells Stomatocytes Sodium Potassium Chloride Carbon Dioxide BUN Creatinine Est GFR ( Amer) Est GFR (Non-Af Amer) BUN/Creatinine Ratio Glucose POC Glucose 117 H 141 H 129 H Calculated Osmolality Calcium 06/29/18 06/28/18 07:18 20:45 WBC RBC Hgb Hct MCV MCH MCHC RDW Plt Count MPV Immature Gran % Seg Neutrophils % Lymphocytes % Monocytes % Eosinophils % Basophils % Neutrophils # Lymphocytes # Monocytes # Eosinophils # Basophils # Nucleated RBCs/100 WBC Platelet Estimate Polychromasia Hypochromasia Anisocytosis Microcytosis Macrocytosis Target Cells Stomatocytes Sodium Potassium Chloride Carbon Dioxide BUN Creatinine Est GFR ( Amer) Est GFR (Non-Af Amer) BUN/Creatinine Ratio Glucose POC Glucose 115 H 137 H Calculated Osmolality Calcium - Impressions ITS Impressions Knee X-Ray 06/25/18 06:24 IMPRESSION: Anatomic alignment status post revision of the left knee arthroplasty hardware. Large suprapatellar effusion with drain in place. D/ / Sukhi Iqbal MD / Sukhi Iqbal MD Interpreting Provider: Sukhi Iqbal MD - Patient Status Disposition: Transfer Inpatient Rehab Fac Condition: Fair Functional capacity at discharge: uses cane/walker Overall status at discharge: patient is progressing back to baseline - Discharge Instructions Follow Up With: Meeta Rosa PAC [Physician Visual Designer] - 07/04/18 1:30 pm (ALSO, 07/11/18 @ 1:15PM ) Joy Aiken CNP [Advanced Practice Nurse] - 07/16/18 1:45 pm Joy Valentine DO [Primary Care Provider] - Prabhu Mondragon MD [Partnered Physician] - 07/14/18 10:30 am Additional Instructions: Discharge Instructions: Please call [facility] ([phone]), your Primary Care Physician, or report to the Emergency Room if you have any of the following symptoms: Nausea, vomiting, fever greater that 101.5, swelling, chest pain, shortness of breath, increased pain/redness/drainage/odor for your incision site, numbness/tingling, or any other concerning symptoms. ACTIVITY:Weight-bearing as tolerated. You may progress off support (crutches or walker) as tolerated. Incentive Spirometer 10 times an hour. MEDICATIONS: Upon discharge resume your home medications. Take all the medications as prescribed. Take a stool softener if taking narcotic pain medications. Stool softeners are only effective if you drink enough fluids. Drink 6-8 glass of water or fluids a day, unless this is not allowed for another health problem. Despite using stool softeners, if you haven't had a bowel movement in 3 days, please switch to a gentle laxative. Gentle laxatives are sold over the counter. You should have a bowel movement within 24 hours, if not call the office. You will be discharged from the hospital with a prescription for pain medication. You are encouraged to decrease the use of narcotic pain medication as tolerated. Should you require a refill, please call the office. [facility] prescribes narcotic pain medication for only 4-6 weeks after surgery. If you require pain medication beyond this time period, you may be referred to your Primary Care Physician or to the Pain Clinic for further evaluation. Plan ahead for refills on pain medication as many narcotics either need to be picked up at the office or mailed. It is best to call 48-72 hours in advance of needing a prescription refill so you don't run out of medication. To help control the post-operative pain, you may take NSAIDs (Aleve,Advil, Motrin, Ibuprofen, Naprosyn) or Tylenol as prescribed on the bottle in addition to the pain medication. ANTICOAGULATION (blood thinners): Continue your Aspirin, Lovenox or Coumadin as prescribed to help prevent a blood clot in the leg or in the lungs. As long as your incision remains dry and you tolerate the NSAIDs (Aleve, Advil, Motrin, ibuprofen, naprosyn), it is OK to use the NSAIDS while you are taking your anticoagulation medication. Should your incision start to drain, stop the NSAID and contact our office. Common symptoms of blood clot in the legs include: localized pain, swelling, calf tenderness, redness or discoloration of the skin. Blood clot in the lung symptoms include: shortness of breath, rapid pulse, sweating, and chest pain that worsens with deep breathing, coughing up blood, lightheadedness, feelings of anxiety. If you experience any of these symptoms notify your physician immediately, go to the emergency room, or if having trouble breathing, call 911. WOUND CARE: KEEP CAST CLEAN AND DRY. DO NOT PUT ANYTHING INSIDE OR DOWN IN CAST. IF CAST GETS WET OR SOILED, PLEASE CALL THE OFFICE. FOLLOW-UP: Please follow up with your surgeon in the orthopedic clinic in 4 weeks from the day of surgery. If you have danelle that need to be removed, you will need to come back to the office in 10-14 days from the day of surgery. - Diet and Activity Activity: as per physical therapy Diet: advance to your usual diet
[2018-06-30] MEDS: ALPRAZolam 0.5 MG TABLET PO PRN (22:24)
[2018-07-01] MEDS: Acetaminophen IV 1,000 MG/100 ML INFUS..BTL IVPB SCH ×3 (03:46→15:45)
[2018-07-01] MEDS: *HR* Enoxaparin 30 MG/0.3 ML SYRINGE SQ SCH ×2 (05:55→17:28)
--- NOTE | 2018-07-01 06:40 | Orthopedics Progress Note ---
Date of Encounter: 07/01/18 Time of Encounter: 06:40 - Assessment and Plan (1) Acute blood loss anemia Current Visit: Yes Status: Acute Subjective Principal diagnosis: Infected left total knee arthroplasty Interval history: Patient was seen this morning doing well without complaints. Afebrile vital signs stable. Operative extremity: Neurovascularly intact Cast intact Assessment and plan: Continue with postoperative care plan for discharge awaiting placement Objective Vital signs: Vital Signs Temp Pulse Resp BP Pulse Ox 07/01/18 03:49 97.6 F 73 15 121/74 91 06/30/18 23:15 98.2 F 77 16 109/53 98 06/30/18 20:49 90 06/30/18 19:18 98.2 F 81 15 129/75 90 06/30/18 15:01 98.1 F 73 20 110/71 93 06/30/18 11:29 98.1 F 70 20 130/74 91 06/30/18 09:14 90 06/30/18 07:38 98.0 F 72 20 128/66 90 Intake and Output 06/30/18 06/30/18 07/01/18 15:59 23:59 07:59 Intake Total 540 / 540 780 / 780 200 / 200 Output Total 600 / 600 500 / 500 Balance -60 / -60 280 / 280 200 / 200 Intake: IV Fluids 300 / 300 300 / 300 200 / 200 Ofirmev 1,000 mg/100 ml 1,000 200 / 200 200 / 200 100 / 100 mg In 100 ml @ 400 mls/hr IVPB Q6H [facility] Rx#:[id number] Ancef 2,000 MG In 0.9 % Sodium 100 / 100 100 / 100 100 / 100 Chloride 100 ML @ 200 mls/hr IVPB Q8HR [facility] Rx#:[id number] Oral 240 / 240 480 / 480 Output: Urine 600 / 600 500 / 500 Other: Meal Lunch Dinner Percent of Meal Consumed 80% 100% Stool Size Copious Stool Consistency soft Stool Color Brown # Voids 1 1 Weight 156 kg Blood Glucose* 186 249 Patient Weight 07/01/18 23:59 Weight 156 kg - Labs CBC & BMP: 06/30/18 05:00 06/30/18 05:00 Labs: Abnormal lab results WBC 13.1 K/mcL (4.3-11.1) H 06/30/18 05:00 Hgb 7.4 g/dL (11.5-15.4) L 06/30/18 05:00 Hct 25.3 % (35.3-44.9) L 06/30/18 05:00 MCV 66.2 fL (83.0-100.0) L 06/30/18 05:00 MCH 19.4 pg (28.0-33.3) L 06/30/18 05:00 MCHC 29.2 g/dL (31.6-35.5) L 06/30/18 05:00 RDW 19.3 % (11.5-14.5) H 06/30/18 05:00 Nucleated RBCs/100 WBC 0.2 /100 WBC (0) H 06/30/18 05:00 Polychromasia 1+ (Not Present) A 06/30/18 05:00 Hypochromasia Present (Not Present) A 06/30/18 05:00 Anisocytosis 2+ (Not Present) A 06/30/18 05:00 Microcytosis Present (Not Present) A 06/30/18 05:00 Macrocytosis Present (Not Present) A 06/30/18 05:00 Target Cells 1+ (Not Present) A 06/30/18 05:00 Stomatocytes 1+ (Not Present) A 06/30/18 05:00 ESR 100 mm/hr (0-15) H 06/26/18 10:37 Carbon Dioxide 34 mEq/L (23-29) H 06/30/18 05:00 Glucose 109 mg/dL (70-105) H 06/30/18 05:00 POC Glucose 186 mg/dL (70-99) H 06/30/18 11:18 C-Reactive Protein 112 mg/L (Less than 10) H 06/26/18 02:27 Vancomycin Trough 16 mcg/mL (5-10) H 06/27/18 19:07 - VTE Documentation of Mechanical Device: Venous foot pump, device Consult Discharge Plan - Plan Referrals: Joy Aiken CNP [Advanced Practice Nurse] - 07/16/18 1:45 pm Joy Valentine DO [Primary Care Provider] - Prescriptions: Gabapentin [Neurontin] 1,200 mg PO TID 3 Days #12 tablet OxyCODONE Immed Rel [Roxicodone 5 MG] 5 mg PO Q6HR PRN 5 Days #20 tablet PRN Reason: Severe Pain
[2018-07-01] MEDS: Gabapentin 400 MG CAPSULE PO SCH ×3 (08:01→21:55)
[2018-07-01] MEDS: Multivit/Ca/Min/Fe/FA 1 TAB TABLET PO SCH (08:01)
[2018-07-01] MEDS: *HR* OxyCODONE Immed Rel 5 MG TABLET PO PRN ×4 (08:01→22:00)
[2018-07-01] MEDS: Cholecalciferol (D-3) 1,000 UNIT TABLET PO SCH (08:01)
[2018-07-01] MEDS: Ascorbic Acid 500 MG TABLET PO SCH ×2 (08:01→17:19)
[2018-07-01] MEDS: Furosemide 40 MG TABLET PO SCH (08:01)
[2018-07-01] MEDS: Nicotine 21 MG PATCH.TD24 TD SCH (08:02)
[2018-07-01] MEDS: Insulin LISPRO 300 UNITS/3 ML VIAL SQ SCH ×4 (08:51→21:55)
[2018-07-01] MEDS: ceFAZolin 2,000 MG in 0.9 % Sodium Chloride 100 ML IVPB SCH ×2 (08:54→17:46)
[2018-07-01] MEDS: Insulin NPH/REG 70/30 100 UNIT/ML (x5UNIT) SQ SCH ×2 (09:47→17:46)
--- NOTE | 2018-07-01 10:59 | Infectious Disease Progress No ---
ID Progress Note Date of Encounter: 07/01/18 Time of Encounter: 10:00 - Subjective Subjective: Patient seen and examined. No acute events noted overnight. Patient continues to complain of pain in the left knee, improved. Denies fevers, chills, or rigors. Denies chest pain, shortness of breath, or cough. Denies nausea, vomiting, diarrhea, or constipation. Denies abdominal pain or urinary complaints. States her appetite is good. Denies any oral thrush or skin rashes. Pending insurance approval for transfer to [facility]. - Objective CBC & Chem 7: 07/01/18 22:05 06/30/18 05:00 - Line Documentation Line Documentation: Midline (Upper extremity with transparent dressing clean, dry, and intact.) - Exam Vitals: Temp Pulse Resp BP Pulse Ox 97.6 F 69 14 128/65 92 07/01/18 06:33 07/01/18 06:33 07/01/18 06:33 07/01/18 06:33 07/01/18 06:33 Exam: Head: Atraumatic, normal inspection, normocephalic. Eye: EOMI, PERRLA, no scleral icterus noted. ENT: Mucous membranes moist. No odontogenic infection noted. Neck: Normal inspection, no meningismus. Respiratory: Clear to auscultation. No rales, respiratory distress, rhonchi, or wheezes noted. Cardiovascular: Regular rate and rhythm, S1 and S2 audible. No murmurs, rubs, or gallops. GI: Soft, obese, normal bowel sounds. Extremities:No joint swelling, pedal edema, or tenderness noted. Hard fiberglass cast noted to the left lower extremity. Positive motor and sensation to the distal left lower extremity. Neurological: Alert, oriented 3, no focal deficits. Psychiatric: normal affect, normal mood. Skin: Dry, intact, warm. Normal color. No rashes. - Assessment and Plan (1) Leukocytosis Current Visit: No Status: Acute Likely secondary to left knee prosthetic joint infection and recent surgical procedure. Chronic. Continue to trend. Qualifiers: Leukocytosis type: unspecified Qualified Code(s): D72.829 - Elevated white blood cell count, unspecified SNOMED Code(s): 036400556, 603981592 (2) Infection of total left knee replacement Current Visit: No Status: Acute 12/02/2017: Status post robotic left total knee replacement by Dr. Argueta. 12/23/2017: injury of her left knee while getting into a van and 12/25/17 her dog jumped on her knee and scratched open the middle of her incision. 12/30/2017: Left knee open arthrotomy, irrigation and debridement and extensor mechanism repair. Intra-Op cultures MSSA. Treated with IV cefazolin for 8 weeks 03/12/2018:Wound dehiscence and cultures grew MSSA again. Orthopedic recommended no surgical intervention at that time. Patient was discharged on Ancef and rifampin x 12 weeks through Apr 01 2018; then patient was switched to keflex 06/24/18: patient with cat scratch and drainage ; arthrotomy with purulence; culture positive for staph aureus susceptibility pending 06/25/18: s/p Left knee movable total knee replacement and placement of cement spacer Causative organism: MSSA. Orthopedics consult. Status post left knee movable total knee replacement and placement of cement spacer 06/25/[address] Argueta. Operative note reviewed. Intra-Op cultures positive for MSSA. Currently on cefazolin. Qualifiers: Encounter type: initial encounter Qualified Code(s): T84.54XA - Infection and inflammatory reaction due to internal left knee prosthesis, initial encounter; Z96.652 - Presence of left artificial knee joint SNOMED Code(s): 525673781 (3) Anxiety Current Visit: Yes Status: Acute Resume home Xanax dose. SNOMED Code(s): 74616634 (4) Diabetes mellitus type 2 in obese Current Visit: No Status: Acute Recommend strict glucose control and monitoring to promote wound healing and prevent reinfection. SNOMED Code(s): 06100508 (5) Hyperlipidemia Current Visit: No Status: Chronic Qualifiers: Hyperlipidemia type: mixed hyperlipidemia Qualified Code(s): E78.2 - Mixed hyperlipidemia SNOMED Code(s): 27775251 (6) Hypertension Current Visit: No Status: Chronic Qualifiers: Hypertension type: essential hypertension Qualified Code(s): I10 - Essential (primary) hypertension SNOMED Code(s): 24982011 (7) Morbid obesity with BMI of 50.0-59.9, adult Current Visit: No Status: Chronic SNOMED Code(s): 445563225, 33435549340740 (8) Tobacco consumption Current Visit: No Status: Chronic Nicotine replacement therapy. SNOMED Code(s): 663593623 - Recommendations Recommendations: Wound care and activity restrictions per the orthopedics team. Continue cefazolin 2 g IV every 8 hours. Duration of treatment depends on the clinical picture, but likely 6 weeks. Monitor renal function and for drug toxicity and dose adjust antibiotics. public services librarian to assist with discharge planning. Will need weekly CBC, BUN/Cr, ESR, CRP. Will need weekly midline care per protocol. Follow up with ID 07/16/18 at 1345. - VTE Documentation of Mechanical Device: Venous foot pump, device Consult Discharge Plan - Plan Referrals: Joy Aiken CNP [Advanced Practice Nurse] - 07/16/18 1:45 pm Joy Valentine DO [Primary Care Provider] - Prescriptions: RX: OxyCODONE Immed Rel [Roxicodone 5 MG] 5 mg PO Q6HR PRN 5 Days #20 tablet PRN Reason: Severe Pain RX: Gabapentin [Neurontin] 1,200 mg PO TID 3 Days #12 tablet - Attending Attestation I have personally performed a face to face evaluation on this patient. I have reviewed and agree with the care plan. History and Exam by me shows: Patient seen and examined. Patient was crying because she can get to the [facility] that she wanted to. Other than that she is doing okay. 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
[2018-07-01] MEDS: *HR* FentaNYL PATCH 25 MCG PATCH TD SCH (14:18)
--- NOTE | 2018-07-01 14:36 | Infectious Disease Progress No ---
ID Progress Note Date of Encounter: 06/30/18 Time of Encounter: 09:55 - Subjective Subjective: Patient seen and examined. No acute events noted overnight. Patient continues to complain of pain in the left knee, improved. Denies fevers, chills, or rigors. Denies chest pain, shortness of breath, or cough. Denies nausea, vomiting, diarrhea, or constipation. Denies abdominal pain or urinary complaints. States her appetite is good. Denies any oral thrush or skin rashes. - Objective CBC & Chem 7: 06/30/18 05:00 06/30/18 05:00 - Line Documentation Line Documentation: Midline (Upper extremity with transparent dressing clean, dry, and intact.) - Exam Vitals: Temp Pulse Resp BP Pulse Ox 98.1 F 70 20 130/74 91 06/30/18 11:29 06/30/18 11:29 06/30/18 11:29 06/30/18 11:29 06/30/18 11:29 Exam: Head: Atraumatic, normal inspection, normocephalic. Eye: EOMI, PERRLA, no scleral icterus noted. ENT: Mucous membranes moist. No odontogenic infection noted. Neck: Normal inspection, no meningismus. Respiratory: Clear to auscultation. No rales, respiratory distress, rhonchi, or wheezes noted. Cardiovascular: Regular rate and rhythm, S1 and S2 audible. No murmurs, rubs, or gallops. GI: Soft, obese, normal bowel sounds. Extremities:No joint swelling, pedal edema, or tenderness noted. Hard fibergla ss cast noted to the left lower extremity. Positive motor and sensation to the distal left lower extremity. Neurological: Alert, oriented 3, no focal deficits. Psychiatric: normal affect, normal mood. Skin: Dry, intact, warm. Normal color. No rashes. - Assessment and Plan (1) Leukocytosis Current Visit: No Status: Acute Likely secondary to left knee prosthetic joint infection and recent surgical procedure. Chronic. Continue to trend. 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 Argueta. 12/23/2017: injury of her left knee while getting into a van and 12/25/17 her dog jumped on her knee and scratched open the middle of her incision. 12/30/2017: Left knee open arthrotomy, irrigation and debridement and extensor mechanism repair. Intra-Op cultures MSSA. Treated with IV cefazolin for 8 weeks 03/12/2018:Wound dehiscence and cultures grew MSSA again. Orthopedic recommended no surgical intervention at that time. Patient was discharged on Ancef and rifampin x 12 weeks through Apr 01 2018; then patient was switched to keflex 06/24/18: patient with cat scratch and drainage ; arthrotomy with purulence; culture positive for staph aureus susceptibility pending 06/25/18: s/p Left knee movable total knee replacement and placement of cement spacer Causative organism: MSSA. Orthopedics consult. Status post left knee movable total knee replacement and placement of cement spacer 06/25/[address] Argueta. Operative note reviewed. Intra-Op cultures positive for MSSA. Currently on cefazolin. Qualifiers: Encounter type: initial encounter Qualified Code(s): T84.54XA - Infection and inflammatory reaction due to internal left knee prosthesis, initial encounter; Z96.652 - Presence of left artificial knee joint SNOMED Code(s): 202739744 (3) Anxiety Current Visit: Yes Status: Acute Resume home Xanax dose. SNOMED Code(s): 03600610 (4) Diabetes mellitus type 2 in obese Current Visit: No Status: Acute Recommend strict glucose control and monitoring to promote wound healing and prevent reinfection. SNOMED Code(s): 10719927 (5) Hyperlipidemia Current Visit: No Status: Chronic Qualifiers: Hyperlipidemia type: mixed hyperlipidemia Qualified Code(s): E78.2 - Mixed hyperlipidemia SNOMED Code(s): 22058715 (6) Hypertension Current Visit: No Status: Chronic Qualifiers: Hypertension type: essential hypertension Qualified Code(s): I10 - Ess ential (primary) hypertension SNOMED Code(s): 57246097 (7) Morbid obesity with BMI of 50.0-59.9, adult Current Visit: No Status: Chronic SNOMED Code(s): 921571958, 99638205114240 (8) Tobacco consumption Current Visit: No Status: Chronic Nicotine replacement therapy. SNOMED Code(s): 795879993 - Recommendations Recommendations: Wound care and activity restrictions per the orthopedics team. Continue cefazolin 2 g IV every 8 hours. Duration of treatment depends on the clinical picture, but likely 6 weeks. Monitor renal function and for drug toxicity and dose adjust antibiotics. director client services to assist with discharge planning. Will need weekly CBC, BUN/Cr, ESR, CRP. Will need weekly midline care per protocol. Follow up with ID 07/16/18 at 1345. - VTE Documentation of Mechanical Device: Venous foot pump, device Consult Discharge Plan - Plan Referrals: Joy Aiken CNP [Advanced Practice Nurse] - 07/16/18 1:45 pm Joy Valentine DO [Primary Care Provider] - Prescriptions: RX: OxyCODONE Immed Rel [Roxicodone 5 MG] 5 mg PO Q6HR PRN 5 Days #20 tablet PRN Reason: Severe Pain RX: Gabapentin [Neurontin] 1,200 mg PO TID 3 Days #12 tablet - Attending Attestation I have personally performed a face to face evaluation on this patient. I have reviewed and agree with the care plan. 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
[2018-07-01] MEDS ORDERED: Acetaminophen 325 MG TABLET PO PRN (19:33)
[2018-07-01] MEDS: ALPRAZolam 0.5 MG TABLET PO PRN (22:00)
[2018-07-01 22:18] LABS: Basophils % 0.2 %; Eosinophils % 3.7 %; Hemoglobin 8.2 g/dL (11.5-15.4); Lymphocytes # 3.7 K/mcL (0.6-4.6); Lymphocytes % 24.8 %; Mean Corpuscular HGB Conc 29.3 g/dL (31.6-35.5); Mean Corpuscular Hemoglobin 19.5 pg (28.0-33.3); Mean Corpuscular Volume 66.7 fL (83.0-100.0); Mean Platelet Volume 9.7 fL (9.4-12.4); Monocytes # 0.7 K/mcL (0.0-1.3); Monocytes % 4.7 %; Nucleated Red Blood Cells 0.1 /100 WBC (0); Platelet Count 402 K/mcL (140-400); Red Cell Distribution Width 19.7 % (11.5-14.5); Segmented Neutrophils % 65.6 %
[2018-07-01 22:24] LABS: Eosinophils # 0.5 K/mcL (0.0-0.6); Neutrophils # 9.6 K/mcL (1.6-8.9)
[2018-07-01 23:06] LABS: Anisocytosis 2+ (Not Present); Hypochromasia Present (Not Present); Platelet Estimate Normal (Normal); Polychromasia 1+ (Not Present)
[2018-07-02] MEDS: ceFAZolin 2,000 MG in 0.9 % Sodium Chloride 100 ML IVPB SCH ×2 (01:08→09:23)
--- NOTE | 2018-07-02 06:27 | Orthopedics Progress Note ---
Date of Encounter: 07/02/18 Time of Encounter: 06:27 - Assessment and Plan (1) Acute blood loss anemia Current Visit: Yes Status: Acute Subjective Principal diagnosis: Infected left total knee arthroplasty Interval history: Patient was seen this morning doing well without complaints. Afebrile vital signs stable. Operative extremity: Neurovascularly intact Cast intact Assessment and plan: Continue with postoperative care plan for discharge awaiting placement Objective Vital signs: Vital Signs Temp Pulse Resp BP Pulse Ox 07/01/18 23:11 98.4 F 71 16 123/79 96 07/01/18 19:09 98.7 F 78 15 117/69 90 07/01/18 15:27 97.9 F 75 17 116/71 94 07/01/18 12:18 97.7 F 70 14 136/77 94 07/01/18 06:33 97.6 F 69 14 128/65 92 Intake and Output 07/01/18 07/01/18 07/02/18 15:59 23:59 07:59 Intake Total 540 / 540 440 / 440 Output Total 300 / 300 Balance 240 / 240 440 / 440 Intake: IV Fluids 100 / 100 200 / 200 Ofirmev 1,000 mg/100 ml 1,000 100 / 100 mg In 100 ml @ 400 mls/hr IVPB Q6H [facility] Rx#:[id number] Ancef 2,000 MG In 0.9 % Sodium 100 / 100 100 / 100 Chloride 100 ML @ 200 mls/hr IVPB Q8HR [facility] Rx#:[id number] Oral 440 / 440 240 / 240 Output: Urine 300 / 300 Other: Meal Lunch Dinner Percent of Meal Consumed 100% 100% Stool Size Large Stool Consistency formed # Voids 1 1 1 # Bowel Movements 1 Weight 156.2 kg Blood Glucose* 178 137 Patient Weight 07/02/18 23:59 Weight 156.2 kg - Labs CBC & BMP: 07/01/18 22:05 06/30/18 05:00 Labs: Abnormal lab results WBC 14.7 K/mcL (4.3-11.1) H 07/01/18 22:05 Hgb 8.2 g/dL (11.5-15.4) L 07/01/18 22:05 Hct 28.0 % (35.3-44.9) L 07/01/18 22:05 MCV 66.7 fL (83.0-100.0) L 07/01/18 22:05 MCH 19.5 pg (28.0-33.3) L 07/01/18 22:05 MCHC 29.3 g/dL (31.6-35.5) L 07/01/18 22:05 RDW 19.7 % (11.5-14.5) H 07/01/18 22:05 Plt Count 402 K/mcL (140-400) H 07/01/18 22:05 Neutrophils # 9.6 K/mcL (1.6-8.9) H 07/01/18 22:05 Nucleated RBCs/100 WBC 0.1 /100 WBC (0) H 07/01/18 22:05 Polychromasia 1+ (Not Present) A 07/01/18 22:05 Hypochromasia Present (Not Present) A 07/01/18 22:05 Anisocytosis 2+ (Not Present) A 07/01/18 22:05 Microcytosis Present (Not Present) A 06/30/18 05:00 Macrocytosis Present (Not Present) A 06/30/18 05:00 Target Cells 1+ (Not Present) A 06/30/18 05:00 Stomatocytes 1+ (Not Present) A 06/30/18 05:00 ESR 100 mm/hr (0-15) H 06/26/18 10:37 Carbon Dioxide 34 mEq/L (23-29) H 06/30/18 05:00 Glucose 109 mg/dL (70-105) H 06/30/18 05:00 POC Glucose 137 mg/dL (70-99) H 07/01/18 20:07 C-Reactive Protein 112 mg/L (Less than 10) H 06/26/18 02:27 Vancomycin Trough 16 mcg/mL (5-10) H 06/27/18 19:07 - VTE Documentation of Mechanical Device: Venous foot pump, device Consult Discharge Plan - Plan Referrals: Joy Aiken CNP [Advanced Practice Nurse] - 07/16/18 1:45 pm Joy Valentine DO [Primary Care Provider] - Prescriptions: Gabapentin [Neurontin] 1,200 mg PO TID 3 Days #12 tablet OxyCODONE Immed Rel [Roxicodone 5 MG] 5 mg PO Q6HR PRN 5 Days #20 tablet PRN Reason: Severe Pain
[2018-07-02] MEDS: *HR* Enoxaparin 30 MG/0.3 ML SYRINGE SQ SCH (06:41)
--- NOTE | 2018-07-02 08:45 | Event Note ---
Date of Encounter: 07/02/18
[2018-07-02] MEDS: Insulin NPH/REG 70/30 100 UNIT/ML (x5UNIT) SQ SCH (09:00)
[2018-07-02] MEDS: Ascorbic Acid 500 MG TABLET PO SCH (09:01)
[2018-07-02] MEDS: Nicotine 21 MG PATCH.TD24 TD SCH (09:02)
[2018-07-02] MEDS: Furosemide 40 MG TABLET PO SCH (09:03)
[2018-07-02] MEDS: Gabapentin 400 MG CAPSULE PO SCH (09:04)
[2018-07-02] MEDS: Multivit/Ca/Min/Fe/FA 1 TAB TABLET PO SCH (09:04)
[2018-07-02] MEDS: Cholecalciferol (D-3) 1,000 UNIT TABLET PO SCH (09:06)
[2018-07-02] MEDS: Insulin LISPRO 300 UNITS/3 ML VIAL SQ SCH ×2 (09:07→12:55)
[2018-07-02] MEDS: *HR* OxyCODONE Immed Rel 5 MG TABLET PO PRN (10:32)
--- NOTE | 2018-07-02 10:42 | Infectious Disease Progress No ---
ID Progress Note Date of Encounter: 07/02/18 Time of Encounter: 10:41 - Subjective Subjective: Patient seen and examined. No acute events noted overnight. Patient continues to complain of pain in the left knee, improved. Denies fevers, chills, or rigors. Denies chest pain, shortness of breath, or cough. Denies nausea, vomiting, diarrhea, or constipation. Denies abdominal pain or urinary complaints. States her appetite is good. Denies any oral thrush or skin rashes. Pending insurance approval for transfer to [facility]. - Objective CBC & Chem 7: 07/01/18 22:05 06/30/18 05:00 - Line Documentation Line Documentation: Midline (Upper extremity with transparent dressing clean, dry, and intact.) - Exam Vitals: Temp Pulse Resp BP Pulse Ox 98.7 F 81 16 123/72 92 07/02/18 06:36 07/02/18 06:36 07/02/18 06:36 07/02/18 06:36 07/02/18 06:36 Exam: Head: Atraumatic, normal inspection, normocephalic. Eye: EOMI, PERRLA, no scleral icterus noted. ENT: Mucous membranes moist. No odontogenic infection noted. Neck: Normal inspection, no meningismus. Respiratory: Clear to auscultation. No rales, respiratory distress, rhonchi, or wheezes noted. Cardiovascular: Regular rate and rhythm, S1 and S2 audible. No murmurs, rubs, or gallops. GI: Soft, obese, normal bowel sounds. Extremities:No joint swelling, pedal edema, or tenderness noted. Hard fiberglass cast noted to the left lower extremity. Positive motor and sensation to the distal left lower extremity. Neurological: Alert, oriented 3, no focal deficits. Psychiatric: normal affect, normal mood. Skin: Dry, intact, warm. Normal color. No rashes. 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 Chronic. Continue to trend. 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 Argueta. 12/23/2017: injury of her left knee while getting into a van and 12/25/17 her dog jumped on her knee and scratched open the middle of her incision. 12/30/2017: Left knee open arthrotomy, irrigation and debridement and extensor mechanism repair. Intra-Op cultures MSSA. Treated with IV cefazolin for 8 weeks 03/12/2018:Wound dehiscence and cultures grew MSSA again. Orthopedic recommended no surgical intervention at that time. Patient was discharged on Ancef and rifampin x 12 weeks through Apr 01 2018; then patient was switched to keflex 06/24/18: patient with cat scratch and drainage ; arthrotomy with purulence; culture positive for staph aureus susceptibility pending 06/25/18: s/p Left knee movable total knee replacement and placement of cement spacer Causative organism: MSSA. Orthopedics consult. Status post left knee movable total knee replacement and placement of cement spacer 06/25/[address] Argueta. Operative note reviewed. Intra-Op cultures positive for MSSA. Currently on cefazolin. Qualifiers: Encounter type: initial encounter Qualified Code(s): T84.54XA - Infection and inflammatory reaction due to internal left knee prosthesis, initial encounter; Z96.652 - Presence of left artificial knee joint SNOMED Code(s): 958268150 (3) Anxiety Status: Acute Resume home Xanax dose. SNOMED Code(s): 06759238 (4) Diabetes mellitus type 2 in obese Status: Acute Recommend strict glucose control and monitoring to promote wound healing and pr event reinfection. SNOMED Code(s): 78403228 (5) Hyperlipidemia Status: Chronic Qualifiers: Hyperlipidemia type: mixed hyperlipidemia Qualified Code(s): E78.2 - Mixed hyperlipidemia SNOMED Code(s): 03798403 (6) Hypertension Status: Chronic Qualifiers: Hypertension type: essential hypertension Qualified Code(s): I10 - Essential (primary) hypertension SNOMED Code(s): 93097242 (7) Morbid obesity with BMI of 50.0-59.9, adult Status: Chronic SNOMED Code(s): 295674749, 68934333479445 (8) Tobacco consumption Status: Chronic Nicotine replacement therapy. SNOMED Code(s): 961894472 - Recommendations Recommendations: Wound care and activity restrictions per the orthopedics team. Continue cefazolin 2 g IV every 8 hours. Duration of treatment depends on the clinical picture, but likely 6 weeks. Monitor renal function and for drug toxicity and dose adjust antibiotics. office services associate to assist with discharge planning. Will need weekly CBC, BUN/Cr, ESR, CRP. Will need weekly midline care per protocol. Follow up with ID 07/16/18 at 1345. - VTE Documentation of Mechanical Device: Venous foot pump, device Consult Discharge Plan - Plan Additional Instructions: Discharge Instructions: Please call [facility] ([phone]), your Primary Care Physician, or report to the Emergency Room if you have any of the following symptoms: Nausea, vomiting, fever greater that 101.5, swelling, chest pain, shortness of breath, increased pain/redness/drainage/odor for your incision site, numbness/tingling, or any other concerning symptoms. ACTIVITY:Weight-bearing as tolerated. You may progress off support (crutches or walker) as tolerated. Incentive Spirometer 10 times an hour. MEDICATIONS: Upon discharge resume your home medications. Take all the me dications as prescribed. Take a stool softener if taking narcotic pain medications. Stool softeners are only effective if you drink enough fluids. Drink 6-8 glass of water or fluids a day, unless this is not allowed for another health problem. Despite using stool softeners, if you haven't had a bowel movement in 3 days, please switch to a gentle laxative. Gentle laxatives are sold over the counter. You should have a bowel movement within 24 hours, if not call the office. You will be discharged from the hospital with a prescription for pain medication. You are encouraged to decrease the use of narcotic pain medication as tolerated. Should you require a refill, please call the office. [facility] prescribes narcotic pain medication for only 4-6 weeks after surgery. If you require pain medication beyond this time period, you may be referred to your Primary Care Physician or to the Pain Clinic for further evaluation. Plan ahead for refills on pain medication as many narcotics either need to be picked up at the office or mailed. It is best to call 48-72 hours in advance of needing a prescription refill so you don't run out of medication. To help control the post-operative pain, you may take NSAIDs (Aleve,Advil, Motrin, Ibuprofen, Naprosyn) or Tylenol as prescribed on the bottle in addition to the pain medication. ANTICOAGULATION (blood thinners): Continue your Aspirin, Lovenox or Coumadin as prescribed to help prevent a blood clot in the leg or in the lungs. As long as your incision remains dry and you tolerate the NSAIDs (Aleve, Advil, Motrin, ibuprofen, naprosyn), it is OK to use the NSAIDS while you are taking your anticoagulation medication. Should your incision start to drain, stop the NSAID and contact our office. Common symptoms of blood clot in the legs include: localized pain, swelling, calf tenderness, redness or discoloration of the skin. Blood clot in the lung symptoms include: shortness of breath, rapid pulse, sweating, and chest pain th at worsens with deep breathing, coughing up blood, lightheadedness, feelings of anxiety. If you experience any of these symptoms notify your physician immediately, go to the emergency room, or if having trouble breathing, call 911. WOUND CARE: KEEP CAST CLEAN AND DRY. DO NOT PUT ANYTHING INSIDE OR DOWN IN CAST. IF CAST GETS WET OR SOILED, PLEASE CALL THE OFFICE. FOLLOW-UP: Please follow up with your surgeon in the orthopedic clinic in 4 week s from the day of surgery. If you have danelle that need to be removed, you will need to come back to the office in 10-14 days from the day of surgery. Referrals: Meeta Rosa PAC [Physician Crop Research Scientist] - 07/04/18 1:30 pm (ALSO, 07/11/18 @ 1:15PM ) Joy Aiken CNP [Advanced Practice Nurse] - 07/16/18 1:45 pm Joy Valentine DO [Primary Care Provider] - Prabhu Mondragon MD [Partnered Physician] - 07/14/18 10:30 am Prescriptions: RX: OxyCODONE Immed Rel [Roxicodone 5 MG] 5 mg PO Q6HR PRN 5 Days #20 tablet PRN Reason: Severe Pain - Attending Attestation I have personally performed a face to face evaluation on this patient. I have reviewed and agree with the care plan. History and Exam by me shows: Patient seen and examined. Patient was crying because she can get to the [facility] home that she wanted to. Other than that she is doing okay. 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
[2018-07-02 10:55] VITALS: BP 122/69
== END 2018-07-02 14:30 | DRG 464 ==
LOC: SAMDAY 06:08 → 3NENU 10:10
PROVIDERS: ADMIT Orthopaedic Surgery; ATTEND Orthopaedic Surgery